=== PATIENT | male | born 2005 | race Caucasian/White ===

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

== ENCOUNTER 2025-01-01 05:38 | Emergency (ER) | payer OTHER, SELFPAY ==
--- NOTE | ~2025-01-01 | CT_ITS ---
EXAMINATION: CT ANGIOGRAM HEAD AND NECK CLINICAL INFORMATION: Severe headache, 19-year-old male. COMPARISON: None available. TECHNIQUE: Noncontrast axial imaging of the head was performed. This was followed by test bolus sequences and head and neck intravenous bolus administration 70 mL of Omnipaque 350. Helical imaging was performed in the axial plane from the aortic arch to the skull vertex. The data was processed at the certified hyperbaric technologist's workstation for generation of MIP sequences. Angled MIPs and volume rendered reformatted images were also generated at an offline 3D workstation. Stenoses are assessed in accordance with NASCET criteria unless otherwise indicated. This CT examination was performed using dose optimization techniques as appropriate, variously including the following: *Automated exposure control *Adjustment of mA and/or kV according to patient size (this includes techniques or standardized protocols for targeted exams where dose is matched to indication/reason for exam; i.e. extremities or head) *Use of iterative reconstruction technique FINDINGS: NONCONTRAST HEAD CT: There is no evidence of intracranial hemorrhage or extra-axial fluid collection. There is no mass effect, or edema. No CT evidence of acute territorial infarct. Ventricles, sulci, and cisterns are normal in size and configuration for patient age. No hydrocephalus. No midline shift. No significant white matter abnormalities. Globes and orbital contents image normally. No extracranial soft tissue abnormalities. The paranasal sinuses, mastoid air cells, and tympanic cavities are normally aerated. No suspicious bony abnormalities. NECK CTA: -AORTIC ARCH: Normal in caliber. No atheromatous calcification. Three-vessel branching pattern. -GREAT VESSEL ORIGINS: Widely patent. No stenosis. -RIGHT COMMON CAROTID ARTERY: Normal in course and caliber to the level of the bifurcation. -CERVICAL RIGHT INTERNAL CAROTID ARTERY: Normal opacification without focal stenosis or occlusion. -LEFT COMMON CAROTID ARTERY: Normal in course and caliber to the level of the bifurcation. -CERVICAL LEFT INTERNAL CAROTID ARTERY: Normal opacification without focal stenosis or occlusion. -CERVICAL RIGHT VERTEBRAL ARTERY: Dominant. Normal in origin, course and caliber into the skull base. -CERVICAL LEFT VERTEBRAL ARTERY: Nondominant. Normal in origin, course and caliber into the skull base. OTHER, SOFT TISSUES: -No lymphadenopathy or mass. No abnormal fluid collection or soft tissue swelling. -Normal thyroid. -Imaged superior mediastinal structures normal. -Imaged lung apices clear. CTA OF THE BRAIN: -INTRACRANIAL INTERNAL CAROTID ARTERIES: No focal stenosis or occlusion. -RIGHT ANTERIOR CEREBRAL ARTERY: Normal A1 segment.. Normal arborization of the distal segments. -LEFT ANTERIOR CEREBRAL ARTERY: Normal A1 segment.. Normal arborization of the distal segments. -ANTERIOR COMMUNICATING ARTERY: Normal. -RIGHT MIDDLE CEREBRAL ARTERY: Normal M1 segment of the MCA without focal stenosis or occlusion. Normal arborization of the distal segments. -LEFT MIDDLE CEREBRAL ARTERY: Normal M1 segment of the MCA without focal stenosis or occlusion. Normal arborization of the distal segments. -RIGHT VERTEBRAL ARTERY V4: Dominant. Normal in course and caliber. -LEFT VERTEBRAL ARTERY V4: Nondominant. Normal in course and caliber. -BASILAR ARTERY: Normal without focal stenosis or occlusion. Normal appearance of the proximal superior cerebellar arteries. Normal basilar tip. -RIGHT POSTERIOR CEREBRAL ARTERY: Normal P1 segment. Normal opacification of the distal COPY TECHNICIAN segments. -LEFT POSTERIOR CEREBRAL ARTERY: Normal P1 segment. Normal opacification of the distal COPY TECHNICIAN segments. -POSTERIOR COMMUNICATING ARTERIES: The right is well seen and patent. The left is diminutive. Normal opacification of the superior sagittal, straight, transverse, and sigmoid sinuses. No venous thrombosis. No space-occupying hemorrhage or definite evolving infarct. CT/CT angio head neck IMPRESSION: NONCONTRAST HEAD CT: 1. No intracranial hemorrhage or mass effect, and no evidence of acute territorial infarct. CTA NECK: 1. No significant stenosis, occlusion, dissection, or aneurysm in the major cervical arterial circulation. CTA HEAD: 1. No significant stenosis, occlusion, dissection, or aneurysm in the major intracranial arterial circulation. 2. The major cortical and dural venous sinuses are patent. Electronically signed by: Donaldo Salas MD 01/01/2025 10:29 AM EDT
[2025-01-01 07:50] VITALS: BP 118/69; PULSE 100; RESP 16; TEMP 37.5; O2SAT 98; BMI 18.5
[2025-01-01 07:53] VITALS: PULSE 100; O2SAT 98
--- NOTE | 2025-01-01 08:10 | ED.HA ---
HPI - Headache General Chief Complaint: Headache Stated Complaint: HEADACHES Time Seen by Provider: 01/01/25 08:01 Source: patient Mode of arrival: ambulatory Limitations: no limitations History of Present Illness HPI Narrative: This is a 19 years old the patient presented to the emergency department with a chief complaint of headache headache started yesterday about 07:00 with nausea. He has no neck pain. He has no prior history of headache. MD elicited complaint: headache Onset (ago): day(s) (1) Onset description: gradually Location: frontal Severity: moderate Quality & Timing: aching Exacerbating factors: none Relieving factors: nothing Context: occurred at rest Associated symptoms: nausea, vomiting and photophobia Treatments prior to arrival: none Related Data Previous Rx's ?Medication ?Instructions ?Recorded loperamide 2 mg tablet 2 mg PO Q4H PRN loose stool #14 07/14/24 tabs ondansetron 4 mg disintegrating 4 mg PO Q6H PRN nausea and 07/14/24 tablet vomiting #14 tabs ondansetron HCl 4 mg tablet 4 mg PO Q8H PRN nausea and 09/25/24 vomiting #10 tabs ibuprofen 800 mg tablet 800 mg PO TID PRN pain #20 tabs 01/01/25 Allergies Allergy/AdvReac Type Severity Reaction Status Date / Time No Known Allergies Allergy Verified 01/01/25 07:51 Review of Systems Constitutional: Constitutional: Reports no additional constitutional complaints ENT: Reports system reviewed and no additional complaints, except as documented Respiratory: Respiratory: Reports no additional respiratory complaints PMFSH Past Medical History Attestation statement: The following information was validated with the patient. Source: unable to obtain Social History Social History Smoked in Last 30 Days: No Use of substances other than those prescribed or required for medical reasons: No Advance Directives: No Advance Directives Information Provided: Yes Physical Exam Vital Signs: Vital Signs: Last Vital Signs Temp 97.2 F 01/01/25 11:04 Pulse 73 01/01/25 11:04 Resp 16 01/01/25 11:04 BP 100/56 L 01/01/25 11:04 Pulse Ox 97 01/01/25 11:04 O2 Del Method Room Air 01/01/25 11:04 BMI result Body Mass Index 18.5 No acute distress Const: General: cooperative and comfortable Nutritional Appearance: well nourished Orientation/consciousness: patient oriented x3 Limitations: no limitations HEENT: Head: Yes normal to inspection General nose exam: Normal external nose present Face and sinus: Yes normal facial exam Mouth: Normal oral and palatal mucosa present Throat: Yes posterior oropharynx normal Neck: Neck: Yes normal visual inspection, Yes full ROM and No no meningeal signs Resp: Effort & Inspection: normal respiratory effort Auscultation: clear to auscultation bilaterally Cardio: Jugular venous distension: no JVD Rate: regular rate Rhythm: regular rhythm GI: Inspection: Yes normal to inspection Palpation (GI): Soft to palpation, not firm and nontender Percussion: Yes normal to percussion Skin: General skin exam: no rashes or lesions noted and elasticity normal Neuro: General: patient oriented x3 and No no meningeal signs Cranial nerves: Yes CN's II-XII intact bilaterally Cognition (Neuro): normal cognition Gait exam (Neuro): Normal gait present Motor exam (neuro): 5/5 motor strength present throughout Course Reevaluation(s) Reevaluation #1: I re-examined the patient at this time is feeling much better CTA head and neck negative. I discussed with him LP risk and benefits discussed patient declined LP understand risk at this point is feeling better he wants to go home we will discharge him home Time: 10:49 Medications Administered Discontinued Medications Generic Name Dose Route Start Last Admin Trade Name Freq PRN Reason Stop Dose Admin Diphenhydramine HCl 25 mg 01/01/25 08:08 01/01/25 08:32 Diphenhydramine Hcl 50 Mg/Ml Vial IVPUSH 01/01/25 08:09 25 mg ONCE ONE Administration Sodium Chloride 1,000 mls @ 999 mls/hr 01/01/25 08:15 01/01/25 09:15 Ns IVCONT 01/01/25 09:15 Infused .Q1H1M PADMAJA Infusion Iohexol 100 ml 01/01/25 10:02 01/01/25 10:03 Iohexol 350 Mg/Ml 100 Ml Infus..Btl IV 01/01/25 10:03 70 ml ONCE ONE Administration Ketorolac Tromethamine 15 mg 01/01/25 08:10 01/01/25 08:31 Ketorolac Tromethamine 15 Mg/Ml Vial IVPUSH 01/01/25 08:11 15 mg ONCE ONE Administration Metoclopramide HCl 10 mg 01/01/25 08:08 01/01/25 08:32 Metoclopramide Hcl 10 Mg/2 Ml Vial IVPUSH 01/01/25 08:09 10 mg ONCE ONE Administration Medical Decision Making Medical Decision Making [facility] Narrative: Patient is here with a chief complaint of headache, we will obtain labs IV imaging ON RE-EXAMINATION FEELS MUCH BETTER REMAIN AFEBRILE CT ANGIOGRAPHY HEAD AND NECK NEGATIVE NO CLINICAL EVIDENCE OF SUBARACHNOID BLEED (ALSO CT ANGIOGRAPHY NEGATIVE) ALSO UNLIKELY MENINGITIS HE HAS NO FEVER NO NECK STIFFNESS Differential Diagnosis Differential Diagnoses: The differential diagnosis associated with the presentation includes Viral syndrome/unlikely meningitis he has no neck stiffness/unlikely subarachnoid no no worse headache ever onset gradual Admission/Observation Consideration of admission/observation: Escalation of care including admission/observation considered Lab Data 01/01/25 08:20 01/01/25 08:20 Labs: Lab Results 01/01/25 01/01/25 Range/Units 08:03 08:20 WBC 4.0 L (4.8-10.8) X10*3/uL RBC 4.69 (4.60-5.80) X10*6/uL Hgb 13.4 L (14.0-18.0) g/dl Hct 38.5 L (42.0-52.0) % MCV 82.1 (80.0-98.0) fL MCH 28.6 (27.0-33.0) pg MCHC 34.8 (31.0-36.0) g/dl RDW 12.4 (11.0-16.0) % Plt Count 167 D (160-400) X10*3/uL MPV 9.1 L (9.4-12.4) fL Immature Gran % (Auto) 0.5 H (0.0-0.4) % Neut % (Auto) 76.0 H (45-73) % Lymph % (Auto) 14.0 L (20-40) % [place] % (Auto) 9.0 (2-11) % Eos % (Auto) 0.0 (0-4) % Baso % (Auto) 0.5 (0-2) % Lymph # (Auto) 0.6 L (1.2-4.9) X10*3/uL [place] # (Auto) 0.4 (0.1-1.2) X10*3/uL Eos # (Auto) 0.0 (0.0-0.4) X10*3/uL Baso # (Auto) 0.0 (0.0-0.2) X10*3/uL Abs Immat Gran (auto) 0.02 (0.00-0.03) X10*3/uL Absolute Neuts (auto) 3.0 (2.0-8.3) x10*3/uL Absolute Nucleated RBC 0.000 (0.0-0.012) X10*3/uL Nucleated RBC % (auto) 0.0 (0.0-0.2) /100WBC Sodium 136 (135-145) mmol/L Potassium 3.6 (3.3-5.1) mmol/L Chloride 105 (96-108) mmol/L Carbon Dioxide 26 (22-29) mmol/L Anion Gap 9 L (12-20) BUN 8 L (9-16) mg/dL Creatinine 0.80 (0.5-1.4) mg/dL Estim Creat Clear Calc 130.0 Estimated GFR > 60 Random Glucose 139 H (60-115) mg/dL Calcium 9.0 D (8.4-10.2) mg/dL Total Bilirubin 0.4 (0.0-1.0) mg/dL AST 25 (5-37) U/L ALT 11 (0-40) U/L Alkaline Phosphatase 77 (39-117) U/L Total Protein 7.1 (6.5-8.0) g/dL Albumin 4.0 (3.5-5.0) g/dL Influenza Type A (PCR) NEGATIVE (Negative) Influenza Type B (PCR) NEGATIVE (Negative) RSV RNA Qual (PCR) NEGATIVE (Negative) SARS-CoV-2 RNA (RT-PCR) NEGATIVE (Negative) Independent Interpretation I performed an independent interpretation of an: CT Scan Radiology Impression Discussion of test interpretation with radiology: I have reviewed the radiologist's reading. Radiologist Impression: AL ARTERY: Normal P1 segment. Normal opacification of the distal ELECTRIC SWITCH TESTER segments. -LEFT POSTERIOR CEREBRAL ARTERY: Normal P1 segment. Normal opacification of the distal ELECTRIC SWITCH TESTER segments. -POSTERIOR COMMUNICATING ARTERIES: The right is well seen and patent. The left is diminutive. Normal opacification of the superior sagittal, straight, transverse, and sigmoid sinuses. No venous thrombosis. No space-occupying hemorrhage or definite evolving infarct. CT/CT angio head neck IMPRESSION: NONCONTRAST HEAD CT: 1. No intracranial hemorrhage or mass effect, and no evidence of acute territorial infarct. CTA NECK: 1. No significant stenosis, occlusion, dissection, or aneurysm in the major cervical arterial circulation. CTA HEAD: 1. No significant stenosis, occlusion, dissection, or aneurysm in the major intracranial arterial circulation. 2. The major cortical and dural venous sinuses are patent. Electronically signed by: Donaldo Salas MD 01/01/2025 10:29 AM EDT RP Discharge Plan Discharge Clinical Impression: Headache Qualifiers: Headache type: unspecified Headache chronicity pattern: acute headache Intractability: not intractable Qualified Code(s): R51.9 - Headache, unspecified Patient Disposition: Home, Self-Care Instructions: Acute Headache (DC) Additional Instructions: Please follow-up with your primary care physician. As we discussed your CAT scan was normal. The emergency room physician discussed with your lumbar puncture but you declined. Prescriptions: New ibuprofen 800 mg tablet 800 mg PO TID PRN (Reason: pain) Qty: 20 0RF No Action ondansetron 4 mg tablet,disintegrating 4 mg PO Q6H PRN (Reason: nausea and vomiting) Qty: 14 0RF loperamide 2 mg tablet 2 mg PO Q4H PRN (Reason: loose stool) Qty: 14 0RF Rx Instructions: administer after each loose stool until symptoms controlled; do not exceed 8 mg per 24 hrs ondansetron HCl 4 mg tablet 4 mg PO Q8H PRN (Reason: nausea and vomiting) Qty: 10 0RF Referrals: Physician,Unknown J [Primary Care Provider, Medical] - 2 days Stand Alone Forms: Work/School Release Interventions: ED Discharge Assessment Last Done: 01/01/25 11:04 Discharge Date/Time: 01/01/25 11:04 Print Language: Nepalese
[2025-01-01] MEDS: 0.9 % Sodium Chloride 1,000 ML 999 ML IVCONT (08:23)
[2025-01-01 08:27] LABS: MANUAL DIFF FLAG NO
[2025-01-01 08:28] LABS: Basophils Percent Auto 0.5 % (0-2); Hematocrit 38.5 % (42.0-52.0); Hemoglobin 13.4 g/dl (14.0-18.0); Imm Gran Abs Auto 0.02 X10*3/uL (0.00-0.03); Imm Gran Pct Auto 0.5 % (0.0-0.4); Lymphocytes Absolute Auto 0.6 X10*3/uL (1.2-4.9); Mean Corpuscular HGB Conc 34.8 g/dl (31.0-36.0); Mean Corpuscular Hemoglobin 28.6 pg (27.0-33.0); Mean Corpuscular Volume 82.1 fL (80.0-98.0); Mean Platelet Volume 9.1 fL (9.4-12.4); Monocytes Absolute Auto 0.4 X10*3/uL (0.1-1.2); Platelet Count 167 X10*3/uL (160-400); Red Blood Count 4.69 X10*6/uL (4.60-5.80); Red Cell Distribution Width 12.4 % (11.0-16.0)
[2025-01-01] MEDS: Ketorolac Tromethamine 15 MG/ML VIAL IVPUSH (08:31)
[2025-01-01] MEDS: diphenhydrAMINE HCL 50 MG/ML VIAL 25 MG IVPUSH (08:32)
[2025-01-01] MEDS: Metoclopramide HCl 10 MG/2 ML VIAL IVPUSH (08:32)
[2025-01-01 08:35] VITALS: BP 111/65; PULSE 73; RESP 14; O2SAT 99
[2025-01-01 08:46] LABS: Influenza A PCR NEGATIVE (Negative); Influenza B PCR NEGATIVE (Negative); Resp Syncy Virus RNA Qual PCR NEGATIVE (Negative); SARS COV2 PCR INHOUSE NEGATIVE (Negative)
[2025-01-01 08:56] LABS: Alanine Aminotransferase 11 U/L (0-40); Alkaline Phosphatase 77 U/L (39-117); Anion Gap 9 (12-20); Aspartate Amino Transferase 25 U/L (5-37); Bilirubin Total 0.4 mg/dL (0.0-1.0); Blood Urea Nitrogen 8 mg/dL (9-16); Carbon Dioxide 26 mmol/L (22-29); Chloride 105 mmol/L (96-108); Estimated Glomerular Filt Rate > 60; Glucose Random 139 mg/dL (60-115); Potassium 3.6 mmol/L (3.3-5.1); Sodium 136 mmol/L (135-145); Total Protein 7.1 g/dL (6.5-8.0)
[2025-01-01] MEDS: iohexoL 350 MG/ML 100 ML INFUS..BTL IV (10:03)
[2025-01-01 10:48] VITALS: BP 100/56; PULSE 73; RESP 16; O2SAT 97
[2025-01-01 11:04] VITALS: BP 100/56; PULSE 73; RESP 16; TEMP 36.2; O2SAT 97
== END 2025-01-01 11:04 | disposition home or self-care (01) ==
PROVIDERS: Emergency Provider Emergency Medicine
DX: R51.9 Headache, unspecified (principal); R11.2 Nausea with vomiting, unspecified; Z03.818 Encounter for observation for suspected exposure to other biological agents ruled out
CPT/HCPCS: 0241U; 36415; 70496; 70498; 80053; 85025; 96361; 96374; 96375; 99284; 99285; J1200; J1885; J2765; Q9967

== ENCOUNTER → 2025-01-01 08:08 | Outpatient (BNV) | payer OTHER, SELFPAY | PROVIDERS: Emergency Provider Emergency Medicine; Visit Provider Radiology Diagnostic Radiology | DX: R51.9 Headache, unspecified (principal) | CPT/HCPCS: 70496; 70498 ==

== ENCOUNTER 2025-01-26 15:58 | Inpatient (IN) | payer MEDICAID, SELFPAY ==
--- NOTE | ~2025-01-26 | CT_ITS ---
CLINICAL HISTORY: RLQ pain, nausea CT abdomen and pelvis with contrast Comparison: None provided Findings: No consolidation or effusion. Unremarkable gallbladder and solid organs. No urolithiasis. Scattered colonic diverticulosis. Multifocal inflammatory changes noted along the cecum, ascending colon terminal and distal ileum with prominent mural thickening, submucosal edema and mucosal hyperemia. There is adjacent inflammatory changes in the mesentery of the right lower quadrant with fluid stranding fat stranding and prominent mesenteric nodes, likely reactive. Suspected ill-defined peripherally enhancing small extraluminal collections adjacent to the inflamed loops of small bowel in the right lower quadrant, for example series 2, image 64, measuring up to 2.1 cm for example. Prominent inguinal nodes, may be reactive. Appendix possibly identified series 5, image 44, visualized aspects appear normal in caliber. This may be further evaluated on follow-up. Trace free pelvic fluid. The bones are intact. IMPRESSION: Findings consistent with prominent proximal colitis, distal enteritis and suspected small intrapelvic abscesses described. Attention on follow-up. This document has been electronically signed by: Richard Alegre MD on 01/26/2025 19:06:25
[2025-01-26 16:29] VITALS: BP 116/72; PULSE 100; RESP 16; TEMP 36.8; O2SAT 97; BMI 17.8
--- NOTE | 2025-01-26 16:30 | ED.GENADULT ---
HPI - General Adult General Chief complaint: Abdominal Pain Stated complaint: sharp abd pain Time Seen by Provider: 01/26/25 18:12 Source: patient Limitations: no limitations History of Present Illness ED Provider: Roslyn Saucedo PA-C HPI narrative: 19-year-old male who is otherwise healthy presents with the abdominal pain x3 days. Pain is generalized, most prominent across lower abdomen, unable to describe the nature of his symptoms. Patient can not recall when his last bowel movement was, he denies distention or inability to pass flatus. Associated nausea vomiting at times, denies diarrhea, specifically no bright red blood per rectum. No fevers. No sick contacts with similar symptoms. Denies recent travel, hospitalization, use of antibiotics. Denies family history of Crohn's disease or ulcerative colitis. Related Data Previous Rx's ?Medication ?Instructions ?Recorded loperamide 2 mg tablet 2 mg PO Q4H PRN loose stool #14 07/14/24 tabs ondansetron 4 mg disintegrating 4 mg PO Q6H PRN nausea and 07/14/24 tablet vomiting #14 tabs ondansetron HCl 4 mg tablet 4 mg PO Q8H PRN nausea and 09/25/24 vomiting #10 tabs ibuprofen 800 mg tablet 800 mg PO TID PRN pain #20 tabs 01/01/25 Allergies Allergy/AdvReac Type Severity Reaction Status Date / Time No Known Allergies Allergy Verified 01/26/25 16:31 Review of Systems Review of Systems: Yes all other systems are reviewed and are negative Constitutional: Constitutional: Denies fatigue and Denies fever(s) Cardiovascular: Cardiovascular: Denies chest pain and Denies dyspnea Respiratory: Respiratory: Denies dyspnea Gastrointestinal: Gastrointestinal: Reports abdominal pain, Denies hematochezia, Denies constipation, Denies diarrhea, Reports nausea and Reports vomiting Endocrine: Endocrine: Denies fatigue PMFSH Past Medical History Attestation statement: The following information was validated with the patient. Social History Social History Alcohol intake: never Smoked in Last 30 Days: No Use of substances other than those prescribed or required for medical reasons: No Advance Directives: No Advance Directives Information Provided: No Do you have a plan to hurt others: No Plan Physical Exam ED Vital Signs: Vital Signs - 24 hr 01/26/25 16:29 01/26/25 17:56 Temperature 98.3 F 98.4 F Pulse Rate 100 84 Respiratory Rate 16 16 Blood Pressure 116/72 124/73 Pulse Oximetry 97 99 Oxygen Delivery Method Room Air Room Air BMI result Body Mass Index 17.8 Const Other: Alert Orientation/consciousness: patient oriented x3 Resp Effort & Inspection: normal respiratory effort Cardio Other: Normal peripheral perfusion GI Other: Abdomen is nondistended, moderate tenderness throughout with mild involuntary guarding across lower abdomen Skin Other: Warm dry no rash Neuro General: patient oriented x3, gait normal, no focal motor deficits and CN's II-XI intact bilaterally Psych Other: Cooperative Course Course Course Narrative: Medical screening exam performed. Please refer to detailed history, exam, evaluation, and management by primary provider. 19-year-old male who denies significant past medical history with 2-3 days of abdominal pain, possible constipation. On limited exam at triage, patient is tender in the right lower quadrant. No peritoneal signs. Check labs, CT. No history of abdominal surgery. Of note, patient attempted enema earlier today that was unsuccessful according to the patient. Consultations Consultation #1: per Dr. Adler...Dr. Adler says this is not surgical, he agrees it is likely Crohn's, he will consult, but no surgical intervention he recommends medical admit Time: 19:45 Consultation #2: per Dr. Jones.... he says.......It?s in the right location for Crohn?s, but it would be unusual to present so acutely. It sounds like it may be more of some type of infectious process. I would agree with antibiotics and the surgical consultation. Please order a fecal calprotectin level, GI panel, and C.diff as well. Time: 19:45 Medications Administered Generic Name Dose Route Start Last Admin Trade Name Freq PRN Reason Stop Dose Admin Sodium Chloride 1,000 mls @ 999 mls/hr 01/26/25 19:15 01/26/25 19:36 Ns IV 01/26/25 20:15 999 mls/hr .Q1H1M PADMAJA Administration Discontinued Medications Generic Name Dose Route Start Last Admin Trade Name Freq PRN Reason Stop Dose Admin Piperacillin Sod/Tazobactam 50 mls @ 100 mls/hr 01/26/25 19:12 01/26/25 19:36 Sod 3.375 gm/ Sodium Chloride IV 01/26/25 19:41 100 mls/hr ONCE ONE Administration Iohexol 100 ml 01/26/25 18:18 01/26/25 18:19 Iohexol 350 Mg/Ml 100 Ml Infus..Btl IV 01/26/25 18:19 85 ml ONCE ONE Administration Morphine Sulfate 4 mg 01/26/25 19:12 01/26/25 19:35 Morphine Sulfate 4 Mg/Ml Cartridge IVPUSH 01/26/25 19:13 4 mg ONCE ONE Administration Protocol Ondansetron HCl 4 mg 01/26/25 19:12 01/26/25 19:35 Ondansetron Hcl 4 Mg/2 Ml Vial IVPUSH 01/26/25 19:13 4 mg ONCE ONE Administration Medical Decision Making Medical Decision Making MDM Narrative: 19-year-old male who is otherwise healthy presents with the abdominal pain x3 days. Pain is generalized, most prominent across lower abdomen, unable to describe the nature of his symptoms. Patient can not recall when his last bowel movement was, he denies distention or inability to pass flatus. Associated nausea vomiting at times, denies diarrhea, specifically no bright red blood per rectum. No fevers. No sick contacts with similar symptoms. Denies recent travel, hospitalization, use of antibiotics. Denies family history of Crohn's disease or ulcerative colitis. No chronic issues History: Per patient I have considered the following differential diagnoses: Constipation, bowel obstruction, diverticulitis, ulcerative colitis/Crohn's, viral gastroenteritis, C diff, traveler's diarrhea Plan: Screening labs and CT scan already ordered from triage, the patient has colitis and enteritis. He is otherwise healthy and has no family history for Crohn's or ulcerative colitis, it is suspicious. He is also not having bloody stool. He has no risk factors for C diff, or traveler's diarrhea, in actuality he is not having any diarrhea. His exam was also not consistent with bowel obstruction despite him not knowing when he last had a bowel movement. He has a micro abscesses on CT, we will be adding blood cultures, lactic and starting Zosyn. Giving fluids Zofran and morphine. I do not believe this is a surgical issue, I believe he needs GI, and admission to the hospital. Adding on inflammatory markers. I have independently reviewed the following tests: Labs: No overall leukocytosis but left shift noted, not anemic, no electrolyte abnormality, urine not infected, CT abdomen and pelvis:Unremarkable gallbladder and solid organs. No urolithiasis. Scattered colonic diverticulosis. Multifocal inflammatory changes noted along the cecum, ascending colon terminal and distal ileum with prominent mural thickening, submucosal edema and mucosal hyperemia. There is adjacent inflammatory changes in the mesentery of the right lower quadrant with fluid stranding fat stranding and prominent mesenteric nodes, likely reactive. Suspected ill-defined peripherally enhancing small extraluminal collections adjacent to the inflamed loops of small bowel in the right lower quadrant, for example series 2, image 64, measuring up to 2.1 cm for example. Prominent inguinal nodes, may be reactive. Appendix possibly identified series 5, image 44, visualized aspects appear normal in caliber. This may be further evaluated on follow-up. Trace free pelvic fluid. The bones are intact. IMPRESSION: Findings consistent with prominent proximal colitis, distal enteritis and suspected small intrapelvic abscesses described. Attention on follow-up. Lab Data 01/26/25 17:26 01/26/25 17:26 Labs: Lab Results 01/26/25 01/26/25 01/26/25 Range/Units 17:26 17:48 19:22 WBC 9.3 (4.8-10.8) X10*3/uL RBC 4.95 (4.60-5.80) X10*6/uL Hgb 14.1 (14.0-18.0) g/dl Hct 41.1 L (42.0-52.0) % MCV 83.0 (80.0-98.0) fL MCH 28.5 (27.0-33.0) pg MCHC 34.3 (31.0-36.0) g/dl RDW 12.9 (11.0-16.0) % Plt Count 205 (160-400) X10*3/uL MPV 9.2 L (9.4-12.4) fL Immature Gran % (Auto) 0.2 (0.0-0.4) % Neut % (Auto) 74.7 H (45-73) % Lymph % (Auto) 14.1 L (20-40) % [place] % (Auto) 9.6 (2-11) % Eos % (Auto) 1.1 (0-4) % Baso % (Auto) 0.3 (0-2) % Lymph # (Auto) 1.3 (1.2-4.9) X10*3/uL [place] # (Auto) 0.9 (0.1-1.2) X10*3/uL Eos # (Auto) 0.1 (0.0-0.4) X10*3/uL Baso # (Auto) 0.0 (0.0-0.2) X10*3/uL Abs Immat Gran (auto) 0.02 (0.00-0.03) X10*3/uL Absolute Neuts (auto) 7.0 (2.0-8.3) x10*3/uL Absolute Nucleated RBC 0.000 (0.0-0.012) X10*3/uL Nucleated RBC % (auto) 0.0 (0.0-0.2) /100WBC Sodium 139 (135-145) mmol/L Potassium 4.0 (3.3-5.1) mmol/L Chloride 103 (96-108) mmol/L Carbon Dioxide 27 (22-29) mmol/L Anion Gap 13 (12-20) BUN 10 (9-16) mg/dL Creatinine 0.87 (0.5-1.4) mg/dL Estim Creat Clear Calc 111.8 Estimated GFR > 60 Random Glucose 85 (60-115) mg/dL Lactic Acid 0.9 (0.5-2.0) mmol/L Calcium 9.5 (8.4-10.2) mg/dL Total Bilirubin 0.7 (0.0-1.0) mg/dL AST 19 (5-37) U/L ALT 8 (0-40) U/L Alkaline Phosphatase 78 (39-117) U/L Total Protein 7.8 (6.5-8.0) g/dL Albumin 4.3 (3.5-5.0) g/dL Lipase 13 (8-78) U/L Urine Color Dark Yellow Urine Appearance Clear Urine pH 5.5 (5.0-9.0) Ur Specific [place] >= 1.030 H (1.005-1.025) Urine Protein 30 (1+) H (Neg-Trace) mg/dL Urine Glucose (UA) Negative (Negative) mg/dL Urine Ketones 80 (Negative) mg/dL Urine Blood Negative (Negative) Urine Nitrite Negative (Negative) Ur Leukocyte Esterase Negative (Negative) Urine RBC 0-2 (0-2) /HPF Urine WBC 0-5 (0-5) /HPF Ur Squamous Epith Cells 0-2 (0-2) /HPF Urine Bacteria None Seen (None Seen) Hyaline Casts 11-20 (0-2) /LPF Discharge Plan Discharge Clinical Impression: Colitis, Enteritis, Intra-abdominal abscess Patient Disposition: Admitted As Inpatient Print Language: Estonian
[2025-01-26 17:35] LABS: MANUAL DIFF FLAG NO
[2025-01-26 17:37] LABS: Hematocrit 41.1 % (42.0-52.0); Hemoglobin 14.1 g/dl (14.0-18.0); Imm Gran Abs Auto 0.02 X10*3/uL (0.00-0.03); Imm Gran Pct Auto 0.2 % (0.0-0.4); Lymphocytes Absolute Auto 1.3 X10*3/uL (1.2-4.9); Mean Corpuscular HGB Conc 34.3 g/dl (31.0-36.0); Mean Corpuscular Hemoglobin 28.5 pg (27.0-33.0); Mean Corpuscular Volume 83.0 fL (80.0-98.0); NRBC Abs Auto 0.000 X10*3/uL (0.0-0.012); NRBC Pct Auto 0.0 /100WBC (0.0-0.2); Platelet Count 205 X10*3/uL (160-400); Red Blood Count 4.95 X10*6/uL (4.60-5.80); White Blood Count 9.3 X10*3/uL (4.8-10.8)
[2025-01-26 17:50] LABS: Alanine Aminotransferase 8 U/L (0-40); Albumin Level 4.3 g/dL (3.5-5.0); Alkaline Phosphatase 78 U/L (39-117); Anion Gap 13 (12-20); Aspartate Amino Transferase 19 U/L (5-37); Blood Urea Nitrogen 10 mg/dL (9-16); Calcium 9.5 mg/dL (8.4-10.2); Carbon Dioxide 27 mmol/L (22-29); Chloride 103 mmol/L (96-108); Creatinine Clr Calc Pharmacy 111.8; Estimated Glomerular Filt Rate > 60; Lipase 13 U/L (8-78); Potassium 4.0 mmol/L (3.3-5.1); Sodium 139 mmol/L (135-145); Total Protein 7.8 g/dL (6.5-8.0)
[2025-01-26 17:56] VITALS: BP 124/73; PULSE 84; RESP 16; TEMP 36.9; O2SAT 99
[2025-01-26 18:02] LABS: Appearance Urine Clear; Glucose Urine UA Negative (Negative); PH 5.5 (5.0-9.0); Specific Gravity - Urine >= 1.030 (1.005-1.025); UMIC TRIGGER UA YES
[2025-01-26] MEDS: iohexoL 350 MG/ML 100 ML INFUS..BTL IV (18:19)
--- NOTE | 2025-01-26 20:29 | P.HPHOSP_ITS ---
History of Present Illness Date of Service: 01/26/25 Chief Complaint: Abdominal pain This has a 19-year-old male with no pertinent past medical history and not on medications who presents to the emergency department for evaluation of abdominal pain. Patient states his symptoms started 2 days prior to presentation. Patient started having intermittent lower abdominal discomfort which was generalized, nonprogressive, nonradiating and without any relieving factors. This has never happened before. No previous abdominal surgery or GI issues. Occasionally patient has had constipation. He has been having associated nausea and nonbloody emesis along with the abdominal discomfort. No fever or chills. No sick contacts. Denies significant alcohol use or tobacco use. No melena or hematochezia. Denies any inciting factors, recent travels. Did not eat anything unusual that he knows of. No family history of inflammatory bowel disease that he knows of. No chest pain, palpitations, shortness of breath, changes in urinary habits. In the emergency department, imaging with colitis, enteritis and intrapelvic abscesses. General surgery and gastroenterology consulted who requested admission to medicine team. Review of Systems 2 Constitutional: Constitutional: Reports no additional constitutional complaints Cardiovascular: Cardiovascular: Reports no additional cardiovascular complaints Respiratory: Respiratory: Reports no additional respiratory complaints Gastrointestinal: Gastrointestinal: Reports abdominal pain, Reports nausea and Reports vomiting Genitourinary: Genitourinary: Reports no additional male genitourinary complaints PMFSH Pertinent family history: No family history of early CAD Social History Alcohol intake: never Smoked in Last 30 Days: No Use of substances other than those prescribed or required for medical reasons: No Advance Directives: No Advance Directives Information Provided: No Do you have a plan to hurt others: No Plan Meds Allergies Allergy/AdvReac Type Severity Reaction Status Date / Time No Known Allergies Allergy Verified 01/26/25 16:31 Physical Exam 2 Vital Signs and Narrative: Vital Signs: Last Vital Signs Temp 98.4 F 01/26/25 17:56 Pulse 84 01/26/25 17:56 Resp 16 01/26/25 17:56 BP 124/73 01/26/25 17:56 Pulse Ox 99 01/26/25 17:56 O2 Del Method Room Air 01/26/25 17:56 BMI result Body Mass Index 17.8 Young male lying in bed in no distress Neck supple, no JVD Regular rate and rhythm, S1-S2 heard Regular breath sounds bilaterally, no wheezing or crackles appreciated Abdomen with tenderness and mild guarding across lower abdomen, no rigidity Patient is awake, alert and oriented to self, place, time and person ; no focal motor deficit Psych: Normal mood No pedal edema Results Labs 01/26/25 17:26 01/26/25 17:26 Labs: Laboratory Results - last 24 hr 01/26/25 01/26/25 01/26/25 17:26 17:48 19:22 MCV 83.0 MCH 28.5 MCHC 34.3 RDW 12.9 Plt Count 205 MPV 9.2 L Immature Gran % (Auto) 0.2 Neut % (Auto) 74.7 H Lymph % (Auto) 14.1 L [place] % (Auto) 9.6 Eos % (Auto) 1.1 Baso % (Auto) 0.3 Lymph # (Auto) 1.3 [place] # (Auto) 0.9 Eos # (Auto) 0.1 Baso # (Auto) 0.0 Abs Immat Gran (auto) 0.02 Absolute Neuts (auto) 7.0 Absolute Nucleated RBC 0.000 Nucleated RBC % (auto) 0.0 ESR 25 H Anion Gap 13 Estim Creat Clear Calc 111.8 Estimated GFR > 60 Random Glucose 85 Lactic Acid 0.9 Calcium 9.5 Total Bilirubin 0.7 AST 19 ALT 8 Alkaline Phosphatase 78 C-Reactive Protein Total Protein 7.8 Albumin 4.3 Lipase 13 Urine Color Dark Yellow Urine Appearance Clear Urine pH 5.5 Ur Specific [place] >= 1.030 H Urine Protein 30 (1+) H Urine Glucose (UA) Negative Urine Ketones 80 Urine Blood Negative Urine Nitrite Negative Ur Leukocyte Esterase Negative Urine RBC 0-2 Urine WBC 0-5 Ur Squamous Epith Cells 0-2 Urine Bacteria None Seen Hyaline Casts 11-20 01/26/25 19:48 MCV MCH MCHC RDW Plt Count MPV Immature Gran % (Auto) Neut % (Auto) Lymph % (Auto) [place] % (Auto) Eos % (Auto) Baso % (Auto) Lymph # (Auto) [place] # (Auto) Eos # (Auto) Baso # (Auto) Abs Immat Gran (auto) Absolute Neuts (auto) Absolute Nucleated RBC Nucleated RBC % (auto) ESR Anion Gap Estim Creat Clear Calc Estimated GFR Random Glucose Lactic Acid Calcium Total Bilirubin AST ALT Alkaline Phosphatase C-Reactive Protein 10.56 H Total Protein Albumin Lipase Urine Color Urine Appearance Urine pH Ur Specific [place] Urine Protein Urine Glucose (UA) Urine Ketones Urine Blood Urine Nitrite Ur Leukocyte Esterase Urine RBC Urine WBC Ur Squamous Epith Cells Urine Bacteria Hyaline Casts Assessment and Plan (1) Colitis: Status: Acute (2) Intra-abdominal abscess: Status: Acute (3) Enteritis: Status: Acute Plan This has a 19-year-old male with no pertinent past medical history and not on medications who presents to the emergency department for evaluation of abdominal pain. #. Colitis/enteritis with intrapelvic abscesses: Will admit patient with IV antibiotics. Consulted Gastroenterology and General surgery, appreciate assistance. Fecal calprotectin level, GI panel and C diff pending DVT prophylaxis: None. Low risk. Patient is ambulatory Full code Admit as inpatient and will require two night minimum hospital stay for IV antibiotics (as above), which is not possible in a lesser acute setting. Specialist consult pending Quality Stroke Does the patient have a stroke diagnosis?: No VTE Prior VTE?: No VTE Risk Level:: Medical - low VTE Device Contraindication: Treatment Not Indicated VTE Drug Contraindication: Treatment Not Indicated
[2025-01-26 22:01] VITALS: BP 100/64; PULSE 84; RESP 15; TEMP 36.8; O2SAT 99
[2025-01-27 01:35] VITALS: BP 108/58; PULSE 77; RESP 16; TEMP 36.8; O2SAT 99
[2025-01-27] MEDS: 0.9 % Sodium Chloride Flush 3 ML SYRINGE IVFLUSH ×2 (01:38→08:01)
[2025-01-27 05:40] LABS: MANUAL DIFF FLAG NO
[2025-01-27 05:41] LABS: Hematocrit 35.5 % (42.0-52.0); Hemoglobin 11.7 g/dl (14.0-18.0); Imm Gran Abs Auto 0.03 X10*3/uL (0.00-0.03); Imm Gran Pct Auto 0.5 % (0.0-0.4); Lymphocytes Absolute Auto 1.7 X10*3/uL (1.2-4.9); Mean Corpuscular HGB Conc 33.0 g/dl (31.0-36.0); Mean Corpuscular Hemoglobin 28.1 pg (27.0-33.0); Mean Corpuscular Volume 85.3 fL (80.0-98.0); NRBC Abs Auto 0.000 X10*3/uL (0.0-0.012); NRBC Pct Auto 0.0 /100WBC (0.0-0.2); Platelet Count 193 X10*3/uL (160-400); Red Blood Count 4.16 X10*6/uL (4.60-5.80); White Blood Count 6.6 X10*3/uL (4.8-10.8)
[2025-01-27 05:58] VITALS: BP 109/55; PULSE 58; RESP 16; TEMP 36.5; O2SAT 98
[2025-01-27 05:59] LABS: Anion Gap 10 (12-20); Blood Urea Nitrogen 9 mg/dL (9-16); Calcium 8.6 mg/dL (8.4-10.2); Carbon Dioxide 24 mmol/L (22-29); Chloride 107 mmol/L (96-108); Creatinine Clr Calc Pharmacy 120.1; Estimated Glomerular Filt Rate > 60; Potassium 3.4 mmol/L (3.3-5.1); Sodium 138 mmol/L (135-145)
--- NOTE | 2025-01-27 07:07 | PC.NURSE ---
Oncoming RN, Moe and TW completed bedside safe start. PIN not working for oncoming RN. Full report given.
--- NOTE | 2025-01-27 07:21 | P.CONGS_ITS ---
History of Present Illness Consult details Consult date: 01/27/25 <Joseph Lowe PA-C - Last Filed: 01/27/25 10:03> Narrative: 19-year-old male with no pertinent past medical history and not on medications who presented to the emergency department for evaluation of abdominal pain. Patient states the pain started about 2 days ago and ws located in the lower abdomen. The pain is intermittent, spikes to 9/10 and at rest is 4/10. He has associated nausea, vomiting yesterday, decreased appetite. Pain is not aggravated by food. He states that he cannot recall his last true bowel movement, endorses some small stool and gas. This is abnormal for him, typically bowel movements daily or every other day. He denies sick contacts or travel, no changes to diet. He has no history of GI disease, denies family history. he currently does not take any medications. Denies alcohol, drug use, smoking. On imaging patient was found to have proximal colitis, distal enteritis and small intrapelvic abscesses. There was no leukocytosis on labs. He was admitted to the medical service for management with IV abx, GI consult is pending. Fecal calprotectin level, GI panel and C diff pending Currently he feels okay, still has abdominal pain in lower abdomen, denies current nausea/vomiting. Denies fever or chills. <Joseph Lowe PA-C - Last Filed: 01/27/25 10:03> Review of Systems 2 Review of Systems: Yes all other systems are reviewed and are negative < Joseph Lowe PA-C - Last Filed: 01/27/25 10:03> [facility] Social History Social History: Social History (System 01/27/25 @ 07:04 by Cristy Cortes) Household Members: Family Housing: Apartment Do you presently have visiting nurse or other home services: No Alcohol intake: never Patient Tobacco Use Status: Never used Tobacco service: No <Joseph Lowe PA-C - Last Filed: 01/27/25 10:03> Meds Allergies/Adverse reactions: Allergies Allergy/AdvReac Type Severity Reaction Status Date / Time No Known Allergies Allergy Verified 01/27/25 07:04 <Joseph Lowe PA-C - Last Filed: 01/27/25 10:03> Active Medications: Current Medications Acetaminophen (Acetaminophen 325 Mg Tablet) 650 mg PO Q6H PRN PRN Reason: Pain, Mild 1-3,fever,headache Last Admin: 01/27/25 01:37 Dose: 650 mg Calcium Carbonate (Calcium Carbonate 750 Mg Tab.Chew) 750 mg PO Q4H PRN PRN Reason: Heartburn Piperacillin Sod/Tazobactam (Sod 4.5 gm/ Sodium Chloride) 100 mls @ 200 mls/hr IV Q6H [facility] Last Infusion: 01/27/25 02:15 Dose: Infused Magnesium Hydroxide (Milk Of Magnesia 30 Ml Oral.Susp) 30 ml PO DAILY PRN PRN Reason: Constipation Melatonin (Melatonin 3 Mg Tablet) 6 mg PO BEDTIME PRN PRN Reason: Insomnia Morphine Sulfate (Morphine Sulfate 4 Mg/Ml Cartridge) 2 mg IVPUSH Q6H PRN; Protocol PRN Reason: Pain, Severe (Pain Scale 7-10) Ondansetron HCl (Ondansetron Hcl 4 Mg/2 Ml Vial) 4 mg IVPUSH Q8H PRN PRN Reason: Nausea and Vomiting Sodium Chloride (0.9 % Sodium Chloride Flush 3 Ml Syringe) 3 ml IVFLUSH QSHIFT [facility] Last Admin: 01/27/25 01:38 Dose: 3 ml <Joseph Lowe PA-C - Last Filed: 01/27/25 10:03> Home medications: Home Medications ?Medication ?Instructions ?Recorded ?Confirmed ?Last Taken ?Type No Known Home Meds 01/27/25 01/27/25 Un known History <Joseph Lowe PA-C - Last Filed: 01/27/25 10:03> Physical Exam 2 Vital Signs: Vital Signs: Last Vital Signs Temp 97.7 F 01/27/25 05:58 Pulse 58 01/27/25 05:58 Resp 16 01/27/25 05:58 BP 109/55 L 01/27/25 05:58 Pulse Ox 98 01/27/25 05:58 O2 Del Method Room Air 01/27/25 05:58 BMI result Body Mass Index 17.8 <YOANA Barnett Last Filed: 01/27/25 10:03> Const: General: no acute distress; No comfortable <YOANA Barnett Last Filed: 01/27/25 10:03> Nutritional Appearance: average body habitus <YOANA Barnett Last Filed: 01/27/25 10:03> Orientation/consciousness: patient oriented x3 <Joseph YOANA Lowe Darshan Last Filed: 01/27/25 10:03> Resp: Effort & Inspection: normal respiratory effort and able to speak in complete sentences <YOANA Barnett Last Filed: 01/27/25 10:03> GI: Inspection: No distended <Joseph Lowe PA-C Darshan Last Filed: 01/27/25 10:03> Palpation (GI): Soft to palpation, not firm, Tenderness to palpation present (GI) (generalized, primarily lower abdomen), Guarding due to palpation present (GI) (voluntary) and not rigid <Joseph Lowe PA-C Darshan Last Filed: 01/27/25 10:03> Percussion: Yes normal to percussion <Jospeh Lowe PA-C Darshan Last Filed: 01/27/25 10:03> Neuro: General: patient oriented x3 <Joseph Lowe PA-C Darshan Last Filed: 01/27/25 10:03> Results Labs Result diagrams: 01/29/25 05:45 01/28/25 05:29 <Joseph MynorYOANA Darshan Last Filed: 01/27/25 10:03> Labs: Abnormal lab results 01/26/25 01/26/25 01/26/25 Range/Units 17:26 17:48 19:48 RBC (4.60-5.80) X10*6/uL Hgb (14.0-18.0) g/dl Hct 41.1 L (42.0-52.0) % MPV 9.2 L (9.4-12.4) fL Immature Gran % (Auto) (0.0-0.4) % Neut % (Auto) 74.7 H (45-73) % Lymph % (Auto) 14.1 L (20-40) % [place] % (Auto) (2-11) % ESR 25 H (0-15) MM/HR Anion Gap (12-20) C-Reactive Protein 10.56 H (< or = 0.50) mg/dL Ur Specific [place] >= 1.030 H (1.005-1.025) Urine Protein 30 (1+) H (Neg-Trace) mg/dL 01/27/25 Range/Units 05:26 RBC 4.16 L (4.60-5.80) X10*6/uL Hgb 11.7 L (14.0-18.0) g/dl Hct 35.5 L (42.0-52.0) % MPV (9.4-12.4) fL Immature Gran % (Auto) 0.5 H (0.0-0.4) % Neut % (Auto) (45-73) % Lymph % (Auto) (20-40) % [place] % (Auto) 11.4 H (2-11) % ESR (0-15) MM/HR Anion Gap 10 L (12-20) C-Reactive Protein (< or = 0.50) mg/dL Ur Specific [place] (1.005-1.025) Urine Protein (Neg-Trace) mg/dL Short CBC 01/26/25 01/27/25 Range/Units 17:26 05:26 WBC 9.3 6.6 (4.8-10.8) X10*3/uL Hgb 14.1 11.7 L (14.0-18.0) g/dl Hct 41.1 L 35.5 L (42.0-52.0) % Plt Count 205 193 (160-400) X10*3/uL BMP 01/26/25 01/27/25 17:26 05:26 Sodium 139 138 Potassium 4.0 3.4 Chloride 103 107 Carbon Dioxide 27 24 BUN 10 9 Creatinine 0.87 0.81 Calcium 9.5 8.6 D Liver Function 01/26/25 Range/Units 17:26 Total Bilirubin 0.7 (0.0-1.0) mg/dL AST 19 (5-37) U/L ALT 8 (0-40) U/L Alkaline Phosphatase 78 (39-117) U/L Albumin 4.3 (3.5-5.0) g/dL Urine 01/26/25 Range/Units 17:48 Urine Color Dark Yellow Urine Appearance Clear Urine pH 5.5 (5.0-9.0) Ur Specific [place] >= 1.030 H (1.005-1.025) Urine Protein 30 (1+) H (Neg-Trace) mg/dL Urine Glucose (UA) Negative (Negative) mg/dL All other labs normal. <Joseph Lowe PA-C - Last Filed: 01/27/25 10:03> Assessment and Plan (1) Intra-abdominal abscess: Status: Acute <Joseph Lowe PA-C - Last Filed: 01/27/25 10:03> 19-year-old male admitted because of abdominal pain times 3-4 days Also had vomiting previously Abdomen tender diffusely CAT scan reviewed - mural thickening of long segment of distal ileum, right colon with question of small abscess adjacent to this bowel loops Likely Crohn's disease GI consult Keep on sips of clear liquids for now Pain Management We will follow closely <Jose R Adler MD - Last Filed: 01/29/25 07:50> (2) Enteritis: Status: Acute <Joseph Lowe PA-C - Last Filed: 01/27/25 10:03> (3) Colitis: Status: Acute <Joseph Lowe PA-C - Last Filed: 01/27/25 10:03> 19 year old otherwise healthy male admitted to the medical service, seen in consult for a 3 day history of lower abdominal pain with associated nausea and vomiting. Currently patient has 4/10 abdominal pain but this does increase to 9/10. his nausea and vomiting have resolved. Appetite remains decreased. He is unsure of last bowel movement. patient was found to have proximal colitis, distal enteritis and small intrapelvic abscesses on CT. There was no elevated WBC on labs. Etiology unclear at this time, possible colitis, enteritis, Crohn's. GI consult pending. At this point does not seem to need surgical intervention. Would recommend continuing IV antibiotics, IV fluids, clear liquid diet. We will continue to follow up this patient there was admission. < Joseph Lowe PA-C - Last Filed: 01/27/25 10:03> Procedures Date of Service Date of Service: 01/27/25 <Joseph Lowe PA-C - Last Filed: 01/27/25 10:03> 01/29/25 <Jose R Adler MD - Last Filed: 01/29/25 07:50>
--- NOTE | 2025-01-27 08:13 | PC.NURSE ---
Pt is caox4, he has nonlabored resps and strong and regular radial pulse and nonlabored resps. report was taken from previous rn. Pt reports 6/10 pain and is requesting another prn pain medication. Md Adler is at bedside reinforcing plan of care and asnwering questions from pt. Pt is not a fall risk, call myers is within reach, he is tolerating liquid diet.
--- NOTE | 2025-01-27 08:28 | PHA.MEDREC ---
Addendum entered by Deacon Mercado RPh 01/27/25 08:37: MED REC REVIEWED BY [facility] Original Note: Pharmacy Consult ? Medication Reconciliation Pharmacy has completed the medication reconciliation. Spoke with pt and he confirmed he is not taking any medications at this time.
[2025-01-27 09:10] VITALS: BP 102/52; PULSE 63; RESP 18; TEMP 36.6; O2SAT 98
--- NOTE | 2025-01-27 09:12 | PC.NURSE ---
pt reports adequate pain control from last prn.
--- NOTE | 2025-01-27 13:41 | MHC.CM.PN ---
PT LIVES WITH FAMILY IS WORKING HAS A RIDE HOME DC PLAN HOME N/S
--- NOTE | 2025-01-27 13:42 | P.PNIM_ITS ---
Subjective Subjective Date of Service: 01/27/25 Interval History: colitis Review of Systems abd pain somewhat improivng with pain meds no fevers Physical Exam 2 Vital Signs: Vital Signs: Last Vital Signs Temp 97.8 F 01/27/25 09:10 Pulse 63 01/27/25 09:10 Resp 18 01/27/25 09:10 BP 102/52 L 01/27/25 09:10 Pulse Ox 98 01/27/25 09:10 O2 Del Method Room Air 01/27/25 09:10 BMI result Body Mass Index 17.8 General: no distress cvs:Regular rate and rhythm, S1-S2 heard chest :Regular breath sounds bilaterally, no rales or wheezing. Abdomen :lower abd pain ,some voluntry guarding ,no rebound ,bs present. Patient is awake, alert and oriented to self, place, time and person ; no focal motor deficit No pedal edema Objective Data Active Medications Acetaminophen (Acetaminophen 325 Mg Tablet) 650 mg PO Q6H PRN PRN Reason: Pain, Mild 1-3,fever,headache Last Admin: 01/27/25 08:31 Dose: 650 mg Documented By: SULY Calcium Carbonate (Calcium Carbonate 750 Mg Tab.Chew) 750 mg PO Q4H PRN PRN Reason: Heartburn Piperacillin Sod/Tazobactam (Sod 4.5 gm/ Sodium Chloride) 100 mls @ 200 mls/hr IV Q6H [facility] Last Infusion: 01/27/25 11:00 Dose: Infused Documented By: ALVA Magnesium Hydroxide (Milk Of Magnesia 30 Ml Oral.Susp) 30 ml PO DAILY PRN PRN Reason: Constipation Melatonin (Melatonin 3 Mg Tablet) 6 mg PO BEDTIME PRN PRN Reason: Insomnia Morphine Sulfate (Morphine Sulfate 4 Mg/Ml Cartridge) 2 mg IVPUSH Q6H PRN; Protocol PRN Reason: Pain, Severe (Pain Scale 7-10) Ondansetron HCl (Ondansetron Hcl 4 Mg/2 Ml Vial) 4 mg IVPUSH Q8H PRN PRN Reason: Nausea and Vomiting Sodium Chloride (0.9 % Sodium Chloride Flush 3 Ml Syringe) 3 ml IVFLUSH QSHIFT [facility] Last Admin: 01/27/25 08:01 Dose: 3 ml Documented By: SULY Labs 01/27/25 05:26 01/27/25 05:26 Labs: Laboratory Results - last 24 hr 01/26/25 01/26/25 01/26/25 17:26 17:48 19:22 MCV 83.0 MCH 28.5 MCHC 34.3 RDW 12.9 Plt Count 205 MPV 9.2 L Immature Gran % (Auto) 0.2 Neut % (Auto) 74.7 H Lymph % (Auto) 14.1 L [place] % (Auto) 9.6 Eos % (Auto) 1.1 Baso % (Auto) 0.3 Lymph # (Auto) 1.3 [place] # (Auto) 0.9 Eos # (Auto) 0.1 Baso # (Auto) 0.0 Abs Immat Gran (auto) 0.02 Absolute Neuts (auto) 7.0 Absolute Nucleated RBC 0.000 Nucleated RBC % (auto) 0.0 ESR 25 H Anion Gap 13 Estim Creat Clear Calc 111.8 Estimated GFR > 60 Random Glucose 85 Lactic Acid 0.9 Calcium 9.5 Total Bilirubin 0.7 AST 19 ALT 8 Alkaline Phosphatase 78 C-Reactive Protein Total Protein 7.8 Albumin 4.3 Lipase 13 Urine Color Dark Yellow Urine Appearance Clear Urine pH 5.5 Ur Specific [place] >= 1.030 H Urine Protein 30 (1+) H Urine Glucose (UA) Negative Urine Ketones 80 Urine Blood Negative Urine Nitrite Negative Ur Leukocyte Esterase Negative Urine RBC 0-2 Urine WBC 0-5 Ur Squamous Epith Cells 0-2 Urine Bacteria None Seen Hyaline Casts 11-01/26/25 01/27/25 19:48 05:26 MCV 85.3 MCH 28.1 MCHC 33.0 RDW 12.9 Plt Count 193 MPV 9.4 Immature Gran % (Auto) 0.5 H Neut % (Auto) 58.7 Lymph % (Auto) 26.2 [place] % (Auto) 11.4 H Eos % (Auto) 2.9 Baso % (Auto) 0.3 Lymph # (Auto) 1.7 [place] # (Auto) 0.8 Eos # (Auto) 0.2 Baso # (Auto) 0.0 Abs Immat Gran (auto) 0.03 Absolute Neuts (auto) 3.9 Absolute Nucleated RBC 0.000 Nucleated RBC % (auto) 0.0 ESR Anion Gap 10 L Estim Creat Clear Calc 120.1 Estimated GFR > 60 Random Glucose 82 Lactic Acid Calcium 8.6 D Total Bilirubin AST ALT Alkaline Phosphatase C-Reactive Protein 10.56 H Total Protein Albumin Lipase Urine Color Urine Appearance Urine pH Ur Specific [place] Urine Protein Urine Glucose (UA) Urine Ketones Urine Blood Urine Nitrite Ur Leukocyte Esterase Urine RBC Urine WBC Ur Squamous Epith Cells Urine Bacteria Hyaline Casts Assessment and Plan (1) Colitis: Status: Acute (2) Enteritis: Status: Acute (3) Intra-abdominal abscess: Status: Acute Plan 19-year-old male with no pertinent past medical history and not on medications who presents to the emergency department for evaluation of abdominal pain. Colitis/enteritis with intrapelvic abscesses: esr 25 ,crp10.5,blood cultures pending ct abd:Findings consistent with prominent proximal colitis, distal enteritis and suspected small intrapelvic abscesses described. plan: d/d colitis /entritis unclear etiology on IV pain meds ,ivf, antibiotics. Fecal calprotectin level, GI panel and C diff ordered by ed. General surgery, appreciated: continue above management , does not seem to need surgical intervention, also recomended Gi eval . DVT prophylaxis: None. Low risk. Patient is ambulatory . need for Hospitlisation : Colitis/enteritis with intrapelvic abscesses-need on IV pain meds ,ivf, antibiotics. trial of clears , Gi workup/eval pending Quality Stroke Does the patient have a stroke diagnosis?: No VTE Prior VTE?: No VTE Risk Level:: Medical - low VTE Device Contraindication: Treatment Not Indicated VTE Drug Contraindication: Treatment Not Indicated
[2025-01-27 14:48] VITALS: BP 98/66; PULSE 64; RESP 16; TEMP 36.8; O2SAT 99
[2025-01-27 14:57] VITALS: BMI 18.5
[2025-01-27 15:51] VITALS: BP 108/67; PULSE 58; RESP 12; TEMP 36.9; O2SAT 96
--- NOTE | 2025-01-27 16:04 | PM.EVENT ---
Event Note Date of Service: 01/27/25 Event Note: Seen on afternoon rounds Currently a lot more comfortable Admits to some pain no nausea or vomiting Abdomen remained soft and benign Awaiting GI consult Continue IV antibiotics Should be on some IV fluids Time Spent With Patient Time: Total time managing care of this patient today ____ minutes.
[2025-01-27 16:05] VITALS: BMI 17.8
--- NOTE | 2025-01-27 16:12 | MHC.CLN ---
NUTRITION CLEAR LIQUID DIET DUE TO GI SYMPTOMS. UNDERWEIGHT BUT DOES NOT APPEAR TO BE MALNOURISHED. FOLLOW FOR DIET ADVANCEMENT AND PO INTAKE. SEE CLINICAL NUTRITION ASSESSMENT 01/27/25.
[2025-01-27] MEDS: Lactated Ringers 1,000 ML 100 ML IVCONT (17:35)
--- NOTE | 2025-01-27 18:31 | PM.EVENT ---
Event Note Date of Service: 01/27/25 Event Note: GI Consult-Full note dictated-History from patient and EMR Imp: I suspect this is Crohn's disease given the CT findings, tenderness on exam, indolent history, and some history of intermittent pain(seen in ER in 09/2024). I would think if this was an acute infectious etiology with those CT findings he would be more symptomatic with diarrhea, fevers, pain, etc. He does seem to have improved to some degree with the antibiotics and bowel rest treating the acute infectious component of the microperforations of the TI. Rec: Continue antibiotics. Check stool for calprotectin level, C.diff, and GI panel. Will hold off on steroids and colonoscopy for now in light of the CT findings of the microperforations. However, I did advise him that we may need to proceed with those sooner rather than later in order to get him feeling better. I will most likely look to treat him with a biologic agent sooner than later as well, and I will check a T spot for TB and a Hep B profile in preparation of an eventual biologic agent. D/W patient in detail and he is comfortable with this plan. Thanks Time Spent With Patient Time: Total time managing care of this patient today ____ minutes.
[2025-01-27 19:29] VITALS: BP 110/63; PULSE 62; RESP 16; TEMP 36.7; O2SAT 99
[2025-01-27 21:40] LABS: CDiff Gene PCR NEGATIVE (Negative)
[2025-01-28 03:23] VITALS: BP 110/65; PULSE 62; RESP 18; TEMP 36.6; O2SAT 99
[2025-01-28] MEDS: Lactated Ringers 1,000 ML 100 ML IVCONT ×2 (04:02→17:44)
[2025-01-28 06:22] LABS: Hematocrit 33.4 % (42.0-52.0); Hemoglobin 11.4 g/dl (14.0-18.0); Mean Corpuscular HGB Conc 34.1 g/dl (31.0-36.0); Mean Corpuscular Hemoglobin 28.3 pg (27.0-33.0); Mean Corpuscular Volume 82.9 fL (80.0-98.0); NRBC Abs Auto 0.000 X10*3/uL (0.0-0.012); NRBC Pct Auto 0.0 /100WBC (0.0-0.2); Platelet Count 181 X10*3/uL (160-400); Red Blood Count 4.03 X10*6/uL (4.60-5.80); White Blood Count 7.0 X10*3/uL (4.8-10.8)
--- NOTE | 2025-01-28 06:26 | CONS_ITS ---
DATE OF SERVICE: 01/27/2025 REASON FOR CONSULTATION: Abdominal pain and abnormal CT scan of GI tract. HISTORY OF PRESENT ILLNESS: This has been obtained from the patient, his nurse, and the medical record. The patient is a 19-year-old healthy male who came to the ER for evaluation of several days of ongoing lower abdominal pain. He did have some associated vomiting with this at home, but no sign of bleeding. He describes constipation and no bowel movements for several days. Prior to the onset of the symptoms, he reports that things seem to have been fine from a GI standpoint. He has always had a good appetite and denies any particular food intolerance. He denies any fever, heartburn, or dysphagia. He denies any particular abdominal pains. He reports his bowel movements had been regular at home with one formed stool about every other day. He denies any diarrhea, hematochezia, nor melena. Prior to the past several days, he did not have any particular abdominal pain, although was seen in the ER early this year for abdominal pain where he had an abdominal x-ray. He presently reports that he is feeling somewhat better after being in the hospital with IV antibiotics overnight. Denies any bowel movements here in the hospital. He denies any nausea nor vomiting. He denies any recent travel, ill contacts. No antibiotic use. He denies any rashes, red or swollen joints, or any eye problems. He denies any known family history of colorectal cancer, inflammatory bowel disease, or celiac disease. MEDICATIONS: At home, none. Medications here in the hospital include IV Zosyn, acetaminophen, Tums, melatonin, morphine p.r.n., milk of magnesia p.r.n., Zofran p.r.n. PAST MEDICAL HISTORY: He denies any medical problems such as asthma, diabetes, or heart disease. He denies any history of significant surgeries. SOCIAL HISTORY: He works in the [employer]. He does not smoke. Denies alcohol use. He denies any drug use. FAMILY HISTORY: Noncontributory. REVIEW OF SYSTEMS: CONSTITUTIONAL: He reports that prior to the past several days he was feeling well with good energy and good appetite. SKIN: No rash. No pruritus. CARDIAC: No chest pain. PULMONARY: No coughing or hemoptysis. GI: As above. URINARY: No dysuria. No hematuria. NEUROLOGIC: No headache or seizures. PHYSICAL EXAMINATION: GENERAL: Again, the patient is a pleasant, thin, alert male. SKIN: Warm and dry. EYES: Anicteric sclerae. NECK: Supple. CHEST: Clear. CARDIAC: Normal S1, S2. ABDOMEN: Soft, nondistended. Normal bowel sounds. There is tenderness in the lower abdomen predominantly in the right lower quadrant, but some in the left lower quadrant. There is no palpable mass. EXTREMITIES: Without edema. His CT scan showed inflammatory changes along the cecum, ascending colon, and terminal ileum. There is mural thickening, submucosal edema, and mucosal hyperemia as well as some fat stranding in the area. There did appear to be some peripherally enhancing small extraluminal collections adjacent to the inflamed loops of small bowel. Radiologist reports visualized the appendix, which appeared normal. Radiologist felt this was consistent with inflammatory bowel disease. White blood cell count 6.6, hemoglobin 11.7, platelets 192,000. Normal electrolytes, normal LFTs, normal lactic acid level. Albumin 4.3. Lipase 13. Stool specimens have been ordered, but has not had been sent. IMPRESSION: The patient is a young healthy male presenting with several days of abdominal pain and constipation, and with a CT scan describing possible changes of Crohn's disease in the terminal ileum and colon. At this point, he does have some improvement with the use of the Zosyn. I suspect this is treating the microperforations seen on the CT scan. As far as the etiology of this problem, there is a concern the most likely thing would be that of Crohn's disease, although it is unusual that it would present so acutely like this. Nonetheless, that is a strong possibility given the CT scan report. Another possibility would be that of some type of infectious process causing the symptoms and these changes. At this point, I advised him that the most likely diagnosis is Crohn's disease and we will need to follow this very carefully. I advised him that typically we would start steroids and have him undergo a colonoscopy, but in light of the CT scan report with microperforations it will be probably best to hold off on that and avoid colonoscopy with risk of perforation. At this point, I would continue the antibiotics and check stools for calprotectin level, C diff, and GI panel. We will need to hold off on steroids and colonoscopy for the time being, but I suspect he will need the colonoscopy relatively soon. Once we have made a definitive diagnosis of Crohn's disease, I would then most likely start him on one of the biologic agents given the severity of the changes on the CT scan and his current symptomatology. Depending upon his clinical course, we could either do the colonoscopy as an inpatient or as an outpatient if need be. Thank you for the consultation. MD ELAINE Massey/LEYDI / [id number] MTDD
[2025-01-28 06:43] LABS: Anion Gap 13 (12-20); Blood Urea Nitrogen 5 mg/dL (9-16); Calcium 8.6 mg/dL (8.4-10.2); Carbon Dioxide 26 mmol/L (22-29); Chloride 106 mmol/L (96-108); Creatinine Clr Calc Pharmacy 131.4; Estimated Glomerular Filt Rate > 60; Potassium 3.6 mmol/L (3.3-5.1); Sodium 141 mmol/L (135-145)
[2025-01-28 08:00] VITALS: BP 108/73; PULSE 66; RESP 17; TEMP 36.6; O2SAT 100
[2025-01-28 08:28] LABS: HBS Num1 0.91 mIU/mL (0-7.99); HBc Num1 0.15 S/CO (0.00-0.79); HBsAGNum1 0.50 S/CO (0.00-0.99); Hepatitis B Surface Antigen Negative (Negative); ~Hepatitis B Surface Antibody NONREACTIVE (Nonreactive)
--- NOTE | 2025-01-28 08:30 | PM.PNGS ---
Subjective Subjective Date of Service: 01/28/25 <Joseph Lowe PA-C - Last Filed: 01/28/25 12:49> 01/28/25 <Jose R Adler MD - Last Filed: 01/28/25 14:15> Interval history: patient reports that his pain is improving, currently not experiencing pain at rest. He denies nausea or vomiting. he has been passing gas, no bowel movement. tolerating clear liquid diet <Joseph Lowe PA-C - Last Filed: 01/28/25 12:49> Physical Exam Vital Signs: Vital Signs: Last Vital Signs Temp 97.8 F 01/28/25 08:00 Pulse 66 01/28/25 08:00 Resp 17 01/28/25 08:00 BP 108/73 01/28/25 08:00 Pulse Ox 100 01/28/25 08:00 O2 Del Method Room Air 01/28/25 08:00 BMI result Body Mass Index 17.8 <Joseph Lowe PA-C - Last Filed: 01/28/25 12:49> Const: General: comfortable and no acute distress <Joseph Lowe PA-C - Last Filed: 01/28/25 12:49> Orientation/consciousness: patient oriented x3 <Joseph Lowe PA-C - Last Filed: 01/28/25 12:49> Resp: Effort & Inspection: normal respiratory effort and able to speak in complete sentences <Joseph Lowe PA-C - Last Filed: 01/28/25 12:49> GI: Inspection: No distended <Joseph Lowe PA-C - Last Filed: 01/28/25 12:49> Palpation (GI): Soft to palpation, not firm, Tenderness to palpation present (GI) (generalized throughout), no guarding and not rigid <Joseph Lowe PA-C - Last Filed: 01/28/25 12:49> Neuro: General: patient oriented x3 <YOANA Barnett Last Filed: 01/28/25 12:49> Objective Data Active Medications Acetaminophen (Acetaminophen 325 Mg Tablet) 650 mg PO Q6H PRN PRN Reason: Pain, Mild 1-3,fever,headache Last Admin: 01/27/25 23:25 Dose: 650 mg Documented By: LUZMARIA Calcium Carbonate (Calcium Carbonate 750 Mg Tab.Chew) 750 mg PO Q4H PRN PRN Reason: Heartburn Piperacillin Sod/Tazobactam (Sod 4.5 gm/ Sodium Chloride) 100 mls @ 200 mls/hr IV Q6H [facility] Last Infusion: 01/28/25 07:25 Dose: Infused Documented By: SANDRA Lactated Ringer's (Lr) 1,000 mls @ 100 mls/hr IVCONT .Q10H [facility] Last Admin: 01/28/25 04:02 Dose: 100 mls/hr Documented By: LUZMARIA Magnesium Hydroxide (Milk Of Magnesia 30 Ml Oral.Susp) 30 ml PO DAILY PRN PRN Reason: Constipation Melatonin (Melatonin 3 Mg Tablet) 6 mg PO BEDTIME PRN PRN Reason: Insomnia Morphine Sulfate (Morphine Sulfate 4 Mg/Ml Cartridge) 2 mg IVPUSH Q6H PRN; Protocol PRN Reason: Pain, Severe (Pain Scale 7-10) Ondansetron HCl (Ondansetron Hcl 4 Mg/2 Ml Vial) 4 mg IVPUSH Q8H PRN PRN Reason: Nausea and Vomiting Sodium Chloride (0.9 % Sodium Chloride Flush 3 Ml Syringe) 3 ml IVFLUSH QSHIFT [facility] Last Admin: 01/28/25 07:38 Dose: Not Given Documented By: SANDRA Non-Admin Reason: Previously Administered <Joseph Lowe PA-C - Last Filed: 01/28/25 12:49> Labs CBC & Chem 7: 01/28/25 05:29 01/28/25 05:29 <Joseph Lowe PA-C - Last Filed: 01/28/25 12:49> Labs: Laboratory Results - last 24 hr 01/27/25 01/28/25 20:25 05:29 MCV 82.9 MCH 28.3 MCHC 34.1 RDW 12.8 Plt Count 181 MPV 9.6 Absolute Nucleated RBC 0.000 Nucleated RBC % (auto) 0.0 Anion Gap 13 Estim Creat Clear Calc 131.4 Estimated GFR > 60 Random Glucose 75 Calcium 8.6 C. difficile Tox B Gene NEGATIVE <Joseph Lowe PA-C - Last Filed: 01/28/25 12:49> Microbiology Microbiology Results: Microbiology 01/26/25 19:32 Blood Culture - Preliminary Blood - Venous No growth after 24 hours. 01/26/25 19:22 Blood Culture - Preliminary Blood - Venous No growth after 24 hours. <Joseph Lowe PA-C - Last Filed: 01/28/25 12:49> Procedures Date of Service Date of Service: 01/28/25 <Joseph Lowe PA-C - Last Filed: 01/28/25 12:49> 01/28/25 <Jose R Adler MD - Last Filed: 01/28/25 14:15> Progress Note: A&P Assessment and plan (1) Colitis: Status: Acute <Joseph Lowe PA-C - Last Filed: 01/28/25 12:49> Assessment and Plan: Still having pain but much improved No nausea or vomiting No fever Abdomen is soft and benign mild diffuse tenderness Continue IV antibiotic Seen by GI Keep on clear liquids for an Improving clinically Seen and examined independently <Jose R Adler MD - Last Filed: 01/28/25 14:15> (2) Intra-abdominal abscess: Status: Acute <Joseph Lowe PA-C - Last Filed: 01/28/25 12:49> Assessment and Plan: 19 year old male admitted for management of abdominal pain. Patient is improving. Pain at rest is decreased. Still has intermitted episodes of pain in the lower abdomen. He is tolerating clear liquid diet. he is passing gas but has not produced a BM. He remains tender throughout the abdomen. No peritoneal signs. GI consult appreciated, suspecting chrons flare. Stool testing pending. Per GI recommendations, continue antibiotics and supportive care and future colonoscopy. No current indication for srugical intervention, will continue to follow along for any intervention in the future. <Joseph Lowe PA-C - Last Filed: 01/28/25 12:49> Time Spent With Patient Time: Total time managing care of this patient today ____ minutes. <Joseph oLwe PA-C - Last Filed: 01/28/25 12:49> Quality Stroke Does the patient have a stroke diagnosis?: No <Joseph Lowe PA-C - Last Filed: 01/28/25 12:49> VTE Prior VTE?: No <Joseph Lowe PA-C - Last Filed: 01/28/25 12:49> VTE Risk Level:: Medical - low <Joseph Lowe PA-C - Last Filed: 01/28/25 12:49> VTE Device Contraindication: Treatment Not Indicated <Joseph Lowe PA-C - Last Filed: 01/28/25 12:49> VTE Drug Contraindication: Treatment Not Indicated <Joseph Lowe PA-C - Last Filed: 01/28/25 12:49>
[2025-01-28 10:14] LABS: E. coli EAEC Not Detected (Not Detect.); E. coli EPEC Not Detected (Not Detect.); E. coli ETEC Not Detected (Not Detect.); E. coli STEC Not Detected (Not Detect.); Shigella sp./EIEC Not Detected (Not Detect.)
[2025-01-28 15:23] VITALS: BP 105/63; PULSE 52; RESP 17; TEMP 35.9; O2SAT 99
--- NOTE | 2025-01-28 15:31 | P.PNIM_ITS ---
Subjective Subjective Date of Service: 01/28/25 Interval History: colitis Review of Systems abd pain slightly improving no fevers Review of Systems: Yes all other systems are reviewed and are negative Physical Exam 2 Vital Signs: Vital Signs: Last Vital Signs Temp 96.7 F L 01/28/25 15:23 Pulse 52 01/28/25 15:23 Resp 17 01/28/25 15:23 BP 105/63 01/28/25 15:23 Pulse Ox 99 01/28/25 15:23 O2 Del Method Room Air 01/28/25 15:23 BMI result Body Mass Index 17.8 General: no distress cvs:Regular rate and rhythm, S1-S2 heard chest :Regular breath sounds bilaterally, no rales or wheezing. Abdomen :lower abd pain ,some voluntry guarding ,no rebound ,bs present. Patient is awake, alert and oriented to self, place, time and person ; no focal motor deficit No pedal edema Objective Data Active Medications Acetaminophen (Acetaminophen 325 Mg Tablet) 650 mg PO Q6H PRN PRN Reason: Pain, Mild 1-3,fever,headache Last Admin: 01/27/25 23:25 Dose: 650 mg Documented By: LUZMARIA Calcium Carbonate (Calcium Carbonate 750 Mg Tab.Chew) 750 mg PO Q4H PRN PRN Reason: Heartburn Piperacillin Sod/Tazobactam (Sod 4.5 gm/ Sodium Chloride) 100 mls @ 200 mls/hr IV Q6H [facility] Last Infusion: 01/28/25 14:03 Dose: Infused Documented By: SANDRA Lactated Ringer's (Lr) 1,000 mls @ 100 mls/hr IVCONT .Q10H [facility] Last Infusion: 01/28/25 14:03 Dose: 100 mls/hr Documented By: SANDRA Magnesium Hydroxide (Milk Of Magnesia 30 Ml Oral.Susp) 30 ml PO DAILY PRN PRN Reason: Constipation Melatonin (Melatonin 3 Mg Tablet) 6 mg PO BEDTIME PRN PRN Reason: Insomnia Morphine Sulfate (Morphine Sulfate 4 Mg/Ml Cartridge) 2 mg IVPUSH Q6H PRN; Protocol PRN Reason: Pain, Severe (Pain Scale 7-10) Ondansetron HCl (Ondansetron Hcl 4 Mg/2 Ml Vial) 4 mg IVPUSH Q8H PRN PRN Reason: Nausea and Vomiting Sodium Chloride (0.9 % Sodium Chloride Flush 3 Ml Syringe) 3 ml IVFLUSH QSHIFT [facility] Last Admin: 01/28/25 07:38 Dose: Not Given Documented By: SANDRA Non-Admin Reason: Previously Administered Labs 01/28/25 05:29 01/28/25 05:29 Labs: Laboratory Results - last 24 hr 01/27/25 01/28/25 20:25 05:29 MCV 82.9 MCH 28.3 MCHC 34.1 RDW 12.8 Plt Count 181 MPV 9.6 Absolute Nucleated RBC 0.000 Nucleated RBC % (auto) 0.0 Anion Gap 13 Estim Creat Clear Calc 131.4 Estimated GFR > 60 Random Glucose 75 Calcium 8.6 Stl C. cayetanensis PCR Not Detected Stool Rotavirus A PCR Not Detected Stl Adenov F 40/41 PCR Not Detected Stool Astrovirus (PCR) Not Detected Stool Campylobacter PCR Not Detected Stool Cryptosporidium PCR Not Detected Stl Sh Tox Pr E STEC PCR Not Detected Stool E coli O157 PCR Not applicable Stl Enterotoxigenic E PCR Not Detected Stool EPEC (PCR) Not Detected Stool EAEC (PCR) Not Detected Stl E. histolytica PCR Not Detected Stool Giardia Lamblia PCR Not Detected Stl P. shigelloides PCR Not Detected Stool Salmonella PCR Not Detected Stool Sapovirus (PCR) Not Detected Stl Shigella/EIEC PCR Not Detected St Y.enterocolitica PCR Not Detected Stool Vibrio (PCR) Not Detected Stl Vibrio cholerae PCR Not Detected Stl Norovirus GI/GII PCR Not Detected C. difficile Tox B Gene NEGATIVE Hep Bs Antigen Negative Hep Bs Antibody NONREACTIVE Hep B Core Total Ab Nonreactive Microbiology Microbiology Results: Microbiology 01/26/25 19:32 Blood Culture - Preliminary Blood - Venous No growth after 24 hours. 01/26/25 19:22 Blood Culture - Preliminary Blood - Venous No growth after 24 hours. Assessment and Plan (1) Colitis: Status: Acute (2) Enteritis: Status: Acute (3) Intra-abdominal abscess: Status: Acute Plan 19-year-old male with no pertinent past medical history and not on medications who presents to the emergency department for evaluation of abdominal pain. Colitis/enteritis with intrapelvic abscesses: esr 25 ,crp10.5,blood cultures pending ct abd:Findings consistent with prominent proximal colitis, distal enteritis and suspected small intrapelvic abscesses described. plan: d/d colitis /entritis unclear etiology gip panel and cdiff negative , hepatitis b screen nonreactive ,tspot test pending on IV pain meds ,ivf, antibiotics. Fecal calprotectin level pending General surgery, appreciated: continue above management , does not seem to need surgical intervention. Gi eval-?suspect crohn dis -continue above management .Will hold off on steroids and colonoscopy for now in light of the CT findings of the microperforations. However, I did advise him that we may need to proceed with those sooner rather than later in order to get him feeling better, also likely look to treat him with a biologic agent sooner than later as well, and check a T spot for TB and a Hep B profile in preparation of an eventual biologic agent. DVT prophylaxis: None. Low risk. Patient is ambulatory . need for Hospitlisation : Colitis/enteritis with intrapelvic abscesses-need on IV pain meds ,ivf, antibiotics. trial of clears , Gi workup/eval pending Quality Stroke Does the patient have a stroke diagnosis?: No VTE Prior VTE?: No VTE Risk Level:: Medical - low VTE Device Contraindication: Treatment Not Indicated VTE Drug Contraindication: Treatment Not Indicated
--- NOTE | 2025-01-28 17:39 | P.PNGI_ITS ---
Subjective Subjective Date of Service: 01/28/25 Interval History: Feeling better, although still with localized pain and tenderness in the RLQ. He was able to walk around today. Tolerating liquids. Had a small BM. Denies N/V. Stools negative for GI Panel and C.diff. Critical Care Time (minutes): 0 Physical Exam 2 Vital Signs: Vital Signs: Last Vital Signs Temp 96.7 F L 01/28/25 15:23 Pulse 52 01/28/25 15:23 Resp 17 01/28/25 15:23 BP 105/63 01/28/25 15:23 Pulse Ox 99 01/28/25 15:23 O2 Del Method Room Air 01/28/25 15:23 BMI result Body Mass Index 17.8 Const: General: cooperative, healthy appearing, comfortable, no acute distress, well developed, alert and awake GI: Other: Abd- Soft, nondistended, +BS, mild RLQ tenderness but no mass or rebound. Objective Data Labs 01/28/25 05:29 01/28/25 05:29 Labs: Laboratory Results - last 24 hr 01/27/25 01/28/25 20:25 05:29 WBC 7.0 RBC 4.03 L Hgb 11.4 L Hct 33.4 L MCV 82.9 MCH 28.3 MCHC 34.1 RDW 12.8 Plt Count 181 MPV 9.6 Absolute Nucleated RBC 0.000 Nucleated RBC % (auto) 0.0 Sodium 141 Potassium 3.6 Chloride 106 Carbon Dioxide 26 Anion Gap 13 BUN 5 L Creatinine 0.74 Estim Creat Clear Calc 131.4 Estimated GFR > 60 Random Glucose 75 Calcium 8.6 Stl C. cayetanensis PCR Not Detected Stool Rotavirus A PCR Not Detected Stl Adenov F 40/41 PCR Not Detected Stool Astrovirus (PCR) Not Detected Stool Campylobacter PCR Not Detected Stool Cryptosporidium PCR Not Detected Stl Sh Tox Pr E STEC PCR Not Detected Stool E coli O157 PCR Not applicable Stl Enterotoxigenic E PCR Not Detected Stool EPEC (PCR) Not Detected Stool EAEC (PCR) Not Detected Stl E. histolytica PCR Not Detected Stool Giardia Lamblia PCR Not Detected Stl P. shigelloides PCR Not Detected Stool Salmonella PCR Not Detected Stool Sapovirus (PCR) Not Detected Stl Shigella/EIEC PCR Not Detected St Y.enterocolitica PCR Not Detected Stool Vibrio (PCR) Not Detected Stl Vibrio cholerae PCR Not Detected Stl Norovirus GI/GII PCR Not Detected C. difficile Tox B Gene NEGATIVE Hep Bs Antigen Negative Hep Bs Antibody NONREACTIVE Hep B Core Total Ab Nonreactive Microbiology Microbiology Results: Microbiology 01/26/25 19:32 Blood - Venous Blood Culture - Preliminary No growth after 24 hours. 01/26/25 19:22 Blood - Venous Blood Culture - Preliminary No growth after 24 hours. Procedures Date of Service Date of Service: 01/28/25 Progress Note: A&P Assessment and plan (1) Crohn's disease of both small and large intestine: Status: Acute Assessment and Plan: Imp: Given the clinical history of negative stool specimens and negative blood cultures, along with the CT scan findings, it appears that a primary GI tract infection has been ruled out as best as possible and that leaves Crohn's disease as the most likely diagnosis. He appears to be improving on the IV antibiotic based on his exam. Rec: Given the presumed Crohn's and negative infectious w/u, I am inclined to start him on some specific Crohn's meds with oral Budesonide and Pentasa, while holding off on prednisone given the initial apparent infectious component on the CT and the fact that the diagnosis of Crohn's has not been proven by colonoscopy as yet. I will also advance his diet to full liquids. I will continue to hold off on colonoscopy for the time being given the microperfs involving the TI on the CT scan. I suspect that he will need a biologic agent sooner, rather than later, given his high risk of potential complications and refractory symptoms of the Crohn's in his case. However, I would like to do a colonoscopy before that for a definitive diagnosis prior to initiating a biologic agent. We may ultimately do the colonoscopy as an outpatient. I would recommend starting him on DVT prophylaxis with something such as Lovenox given the higher risk of thromboembilc events in IBD patients and his relative decreased mobility. Case D/W Dr. Adler. Reviewed with patient in detail and he is comfortable with this plan. Thanks (2) RLQ abdominal pain: Status: Acute Time Spent With Patient Time: Total time managing care of this patient today ____ minutes. Quality Stroke Does the patient have a stroke diagnosis?: No VTE Prior VTE?: No VTE Risk Level:: Medical - low VTE Device Contraindication: Treatment Not Indicated VTE Drug Contraindication: Treatment Not Indicated
[2025-01-28 19:47] VITALS: BP 118/77; PULSE 60; RESP 18; TEMP 36.9; O2SAT 99
[2025-01-28] MEDS: Budesonide DR 3 MG Capsule 9 MG PO (21:04)
[2025-01-29 00:15] VITALS: BP 106/58; PULSE 50; RESP 18; TEMP 36.9; O2SAT 99
[2025-01-29 03:45] VITALS: BP 108/61; PULSE 66; RESP 18; TEMP 36.5; O2SAT 98
[2025-01-29] MEDS: Lactated Ringers 1,000 ML 100 ML IVCONT ×2 (04:37→17:18)
[2025-01-29 05:59] LABS: MANUAL DIFF FLAG NO
[2025-01-29 06:08] LABS: Hematocrit 34.0 % (42.0-52.0); Hemoglobin 11.7 g/dl (14.0-18.0); Imm Gran Abs Auto 0.01 X10*3/uL (0.00-0.03); Imm Gran Pct Auto 0.2 % (0.0-0.4); Lymphocytes Absolute Auto 1.4 X10*3/uL (1.2-4.9); Mean Corpuscular HGB Conc 34.4 g/dl (31.0-36.0); Mean Corpuscular Hemoglobin 28.4 pg (27.0-33.0); Mean Corpuscular Volume 82.5 fL (80.0-98.0); NRBC Abs Auto 0.000 X10*3/uL (0.0-0.012); NRBC Pct Auto 0.0 /100WBC (0.0-0.2); Platelet Count 187 X10*3/uL (160-400); Red Blood Count 4.12 X10*6/uL (4.60-5.80); White Blood Count 4.8 X10*3/uL (4.8-10.8)
[2025-01-29 07:45] VITALS: BP 115/56; PULSE 59; RESP 17; TEMP 36.5; O2SAT 99
--- NOTE | 2025-01-29 07:47 | P.PNGS_ITS ---
Subjective Subjective Date of Service: 01/30/25 Interval history: Continues to feel better Pain much improved Was tolerating liquids had BM Physical Exam 2 Vital Signs: Vital Signs: Last Vital Signs Temp 97.7 F 01/29/25 07:45 Pulse 59 01/29/25 07:45 Resp 17 01/29/25 07:45 BP 115/56 L 01/29/25 07:45 Pulse Ox 99 01/29/25 07:45 O2 Del Method Room Air 01/29/25 07:45 BMI result Body Mass Index 17.8 Const: General: comfortable and no acute distress Resp: Effort & Inspection: normal respiratory effort Cardio: Rate: regular rate GI: Palpation (GI): Soft to palpation, not firm, Tenderness to palpation present (GI) (Mild tenderness lower abdomen) and no guarding Objective Data Active Medications Acetaminophen (Acetaminophen 325 Mg Tablet) 650 mg PO Q6H PRN PRN Reason: Pain, Mild 1-3,fever,headache Last Admin: 01/27/25 23:25 Dose: 650 mg Documented By: LUZMARIA Budesonide (Budesonide Dr 3 Mg Capsule) 9 mg PO DAILY [facility] Last Admin: 01/28/25 21:04 Dose: 9 mg Documented By: MIR Calcium Carbonate (Calcium Carbonate 750 Mg Tab.Chew) 750 mg PO Q4H PRN PRN Reason: Heartburn Piperacillin Sod/Tazobactam (Sod 4.5 gm/ Sodium Chloride) 100 mls @ 200 mls/hr IV Q6H [facility] Last Infusion: 01/29/25 00:34 Dose: Infused Documented By: MIR Lactated Ringer's (Lr) 1,000 mls @ 100 mls/hr IVCONT .Q10H [facility] Last Admin: 01/29/25 04:37 Dose: 100 mls/hr Documented By: MIR Magnesium Hydroxide (Milk Of Magnesia 30 Ml Oral.Susp) 30 ml PO DAILY PRN PRN Reason: Constipation Melatonin (Melatonin 3 Mg Tablet) 6 mg PO BEDTIME PRN PRN Reason: Insomnia Mesalamine (Mesalamine 250 Mg Capsule.Er) 1,000 mg PO QID [facility] Last Admin: 01/28/25 21:05 Dose: 1,000 mg Documented By: MIR Morphine Sulfate (Morphine Sulfate 4 Mg/Ml Cartridge) 2 mg IVPUSH Q6H PRN; Protocol PRN Reason: Pain, Severe (Pain Scale 7-10) Ondansetron HCl (Ondansetron Hcl 4 Mg/2 Ml Vial) 4 mg IVPUSH Q8H PRN PRN Reason: Nausea and Vomiting Sodium Chloride (0.9 % Sodium Chloride Flush 3 Ml Syringe) 3 ml IVFLUSH QSHIFT [facility] Last Admin: 01/28/25 21:05 Dose: Not Given Documented By: MIR Non-Admin Reason: IV Running Labs 01/30/25 05:12 01/30/25 05:12 Labs: Laboratory Results - last 24 hr 01/27/25 01/28/25 01/29/25 20:25 05:29 05:45 MCV 82.5 MCH 28.4 MCHC 34.4 RDW 12.7 Plt Count 187 MPV 9.4 Immature Gran % (Auto) 0.2 Neut % (Auto) 58.0 Lymph % (Auto) 29.2 [place] % (Auto) 7.2 Eos % (Auto) 5.0 H Baso % (Auto) 0.4 Lymph # (Auto) 1.4 [place] # (Auto) 0.4 Eos # (Auto) 0.2 Baso # (Auto) 0.0 Abs Immat Gran (auto) 0.01 Absolute Neuts (auto) 2.8 Absolute Nucleated RBC 0.000 Nucleated RBC % (auto) 0.0 Stl C. cayetanensis PCR Not Detected Stool Rotavirus A PCR Not Detected Stl Adenov F 40/41 PCR Not Detected Stool Astrovirus (PCR) Not Detected Stool Campylobacter PCR Not Detected Stool Cryptosporidium PCR Not Detected Stl Sh Tox Pr E STEC PCR Not Detected Stool E coli O157 PCR Not applicable Stl Enterotoxigenic E PCR Not Detected Stool EPEC (PCR) Not Detected Stool EAEC (PCR) Not Detected Stl E. histolytica PCR Not Detected Stool Giardia Lamblia PCR Not Detected Stl P. shigelloides PCR Not Detected Stool Salmonella PCR Not Detected Stool Sapovirus (PCR) Not Detected Stl Shigella/EIEC PCR Not Detected St Y.enterocolitica PCR Not Detected Stool Vibrio (PCR) Not Detected Stl Vibrio cholerae PCR Not Detected Stl Norovirus GI/GII PCR Not Detected Hep Bs Antigen Negative Hep Bs Antibody NONREACTIVE Hep B Core Total Ab Nonreactive Microbiology Microbiology Results: Microbiology 01/26/25 19:32 Blood Culture - Preliminary Blood - Venous No growth after 48 hours. 01/26/25 19:22 Blood Culture - Preliminary Blood - Venous No growth after 48 hours. Procedures Date of Service Date of Service: 01/30/25 Progress Note: A&P Assessment and plan (1) Enteritis: Status: Acute Assessment and Plan: Overall clinical findings highly suggestive of Crohn's disease Much improved Continue IV antibiotics Seen by Dr. Jones - katy advanced Exam benign, now with minimal tenderness Colonoscopy down the line (2) Crohn's disease of both small and large intestine: Status: Acute Time Spent With Patient Time: Total time managing care of this patient today ____ minutes. Quality Stroke Does the patient have a stroke diagnosis?: No VTE Prior VTE?: No VTE Risk Level:: Medical - low VTE Device Contraindication: Treatment Not Indicated VTE Drug Contraindication: Treatment Not Indicated
[2025-01-29] MEDS: 0.9 % Sodium Chloride Flush 3 ML SYRINGE IVFLUSH (07:59)
[2025-01-29] MEDS: Budesonide DR 3 MG Capsule 9 MG PO (07:59)
--- NOTE | 2025-01-29 09:35 | MHC.CLN ---
F/U DIET ADVANCED TO FULL LIQUIDS. APPEARS TO BE TOLERATING CURRENT DIET. FOLLOW FOR DIET ADVANCEMENT AND PO INTAKE.
--- NOTE | 2025-01-29 11:02 | HO.PM.IMPN ---
Subjective Subjective Date of Service: 01/29/25 Interval History: abd pain improved ongoing diarrhea no vomiting Review of Systems Review of Systems: Yes all other systems are reviewed and are negative Physical Exam Vital Signs: Vital Signs: Last Vital Signs Temp 97.7 F 01/29/25 07:45 Pulse 59 01/29/25 07:45 Resp 17 01/29/25 07:45 BP 115/56 L 01/29/25 07:45 Pulse Ox 99 01/29/25 07:45 O2 Del Method Room Air 01/29/25 07:45 BMI result Body Mass Index 17.8 Gen: in no acute distress HEENT: sclera anicteric, moist mucus membranes Neck: supple Lungs: clear to auscultation bilaterally Heart: regular rate and rhythm, no murmurs Abd: soft, mild RLQ tenderness without rebound, non-distended Ext: no edema Skin: warm/well-perfused Neuro: alert and oriented x3, no focal findings Psych: appropriate affect Objective Data Active Medications Acetaminophen (Acetaminophen 325 Mg Tablet) 650 mg PO Q6H PRN PRN Reason: Pain, Mild 1-3,fever,headache Last Admin: 01/27/25 23:25 Dose: 650 mg Documented By: LUZMARIA Budesonide (Budesonide Dr 3 Mg Capsule) 9 mg PO DAILY [facility] Last Admin: 01/29/25 07:59 Dose: 9 mg Documented By: PRAVEEN Calcium Carbonate (Calcium Carbonate 750 Mg Tab.Chew) 750 mg PO Q4H PRN PRN Reason: Heartburn Enoxaparin Sodium (Enoxaparin Sodium 40 Mg/0.4 Ml Syringe) 40 mg SUBCUT Q24H [facility] Last Admin: 01/29/25 10:42 Dose: Not Given Documented By: PRAVEEN Non-Admin Reason: Patient Refused Piperacillin Sod/Tazobactam (Sod 4.5 gm/ Sodium Chloride) 100 mls @ 200 mls/hr IV Q6H [facility] Last Infusion: 01/29/25 08:53 Dose: Infused Documented By: PRAVEEN Lactated Ringer's (Lr) 1,000 mls @ 100 mls/hr IVCONT .Q10H [facility] Last Infusion: 01/29/25 08:53 Dose: 100 mls/hr Documented By: PRAVEEN Magnesium Hydroxide (Milk Of Magnesia 30 Ml Oral.Susp) 30 ml PO DAILY PRN PRN Reason: Constipation Melatonin (Melatonin 3 Mg Tablet) 6 mg PO BEDTIME PRN PRN Reason: Insomnia Mesalamine (Mesalamine 250 Mg Capsule.Er) 1,000 mg PO QID [facility] Last Admin: 01/29/25 07:58 Dose: 1,000 mg Documented By: PRAVEEN Morphine Sulfate (Morphine Sulfate 4 Mg/Ml Cartridge) 2 mg IVPUSH Q6H PRN; Protocol PRN Reason: Pain, Severe (Pain Scale 7-10) Ondansetron HCl (Ondansetron Hcl 4 Mg/2 Ml Vial) 4 mg IVPUSH Q8H PRN PRN Reason: Nausea and Vomiting Sodium Chloride (0.9 % Sodium Chloride Flush 3 Ml Syringe) [facility] Last Admin: 01/29/25 07:59 Dose: 3 ml Documented By: PRAVEEN Labs 01/29/25 05:45 01/28/25 05:29 Labs: Laboratory Results - last 24 hr 01/29/25 05:45 MCV 82.5 MCH 28.4 MCHC 34.4 RDW 12.7 Plt Count 187 MPV 9.4 Immature Gran % (Auto) 0.2 Neut % (Auto) 58.0 Lymph % (Auto) 29.2 [place] % (Auto) 7.2 Eos % (Auto) 5.0 H Baso % (Auto) 0.4 Lymph # (Auto) 1.4 [place] # (Auto) 0.4 Eos # (Auto) 0.2 Baso # (Auto) 0.0 Abs Immat Gran (auto) 0.01 Absolute Neuts (auto) 2.8 Absolute Nucleated RBC 0.000 Nucleated RBC % (auto) 0.0 Microbiology Microbiology Results: Microbiology 01/26/25 19:32 Blood Culture - Preliminary Blood - Venous No growth after 48 hours. 01/26/25 19:22 Blood Culture - Preliminary Blood - Venous No growth after 48 hours. Assessment and Plan (1) Colitis: Status: Acute (2) Enteritis: Status: Acute (3) Intra-abdominal abscess: Status: Acute Plan d4 for 19yo M with no PMHx presenting with abd pain, found to have proximal colitis, distal enteritis and suspected small intrapelvic abscesses, ultimately likely due to Crohn's disease colitis - Gen Surg + GI consulted. No colonoscopy for now due to concern for microperforations. Started budesonide + mesalamine. Outpt f/u for treatment with biolgic agent (HBV negative, T-spot pending). Fecal calprotectin pending. - piperacillin-tazobactam 01/27- - tolerating full liquid diet, trial of solid diet VTE ppx - enoxaparin dispo - eventual home with outpt GI follow-up at [facility] Total time managing care of this patient today: 35 minutes. Quality Stroke Does the patient have a stroke diagnosis?: No VTE Prior VTE?: No VTE Risk Level:: Medical - low VTE Device Contraindication: Treatment Not Indicated VTE Drug Contraindication: Treatment Not Indicated
[2025-01-29 15:11] VITALS: BP 109/53; PULSE 62; RESP 16; TEMP 36.8; O2SAT 99
[2025-01-29 20:00] VITALS: BP 114/60; PULSE 57; RESP 18; TEMP 36; O2SAT 98
--- NOTE | 2025-01-29 23:40 | P.PNGI_ITS ---
Subjective Subjective Date of Service: 01/29/25 Interval History: Patient seen at 8PM. He reports continued improvement with less pain. Tolerating diet. He reports increasing BM's with 2 loose stools today.Denies bleeding Critical Care Time (minutes): 0 Physical Exam 2 Vital Signs: Vital Signs: Last Vital Signs Temp 96.8 F 01/29/25 20:00 Pulse 57 01/29/25 20:00 Resp 18 01/29/25 20:00 BP 114/60 01/29/25 20:00 Pulse Ox 98 01/29/25 20:00 O2 Del Method Room Air 01/29/25 20:00 BMI result Body Mass Index 17.8 Const: General: cooperative, healthy appearing, comfortable, no acute distress, well developed and alert GI: Other: +BS, soft Nondistended. Sill some mild t enderness in the RLQ, No mass or rebound Objective Data Labs 01/29/25 05:45 01/28/25 05:29 Labs: Laboratory Results - last 24 hr 01/29/25 05:45 WBC 4.8 RBC 4.12 L Hgb 11.7 L Hct 34.0 L MCV 82.5 MCH 28.4 MCHC 34.4 RDW 12.7 Plt Count 187 MPV 9.4 Immature Gran % (Auto) 0.2 Neut % (Auto) 58.0 Lymph % (Auto) 29.2 [place] % (Auto) 7.2 Eos % (Auto) 5.0 H Baso % (Auto) 0.4 Lymph # (Auto) 1.4 [place] # (Auto) 0.4 Eos # (Auto) 0.2 Baso # (Auto) 0.0 Abs Immat Gran (auto) 0.01 Absolute Neuts (auto) 2.8 Absolute Nucleated RBC 0.000 Nucleated RBC % (auto) 0.0 Microbiology Microbiology Results: Microbiology 01/26/25 19:32 Blood - Venous Blood Culture - Preliminary No growth after 48 hours. 01/26/25 19:22 Blood - Venous Blood Culture - Preliminary No growth after 48 hours. Procedures Date of Service Date of Service: 01/29/25 Progress Note: A&P Assessment and plan (1) Crohn's disease of both small and large intestine: Status: Acute Assessment and Plan: Imp: Crohn's disease--Patient continues to improve with less pain and tenderness. Starting to have BM's. Tolerating addition of Mesalamine and Budesonide, and advancement of diet. Rec: Continue current treatment. I instructed him in a low residue diet. I suspect he can be discharged and changed to po antibiotics in next 24-28 hours and then continue for 10 days. I advised him that I will be in touch with him to schedule an outpatient colonoscopy for sometime in February. I did advise him that if things worsen at home he should call or go to the ER. I shall check B12 level and Iron studies for the AM. Thanks Time Spent With Patient Time: Total time managing care of this patient today ____ minutes. Quality Stroke Does the patient have a stroke diagnosis?: No VTE Prior VTE?: No VTE Risk Level:: Medical - low VTE Device Contraindication: Treatment Not Indicated VTE Drug Contraindication: Treatment Not Indicated
[2025-01-30 05:57] LABS: Hematocrit 36.8 % (42.0-52.0); Hemoglobin 12.4 g/dl (14.0-18.0); Mean Corpuscular HGB Conc 33.7 g/dl (31.0-36.0); Mean Corpuscular Hemoglobin 28.3 pg (27.0-33.0); Mean Corpuscular Volume 84.0 fL (80.0-98.0); NRBC Abs Auto 0.000 X10*3/uL (0.0-0.012); NRBC Pct Auto 0.0 /100WBC (0.0-0.2); Platelet Count 219 X10*3/uL (160-400); Red Blood Count 4.38 X10*6/uL (4.60-5.80); White Blood Count 6.9 X10*3/uL (4.8-10.8)
[2025-01-30 06:22] LABS: Anion Gap 13 (12-20); Blood Urea Nitrogen 7 mg/dL (9-16); Calcium 8.9 mg/dL (8.4-10.2); Carbon Dioxide 28 mmol/L (22-29); Chloride 106 mmol/L (96-108); Creatinine Clr Calc Pharmacy 126.3; Estimated Glomerular Filt Rate > 60; Iron 26 mcg/dL (45-160); Percent Iron Saturation 17 % (15-50); Potassium 3.5 mmol/L (3.3-5.1); Sodium 143 mmol/L (135-145); Total Iron Binding Capacity 152 mcg/dL (228-428); Unsaturated Iron Binding 126 ug/dL
[2025-01-30 06:36] LABS: Ferritin 106 ng/mL (20-250)
[2025-01-30 06:37] LABS: Vitamin B12 435 pg/mL (200-900)
--- NOTE | 2025-01-30 06:37 | P.PNGS_ITS ---
Subjective Subjective Date of Service: 01/30/25 <Swapnil Leggett - Last Filed: 01/30/25 06:58> 01/30/25 <Joseph Lowe PA-C - Last Filed: 01/30/25 07:19> 01/30/25 <Jose R Adler MD - Last Filed: 01/30/25 07:56> Interval history: Patient states that he is feeling better. Pain is much improved, 2/10 pain at rest, but continued tenderness with light palpation and voluntary guarding in the lower quadrants. He has been having frequent bowel movements that he reports as diarrhea - he thinks the color is darker than usual but has not been specifically looking. No associated pain with bowel movements or urination. Diet was advanced yesterday and has been tolerating it well with no nausea or vomitting. He denies fever and chills. <Swapnil Leggett - Last Filed: 01/30/25 06:58> Physical Exam 2 Vital Signs: Vital Signs: Last Vital Signs Temp 96.8 F 01/29/25 20:00 Pulse 57 01/29/25 20:00 Resp 18 01/29/25 20:00 BP 114/60 01/29/25 20:00 Pulse Ox 98 01/29/25 20:00 O2 Del Method Room Air 01/29/25 20:00 BMI result Body Mass Index 17.8 <Swapnil Leggett - Last Filed: 01/30/25 06:58> Const: General: no acute distress <Swapnil Leggett - Last Filed: 01/30/25 06:58> Orientation/consciousness: patient oriented x3 <Swapnil Leggett - Last Filed: 01/30/25 06:58> Resp: Effort & Inspection: normal respiratory effort and able to speak in complete sentences <Swapnil Leggett - Last Filed: 01/30/25 06:58> GI: Other: Soft and non-tender in the upper quadrants, voluntary guarding and tenderness to light palpation in the lower quadrants. <Swapnil Leggett - Last Filed: 01/30/25 06:58> Inspection: Yes normal to inspection <Swapnil Leggett - Last Filed: 01/30/25 06:58> Palpation (GI): Firmness to palpation present (GI), Tenderness to palpation present (GI) and Guarding due to palpation present (GI) <Swapnil Leggett - Last Filed: 01/30/25 06:58> Palpation (GI): not firm <Joseph Lowe PA-C - Last Filed: 01/30/25 07:19> Neuro: General: patient oriented x3 <Swapnil Leggett - Last Filed: 01/30/25 06:58> Objective Data Active Medications Acetaminophen (Acetaminophen 325 Mg Tablet) 650 mg PO Q6H PRN PRN Reason: Pain, Mild 1-3,fever,headache Last Admin: 01/27/25 23:25 Dose: 650 mg Documented By: LUZMARIA Budesonide (Budesonide Dr 3 Mg Capsule) 9 mg PO DAILY [facility] Last Admin: 01/29/25 07:59 Dose: 9 mg Documented By: PRAVEEN Calcium Carbonate (Calcium Carbonate 750 Mg Tab.Chew) 750 mg PO Q4H PRN PRN Reason: Heartburn Enoxaparin Sodium (Enoxaparin Sodium 40 Mg/0.4 Ml Syringe) 40 mg SUBCUT Q24H [facility] Last Admin: 01/29/25 10:42 Dose: Not Given Documented By: PRAVEEN Non-Admin Reason: Patient Refused Piperacillin Sod/Tazobactam (Sod 4.5 gm/ Sodium Chloride) 100 mls @ 200 mls/hr IV Q6H [facility] Last Infusion: 01/30/25 00:35 Dose: Infused Documented By: MIR Magnesium Hydroxide (Milk Of Magnesia 30 Ml Oral.Susp) 30 ml PO DAILY PRN PRN Reason: Constipation Melatonin (Melatonin 3 Mg Tablet) 6 mg PO BEDTIME PRN PRN Reason: Insomnia Mesalamine (Mesalamine 250 Mg Capsule.Er) 1,000 mg PO QID [facility] Last Admin: 01/29/25 20:16 Dose: 1,000 mg Documented By: MIR Morphine Sulfate (Morphine Sulfate 4 Mg/Ml Cartridge) 2 mg IVPUSH Q6H PRN; Protocol PRN Reason: Pain, Severe (Pain Scale 7-10) Ondansetron HCl (Ondansetron Hcl 4 Mg/2 Ml Vial) 4 mg IVPUSH Q8H PRN PRN Reason: Nausea and Vomiting Sodium Chloride (0.9 % Sodium Chloride Flush 3 Ml Syringe) 3 ml IVFLUSH QSHIFT [facility] Last Admin: 01/29/25 20:16 Dose: Not Given Documented By: MIR Non-Admin Reason: IV Running <Swapnil Leggett - Last Filed: 01/30/25 06:58> Labs CBC & Chem 7: 01/30/25 05:12 01/30/25 05:12 <Swapnil Leggett - Last Filed: 01/30/25 06:58> Labs: Laboratory Results - last 24 hr 01/30/25 05:12 MCV 84.0 MCH 28.3 MCHC 33.7 RDW 12.6 Plt Count 219 MPV 9.3 L Absolute Nucleated RBC 0.000 Nucleated RBC % (auto) 0.0 Anion Gap 13 Estim Creat Clear Calc 126.3 Estimated GFR > 60 Random Glucose 98 Calcium 8.9 Iron 26 L TIBC 152 L % Saturation 17 Unsat Iron Binding 126 Ferritin 106 C-Reactive Protein 2.66 H <Swapnil Leggett - Last Filed: 01/30/25 06:58> Procedures Date of Service Date of Service: 01/30/25 <Swapnil Leggett - Last Filed: 01/30/25 06:58> 01/30/25 <Joseph Lowe PA-C - Last Filed: 01/30/25 07:19> 01/30/25 <Jose R Adler MD - Last Filed: 01/30/25 07:56> Progress Note: A&P Assessment and plan (1) Crohn's disease of both small and large intestine: Status: Acute <Swapnil Leggett Last Filed: 01/30/25 06:58> Assessment and Plan: Continues to feel better Pain much improved Tolerating regular diet Some diarrhea Overall clinical picture suggestive of Crohn's disease GI follow up as outpatient Abdomen is soft and benign Seen and examined independently <Jose R Adler MD - Last Filed: 01/30/25 07:56> (2) Intra-abdominal abscess: Status: Acute <Swapnil Leggett - Last Filed: 01/30/25 06:58> Assessment and Plan: Appears to be continuing to improve clinically. No surgical indications at this time. Per GI, likely diagnosis is Crohns disease. He has been started on mesalamine and colonoscopy is being deferred in light of microperforations and risk of perforation. He will need to follow-up with outpatient GI for colonoscopy and consider biologic if Crohns disease confirmed. Will continue to follow with GI and hospitalist team and manage surgically if indicated. <Swapnil Leggett - Last Filed: 01/30/25 06:58> Appears to be continuing to improve clinically. No surgical indications at this time. Per GI, likely diagnosis is Crohns disease. He has been started on mesalamine and colonoscopy is being deferred in light of microperforations and risk of perforation. He will need to follow-up with outpatient GI for colonoscopy and consider biologic if Crohns disease confirmed. Will continue to follow with GI and hospitalist team and manage surgically if indicated. Patient seen and examined independently, I agree with the above assessment and plan. 19 year old male admitted for lower abdominal pain, likely chrons, surgery following for microabscess. Patient continuing to improve, minimal pain at rest. Tolerating regular diet. No nausea, vomiting. Patient experiencing multiple episodes of diarrhea starting yesterday. Stool sample negative, stool calprotectin pending. Could check c diff. if negative would consider loperimide for symptom control. No current surgical intervention indication. <Joseph Lowe PA-C - Last Filed: 01/30/25 07:19> Time Spent With Patient Time: Total time managing care of this patient today ____ minutes. <Swapnil Leggett - Last Filed: 01/30/25 06:58> Quality Stroke Does the patient have a stroke diagnosis?: No <Swapnil Leggett - Last Filed: 01/30/25 06:58> VTE Prior VTE?: No <Swapnil Leggett - Last Filed: 01/30/25 06:58> VTE Risk Level:: Medical - low <Swapnil Leggett - Last Filed: 01/30/25 06:58> VTE Device Contraindication: Treatment Not Indicated <Swapnil Leggett - Last Filed: 01/30/25 06:58> VTE Drug Contraindication: Treatment Not Indicated <Swapnil Leggett - Last Filed: 01/30/25 06:58>
[2025-01-30] MEDS: 0.9 % Sodium Chloride Flush 3 ML SYRINGE IVFLUSH (07:25)
[2025-01-30 07:30] VITALS: BP 106/51; PULSE 62; RESP 12; TEMP 36.5; O2SAT 98
[2025-01-30] MEDS: Budesonide DR 3 MG Capsule 9 MG PO (09:11)
--- NOTE | 2025-01-30 12:48 | PM.DS ---
DS: Providers Provider Date of Service: 01/30/25 Date of admission: 01/26/25 19:58 Date of discharge: 01/30/25 Primary care physician: None Physician Consults: 01/26/25 20:29 Consult to Gastroenterology Routine Consulting Provider: Vince Jones Reason for consultation: colitis Consult to General Surgery Routine Consulting Provider: [facility] [place] General Surgeons Reason for consultation: intra abdominal abscess DS: Diagnosis Discharge Diagnosis (1) Enteritis: Status: Acute (2) Crohn's disease of both small and large intestine: Status: Acute (3) Colitis: Status: Acute (4) Intra-abdominal abscess: Status: Acute DS: Summary Hospital Course Hospital Course: From the history and physical by the admitting hospitalist, Jony Fabian MD, 01/26/25: This has a 19-year-old male with no pertinent past medical history and not on medications who presents to the emergency department for evaluation of abdominal pain. Patient states his symptoms started 2 days prior to presentation. Patient started having intermittent lower abdominal discomfort which was generalized, nonprogressive, nonradiating and without any relieving factors. This has never happened before. No previous abdominal surgery or GI issues. Occasionally patient has had constipation. He has been having associated nausea and nonbloody emesis along with the abdominal discomfort. No fever or chills. No sick contacts. Denies significant alcohol use or tobacco use. No melena or hematochezia. Denies any inciting factors, recent travels. Did not eat anything unusual that he knows of. No family history of inflammatory bowel disease that he knows of. No chest pain, palpitations, shortness of breath, changes in urinary habits. In the emergency department, imaging with colitis, enteritis and intrapelvic abscesses. General surgery and gastroenterology consulted who requested admission to medicine team. 19yo M with no PMHx presenting with abd pain, found to have proximal colitis, distal enteritis and suspected small intrapelvic abscesses. He was admitted to the medical-surgical unit with Surgery and Gastroenterology consultations. He was treated with piperacillin-tazobactam. C. difficile and GI panel assays negative. Diet was gradually advanced as symptoms of abdominal pain and diarrhea came under control. Ultimately, his presentation was felt likely due to Crohn's disease. Fecal calprotectin sent and pending at the time of discharge. No colonoscopy for now due to concern of microperforation; to schedule as an outpatient. He was started on budesonide + mesalamine. He will have outpatient follow-up with GI for treatment with biolgic agent (HBV negative, T-spot pending). He was discharged on 3 days of amoxicillin-clavulanate as well as prescriptions for budesonide and mesalamine. Time Attestation Discharge Coordination Time (in mins): 40 Quality: Safe Use of Opioids Does Pt have an Active Cancer Diagnosis on the Problem List?: No Quality: Stroke Does the patient have a stroke diagnosis?: No Physical Exam Vital Signs: Vital Signs: Last Vital Signs Temp 97.7 F 01/30/25 07:30 Pulse 62 01/30/25 07:30 Resp 12 01/30/25 07:30 BP 106/51 L 01/30/25 07:30 Pulse Ox 98 01/30/25 07:30 O2 Del Method Room Air 01/30/25 07:30 BMI result Body Mass Index 17.8 Gen: in no acute distress HEENT: sclera anicteric, moist mucus membranes Neck: supple Lungs: clear to auscultation bilaterally Heart: regular rate and rhythm, no murmurs Abd: soft, non-tender, non-distended Ext: no edema Skin: warm/well-perfused Neuro: alert and oriented x3, no focal findings Psych: appropriate affect DS: Data Data Completed and Pending Completed studies during hospitalization [Text1]: Laboratory Results WBC 6.9 X10*3/uL (4.8-10.8) 01/30/25 05:12 RBC 4.38 X10*6/uL (4.60-5.80) L 01/30/25 05:12 Hgb 12.4 g/dl (14.0-18.0) L 01/30/25 05:12 Hct 36.8 % (42.0-52.0) L 01/30/25 05:12 MCV 84.0 fL (80.0-98.0) 01/30/25 05:12 MCH 28.3 pg (27.0-33.0) 01/30/25 05:12 MCHC 33.7 g/dl (31.0-36.0) 01/30/25 05:12 RDW 12.6 % (11.0-16.0) 01/30/25 05:12 Plt Count 219 X10*3/uL (160-400) 01/30/25 05:12 MPV 9.3 fL (9.4-12.4) L 01/30/25 05:12 Immature Gran % (Auto) 0.2 % (0.0-0.4) 01/29/25 05:45 Neut % (Auto) 58.0 % (45-73) 01/29/25 05:45 Lymph % (Auto) 29.2 % (20-40) 01/29/25 05:45 [place] % (Auto) 7.2 % (2-11) 01/29/25 05:45 Eos % (Auto) 5.0 % (0-4) H 01/29/25 05:45 Baso % (Auto) 0.4 % (0-2) 01/29/25 05:45 Lymph # (Auto) 1.4 X10*3/uL (1.2-4.9) 01/29/25 05:45 [place] # (Auto) 0.4 X10*3/uL (0.1-1.2) 01/29/25 05:45 Eos # (Auto) 0.2 X10*3/uL (0.0-0.4) 01/29/25 05:45 Baso # (Auto) 0.0 X10*3/uL (0.0-0.2) 01/29/25 05:45 Abs Immat Gran (auto) 0.01 X10*3/uL (0.00-0.03) 01/29/25 05:45 Absolute Neuts (auto) 2.8 x10*3/uL (2.0-8.3) 01/29/25 05:45 Absolute Nucleated RBC 0.000 X10*3/uL (0.0-0.012) 01/30/25 05:12 Nucleated RBC % (auto) 0.0 /100WBC (0.0-0.2) 01/30/25 05:12 ESR 25 MM/HR (0-15) H 01/26/25 17:26 Sodium 143 mmol/L (135-145) 01/30/25 05:12 Potassium 3.5 mmol/L (3.3-5.1) 01/30/25 05:12 Chloride 106 mmol/L (96-108) 01/30/25 05:12 Carbon Dioxide 28 mmol/L (22-29) 01/30/25 05:12 Anion Gap 13 (12-20) 01/30/25 05:12 BUN 7 mg/dL (9-16) L 01/30/25 05:12 Creatinine 0.77 mg/dL (0.5-1.4) 01/30/25 05:12 Estim Creat Clear Calc 126.3 01/30/25 05:12 Estimated GFR > 60 01/30/25 05:12 Random Glucose 98 mg/dL (60-115) 01/30/25 05:12 Lactic Acid 0.9 mmol/L (0.5-2.0) 01/26/25 19:22 Calcium 8.9 mg/dL (8.4-10.2) 01/30/25 05:12 Iron 26 mcg/dL (45-160) L 01/30/25 05:12 TIBC 152 mcg/dL (228-428) L 01/30/25 05:12 % Saturation 17 % (15-50) 01/30/25 05:12 Unsat Iron Binding 126 ug/dL 01/30/25 05:12 Ferritin 106 ng/mL (20-250) 01/30/25 05:12 Total Bilirubin 0.7 mg/dL (0.0-1.0) 01/26/25 17:26 AST 19 U/L (5-37) 01/26/25 17:26 ALT 8 U/L (0-40) 01/26/25 17:26 Alkaline Phosphatase 78 U/L (39-117) 01/26/25 17:26 C-Reactive Protein 2.66 mg/dL (< or = 0.50) H 01/30/25 05:12 Total Protein 7.8 g/dL (6.5-8.0) 01/26/25 17:26 Albumin 4.3 g/dL (3.5-5.0) 01/26/25 17:26 Lipase 13 U/L (8-78) 01/26/25 17:26 Vitamin B12 435 pg/mL (200-900) 01/30/25 05:12 Urine Color Dark Yellow 01/26/25 17:48 Urine Appearance Clear 01/26/25 17:48 Urine pH 5.5 (5.0-9.0) 01/26/25 17:48 Ur Specific [place] >= 1.030 (1.005-1.025) H 01/26/25 17:48 Urine Protein 30 (1+) mg/dL (Neg-Trace) H 01/26/25 17:48 Urine Glucose (UA) Negative mg/dL (Negative) 01/26/25 17:48 Urine Ketones 80 mg/dL (Negative) 01/26/25 17:48 Urine Blood Negative (Negative) 01/26/25 17:48 Urine Nitrite Negative (Negative) 01/26/25 17:48 Ur Leukocyte Esterase Negative (Negative) 01/26/25 17:48 Urine RBC 0-2 /HPF (0-2) 01/26/25 17:48 Urine WBC 0-5 /HPF (0-5) 01/26/25 17:48 Ur Squamous Epith Cells 0-2 /HPF (0-2) 01/26/25 17:48 Urine Bacteria None Seen (None Seen) 01/26/25 17:48 Hyaline Casts 11-20 /LPF (0-2) 01/26/25 17:48 Stl C. cayetanensis PCR Not Detected (Not Detect.) 01/27/25 20:25 Stool Rotavirus A PCR Not Detected (Not Detect.) 01/27/25 20:25 Stl Adenov F 40/41 PCR Not Detected (Not Detect.) 01/27/25 20:25 Stool Astrovirus (PCR) Not Detected (Not Detect.) 01/27/25 20:25 Stool Campylobacter PCR Not Detected (Not Detect.) 01/27/25 20:25 Stool Cryptosporidium PCR Not Detected (Not Detect.) 01/27/25 20:25 Stl Sh Tox Pr E STEC PCR Not Detected (Not Detect.) 01/27/25 20:25 Stool E coli O157 PCR Not applicable (Not Detect.) 01/27/25 20:25 Stl Enterotoxigenic E PCR Not Detected (Not Detect.) 01/27/25 20:25 Stool EPEC (PCR) Not Detected (Not Detect.) 01/27/25 20:25 Stool EAEC (PCR) Not Detected (Not Detect.) 01/27/25 20:25 Stl E. histolytica PCR Not Detected (Not Detect.) 01/27/25 20:25 Stool Giardia Lamblia PCR Not Detected (Not Detect.) 01/27/25 20:25 Stl P. shigelloides PCR Not Detected (Not Detect.) 01/27/25 20:25 Stool Salmonella PCR Not Detected (Not Detect.) 01/27/25 20:25 Stool Sapovirus (PCR) Not Detected (Not Detect.) 01/27/25 20: Stl Shigella/EIEC PCR Not Detected (Not Detect.) 01/27/25 20:25 St Y.enterocolitica PCR Not Detected (Not Detect.) 01/27/25 20:25 Stool Vibrio (PCR) Not Detected (Not Detect.) 01/27/25 20:25 Stl Vibrio cholerae PCR Not Detected (Not Detect.) 01/27/25 20:25 Stl Norovirus GI/GII PCR Not Detected (Not Detect.) 01/27/25 20:25 C. difficile Tox B Gene NEGATIVE (Negative) 01/27/25 20:25 Hep Bs Antigen Negative (Negative) 01/28/25 05:29 Hep Bs Antibody NONREACTIVE (Nonreactive) 01/28/25 05:29 Hep B Core Total Ab Nonreactive (Nonreactive) 01/28/25 05:29 Discharge Plan Discharge Anticipated Discharge Date/Time: 01/30/25 12:40 Patient Disposition: Home Health Service Discharge Diagnosis: colitis, enteritis, abdominal abscesses; suspected Crohn's disease Referrals: Physician,None [Primary Care Provider, Medical] - 1 Week Vince Jones MD [Physician, Gastroenterology] - 1 Week Discharge Medications: New mesalamine 500 mg capsule, extended release 1,000 mg PO QID Qty: 240 0RF budesonide 3 mg capsule,delayed,extend.release 9 mg PO DAILY Qty: 90 0RF amoxicillin-pot clavulanate 875-125 mg tablet 1 tab PO BID Qty: 6 0RF Discharge Orders: Discharge Order (Routine); Ordered 01/30/25 Ordered By: Finesse Ernst Diet: Advance to usual diet Activity on Discharge: As tolerated Stand Alone Forms: Patient Portal Discharge page Print Language: Romansh Care Plan Goals: GI health Health Concerns: colitis, enteritis, abdominal abscesses; suspected Crohn's disease Plan of Treatment: amoxicillin-clavulanate twice daily for 3 days budesonide 9 mg daily mesalamine 1000 mg 4x a day follow up with Dr Vince Jones from [facility] in 1 week Please follow up with your primary care doctor within 1 week. Return to the hospital if you experience recurrent or worsening symptoms. Assessment: See Discharge Summary.
--- NOTE | 2025-01-30 13:05 | MHC.CM.PN ---
DP: PT HAS BEEN MEDICALLY CLEARED FOR DC HOME, NO SERVICES. PT HAS OWN RIDE HOME.
[2025-01-31 05:49] LABS: TS Negative Control Passed; TS Panel A 0; TS Panel B 0; TS Positive Control Passed; TSpotTB Negative (Negative)
[2025-02-03 19:44] LABS: Calprotectin, Fecal 1090 mcg/g
== END 2025-01-30 13:33 | disposition home or self-care (01) | DRG 245 ==
LOC: HO.ED 19:41 → HO.EDOVER 20:06 → HO.S3 01-27 13:41
PROVIDERS: Internal Medicine; Physician Assistant; Physician Assistant Medical; Admitting Provider Student in an Organized Health Care Education/Training Program; Emergency Provider Emergency Medicine; Visit Provider Family Medicine
DX: K50.814 Crohn's disease of both small and large intestine with abscess (principal)
CPT/HCPCS: 36415; 74177; 80048; 80053; 81001; 82607; 82728; 83540; 83605; 83690; 83993; 85025; 85027; 85652; 86140; 86481; 86704; 86706; 87040; 87340; 87493; 87507; 99285; J2270; J2405; J2543; J7120; Q9967

== ENCOUNTER → 2025-01-26 16:32 | Outpatient (BNV) | payer MEDICAID, SELFPAY | PROVIDERS: Emergency Provider Emergency Medicine; Visit Provider Radiology Diagnostic Radiology | DX: R10.31 Right lower quadrant pain (principal); R11.0 Nausea | CPT/HCPCS: 74177 ==

== ENCOUNTER → 2025-01-26 19:58 | Outpatient (BNV) | payer MEDICAID, SELFPAY | PROVIDERS: Admitting Provider Student in an Organized Health Care Education/Training Program; Emergency Provider Emergency Medicine; Visit Provider Student in an Organized Health Care Education/Training Program | DX: K52.9 Noninfective gastroenteritis and colitis, unspecified (principal); K65.1 Peritoneal abscess | CPT/HCPCS: 99222; 99232 ==

== ENCOUNTER → 2025-01-26 19:58 | Outpatient (BNV) | payer MEDICAID, SELFPAY | PROVIDERS: Admitting Provider Student in an Organized Health Care Education/Training Program; Emergency Provider Emergency Medicine; Visit Provider Surgery | DX: K65.1 Peritoneal abscess (principal); K52.9 Noninfective gastroenteritis and colitis, unspecified | CPT/HCPCS: 99222; 99232 ==

== ENCOUNTER 2025-02-06 12:31 | Outpatient (REF) | payer MEDICAID, SELFPAY ==
--- OUTSIDE RECORDS SUMMARY | 2025-02-06 12:53 | XMS_ITS | Clinical Summary ---
Author Organization [facility] Address [address] [facility] [address] [place] [address] Care Team Providers Care Wind Development Director Name Role Phone Unavailable Primary Care Provider Unavailabl e Allergies No known active allergies Medications clotrimazole (Lotrimin) 1 % creamIndication s:Tinea corporis Apply to affected area BID until resolved. 30 g 1 5 Active carbamide peroxide (Debrox) 6.5 % otic solutionIndicat ions:Bilateral impacted cerumen Fill ear canal bilaterally 3x per week 15 mL 2 5 Active ibuprofen 600 MG tabletIndicatio ns:Nonintractab le headache, unspecified chronicity pattern, unspecified headache type 1 tab q 6 hours prn fever or pain 30 tablet 1 5 Active mupirocin (Bactroban) 2 % ointmentIndicat ions:Folliculit is Apply topically 3 times daily for 10 days. 30 g 1 5 01/11/20 25 Active Problems Problem Noted Date Diagnosed Date Mild intermittent asthma 12/17/2024 Encounters Date Type Department Care Team Description 12/31/2024 10:00 AM EDT Office Visit [facility] [address] [place] [id number] Polo Davalos MD Nonintractable headache, unspecified chronicity pattern, unspecified headache type (Primary Dx); Folliculitis 12/31/2024 Travel 12/17/2024 2:40 PM EDT Office Visit [facility] [address] [place] [id number] Polo Davalos MD Tinea corporis (Primary Dx); Bilateral impacted cerumen 12/17/2024 Telephone [facility] [address] [place] [id number] Willian Montemayor MD 11/11/2024 Population Health Risk Score [facility] [address] [place] [id number] Provider, Population Health Generic from Last 3 Months Social History Tobacco Use Types Packs/Day Years Used Date Smoking Tobacco: Never Smokeless Tobacco: Never Tobacco Cessation:Counseling Given: Not Answered Sex and Gender Information Value Date Recorded Sex Assigned at Male 12/17/2024 2:12 PM EDT Legal Sex Male 8:22 PM EDT Gender Identity Male 12/17/2024 2:12 PM EDT Sexual Orientation Straight 12/17/2024 2: 13 PM EDT Last Filed Vital Signs Vital Sign Reading Time Taken Comments Blood Pressure 128/77 12/31/2024 9:58 AM EDT Pulse 101 12/31/2024 9:58 AM EDT Temperature 36.8 C (98.3 F) 12/31/2024 9:58 AM EDT Respiratory Rate 18 12/31/2024 9:58 AM EDT Oxygen Saturation 99% 12/31/2024 9:58 AM EDT Inhaled Oxygen Concentration - - Weight 60.8 kg (134 lb) 12/31/2024 9:58 AM EDT Height 177.8 cm (5' 10 ) 12/31/2024 9:58 AM EDT Body Mass Index 19.23 12/31/2024 9:58 AM EDT Plan of Treatment Upcoming Encounters Date Type Department Care Team (Late st Contact Info) Description 03/18/2025 2:00 PM EDT Office Visit [facility] [address] [place] [address] Rebekah Bishop MD [address] [place] [address] Health Maintenance Due Date Last Done Comments Chlamydia and Gonorrhea Screening 2005 Depression Screening 2005 HIV Screening 2005 SDOH Screening 2005 Disability Screening 2005 Fluoride Varnish 04/11/2006 MMR Vaccines (1 of 1 - Stand sky series) 2006 Alcohol/Substance Use Screening 2017 Varicella Vaccines (1 of 2 - 13+ 2-dose series) 2018 Family Planning (PISQ) 2020 HPV Vaccines (1 - Male 3-dos e series) 2020 Meningococcal B Vaccine (1 o f 2 - Standard) 2021 Hepatitis C Screening 2023 COVID-19 Vaccine (1 - 2023-2 5 season) 2024 DTaP/Tdap/Td Vaccines (1 - Tdap) 2024 Hepatitis B Vaccines (1 of 3 - 19+ 3-dose series) 2024 Pneumococcal Vaccine: Pediat rics (0 to 5 Years) and At-Risk Patients (6 to 49) Years (1 of 2 - PCV) 2024 Influenza Vaccine (#1) 2025 Tobacco Screening 12/17/2025 12/17/2024 Zoster Vaccines (1 of 2) 2055 RSV Patients and Pa tients Aged 60 years or older (1 - 1-dose 75+ series) 2080 HIB Vaccines Aged Out No longer eligi ble based on patient's age to complete this topic Hepatitis A Vaccines Aged Out No long er eligible based on patient's age to complete this topic IPV Vaccines Aged Out No longer eligi ble based on patient's age to complete this topic Meningococcal Vaccine Aged Out No nikki topher eligible based on patient's age to complete this topic RSV under 20 months Aged Out No longe r eligible based on patient's age to complete this topic Rotavirus Vaccines Aged Out No longer eligible based on patient's age to complete this topic Insurance [facility] C3
--- OUTSIDE RECORDS SUMMARY | 2025-02-06 12:53 | XMS_ITS | Patient Health Record ---
Demographics Address [address] [place] [address] Mobile Preferred Language en Marital Status Unknown Yazdanism Affiliation Unknown Race or A laska [place] Additional Race(s) Karyn Ethnic Group or Author Organization [facility] Address [address] [place] [address] Support Name Relationship Address Phone SHANTE CARRANZA Emergency Contact [address] [place] [address] ELIZABETH HANDLEYGOBILL Guarantor Unknown Care Team Providers Care Fha Underwriter Name Role Phone Eugene Kerns, Rebekah Primary Care Provider Vince Chatterjee Unavailable [phone] Doc GE, Mita Carson Unavailab le Allergies Allergen (clinical drug ingredient) Drug/Non Drug Allergy documented on EMR Reaction Allergy Type Onset Date Status seasonal (uncoded) Unknown Allergy A ctive Results Component Value Reference Range Notes T Spot TB (Not yet reviewed by provider) Interpretation: Performing Lab:[facility], [address] [place] [phone] Notes/Report: TSpotTB Negative Negative A negative test result does not exclude the possibility of exposure to or infection with Mycobacterium tuberculosis (M. tuberculosis). Patients with recent exposure to TB infected individuals exhibiting a negative T-SPOT.TB result should be considered for retesting within 6 weeks or if other relevant clinical symptoms indicate. Results from T-SPOT.TB testing must be used in conjunction with each individual's epidemiological history, current medical status, and results of other diagnostic evaluations. The T-SPOT.TB test is qualitative and results are reported as positive, borderline, or negative, given that the test controls perform as expected. In line with the Centers for Disease Control and Prevention's 2010 recommendation to report quantitative measurements alongside the qualitative result, the laboratory provides spot counts for informational purposes only. The T-SPOT.TB test should not be interpreted as a quantitative test. TS Panel A 0 TS Panel B 0 TS Negative Control Passed TS Positive Control Passed For additional information, please refer to http://education.[facility].com/faq/IRL085 (This link is being provided for informational/ educational purposes only.) THIS TEST WAS PERFORMED AT: [facility] [phone] KEEGAN MEIER MD,PHD Hepatitis B Profile (Not yet reviewed by provider) Interpretation: Performing Lab:[facility], [address] [place] [phone] Notes/Report: Hepatitis B Surface Antibody NONREACTIVE Nonreactive Nonreactive: < 8.00 mIU/mL Hepatitis B Core Antibody Nonreactive Nonreactive Hepatitis B Surface Antigen Negative Negative Complete Blood Count Auto Di ff Reviewed date:01/29/2025 01:27:25 PM Interpretation: Performing Lab:[facility], [address] [place] [phone] Notes/Report: White Blood Count 4.8 4.8-10.8 X10*3/uL Red Blood Count 4.12 4.60-5.80 X10*6/uL Hemoglobin 11.7 14.0-18.0 g/dl Hematocrit 34.0 42.0-52.0 % Mean Corpuscular Volume 82.5 80.0-98.0 fL Mean Corpuscular Hemoglobin 28.4 27.0-33.0 pg Mean Corpuscular HGB Conc 34.4 31.0-36.0 g/dl Red Cell Distribution Width 12.7 11.0-16.0 % Platelet Count 187 160-400 X10*3/uL Mean Platelet Volume 9.4 9.4-12.4 fL Neutrophils Percent Auto 58.0 45-73 % Imm Gran Pct Auto 0.2 0.0-0.4 % Lymphocytes Percent Auto 29.2 20-40 % Monocytes Percent Auto 7.2 2-11 % Eosinophils Percent Auto 5.0 0-4 % Basophils Percent Auto 0.4 0-2 % NRBC Pct Auto 0.0 0.0-0.2 /100WBC Neutrophils Absolute Auto 2.8 2.0-8.3 x10*3/u L Imm Gran Abs Auto 0.01 0.00-0.03 X10*3/uL Lymphocytes Absolute Auto 1.4 1.2-4.9 X10*3/u L Monocytes Absolute Auto 0.4 0.1-1.2 X10*3/uL Eosinophils Absolute Auto 0.2 0.0-0.4 X10*3/u L Basophils Absolute Auto 0.0 0.0-0.2 X10*3/uL NRBC Abs Auto 0.000 0.0-0.012 X10*3/uL Hold Green Gel Reviewed date:01/30/2025 05:54:00 PM Interpretation: Performing Lab:[address] [phone] Notes/Report: Hold Green Gel See Note Specimen held untested for 24 hours; Call to request Chemistry testing. Complete Blood Count no Diff (Not yet reviewed by provider) Interpretation: Performing Lab:[address] [address] Notes/Report: White Blood Count 6.9 4.8-10.8 X10*3/uL Red Blood Count 4.38 4.60-5.80 X10*6/uL Hemoglobin 12.4 14.0-18.0 g/dl Hematocrit 36.8 42.0-52.0 % Mean Corpuscular Volume 84.0 80.0-98.0 fL Mean Corpuscular Hemoglobin 28.3 27.0-33.0 pg Mean Corpuscular HGB Conc 33.7 31.0-36.0 g/dl Red Cell Distribution Width 12.6 11.0-16.0 % Platelet Count 219 160-400 X10*3/uL Mean Platelet Volume 9.3 9.4-12.4 fL NRBC Pct Auto 0.0 0.0-0.2 /100WBC NRBC Abs Auto 0.000 0.0-0.012 X10*3/uL Basic Metabolic Panel (Not y et reviewed by provider) Interpretation: Performing Lab:[address] [phone] Notes/Report: Sodium 143 135-145 mmol/L Potassium 3.5 3.3-5.1 mmol/L Chloride 106 96-108 mmol/L Carbon Dioxide 28 22-29 mmol/L Anion Gap 13 12-20 Blood Urea Nitrogen 7 9-16 mg/dL Creatinine 0.77 0.5-1.4 mg/dL Creatinine Clr Calc Pharmacy 126.3 eGFR (calculated from the MDRD study equation) and eCrCl (calculated from the Cockcroft-Gault equation) are based on different parameters and may not yield comparable results. If eCrCl result is absurd, please check patient's height/weight. Estimated Glomerular Filt Rate > 60 Chronic Kidney Disease: Estimated GFR < 60 mL/min/1.73m2 Severe Kidney Disease: Estimated GFR < 15 mL/min/1.73m2 Glucose Random 98 60-115 mg/dL Calcium 8.9 8.4-10.2 mg/dL IRON PROFILE (Not yet review ed by provider) Interpretation: Performing Lab:[address] [phone] Notes/Report: Iron 26 45-160 mcg/dL Total Iron Binding Capacity 152 228-428 mcg/dL Percent Iron Saturation 17 15-50 % Unsaturated Iron Binding 126 Ferritin (Not yet reviewed b y provider) Interpretation: Performing Lab:[facility], [address] [place] [phone] Notes/Report: Ferritin 106 20-250 ng/mL C Reactive Protein (Not yet reviewed by provider) Interpretation: Performing Lab:[address] [phone] Notes/Report: C Reactive Protein 2.66 < or = 0.50 mg/dL Vitamin B12 Reviewed date:02/05/2025 12:13:08 AM Interpretation: Performing Lab:[address] [phone] Notes/Report: Vitamin B12 435 200-900 pg/mL NORMAL 200-900 PG/ML INDETERMINATE 160-199 PG/ML DEFICIENT < 160 PG/ML Reason For Referral Referring Provider First Name Mita Referring Provider Last Name Beulah Referring Provider Speciality Family Med [facility] Referred Organization [facility] Referred Provider Vince Jones Referred Address [address] [place] [address],[place] [address],[place], [place],[address], Referred Provider Specialty Gastroentero logy General Notes Tenisha Pak 2024 11:25:18 AM >requested a [facility] referral from [facility] for visit with Dr. Jones on 02-06-25Pasha Dawn 02/04/2025 08:45:16 AM >AWAITING APPT TO BE SCHEDULED BY HARMAN TO ATTACH OFFICE VISIT TO THE APPT. Referral Priority Routine Medications Medication SIG (Take, Route, Frequency, Duration) [...] Problem Status W/U Status Risk Notes Problem Imaging of gastrointestinal tract abnormal (203217416) Abnormal CT scan, gastrointestinal tract (R93.3) Active confirmed Problem Right lower quadrant pain (379593759) RLQ abdominal pain (R10.31) Active confirmed Problem Crohn's disease of small AND large intestines (87492287) Crohn''s disease of both small and large intestine without complication (K50.80) Active confirmed Vital Signs Temperature 97.9 degrees Fahrenheit 02/06/2025 Blood pressure diastolic 01 mm Hg 02/06/2025 BMI Percentile 0.56 % 02/06/2025 Height 71 in 02/06/2025 Blood pressure systolic 001 mm Hg 02/06/2025 Weight 125.2 lbs 02/06/2025 BMI 17.46 kg/m2 02/06/2025 Procedures Procedure Date Ordered Date Performed Result Body Sit e COLONOSCOPY 02/06/2025 N/A Encounters Encounter Location Date Provider Diagnosis [facility] [address] [place] [address] 02/06/2025 Vince Jones Crohn''s disease of both small and large intestine without complication K50.80 ; RLQ abdominal pain R10.[address] scan, gastrointestinal tract R93.3 [facility] [address] [place] [address] 02/02/2025 Vince Jones Assessments Encounter Date Diagnosis (ICD Code) Assessment Notes Treatment Notes Treatment Clinical Notes Section Notes 02/06/2025 RLQ abdominal pain (ICD-10 - R10.31) Overall, Bill seems stable since discharge from the hospital but is still having some symptoms of the discomfort, diminished appetite, and fatigue. At this point I we will change him to prednisone 40 mg daily with a 5 mg/week taper and have him stop the budesonide since I do not think the budesonide giving him enough relief of his symptoms from what I still feel is Crohn's disease. I did advise him to continue the [...] vomiting, bleeding, etc., he should certainly call me but if need be go to the [...] keep you advised of his progress. 02/06/2025 Crohn''s disease of both small and large intestine without complication (ICD-10 - K50.80) Stop Budesonide and start the prednisone Continue the two 500mg Mesalamine pills 4 times a day] Stay on a low residue/low roughhage diet Overall, Bill seems stable since discharge from the hospital but is still having some symptoms of the discomfort, diminished appetite, and fatigue. At this point I we will change him to prednisone 40 mg daily with a 5 mg/week taper and have him stop the budesonide since I do not think the budesonide giving him enough relief of his symptoms from what I still feel is Crohn's disease. I did advise him to continue the [...] vomiting, bleeding, etc., he should certainly call me but if need be go to the [...] is still having some symptoms of the discomfort, diminished appetite, and fatigue. At this point I we will change him to prednisone 40 mg daily with a 5 mg/week taper and have him stop the budesonide since I do not think the budesonide giving him enough relief of his symptoms from what I still feel is Crohn's disease. I did advise him to continue the [...] vomiting, bleeding, etc., he should certainly call me but if need be go to the [...] advised of his progress. Plan Of Treatment Pending Test Test Name Order Date COLONOSCOPY 02/06/2025 LIVER PROFILE 02/06/2025 CRP 02/06/2025 CBC w DIFF 02/06/2025 SED RATE (ESR) 02/06/2025 Complete Blood Count no Diff 01/30/2025 Basic Metabolic Panel 01/30/2025 IRON PROFILE 01/30/2025 Ferritin 01/30/2025 C Reactive Protein 01/30/2025 T Spot TB 01/28/2025 Hepatitis B Profile 01/28/2025 Insurance Providers Payer Name Payer Address Payer Phone Subscriber Number Group Number Insured Name Patient Relationship to Insured Coverage Start Date Coverage End Date [place] [address] [place] [address] [id number] BILL MEDEIROS Self - patient is the insured 4 Medical (General) History Medical History History ICD Code Asthma Denies [place],DM,CVA,renal disease Presumed Crohn's disease samuel gnosed in January 2025 during his hospitalization. The CT scan showed evidence of disease involving the distal small bowel and ascending colon.
[2025-02-06 13:17] LABS: MANUAL DIFF FLAG NO
[2025-02-06 13:28] LABS: Hematocrit 43.6 % (42.0-52.0); Hemoglobin 14.8 g/dl (14.0-18.0); Imm Gran Abs Auto 0.07 X10*3/uL (0.00-0.03); Imm Gran Pct Auto 0.5 % (0.0-0.4); Lymphocytes Absolute Auto 1.4 X10*3/uL (1.2-4.9); Mean Corpuscular HGB Conc 33.9 g/dl (31.0-36.0); Mean Corpuscular Hemoglobin 28.2 pg (27.0-33.0); Mean Corpuscular Volume 83.2 fL (80.0-98.0); NRBC Abs Auto 0.000 X10*3/uL (0.0-0.012); NRBC Pct Auto 0.0 /100WBC (0.0-0.2); Platelet Count 308 X10*3/uL (160-400); Red Blood Count 5.24 X10*6/uL (4.60-5.80); White Blood Count 14.9 X10*3/uL (4.8-10.8)
[2025-02-06 13:46] LABS: Alanine Aminotransferase 13 U/L (0-40); Albumin Level 4.5 g/dL (3.5-5.0); Alkaline Phosphatase 83 U/L (39-117); Aspartate Amino Transferase 21 U/L (5-37); Total Protein 8.3 g/dL (6.5-8.0)
== END 2025-02-06 12:32 | disposition home or self-care (01) ==
LOC: HO.10HDL 12:31
PROVIDERS: Visit Provider Internal Medicine
DX: K50.80 Crohn's disease of both small and large intestine without complications (principal); R10.31 Right lower quadrant pain; R93.3 Abnormal findings on diagnostic imaging of other parts of digestive tract
CPT/HCPCS: 36415; 80076; 85025; 85652; 86140

== ENCOUNTER 2025-02-13 06:26 | Inpatient (IN) | payer MEDICAID, SELFPAY ==
[2025-02-13] VITALS (7 sets, daily range): BP systolic 94–135; BP diastolic 52–80; PULSE 63–107; RESP 13–19; TEMP 36.5–36.8; O2SAT 95–100; BMI 16.9; BMI 16.6
--- NOTE | ~2025-02-13 | CT_ITS ---
EXAMINATION: CT ABDOMEN AND PELVIS WITH CONTRAST CLINICAL INFORMATION: Abdominal pain, reevaluation for drainable abdominal abscess. COMPARISON: 02/13/2025, 01/26/2025. TECHNIQUE: Multidetector volumetric images were obtained from the superior aspect of the liver through the pubic symphysis following administration 85 mL of Omnipaque 350 intravenous contrast. Sagittal and coronal reformatted images were obtained on the technologist's workstation. Oral contrast: No This CT examination was performed using dose optimization techniques as appropriate, variously including the following: *Automated exposure control *Adjustment of mA and/or kV according to patient size (this includes techniques or standardized protocols for targeted exams where dose is matched to indication/reason for exam; i.e. extremities or head) *Use of iterative reconstruction technique FINDINGS: LUNG BASES: Lung bases are clear. There are no effusions. LIVER, GALLBLADDER, AND BILIARY TREE: The liver is normal in size, shape, and attenuation. No focal hepatic lesion or biliary ductal dilatation is present. The gallbladder is unremarkable with no evidence of radiopaque gallstones, gallbladder wall thickening, or obvious pericholecystic inflammatory changes. PANCREAS: Unremarkable. SPLEEN: Unremarkable. ADRENAL GLANDS: Unremarkable. KIDNEYS AND URETERS: The kidneys are normal in size, shape, and attenuation. No hydronephrosis, hydroureter, or calculi seen. No perinephric stranding. BLADDER: Decompressed, however grossly normal. GASTROINTESTINAL TRACT: There is redemonstration of diffuse mucosal enhancement and inflammation of a segment of terminal ileum leading into the ileocecal valve. There is mural wall thickening with periileal inflammation and a small amount of ascitic fluid abutting the inflamed loop. There is a laterally directed diverticulum in the mid aspect of the affected loop. This is unchanged. There are abutting small enhancing lymph nodes in the mesentery, likely reactive. A few loops of small bowel in the pelvis immediately proximal to the inflamed segment are mildly dilated and fluid-filled. There is no bowel obstruction evident. The colon is diffusely fluid-filled, in keeping with diarrheal-type illness. No wall thickening or enhancement identified. The stomach and duodenum appear normal. No evidence of appendicitis. ABDOMINAL WALL: No significant hernia is appreciated. LYMPH NODES: As above. No pathologic adenopathy. VASCULAR: Normal. PELVIC VISCERA: The prostate and seminal vesicles are unremarkable. OSSEOUS STRUCTURES: No lytic or blastic bone lesion. Normal SI joints. CT/CT abdomen pelvis w IV con IMPRESSION: 1. Redemonstration of improving but persistent inflammation and hyperenhancement of the most terminal ileum leading into the ileocecal valve. There is periileal inflammation and trace ascites abutting the affected loop. There are 2 prominent ileal diverticulum, previously questioned as abscesses. Findings most likely relate to Crohn's ileitis. 2. There is no definitive intra-abdominal abscess. 3. There is no bowel obstruction. There are a few fluid-filled loops of small bowel proximal to the inflamed loop. 4. Ancillary findings as discussed in the body of the report. Electronically signed by: Donaldo Salas MD 02/17/2025 04:17 PM EDT
--- NOTE | ~2025-02-13 | CT_ITS ---
EXAMINATION: CT ABDOMEN AND PELVIS WITH CONTRAST CLINICAL INFORMATION: Abdominal pain. COMPARISON: January 26, 2025. TECHNIQUE: Multidetector volumetric images were obtained from the superior aspect of the liver through the pubic symphysis following administration 85 mL of Omnipaque 350 intravenous contrast. Sagittal and coronal reformatted images were obtained on the technologist's workstation. Oral contrast: No This CT examination was performed using dose optimization techniques as appropriate, variously including the following: *Automated exposure control *Adjustment of mA and/or kV according to patient size (this includes techniques or standardized protocols for targeted exams where dose is matched to indication/reason for exam; i.e. extremities or head) *Use of iterative reconstruction technique. DLP: 289 mGy cm. FINDINGS: LUNG BASES: No acute airspace disease. LIVER, GALLBLADDER, AND BILIARY TREE: Liver measures 17 cm. No focal mass. Portal veins and hepatic veins are patent. No pericholecystic fluid collection or gallbladder wall thickening. No intrahepatic or extrahepatic biliary ductal dilatation. PANCREAS: No focal lesion. No peripancreatic fluid collection. No main pancreatic ductal dilatation. SPLEEN: 12 cm. No focal lesion. ADRENAL GLANDS: No nodular lesion. KIDNEYS AND URETERS: Normal enhancement pattern of the renal parenchyma. No focal mass. No hydronephrosis. No gross nephrolithiasis. BLADDER: Fluid-filled nearly collapsed. GASTROINTESTINAL TRACT: There is terminal ileum wall thickening with the mucosal enhancement one diverticulum . There is a peripheral enhancing small to moderate fluid collection in right pelvic peritoneal cavity surrounded the The terminal ileum . Stool within the large intestine. No intestinal obstruction pattern. There is a segmental concentric wall thickening at the rectosigmoid colon. The appendix is not fully depicted. No pneumoperitoneum. No pneumatosis intestinalis ABDOMINAL WALL: No umbilical hernia. LYMPH NODES: Multiple prominent lymph nodes in the right mesentery, mesocecum and in the vicinity of the terminal ileum. VASCULAR: No aneurysm or dissection, abdominal aorta. No gross calcified plaques. PELVIC VISCERA: Normal size. OSSEOUS STRUCTURES: No acute fracture or listhesis. No lytic or blastic lesions. Bony pelvis and coxofemoral joints are intact. CT/CT abdomen pelvis w IV con IMPRESSION: Concerning acute flare inflammatory bowel disease such as Crohn's disease and less likely ulcerative colitis with a small to moderate abscess, right lower/pelvic peritoneal cavity. Hepatosplenomegaly, mild. Fleischner guidelines were followed. Electronically signed by: Quan Magana MD 02/13/2025 09:23 AM EDT
--- OUTSIDE RECORDS SUMMARY | 2025-02-13 06:48 | XMS_ITS | Patient Health Record ---
Demographics Address [address] [place] [address] Mobile Preferred Language en Marital Status Unknown Mormon Affiliation Unknown Race or A laska [place] Additional Race(s) Karyn Ethnic Group or Author Organization [facility] Address [address] [place] [address] Support Name Relationship Address Phone SHANTE CARRANZA Emergency Contact [address] [place] [address] ELIZABETH HANDLEYGOSKY Guarantor Unknown Care Team Providers Care On Air Host Name Role Phone Eugene Kerns, Rebekah Primary Care Provider Vince Chatterjee Unavailable [phone] Doc GE, Mita Carson Unavailab le Allergies Allergen (clinical drug ingredient) Drug/Non Drug Allergy documented on EMR Reaction Allergy Type Onset Date Status seasonal (uncoded) Unknown Allergy A ctive Results Component Value Reference Range Notes T Spot TB Reviewed date:02/09/2025 09:57:44 PM Interpretation: Performing Lab:[facility], [address] [place] [phone] Notes/Report: TSpotTB Negative Negative A negative test [...] Passed For additional information, please refer to http://education.[employer]/faq/FKA858 (This link is being provided for informational/ educational purposes only.) THIS TEST WAS PERFORMED AT: [facility]/[address] [address] KEEGAN MEIER MD,PHD Hepatitis B Profile Reviewed date:02/09/2025 10:01:37 PM Interpretation: Performing Lab:[facility], [address] [place] [phone] Notes/Report: Hepatitis B Surface Antibody NONREACTIVE Nonreactive Nonreactive: < 8.00 mIU/mL Hepatitis B Core Antibody Nonreactive Nonreactive Hepatitis B Surface Antigen Negative Negative Complete Blood Count Auto Di ff Reviewed date:01/29/2025 01:27:25 PM Interpretation: Performing Lab:[facility], [address] [place] [phone] Notes/Report: White Blood Count 4.8 4.8-10.8 X10*3/uL [...] Gel Reviewed date:01/30/2025 05:54:00 PM Interpretation: Performing Lab:[facility], [address] [place] [phone] Notes/Report: Hold Green Gel See Note Specimen held untested for 24 hours; Call to request Chemistry testing. Complete Blood Count no Diff Reviewed date:02/09/2025 09:54:19 PM Interpretation: Performing Lab:[facility], [address] [place] [phone] Notes/Report: White Blood Count 6.9 4.8-10.8 X10*3/uL [...] Auto 0.000 0.0-0.012 X10*3/uL Basic Metabolic Panel Reviewed date:02/09/2025 09:53:46 PM Interpretation: Performing Lab:[facility], [address] [place] [phone] Notes/Report: Sodium 143 135-145 mmol/L Potassium 3.5 [...] mg/dL Calcium 8.9 8.4-10.2 mg/dL IRON PROFILE Reviewed date:02/09/2025 09:52:42 PM Interpretation: Performing Lab:[facility], [address] [place] [phone] Notes/Report: Iron 26 45-160 mcg/dL Total Iron Binding Capacity 152 228-428 mcg/d L Percent Iron Saturation 17 15-50 % Unsaturated Iron Binding 126 Ferritin Reviewed date:02/09/2025 09:52:35 PM Interpretation: Performing Lab:[facility], [address] [place] [phone] Notes/Report: Ferritin 106 20-250 ng/mL C Reactive Protein Reviewed date:02/09/2025 09:52:27 PM Interpretation: Performing Lab:[facility], [address] [place] [phone] Notes/Report: C Reactive Protein 2.66 < or = 0.50 mg/dL Vitamin B12 Reviewed date:02/05/2025 12:13:08 AM Interpretation: Performing Lab:[facility], [address] [place] [phone] Notes/Report: Vitamin B12 435 200-900 pg/mL NORMAL 200-900 PG/ML INDETERMINATE 160-199 PG/ML DEFICIENT < 160 PG/ML Complete Blood Count Auto Di ff Reviewed date:02/09/2025 07:23:55 PM Interpretation: Performing Lab:[facility], [address] [place] [phone] Notes/Report: White Blood Count 14.9 4.8-10.8 X10*3/uL Red Blood Count 5.24 4.60-5.80 X10*6/uL Hemoglobin 14.8 14.0-18.0 g/dl Hematocrit 43.6 42.0-52.0 % Mean Corpuscular Volume 83.2 80.0-98.0 fL Mean Corpuscular Hemoglobin 28.2 27.0-33.0 pg Mean Corpuscular HGB Conc 33.9 31.0-36.0 g/dl Red Cell Distribution Width 12.6 11.0-16.0 % Platelet Count 308 160-400 X10*3/uL Mean Platelet Volume 9.2 9.4-12.4 fL Neutrophils Percent Auto 84.0 45-73 % Imm Gran Pct Auto 0.5 0.0-0.4 % Lymphocytes Percent Auto 9.5 20-40 % Monocytes Percent Auto 5.3 2-11 % Eosinophils Percent Auto 0.4 0-4 % Basophils Percent Auto 0.3 0-2 % NRBC Pct Auto 0.0 0.0-0.2 /100WBC Neutrophils Absolute Auto 12.5 2.0-8.3 x10*3/u L Imm Gran Abs Auto 0.07 0.00-0.03 X10*3/uL Lymphocytes Absolute Auto 1.4 1.2-4.9 X10*3/u L Monocytes Absolute Auto 0.8 0.1-1.2 X10*3/uL Eosinophils Absolute Auto 0.1 0.0-0.4 X10*3/u L Basophils Absolute Auto 0.0 0.0-0.2 X10*3/uL NRBC Abs Auto 0.000 0.0-0.012 X10*3/uL Erythrocyte Sedimentation Ra te Reviewed date:02/06/2025 04:20:09 PM Interpretation: Performing Lab:[address] [phone] Notes/Report: Erythrocyte Sedimentation Rate 19 0-15 MM/HR Patients with polycythemia and many hemoglobin abnormalities may have depressed sed rates whereas patients with anemia may have elevated sed rates. Liver Panel Reviewed date:02/06/2025 04:20:42 PM Interpretation: Performing Lab:[address] [phone] Notes/Report: Bilirubin Total 0.4 0.0-1.0 mg/dL Bilirubin Direct 0.2 0.0-0.5 mg/dL Aspartate Amino Transferase 21 5-37 U/L Alanine Aminotransferase 13 0-40 U/L Total Protein 8.3 6.5-8.0 g/dL Albumin Level 4.5 3.5-5.0 g/dL Alkaline Phosphatase 83 39-117 U/L C Reactive Protein Reviewed date:02/06/2025 04:20:26 PM Interpretation: Performing Lab:[facility], [address] [place] [phone] Notes/Report: C Reactive Protein 3.53 < or = 0.50 mg/dL Reason For Referral Referring Provider First Name Mita Referring Provider Last Name Doc Referring Provider Speciality Family Med icine Referred Organization [facility] Referred Provider Vince Jones Referred Address [address] [place] [phone], Referred Provider Specialty Gastroentero logy General Notes Tenisha Pak 2024 11:25:18 AM >requested a [facility] referral from [facility] for visit with Dr. Jones on 02-06-25, Tenisha Pak 02/04/2025 08:45:16 AM >AWAITING APPT TO BE [...] Notes Problem Imaging of gastrointestinal tract abnormal (888585996) Abnormal CT scan, gastrointestinal tract (R93.3) Active confirmed Problem Right lower quadrant pain (965004994) RLQ abdominal pain (R10.31) Active confirmed Problem Crohn's disease of small AND large intestines (09289250) Crohn''s disease of both small and large [...] N/A Encounters Encounter Location Date Provider Diagnosis [facility] [address] [place] [address] 02/06/2025 Vince Jones Crohn''s disease of both small and large intestine without complication K50.80 ; RLQ abdominal pain R10.[address] scan, gastrointestinal tract R93.3 [facility] [address] [place] [address] 02/02/2025 Vince Jones [facility] [address] [place] [phone] 02/09/2025 Vince Jones Assessments Encounter Date Diagnosis (ICD Code) Assessment Notes Treatment Notes Treatment Clinical Notes Section Notes 02/06/2025 RLQ abdominal pain (ICD-10 - R10.31) Overall, Sky seems stable since discharge from the hospital [...] I did have a detailed discussion with Sky and his mother today regarding the diagnosis of this presumed Crohn's disease. We reviewed potential need for biologic agents, potential need for surgery, and potential for intermittent flareups of the condition despite medication. Sky and his mother were comfortable with this plan. Thank you again for allowing me to participate in Sky's care. I shall continue to keep you advised of his progress. 02/06/2025 Crohn''s disease of both small and large intestine without complication (ICD-10 - K50.80) Stop Budesonide and start the prednisone Continue the two 500mg Mesalamine pills 4 times a day] Stay on a low residue/low roughhage diet Overall, Sky seems stable since discharge from the hospital [...] I did have a detailed discussion with Sky and his mother today regarding the diagnosis of this presumed Crohn's disease. We reviewed potential need for biologic agents, potential need for surgery, and potential for intermittent flareups of the condition despite medication. Sky and his mother were comfortable with this plan. Thank you again for allowing me to participate in Sky's care. I shall continue to keep you advised of his progress. 02/06/[address] scan, gastrointestinal tract (ICD-10 - R93.3) Overall, Sky seems stable since discharge from the hospital [...] I did have a detailed discussion with Sky and his mother today regarding the diagnosis of this presumed Crohn's disease. We reviewed potential need for biologic agents, potential need for surgery, and potential for intermittent flareups of the condition despite medication. Sky and his mother were comfortable with this plan. Thank you again for allowing me to participate in Sky's care. I shall continue to keep you advised of his progress. Plan Of Treatment Pending Test Test Name Order Date COLONOSCOPY 02/06/2025 LIVER PROFILE 02/06/2025 CRP 02/06/2025 CBC w DIFF 02/06/2025 SED RATE (ESR) 02/06/2025 Next Appt Details Provider Name:Vince Jones , 02/27/2025 01:00:00 PM, [address] [place] [address] , [place], [place], [id number], Insurance Providers Payer Name Payer Address Payer Phone Subscriber Number Group Number Insured Name Patient Relationship to Insured Coverage Start Date Coverage End Date [place] [address] [place] [address] [id number] SKY MEDEIROS Self - patient is the insured 4 Medical (General) History Medical History History ICD Code Asthma Denies [place],DM,CVA,renal disease Presumed Crohn's disease samuel gnosed in January 2025 during his hospitalization. The CT scan showed evidence of disease involving the distal small bowel and ascending colon. Stool specimens were all negative for infection and the stool calprotectin level was quite elevated at 1,090.
[2025-02-13 06:56] LABS: MANUAL DIFF FLAG NO
[2025-02-13 07:09] LABS: Hematocrit 42.8 % (42.0-52.0); Hemoglobin 14.4 g/dl (14.0-18.0); Imm Gran Abs Auto 0.28 X10*3/uL (0.00-0.03); Imm Gran Pct Auto 1.6 % (0.0-0.4); Lymphocytes Absolute Auto 2.6 X10*3/uL (1.2-4.9); Mean Corpuscular HGB Conc 33.6 g/dl (31.0-36.0); Mean Corpuscular Hemoglobin 28.1 pg (27.0-33.0); Mean Corpuscular Volume 83.6 fL (80.0-98.0); NRBC Abs Auto 0.000 X10*3/uL (0.0-0.012); NRBC Pct Auto 0.0 /100WBC (0.0-0.2); Platelet Count 337 X10*3/uL (160-400); Red Blood Count 5.12 X10*6/uL (4.60-5.80); White Blood Count 18.0 X10*3/uL (4.8-10.8)
[2025-02-13 07:27] LABS: Alanine Aminotransferase 18 U/L (0-40); Albumin Level 4.4 g/dL (3.5-5.0); Alkaline Phosphatase 77 U/L (39-117); Anion Gap 15 (12-20); Aspartate Amino Transferase 22 U/L (5-37); Blood Urea Nitrogen 12 mg/dL (9-16); Calcium 9.7 mg/dL (8.4-10.2); Carbon Dioxide 27 mmol/L (22-29); Chloride 105 mmol/L (96-108); Creatinine Clr Calc Pharmacy 108.5; Estimated Glomerular Filt Rate > 60; Lipase 20 U/L (8-78); Potassium 3.5 mmol/L (3.3-5.1); Sodium 143 mmol/L (135-145); Total Protein 8.2 g/dL (6.5-8.0)
--- NOTE | 2025-02-13 08:11 | ED.GENADULT ---
HPI - General Adult General Chief complaint: Nausea/Vomiting/Diarrhea Stated complaint: severe nausea, vomiting Time Seen by Provider: 02/13/25 08:10 Source: patient Mode of arrival: ambulatory Limitations: no limitations History of Present Illness ED Provider: No Arroyo PA-C HPI narrative: The patient is a 19-year-old male with recently diagnosed colitis, enteritis, and intra-abdominal abscess two weeks ago, currently undergoing workup for Crohn?s disease by GI. He presents with nausea, vomiting, and abdominal pain that began at approximately 5 this morning. He awoke with severe nausea and has since vomited 4?5 times in that last 3 hours. Initially, the emesis contained partially digested food, but is now described as yellow liquid. He currently describes the abdominal pain as stabbing in nature, which he says feels different from the crampy pain he experienced two weeks ago He denies hematemesis, diarrhea, constipation, fever, headache, chest pain, shortness of breath, dysuria, or any recent dietary changes, sick contacts, or travel. Onset (ago): hour(s) (3) Location: abdomen Pain Consistency: intermittent Relieving factors: medication (mild relief with zofran) Associated symptoms: loss of appetite and nausea/vomiting Related Data Home Medications ?Medication ?Instructions ?Recorded ?Confirmed prednisone 5 mg tablet See Taper PO DAILY 02/13/25 02/13/25 Allergies Allergy/AdvReac Type Severity Reaction Status Date / Time No Known Allergies Allergy Verified 02/13/25 06:36 Review of Systems Constitutional: Constitutional: Denies chills, Denies fever(s), Denies headache(s), Denies night sweats and Reports poor appetite Eyes: Eyes: Reports no additional eye complaints ENT: Denies dizziness and Denies headache(s) Cardiovascular: Cardiovascular: Reports no additional cardiovascular complaints, Denies chest pain, Denies lightheadedness and Denies dyspnea Respiratory: Respiratory: Reports no additional respiratory complaints and Denies dyspnea Gastrointestinal: Gastrointestinal: Reports abdominal pain, Reports nausea and Reports vomiting Genitourinary: Genitourinary: Reports no additional male genitourinary complaints and Denies dysuria Musculoskeletal: Musculoskeletal: Reports no additional musculoskeletal complaints Neurologic: Denies dizziness and Denies headache(s) Psychiatric: Psychiatric: Reports no additional psychiatric complaints Endocrine: Endocrine: Reports no additional endocrine complaints Hematologic/Lymphatic: Hematologic/Lymphatic: Reports no additional hematologic/lymphatic complaints Allergic/Immunologic: Allergic/Immunologic: Reports no additional allergic/immunologic complaints [facility] Past Medical History Attestation statement: The following information was validated with the patient. Source: old records reviewed and nursing notes reviewed Social History Social History Household Members: Family Housing: Apartment Do you presently have visiting nurse or other home services: No Alcohol intake: never Patient Tobacco Use Status: Never used Tobacco Smoked in Last 30 Days: No Use of substances other than those prescribed or required for medical reasons: No Advance Directives: No Advance Directives Information Provided: Yes service: No Physical Exam ED Vital Signs: Vital Signs - 24 hr 02/13/25 06:28 02/13/25 09:18 02/13/25 10:00 Temperature 97.7 F 98.1 F 98.1 F Pulse Rate 107 H 63 66 Respiratory Rate 19 13 18 Blood Pressure 133/80 131/70 105/52 L Pulse Oximetry 97 100 97 Oxygen Delivery Method Room Air Room Air Room Air BMI result Body Mass Index 16.9 Const General: cooperative, no acute distress, alert, awake and tired appearing Nutritional Appearance: thin Orientation/consciousness: patient oriented x3 HENMT Head: Yes normal to inspection and Yes atraumatic Ears: hearing grossly normal bilaterally and external ears normal General nose exam: Normal external nose present, no nasal discharge noted and no epistaxis Face and sinus: Yes normal facial exam, No abrasion and No laceration Mouth: Normal oral and palatal mucosa present, no drooling and no muffled voice Eyes General: appearance normal, both eyes and all related structures Periorbital: periorbital findings normal Eyelids: Yes eyelids normal Conjunctivae: conjunctivae normal Pupils: Equal, round and reactive pupils present EOM: EOMs intact bilaterally Neck Neck: Yes normal visual inspection and Yes full ROM Resp Effort & Inspection: normal respiratory effort and able to speak in complete sentences Auscultation: clear to auscultation bilaterally Cardio Rate: regular rate Rhythm: regular rhythm GI Inspection: Yes normal to inspection Palpation (GI): Soft to palpation and Tenderness to palpation present (GI) (Moderate tenderness in lower quadrants) Auscultation: normal bowel sounds Neuro General: patient oriented x3, moves all extremities and CN's II-XI intact bilaterally Cranial nerves: Yes Equal, round and reactive pupils present Cognition (Neuro): normal cognition Extrem General: Yes normal to inspection, Yes full ROM and Yes capillary refill normal Psych Appearance: grossly normal Mental Status: mental status grossly normal Affect: normal affect Attitude: cooperative Thought process: Normal thought process present Thought content: Normal thought content present Insight: Good insight present (Psych) Medications Administered Generic Name Dose Route Start Last Admin Trade Name Freq PRN Reason Stop Dose Admin Lactated Ringer's 1,000 mls @ 125 mls/hr 02/13/25 11:15 02/13/25 12:14 Lr IVCONT 125 mls/hr .Q8H PADMAJA Administration Pantoprazole Sodium 40 mg 02/13/25 11:10 02/13/25 12:08 Pantoprazole Sodium 40 Mg/10 Ml Vial IVPUSH 40 mg DAILY@0630 PADMAJA Administration Discontinued Medications Generic Name Dose Route Start Last Admin Trade Name Freq PRN Reason Stop Dose Admin Sodium Chloride 1,000 mls @ 999 mls/hr 02/13/25 07:45 02/13/25 09:17 Ns IV 02/13/25 08:45 Infused .Q1H1M PADMAJA Infusion Metronidazole 500 mg in 100 mls @ 100 mls/hr 02/13/25 10:22 02/13/25 12:18 Flagyl IV 02/13/25 11:21 Infused ONCE ONE Infusion Levofloxacin 750 mg in 150 mls @ 100 mls/hr 02/13/25 10:22 02/13/25 12:08 Levaquin IV 02/13/25 11:51 100 mls/hr ONCE ONE Administration Iohexol 100 ml 02/13/25 08:27 02/13/25 08:28 Iohexol 350 Mg/Ml 100 Ml Infus..Btl IV 02/13/25 08:28 85 ml ONCE ONE Administration Methylprednisolone Sodium Succinate 60 mg 02/13/25 08:35 02/13/25 08:45 Methylprednisolone Sod Succ 125 Mg/2 Ml Vial IVPUSH 02/13/25 08:36 60 mg ONCE ONE Administration Morphine Sulfate 4 mg 02/13/25 08:17 02/13/25 08:38 Morphine Sulfate 4 Mg/Ml Cartridge IVPUSH 02/13/25 08:18 4 mg ONCE ONE Administration Protocol Ondansetron HCl 4 mg 02/13/25 07:34 02/13/25 07:42 Ondansetron Hcl 4 Mg/2 Ml Vial IVPUSH 02/13/25 07:35 4 mg ONCE ONE Administration Medical Decision Making Medical Decision Making [facility] Narrative: Patient is a 19 year old assigned male at with a history of recent admission for colitis / enteritis / possible crohn's here at [facility] presenting to the emergency department today with abdominal pain, nausea, and vomiting. Patient's physical exam was as noted in the physical exam portion of this note. Patient's blood work showed an elevated WBC count of 18. Patient's CT abd/pelvis showed IBS (crohn's vs. UC) as well as a small to moderate abscess in the right lower abdominal quadrant. I spoke with the general surgery team who examined the patient and recommended IV antibiotics, admission to the medicine team, and that they will consult with IR for possible draining of the abscess. I spoke to the hospitalist team who agreed to admission. Patient was given IV Levaquin and Flagyl. Patient's clinical presentation is not consistent with sepsis (@1054). I explained my physical exam findings as well as all test results to the patient. I answered all questions asked by the patient. Patient received IV morphine, solu-medrol, and zofran which he stated helped his symptoms some. Patient verbalized agreement and understanding with this treatment plan and admission. Differential Diagnosis Differential Diagnoses: The differential diagnosis associated with the presentation includes Abdominal abscess Crohn's flare Perforated abscess Admission/Observation Consideration of admission/observation: Escalation of care including admission/observation considered Patient admitted as noted in the MDM Rationale portion of this note. Consult Healthcare Provider Management of the patient was discussed with: Hospitalist (Agreed to admission as noted in the MDM Rationale portion of this note. ) and Telephone Station Repairer (spoke with the general surgery team as noted in the MDM Rationale portion of this note. ) Lab Data [facility] Lab Attestation statement: I reviewed the patient's lab results. My interpretation of these results are in the MDM Rationale portion of this note. 02/13/25 06:50 02/13/25 06:50 Labs: Lab Results 02/13/25 Range/Units 06:50 WBC 18.0 H (4.8-10.8) X10*3/uL RBC 5.12 (4.60-5.80) X10*6/uL Hgb 14.4 (14.0-18.0) g/dl Hct 42.8 (42.0-52.0) % MCV 83.6 (80.0-98.0) fL MCH 28.1 (27.0-33.0) pg MCHC 33.6 (31.0-36.0) g/dl RDW 12.8 (11.0-16.0) % Plt Count 337 (160-400) X10*3/uL MPV 8.9 L (9.4-12.4) fL Immature Gran % (Auto) 1.6 H (0.0-0.4) % Neut % (Auto) 77.5 H (45-73) % Lymph % (Auto) 14.3 L (20-40) % [place] % (Auto) 5.9 (2-11) % Eos % (Auto) 0.4 (0-4) % Baso % (Auto) 0.3 (0-2) % Lymph # (Auto) 2.6 (1.2-4.9) X10*3/uL [place] # (Auto) 1.1 (0.1-1.2) X10*3/uL Eos # (Auto) 0.1 (0.0-0.4) X10*3/uL Baso # (Auto) 0.1 (0.0-0.2) X10*3/uL Abs Immat Gran (auto) 0.28 H (0.00-0.03) X10*3/uL Absolute Neuts (auto) 13.9 H (2.0-8.3) x10*3/uL Absolute Nucleated RBC 0.000 (0.0-0.012) X10*3/uL Nucleated RBC % (auto) 0.0 (0.0-0.2) /100WBC Sodium 143 (135-145) mmol/L Potassium 3.5 (3.3-5.1) mmol/L Chloride 105 (96-108) mmol/L Carbon Dioxide 27 (22-29) mmol/L Anion Gap 15 (12-20) BUN 12 (9-16) mg/dL Creatinine 0.85 (0.5-1.4) mg/dL Estim Creat Clear Calc 108.5 Estimated GFR > 60 Random Glucose 89 (60-115) mg/dL Calcium 9.7 D (8.4-10.2) mg/dL Total Bilirubin 0.4 (0.0-1.0) mg/dL AST 22 (5-37) U/L ALT 18 (0-40) U/L Alkaline Phosphatase 77 (39-117) U/L Total Protein 8.2 H (6.5-8.0) g/dL Albumin 4.4 (3.5-5.0) g/dL Lipase 20 (8-78) U/L Independent Interpretation I performed an independent interpretation of an: CT Scan Interpretation: My interpretation is in agreement with the radiologist's impression of this imaging study. Report Number: [id number]: Total DLP = 289.00 mGy-cm EXAMINATION: CT ABDOMEN AND PELVIS WITH CONTRAST CLINICAL INFORMATION: Abdominal pain. COMPARISON: January 26, 2025. TECHNIQUE: Multidetector volumetric images were obtained from the superior aspect of the liver through the pubic symphysis following administration 85 mL of Omnipaque 350 intravenous contrast. Sagittal and coronal reformatted images were obtained on the technologist's workstation. Oral contrast: No This CT examination was performed using dose optimization techniques as appropriate, variously including the following: *Automated exposure control *Adjustment of mA and/or kV according to patient size (this includes techniques or standardized protocols for targeted exams where dose is matched to indication/reason for exam; i.e. extremities or head) *Use of iterative reconstruction technique. DLP: 289 mGy cm. FINDINGS: LUNG BASES: No acute airspace disease. LIVER, GALLBLADDER, AND BILIARY TREE: Liver measures 17 cm. No focal mass. Portal veins and hepatic veins are patent. No pericholecystic fluid collection or gallbladder wall thickening. No intrahepatic or extrahepatic biliary ductal dilatation. PANCREAS: No focal lesion. No peripancreatic fluid collection. No main pancreatic ductal dilatation. SPLEEN: 12 cm. No focal lesion. ADRENAL GLANDS: No nodular lesion. KIDNEYS AND URETERS: Normal enhancement pattern of the renal parenchyma. No focal mass. No hydronephrosis. No gross nephrolithiasis. BLADDER: Fluid-filled nearly collapsed. GASTROINTESTINAL TRACT: There is terminal ileum wall thickening with the mucosal enhancement one diverticulum . There is a peripheral enhancing small to moderate fluid collection in right pelvic peritoneal cavity surrounded the The terminal ileum . Stool within the large intestine. No intestinal obstruction pattern. There is a segmental concentric wall thickening at the rectosigmoid colon. The appendix is not fully depicted. No pneumoperitoneum. No pneumatosis intestinalis ABDOMINAL WALL: No umbilical hernia. LYMPH NODES: Multiple prominent lymph nodes in the right mesentery, mesocecum and in the vicinity of the terminal ileum. VASCULAR: No aneurysm or dissection, abdominal aorta. No gross calcified plaques. PELVIC VISCERA: Normal size. OSSEOUS STRUCTURES: No acute fracture or listhesis. No lytic or blastic lesions. Bony pelvis and coxofemoral joints are intact. CT/CT abdomen pelvis w IV con IMPRESSION: Concerning acute flare inflammatory bowel disease such as Crohn's disease and less likely ulcerative colitis with a small to moderate abscess, right lower/pelvic peritoneal cavity. Hepatosplenomegaly, mild. Fleischner guidelines were followed. Electronically signed by: Quan Magana MD 02/13/2025 09:23 AM EDT RP Dictated By: Quan Beltran MD Signed By: Electronically signed by Quan Moreira MD 02/13/25 0923 Radiology Impression Discussion of test interpretation with radiology: I have reviewed the radiologist's reading. Critical Care Time Critical Care Time Critical Care Time: Yes Total Critical Care Time: 38 Attestation: I spent 38 minutes of Critical Care Time with this patient. This does not include time spent on separately reported billable procedures. Discharge Plan Discharge Clinical Impression: Crohn's disease of both small and large intestine, Intra-abdominal abscess Patient Disposition: Admitted As Inpatient Interventions: Admission Worksheet (ED) Last Done: 02/13/25 11:29
[2025-02-13] MEDS: iohexoL 350 MG/ML 100 ML INFUS..BTL IV (08:28)
--- NOTE | 2025-02-13 10:15 | P.CONGS_ITS ---
History of Present Illness Consult details Consult date: 02/13/25 <Ivonne Dean PA-C - Last Filed: 02/13/25 11:09> Reason for consult: abdominal pain <YOANA Nascimento Last Filed: 02/13/25 11:09> Narrative: 19-year-old male with presumed Crohn's disease who presented to the ED with complaints of nausea, vomiting and increased abdominal pain. He initially presented on 01/27/25 with abdominal pain and was found to have mural thickening of long segment of distal ileum and right colon with question of small abscess on CT scan concerning for Crohn's. He was treated conservatively at that time with IV abx, steroids and mesalamine with improvement. His abdominal pain improved and diet was advanced. He was sent home on Augmentin, mesalamine and steroids. He was seen by GI last week and he continues on mesalamine and oral prednisone. He reports his abdominal pain had pretty much resolved until early this morning when he developed nausea and had multiple episodes of vomiting. His pain worsened in severity and he reports it higher up than previous and is more in his mid to upper abdomen. Work up included CBC, BMP, LFTs which was significant for a leukocytosis of 18. CT scan abd pelvis showed terminal ileum wall thickening with the mucosal enhancement with peripheral enhancing small to moderate fluid collection in right pelvic peritoneal cavity surrounded the terminal ileum. He denies hematemesis, diarrhea, melena, hematochezia, fevers, chills. <YOANA Nascimento Last Filed: 02/13/25 11:09> Review of Systems 2 Review of Systems: Yes all other systems are reviewed and are negative < Ivonne Dean PA-C - Last Filed: 02/13/25 11:09> [facility] Social History Social History: Social History Household Members: Family Housing: Apartment Do you presently have visiting nurse or other home services: No Alcohol intake: never Patient Tobacco Use Status: Never used Tobacco Smoked in Last 30 Days: No Use of substances other than those prescribed or required for medical reasons: No Advance Directives: No Advance Directives Information Provided: Yes service: No <YOANA Nascimento Last Filed: 02/13/25 11:09> Meds Allergies/Adverse reactions: Allergies Allergy/AdvReac Type Severity Reaction Status Date / Time No Known Allergies Allergy Verified 02/13/25 06:36 <Ivonne Dean PA-C Darshan Last Filed: 02/13/25 11:09> Home medications: Home Medications ?Medication ?Instructions ?Recorded ?Confirmed ?Last Taken ?Type prednisone 5 mg tablet See Taper PO DAILY 02/13/25 Unknown History <Ivonne Dean PA-C Darshan Last Filed: 02/13/25 11:09> Physical Exam 2 Vital Signs: Vital Signs: Last Vital Signs Temp 98.1 F 02/13/25 09:18 Pulse 63 02/13/25 09:18 Resp 13 02/13/25 09:18 BP 131/70 02/13/25 09:18 Pulse Ox 100 02/13/25 09:18 O2 Del Method Room Air 02/13/25 09:18 BMI result Body Mass Index 16.9 <Ivonne Dean PA-C Darshan Last Filed: 02/13/25 11:09> Const: General: comfortable, no acute distress and alert <Ivonne Dean PA-C Darshan Last Filed: 02/13/25 11:09> Nutritional Appearance: thin <Ivonne Dean PA-C Darshan Last Filed: 02/13/25 11:09> Orientation/consciousness: patient oriented x3 <Ivonne Dean PA-C Darshan Last Filed: 02/13/25 11:09> Resp: Effort & Inspection: normal respiratory effort <YOANA Nascimento Last Filed: 02/13/25 11:09> GI: Inspection: Yes normal to inspection, No distended and No scar < Ivonne Dean PA-C Darshan Last Filed: 02/13/25 11:09> Palpation (GI): Soft to palpation, Tenderness to palpation present (GI) (mild lower abdominal, more increased at periumbilical and epigastric region) with no rebound tenderness, no guarding and not rigid <YOANA Nascimento Last Filed: 02/13/25 11:09> Percussion: Yes normal to percussion <Ivonne Dean PA-C - Last Filed: 02/13/25 11:09> Skin: General skin exam: no rashes or lesions noted and no jaundice < Ivonne Dean PA-C - Last Filed: 02/13/25 11:09> Neuro: General: patient oriented x3 <YOANA Nascimento Last Filed: 02/13/25 11:09> Results Labs Result diagrams: 02/13/25 06:50 02/13/25 06:50 <Ivonne Dena PA-C - Last Filed: 02/13/25 11:09> Labs: Abnormal lab results 02/13/25 Range/Units 06:50 WBC 18.0 H (4.8-10.8) X10*3/uL MPV 8.9 L (9.4-12.4) fL Immature Gran % (Auto) 1.6 H (0.0-0.4) % Neut % (Auto) 77.5 H (45-73) % Lymph % (Auto) 14.3 L (20-40) % Abs Immat Gran (auto) 0.28 H (0.00-0.03) X10*3/uL Absolute Neuts (auto) 13.9 H (2.0-8.3) x10*3/uL Total Protein 8.2 H (6.5-8.0) g/dL Short CBC 02/13/25 Range/Units 06:50 WBC 18.0 H (4.8-10.8) X10*3/uL Hgb 14.4 (14.0-18.0) g/dl Hct 42.8 (42.0-52.0) % Plt Count 337 (160-400) X10*3/uL BMP 02/13/25 06:50 Sodium 143 Potassium 3.5 Chloride 105 Carbon Dioxide 27 BUN 12 Creatinine 0.85 Calcium 9.7 D Liver Function 02/13/25 Range/Units 06:50 Total Bilirubin 0.4 (0.0-1.0) mg/dL AST 22 (5-37) U/L ALT 18 (0-40) U/L Alkaline Phosphatase 77 (39-117) U/L Albumin 4.4 (3.5-5.0) g/dL All other labs normal. <Ivonne Dean PA-C - Last Filed: 02/13/25 11:09> Imaging Abdomen CT scan report/results: report reviewed and image reviewed <Ivonne DianneYOANA ortega Darshan Last Filed: 02/13/25 11:09> Additional studies: labs reviewed <Ivonne DianneYOANA ortega - Last Filed: 02/13/25 11:09> Assessment and Plan (1) Crohn's disease of both small and large intestine: Status: Acute <Ivonne Dean PA-C - Last Filed: 02/13/25 11:09> 19 year old male diagnosed with enteritis/colitis, presumed Crohns disease earlier this month treated with abx, steroids and mesalamine presenting with nausea, multiple episodes of vomiting and increased mid abdominal/epigastric pain. I personally reviewed the CT scan which shows similar changes of the TI to previous scan on 01/27 with possible increase in fluid collection size per the official report. His abdominal pain and tenderness however is more mid abdominal/epigastric region while his inflammatory changes are in the pelvis. IR has been consulted for possible drainage of the pelvic fluid collection however there is also concern of gastritis vs PUD given where his current epigastric pain and tenderness with his current steroid use. Recommend continuing NPO status for now, GI consult. Further plan dependent on clinical course and input from GI. <Ivonne Dean PA-C - Last Filed: 02/13/25 11:09> 19 year old male diagnosed with enteritis/colitis, presumed Crohns disease earlier this month treated with abx, steroids and mesalamine presenting with nausea, multiple episodes of vomiting and increased mid abdominal/epigastric pain. I personally reviewed the CT scan which shows similar changes of the TI to previous scan on 01/27 with possible increase in fluid collection size per the official report. His abdominal pain and tenderness however is more mid abdominal/epigastric region while his inflammatory changes are in the pelvis. IR has been consulted for possible drainage of the pelvic fluid collection however there is also concern of gastritis vs PUD given where his current epigastric pain and tenderness with his current steroid use. Recommend continuing NPO status for now, GI consult. Further plan dependent on clinical course and input from GI. Patient seen and examined and agree with the above assessment and plan. Patient has a prior history of Crohn's disease with increased symptoms. He reports less pain in the epigastric region and more below the umbilicus currently. Agree with GI consultation. We will continue to monitor during his hospitalization. No surgical intervention recommended at this time. <Christiano Alexander MD - Last Filed: 02/13/25 13:01> Procedures Date of Service Date of Service: 02/13/25 <Ivonne Dean PA-C - Last Filed: 02/13/25 11:09> 02/13/25 <Christiano Alexander MD - Last Filed: 02/13/25 13:01>
[2025-02-13 10:52] LABS: Appearance Urine Clear; Glucose Urine UA Negative (Negative); PH 6.5 (5.0-9.0); Specific Gravity - Urine >= 1.030 (1.005-1.025)
[2025-02-13 11:02] LABS: Cannabinoid Screen Urine Not Detected (Not Detect)
--- NOTE | 2025-02-13 11:09 | PM.IMHP ---
History of Present Illness Date of Service: 02/13/25 Attending physician on admission: Bonilla Dejesus Chief Complaint: Abdominal pain This is a 19-year-old male who presents to the emergency department with abdominal pain. Patient was recently admitted to the hospital from January 26 to January 30, at that time he was diagnosed with probable Crohn's disease. He was treated for probable micro perforations. At that time he was seen by GI and General surgery and was started on budesonide and mesalamine. He was discharged home with a short course of antibiotics. He had had outpatient follow-up with GI and was scheduled for outpatient colonoscopy and started on prednisone. He has been doing well until early this morning when he began having lower abdominal pain associated with multiple episodes of vomiting. He describes nonbloody emesis. He denies any fever, chills or diarrhea. In the emergency department cat scan was repeated which showed [id number] right pelvic/peritoneal abscess. He was evaluated by General surgery who recommended IR guided drainage. Lab work was significant for leukocytosis. In the emergency department he received IV antibiotics in the decision was made to admit him to the hospital for further management. Review of Systems Review of Systems: Yes all other systems are reviewed and are negative Constitutional: Constitutional: Denies chills and Denies fever(s) Cardiovascular: Cardiovascular: Denies chest pain Gastrointestinal: Gastrointestinal: Reports abdominal pain, Denies diarrhea and Reports vomiting PMFSH Social History Household Members: Family Housing: Apartment Do you presently have visiting nurse or other home services: No Alcohol intake: never Patient Tobacco Use Status: Never used Tobacco Smoked in Last 30 Days: No Use of substances other than those prescribed or required for medical reasons: No Advance Directives: No Advance Directives Information Provided: Yes service: No Meds Allergies Allergy/AdvReac Type Severity Reaction Status Date / Time No Known Allergies Allergy Verified 02/13/25 06:36 Active Medications: Current Medications Acetaminophen (Acetaminophen 325 Mg Tablet) 650 mg PO Q6H PRN PRN Reason: Pain, Mild 1-3,fever,headache Calcium Carbonate (Calcium Carbonate 750 Mg Tab.Chew) 750 mg PO Q4H PRN PRN Reason: Heartburn Metronidazole (Flagyl) 500 mg in 100 mls @ 100 mls/hr IV ONCE ONE Stop: 02/13/25 11:21 Levofloxacin (Levaquin) 750 mg in 150 mls @ 100 mls/hr IV ONCE ONE Stop: 02/13/25 11:51 Lactated Ringer's (Lr) 1,000 mls @ 125 mls/hr IVCONT .Q8H [facility] Magnesium Hydroxide (Milk Of Magnesia 30 Ml Oral.Susp) 30 ml PO DAILY PRN PRN Reason: Constipation Melatonin (Melatonin 3 Mg Tablet) 6 mg PO BEDTIME PRN PRN Reason: Insomnia Sodium Chloride (0.9 % Sodium Chloride Flush 3 Ml Syringe) 3 ml IVFLUSH QSHIFT [facility] Home Medications ?Medication ?Instructions ?Recorded ?Confirmed ?Last Taken ?Type prednisone 5 mg tablet See Taper PO DAILY 02/13/25 02/13/25 02/12/25 History Physical Exam Vital Signs and Narrative: Vital Signs: Last Vital Signs Temp 98.1 F 02/13/25 09:18 Pulse 63 02/13/25 09:18 Resp 13 02/13/25 09:18 BP 131/70 02/13/25 09:18 Pulse Ox 100 02/13/25 09:18 O2 Del Method Room Air 02/13/25 09:18 BMI result Body Mass Index 16.9 Const: Other: Constitutional cooperative, no acute distress. Awake, alert, oriented x3 Pulmonary-no accessory muscle use. Able to speak in complete sentences Cardiovascular-regular rate GI abdomen soft, nondistended, no rebound, no guarding. Primarily tender in the right lower quadrant Neuro-grossly nonfocal Musculoskeletal-able to move all 4 extremities spontaneously. No pedal edema Results Labs 02/13/25 06:50 02/13/25 06:50 Labs: Laboratory Results - last 24 hr 02/13/25 02/13/25 02/13/25 06:50 10:39 10:41 MCV 83.6 MCH 28.1 MCHC 33.6 RDW 12.8 Plt Count 337 MPV 8.9 L Immature Gran % (Auto) 1.6 H Neut % (Auto) 77.5 H Lymph % (Auto) 14.3 L [place] % (Auto) 5.9 Eos % (Auto) 0.4 Baso % (Auto) 0.3 Lymph # (Auto) 2.6 [place] # (Auto) 1.1 Eos # (Auto) 0.1 Baso # (Auto) 0.1 Abs Immat Gran (auto) 0.28 H Absolute Neuts (auto) 13.9 H Absolute Nucleated RBC 0.000 Nucleated RBC % (auto) 0.0 Anion Gap 15 Estim Creat Clear Calc 108.5 Estimated GFR > 60 Random Glucose 89 Lactic Acid 0.7 Calcium 9.7 D Total Bilirubin 0.4 AST 22 ALT 18 Alkaline Phosphatase 77 Total Protein 8.2 H Albumin 4.4 Lipase 20 Urine Color Yellow Urine Appearance Clear Urine pH 6.5 Ur Specific [place] >= 1.030 H Urine Protein Negative Urine Glucose (UA) Negative Urine Ketones Trace Urine Blood Negative Urine Nitrite Negative Ur Leukocyte Esterase Negative Urine RBC 0-2 Urine WBC 0-5 Ur Squamous Epith Cells 0-2 Urine Bacteria None Seen Hyaline Casts 0-2 Urine Opiates Screen POSITIVE H Ur Buprenorphine Scrn Not Detected Ur Oxycodone Screen Not Detected Urine Methadone Screen Not Detected Urine Fentanyl Screen Not Detected Ur Barbiturates Screen Not Detected Ur Phencyclidine Scrn Not Detected Ur Amphetamines Screen Not Detected U Benzodiazepines Scrn Not Detected Urine Cocaine Screen Not Detected U Marijuana (THC) Screen Not Detected Imaging Radiologist's Impressions: Impressions Abdomen/Pelvis CT 02/13/25 08:24 IMPRESSION: Concerning acute flare inflammatory bowel disease such as Crohn's disease and less likely ulcerative colitis with a small to moderate abscess, right lower/pelvic peritoneal cavity. Hepatosplenomegaly, mild. Fleischner guidelines were followed. Electronically signed by: Quan Magana MD 02/13/2025 09:23 AM EDT RP Assessment and Plan (1) Intra-abdominal abscess: Status: Acute Plan This is a 19-year-old male recently diagnosed with probable Crohn's disease, recent admission for colitis, enteritis and suspected small intrapelvic abscesses who returns with acute abdominal pain found to have intra-abdominal abscess sepsis due acute intra-abdominal abscess due to probable Crohn's disease with acute flare Meets SIRS criteria with tachycardia, leukocytosis. Lactic acid within normal limits. no severe features. Seen by General surgery-recommend IR guided drainage of abscess but IR reports there is nothing large enough to drain IV Zosyn clear liquids IVF, pain control Follow results of blood cultures Abdominal pain likely due to acute Crohn's flare and pelvic abscess but has also been on steroids and reporting epigastric abdominal pain ? Component of gastritis imaging c/w acute flare of Crohns, has been on prednisone taper as outpatient, will treat with IV steroids IV PPI GI consult DVT prophylaxis-mechanical devices Code status-full code Patient will likely require 2 midnight stay in the hospital due to intra-abdominal abscess requiring drainage as well as IV antibiotics and specialist evaluation which can not occur in a lesser acute setting. Quality Stroke Does the patient have a stroke diagnosis?: No VTE Prior VTE?: No VTE Risk Level:: Medical - moderate - high VTE Device Contraindication: N/A - Device Ordered VTE Drug Contraindication: N/A - Med Ordered
[2025-02-13] MEDS: metroNIDAZOLE/NS 500 MG/100 ML PIGGYBACK 100 MG IV (11:21)
[2025-02-13] MEDS: Lactated Ringers 1,000 ML 125 ML IVCONT ×2 (12:14→18:37)
--- NOTE | 2025-02-13 13:07 | PHA.MEDREC ---
Addendum entered by Nikki Aguirre RPh 02/13/25 13:17: Reviewed by [facility] Original Note: Pharmacy Consult ? Medication Reconciliation Pharmacy has completed the medication reconciliation. spoke to patient, patient confirmed no longer taking augmentin 875 mg , budesonide 3 mg, mesalamine 500 mg. Patient confirmed he is taking prednisone 5 mg as a taper dose. Patient has 2 more days left of prednisone 40 mg and then starts decreasing by 1 tablet weekly starting monday. Last taken last night.
--- NOTE | 2025-02-13 13:07 | PC.NURSE ---
Report gv to DAO Briggs in overflow
--- NOTE | 2025-02-13 13:14 | PC.NURSE ---
Patient is a 19 year old male diagnosed with enteritis/colitis, presumed Crohns disease earlier this month treated with abx, steroids and mesalamine presenting with nausea, multiple episodes of vomiting and increased mid abdominal/epigastric pain. CT scan which shows similar changes of the TI to previous scan on 01/27 with possible increase in fluid collection size per the official report. His abdominal pain and tenderness however is more mid abdominal/epigastric region while his inflammatory changes are in the pelvis. IR has been consulted for possible drainage of the pelvic fluid collection however there is also concern of gastritis vs PUD given where his current epigastric pain and tenderness with his current steroid use. Recommend continuing NPO status for now, GI consult. Patient alert and oriented. Lungs clear bilat. Respirations even and non-labored. Abdomen sl firm with positive bowel sounds. c/o periumbilical pain. Positive pedal pulses with no edema. LR infusing as ordered.
--- NOTE | 2025-02-13 13:21 | PM.EVENT ---
Event Note Date of Service: 02/13/25 Event Note: Discussed CT scan with Dr. Peck, IR. No drainable pelvic fluid collection, thickening of duodenum and proximal jejunum. Can have clears for now. GI consult. Time Spent With Patient Time: Total time managing care of this patient today ____ minutes.
--- NOTE | 2025-02-13 23:51 | CONS_ITS ---
DATE OF SERVICE: 02/13/2025 REFERRING PHYSICIAN: OPAL Carlton REASON FOR CONSULTATION: Abdominal pain and presumptive Crohn disease. HISTORY OF PRESENT ILLNESS: The patient is a pleasant 19-year-old man who was admitted to the hospital after presenting to the emergency room today with abdominal pain. He states he was well until this morning when he developed abdominal pain with nausea and nonbloody vomiting. He has had no diarrhea. He does have a history of a recent diagnosis of likely Crohn disease and has been hospitalized and treated with antibiotics and prednisone. He is on a taper at home. He denies any recent contacts, food ingestions, or recent travel and has not had any significant diarrhea. In the emergency department, he was evaluated with laboratory studies and imaging. These are reviewed, changes consistent with Crohn disease involving the ileum and possibly rectosigmoid were identified. There was a small to moderate abscess in the right lower pelvic peritoneal cavity. General Surgery was consulted and has recommended IR drainage. PAST MEDICAL HISTORY: Asthma, Crohn disease as above. He is scheduled for colonoscopy later next month. CURRENT MEDICATIONS: His current medication list is reviewed in the chart. He has been on mesalamine and budesonide at home as well as prednisone, which is tapering. FAMILY HISTORY: This is negative for inflammatory bowel disease. SOCIAL HISTORY: He does not smoke or drink. He works in the [employer] shop at [employer] in [place]. REVIEW OF SYSTEMS: SKIN: No pruritus. HEENT: Negative. CARDIOPULMONARY: No shortness of breath or chest pain. GASTROINTESTINAL: As above. GENITOURINARY: Negative. NEUROPSYCHIATRIC: Negative. PHYSICAL EXAMINATION: GENERAL: Shows a pleasant male, lying in bed. VITAL SIGNS: Stable. SKIN: Anicteric. HEENT: Shows no scleral icterus. NECK: Without lymphadenopathy or thyromegaly. LUNGS: Clear. HEART: Regular rate and rhythm. S1, S2. No murmur. ABDOMEN: Soft. There is tenderness across the epigastric area and periumbilical area. There is no guarding or rebound. Bowel sounds are present. EXTREMITIES: Without edema. LABORATORY DATA AND IMAGING STUDIES: Reviewed. IMPRESSION: Crohn disease with abscess formation. At this time, I agree with IR drainage if this is technically possible. I would continue his oral medications that he has been on at home and I would recommend treatment with Solu-Medrol intravenously to decrease the inflammation from his presumptive Crohn disease. He is scheduled for a colonoscopy later this month. If he does not improve, he may need evaluation as an inpatient. Thanks for asking me to see him. I will follow him in the hospital with you. MD YANY Holden/LEYDI / [phone]
[2025-02-14 02:59] VITALS: BP 117/57; PULSE 64; RESP 18; TEMP 36.8; O2SAT 97
[2025-02-14] MEDS: Lactated Ringers 1,000 ML 125 ML IVCONT ×3 (03:27→21:28)
[2025-02-14 07:32] LABS: Hematocrit 38.2 % (42.0-52.0); Hemoglobin 12.7 g/dl (14.0-18.0); Mean Corpuscular HGB Conc 33.2 g/dl (31.0-36.0); Mean Corpuscular Hemoglobin 27.6 pg (27.0-33.0); Mean Corpuscular Volume 83.0 fL (80.0-98.0); NRBC Abs Auto 0.000 X10*3/uL (0.0-0.012); NRBC Pct Auto 0.0 /100WBC (0.0-0.2); Platelet Count 343 X10*3/uL (160-400); Red Blood Count 4.60 X10*6/uL (4.60-5.80); White Blood Count 14.3 X10*3/uL (4.8-10.8)
[2025-02-14 07:41] LABS: Anion Gap 13 (12-20); Blood Urea Nitrogen 8 mg/dL (9-16); Calcium 9.3 mg/dL (8.4-10.2); Carbon Dioxide 27 mmol/L (22-29); Chloride 102 mmol/L (96-108); Creatinine Clr Calc Pharmacy 126.0; Estimated Glomerular Filt Rate > 60; Potassium 3.7 mmol/L (3.3-5.1); Sodium 138 mmol/L (135-145)
[2025-02-14 08:00] VITALS: BP 112/57; PULSE 78; RESP 17; TEMP 36.1; O2SAT 99
--- NOTE | 2025-02-14 08:29 | P.PNGS_ITS ---
Subjective Subjective Date of Service: 02/14/25 Interval history: Feels much better this morning, currently denies any abd pain or further nausea/vomiting. Has been passing flatus. Physical Exam 2 Vital Signs: Vital Signs: Last Vital Signs Temp 98.2 F 02/14/25 02:59 Pulse 64 02/14/25 02:59 Resp 18 02/14/25 02:59 BP 117/57 L 02/14/25 02:59 Pulse Ox 97 02/14/25 02:59 O2 Del Method Room Air 02/14/25 02:59 BMI result Body Mass Index 16.6 Const: General: comfortable, no acute distress and alert O rientation/consciousness: patient oriented x3 Resp: Effort & Inspection: normal respiratory effort GI: Inspection: Yes normal to inspection and No distended Palpation (GI): S oft to palpation, Tenderness to palpation present (GI) (mild diffuse, moderate in RLQ/suprapubic) with no rebound tenderness, no guarding and not rigid Skin: General skin exam: no rashes or lesions noted Neuro: General: patient oriented x3 and moves all extremities Objective Data Active Medications Acetaminophen (Acetaminophen 325 Mg Tablet) 650 mg PO Q6H PRN PRN Reason: Pain, Mild 1-3,fever,headache Calcium Carbonate (Calcium Carbonate 750 Mg Tab.Chew) 750 mg PO Q4H PRN PRN Reason: Heartburn Lactated Ringer's (Lr) 1,000 mls @ 125 mls/hr IVCONT .Q8H [facility] Last Infusion: 02/14/25 04:03 Dose: 125 mls/hr Documented By: LOREN Piperacillin Sod/Tazobactam (Sod 4.5 gm/ Sodium Chloride) 100 mls @ 200 mls/hr IV Q6H [facility] Last Infusion: 02/14/25 04:03 Dose: Infused Documented By: LOREN Magnesium Hydroxide (Milk Of Magnesia 30 Ml Oral.Susp) 30 ml PO DAILY PRN PRN Reason: Constipation Melatonin (Melatonin 3 Mg Tablet) 6 mg PO BEDTIME PRN PRN Reason: Insomnia Methylprednisolone Sodium Succinate (Methylprednisolone Sod Succ 125 Mg/2 Ml Vial) 60 mg IVPUSH Q8H [facility] Last Admin: 02/14/25 03:26 Dose: 60 mg Documented By: LOREN Morphine Sulfate (Morphine Sulfate 2 Mg/Ml Cartridge) 2 mg IVPUSH Q3H PRN; Protocol PRN Reason: Pain, Severe (Pain Scale 7-10) Pantoprazole Sodium (Pantoprazole Sodium 40 Mg/10 Ml Vial) 40 mg IVPUSH DAILY@0630 [facility] Last Admin: 02/14/25 06:11 Dose: 40 mg Documented By: LOREN Sodium Chloride (0.9 % Sodium Chloride Flush 3 Ml Syringe) 3 ml IVFLUSH QSHIFT [facility] Last Admin: 02/14/25 00:21 Dose: Not Given Documented By: LOREN Non-Admin Reason: IV Running Labs 02/14/25 05:46 02/14/25 05:46 Labs: Laboratory Results - last 24 hr 02/13/25 02/13/25 02/14/25 10:39 10:41 05:46 MCV 83.0 MCH 27.6 MCHC 33.2 RDW 12.7 Plt Count 343 MPV 9.5 Absolute Nucleated RBC 0.000 Nucleated RBC % (auto) 0.0 Anion Gap 13 Estim Creat Clear Calc 126.0 Estimated GFR > 60 Random Glucose 132 H Lactic Acid 0.7 Calcium 9.3 Urine Color Yellow Urine Appearance Clear Urine pH 6.5 Ur Specific [place] >= 1.030 H Urine Protein Negative Urine Glucose (UA) Negative Urine Ketones Trace Urine Blood Negative Urine Nitrite Negative Ur Leukocyte Esterase Negative Urine RBC 0-2 Urine WBC 0-5 Ur Squamous Epith Cells 0-2 Urine Bacteria None Seen Hyaline Casts 0-2 Urine Opiates Screen POSITIVE H Ur Buprenorphine Scrn Not Detected Ur Oxycodone Screen Not Detected Urine Methadone Screen Not Detected Urine Fentanyl Screen Not Detected Ur Barbiturates Screen Not Detected Ur Phencyclidine Scrn Not Detected Ur Amphetamines Screen Not Detected U Benzodiazepines Scrn Not Detected Urine Cocaine Screen Not Detected U Marijuana (THC) Screen Not Detected Procedures Date of Service Date of Service: 02/14/25 Progress Note: A&P Assessment and plan (1) Crohn's disease of both small and large intestine: Status: Acute Plan Feels overall improved, tenderness more localized to RLQ this morning but remains without peritoneal signs. Radiology states very small fluid collection surrounding terminal ileum, nothing drainable. WBC significantly improved this AM. Cont supportive measures with IV abx, steroids. Can advance to clear liquids. Time Spent With Patient Time: Total time managing care of this patient today ____ minutes. Quality Stroke Does the patient have a stroke diagnosis?: No VTE Prior VTE?: No VTE Risk Level:: Medical - moderate - high VTE Device Contraindication: N/A - Device Ordered VTE Drug Contraindication: N/A - Med Ordered
[2025-02-14 10:08] VITALS: BMI 16.6
--- NOTE | 2025-02-14 10:21 | MHC.CLN ---
NUTRITION DIET=CLEAR LIQUIDS. PATIENT TRIED ENSURE CLEAR AND WILL ACCEPT. ENSURE CLEAR TID PROVIDES 720 KCALS, 24 G PROTEIN. WOULD LIKE ENSURE TID, NOT CLEAR, WHEN DIET ADVANCES. UNDERWEIGHT BUT DOES NOT APPEAR TO BE MALNOURISHED. SIGNIFICANT WEIGHT LOSS X 30 DAYS. PRIOR HOSPITALIZATION 2 WEEKS AGO. FOLLOW FOR DIET ADVANCEMENT AND PO INTAKE. SEE CLINICAL NUTRITION ASSESSMENT 02/14/25.
--- NOTE | 2025-02-14 11:06 | MHC.CM.PN ---
pt is homeless will be dcd home self with recourses provided for pt thru addiction medicine
--- NOTE | 2025-02-14 14:56 | HO.PM.IMPN ---
Subjective Subjective Date of Service: 02/14/25 Interval History: Seen and examined this morning Follow-up with Crohn's disease with pelvic abscess Abdominal pain improving Review of Systems Review of Systems: Yes all other systems are reviewed and are negative Constitutional Constitutional: Denies chills and Denies fever(s) Cardiovascular Cardiovascular: Denies chest pain and Denies palpitations Endocrine Endocrine: Denies palpitations Physical Exam Vital Signs: Vital Signs: Last Vital Signs Temp 97.0 F 02/14/25 08:00 Pulse 78 02/14/25 08:00 Resp 17 02/14/25 08:00 BP 112/57 L 02/14/25 08:00 Pulse Ox 99 02/14/25 08:00 O2 Del Method Room Air 02/14/25 08:00 BMI result Body Mass Index 16.6 Const: Other: Constitutional cooperative, no acute distress. Awake, alert, oriented x3 Pulmonary-no accessory muscle use. Able to speak in complete sentences Cardiovascular-regular rate GI abdomen soft, nondistended, no rebound, no guarding. mild tenderness in the right lower quadrant Neuro-grossly nonfocal Musculoskeletal-able to move all 4 extremities spontaneously. No pedal edema Objective Data Active Medications Acetaminophen (Acetaminophen 325 Mg Tablet) 650 mg PO Q6H PRN PRN Reason: Pain, Mild 1-3,fever,headache Calcium Carbonate (Calcium Carbonate 750 Mg Tab.Chew) 750 mg PO Q4H PRN PRN Reason: Heartburn Lactated Ringer's (Lr) 1,000 mls @ 125 mls/hr IVCONT .Q8H [facility] Last Admin: 02/14/25 11:49 Dose: 125 mls/hr Documented By: SANGEETA Piperacillin Sod/Tazobactam (Sod 4.5 gm/ Sodium Chloride) 100 mls @ 200 mls/hr IV Q6H [facility] Last Infusion: 02/14/25 09:33 Dose: Infused Documented By: SANGEETA Magnesium Hydroxide (Milk Of Magnesia 30 Ml Oral.Susp) 30 ml PO DAILY PRN PRN Reason: Constipation Melatonin (Melatonin 3 Mg Tablet) 6 mg PO BEDTIME PRN PRN Reason: Insomnia Methylprednisolone Sodium Succinate (Methylprednisolone Sod Succ 125 Mg/2 Ml Vial) 60 mg IVPUSH Q8H [facility] Last Admin: 02/14/25 11:49 Dose: 60 mg Documented By: SANGEETA Morphine Sulfate (Morphine Sulfate 2 Mg/Ml Cartridge) 2 mg IVPUSH Q3H PRN; Protocol PRN Reason: Pain, Severe (Pain Scale 7-10) Pantoprazole Sodium (Pantoprazole Sodium 40 Mg/10 Ml Vial) 40 mg IVPUSH DAILY@0630 [facility] Last Admin: 02/14/25 06:11 Dose: 40 mg Documented By: LOREN Sodium Chloride (0.9 % Sodium Chloride Flush 3 Ml Syringe) 3 ml IVFLUSH QSHIFT [facility] Last Admin: 02/14/25 09:01 Dose: Not Given Documented By: SANGEETA Non-Admin Reason: IV Running Labs 02/14/25 05:46 02/14/25 05:46 Labs: Laboratory Results - last 24 hr 02/14/25 05:46 MCV 83.0 MCH 27.6 MCHC 33.2 RDW 12.7 Plt Count 343 MPV 9.5 Absolute Nucleated RBC 0.000 Nucleated RBC % (auto) 0.0 Anion Gap 13 Estim Creat Clear Calc 126.0 Estimated GFR > 60 Random Glucose 132 H Calcium 9.3 Microbiology Microbiology Results: Microbiology 02/13/25 10:52 Blood Culture - Preliminary Blood - Venous No growth after 24 hours. 02/13/25 10:41 Blood Culture - Preliminary Blood - Venous No growth after 24 hours. Assessment and Plan (1) Crohn's disease of both small and large intestine: Status: Acute (2) Intra-abdominal abscess: Status: Acute Plan This is a 19-year-old male recently diagnosed with probable Crohn's disease, recent admission for colitis, enteritis and suspected small intrapelvic abscesses who returns with acute abdominal pain found to have intra-abdominal abscess sepsis due acute intra-abdominal abscess due to probable Crohn's disease with acute flare - abdominal pain improving Met SIRS criteria with tachycardia, leukocytosis. Lactic acid within normal limits. no severe features - WBC trending down Seen by General surgery-recommend IR guided drainage of abscess but IR reports there is nothing large enough to drain continue IV Zosyn and IV solu-medrol tolerating clear liquids, advance as tolerated IVF, pain control GI and general surgery following Blood cultures negative to date DVT prophylaxis-mechanical devices Code status-full code Requires ongoing inpatient stay stay in the hospital due to intra-abdominal abscess requiring IV antibiotics and specialist evaluation which can not occur in a lesser acute setting. Quality Stroke Does the patient have a stroke diagnosis?: No VTE Prior VTE?: No VTE Risk Level:: Medical - moderate - high VTE Device Contraindication: N/A - Device Ordered VTE Drug Contraindication: N/A - Med Ordered
[2025-02-14 15:59] VITALS: BP 117/56; PULSE 71; RESP 16; TEMP 36.6; O2SAT 100
[2025-02-14 20:00] VITALS: BP 105/54; PULSE 67; RESP 18; TEMP 36.3; O2SAT 96
[2025-02-14] MEDS: 0.9 % Sodium Chloride Flush 3 ML SYRINGE IVFLUSH (23:36)
[2025-02-15] VITALS: BP 114/57; PULSE 68; RESP 16; TEMP 37.3; O2SAT 99
[2025-02-15 03:58] VITALS: BP 97/44; PULSE 50; RESP 16; TEMP 36.6; O2SAT 99
[2025-02-15] MEDS: Lactated Ringers 1,000 ML 125 ML IVCONT ×3 (04:58→22:33)
[2025-02-15 05:30] LABS: MANUAL DIFF FLAG NO
[2025-02-15 05:51] LABS: Anion Gap 12 (12-20); Blood Urea Nitrogen 8 mg/dL (9-16); Calcium 9.3 mg/dL (8.4-10.2); Carbon Dioxide 28 mmol/L (22-29); Chloride 104 mmol/L (96-108); Creatinine Clr Calc Pharmacy 137.5; Estimated Glomerular Filt Rate > 60; Potassium 4.3 mmol/L (3.3-5.1); Sodium 140 mmol/L (135-145)
[2025-02-15 05:53] LABS: Hematocrit 39.1 % (42.0-52.0); Hemoglobin 13.5 g/dl (14.0-18.0); Imm Gran Abs Auto 0.11 X10*3/uL (0.00-0.03); Imm Gran Pct Auto 0.6 % (0.0-0.4); Lymphocytes Absolute Auto 1.4 X10*3/uL (1.2-4.9); Mean Corpuscular HGB Conc 34.5 g/dl (31.0-36.0); Mean Corpuscular Hemoglobin 28.5 pg (27.0-33.0); Mean Corpuscular Volume 82.5 fL (80.0-98.0); NRBC Abs Auto 0.000 X10*3/uL (0.0-0.012); NRBC Pct Auto 0.0 /100WBC (0.0-0.2); Platelet Count 320 X10*3/uL (160-400); Red Blood Count 4.74 X10*6/uL (4.60-5.80); White Blood Count 17.4 X10*3/uL (4.8-10.8)
--- NOTE | 2025-02-15 07:06 | P.PNGS_ITS ---
Subjective Subjective Date of Service: 02/15/25 Interval history: Reports feeling improved this morning with the abdominal pain in the 1 to 2/10 range. Denies any nausea or vomiting. No bowel movement noted. Physical Exam 2 Vital Signs: Vital Signs: Last Vital Signs Temp 98 F 02/15/25 03:58 Pulse 50 02/15/25 03:58 Resp 16 02/15/25 03:58 BP 97/44 L 02/15/25 03:58 Pulse Ox 99 02/15/25 03:58 O2 Del Method Room Air 02/15/25 03:58 BMI result Body Mass Index 16.6 Const: General: comfortable Nutritional Appearance: thin O rientation/consciousness: patient oriented x3 Resp: Effort & Inspection: normal respiratory effort, no audible wheezes, no cough and no respiratory distress Skin: General skin exam: no rashes or lesions noted Neuro: General: patient oriented x3 Objective Data Active Medications Acetaminophen (Acetaminophen 325 Mg Tablet) 650 mg PO Q6H PRN PRN Reason: Pain, Mild 1-3,fever,headache Calcium Carbonate (Calcium Carbonate 750 Mg Tab.Chew) 750 mg PO Q4H PRN PRN Reason: Heartburn Lactated Ringer's (Lr) 1,000 mls @ 125 mls/hr IVCONT .Q8H [facility] Last Admin: 02/15/25 04:58 Dose: 125 mls/hr Documented By: BYRON Piperacillin Sod/Tazobactam (Sod 4.5 gm/ Sodium Chloride) 100 mls @ 200 mls/hr IV Q6H [facility] Last Infusion: 02/15/25 05:30 Dose: Infused Documented By: BYRON Magnesium Hydroxide (Milk Of Magnesia 30 Ml Oral.Susp) 30 ml PO DAILY PRN PRN Reason: Constipation Melatonin (Melatonin 3 Mg Tablet) 6 mg PO BEDTIME PRN PRN Reason: Insomnia Methylprednisolone Sodium Succinate (Methylprednisolone Sod Succ 125 Mg/2 Ml Vial) 60 mg IVPUSH Q8H [facility] Last Admin: 02/15/25 04:56 Dose: 60 mg Documented By: BYRON Morphine Sulfate (Morphine Sulfate 2 Mg/Ml Cartridge) 2 mg IVPUSH Q3H PRN; Protocol PRN Reason: Pain, Severe (Pain Scale 7-10) Pantoprazole Sodium (Pantoprazole Sodium 40 Mg/10 Ml Vial) 40 mg IVPUSH DAILY@0630 [facility] Last Admin: 02/15/25 06:41 Dose: 40 mg Documented By: BYRON Sodium Chloride (0.9 % Sodium Chloride Flush 3 Ml Syringe) 3 ml IVFLUSH QSHIFT [facility] Last Admin: 02/14/25 23:36 Dose: 3 ml Documented By: BYRON Labs 02/15/25 05:12 02/15/25 05:12 Labs: Laboratory Results - last 24 hr 02/14/25 02/15/25 05:46 05:12 MCV 83.0 82.5 MCH 27.6 28.5 MCHC 33.2 34.5 RDW 12.7 12.8 Plt Count 343 320 MPV 9.5 9.1 L Immature Gran % (Auto) 0.6 H Neut % (Auto) 87.2 H Lymph % (Auto) 8.3 L Stephenson % (Auto) 3.7 Eos % (Auto) 0.1 Baso % (Auto) 0.1 Lymph # (Auto) 1.4 Stephenson # (Auto) 0.6 Eos # (Auto) 0.0 Baso # (Auto) 0.0 Abs Immat Gran (auto) 0.11 H Absolute Neuts (auto) 15.2 H Absolute Nucleated RBC 0.000 0.000 Nucleated RBC % (auto) 0.0 0.0 Anion Gap 13 12 Estim Creat Clear Calc 126.0 137.5 Estimated GFR > 60 > 60 Random Glucose 132 H 138 H Calcium 9.3 9.3 Microbiology Microbiology Results: Microbiology 02/13/25 10:52 Blood Culture - Preliminary Blood - Venous No growth after 24 hours. 02/13/25 10:41 Blood Culture - Preliminary Blood - Venous No growth after 24 hours. Procedures Date of Service Date of Service: 02/15/25 Progress Note: A&P Assessment and plan (1) Colitis: Status: Acute (2) Crohn's disease of both small and large intestine: Status: Acute Plan Overall patient feels improved with decreased abdominal pain. His abdominal exam is benign as well. Continue medical management of Crohn's disease. We will continue to monitor. Time Spent With Patient Time: Total time managing care of this patient today ____ minutes. Quality Stroke Does the patient have a stroke diagnosis?: No VTE Prior VTE?: No VTE Risk Level:: Medical - moderate - high VTE Device Contraindication: N/A - Device Ordered VTE Drug Contraindication: N/A - Med Ordered
[2025-02-15 07:52] VITALS: BP 114/59; PULSE 55; RESP 16; TEMP 36.4; O2SAT 97
--- NOTE | 2025-02-15 10:43 | P.PNIM_ITS ---
Subjective Subjective Date of Service: 02/15/25 Interval History: Reports feels much better, abdominal pain 1-2/10 Denies nausea, vomiting, diarrhea Unclear when last bowel movement was Able to tolerate full liquid diet Review of Systems Review of Systems: Yes all other systems are reviewed and are negative Physical Exam 2 Exam: Exam: General: AOx3, no acute distress. Resting comfortably in bed Resp: CTA bilaterally CVS: S1, S2, RRR GI: +BS, no distention. Mild central abd tenderness Skin: Warm, dry Neuro: Cranial nerves II-XII grossly intact bilaterally. Motor grossly intact bilaterally Extremities: No edema Psych: Appropriate affect Vital Signs: Vital Signs: Last Vital Signs Temp 97.6 F 02/15/25 07:52 Pulse 55 02/15/25 07:52 Resp 16 02/15/25 07:52 BP 114/59 L 02/15/25 07:52 Pulse Ox 97 02/15/25 07:52 O2 Del Method Room Air 02/15/25 07:52 BMI result Body Mass Index 16.6 Objective Data Active Medications Acetaminophen (Acetaminophen 325 Mg Tablet) 650 mg PO Q6H PRN PRN Reason: Pain, Mild 1-3,fever,headache Calcium Carbonate (Calcium Carbonate 750 Mg Tab.Chew) 750 mg PO Q4H PRN PRN Reason: Heartburn Lactated Ringer's (Lr) 1,000 mls @ 125 mls/hr IVCONT .Q8H [facility] Last Admin: 02/15/25 04:58 Dose: 125 mls/hr Documented By: BYRON Piperacillin Sod/Tazobactam (Sod 4.5 gm/ Sodium Chloride) 100 mls @ 200 mls/hr IV Q6H [facility] Last Infusion: 02/15/25 10:19 Dose: Infused Documented By: PUJA Magnesium Hydroxide (Milk Of Magnesia 30 Ml Oral.Susp) 30 ml PO DAILY PRN PRN Reason: Constipation Melatonin (Melatonin 3 Mg Tablet) 6 mg PO BEDTIME PRN PRN Reason: Insomnia Methylprednisolone Sodium Succinate (Methylprednisolone Sod Succ 125 Mg/2 Ml Vial) 60 mg IVPUSH Q8H [facility] Last Admin: 02/15/25 04:56 Dose: 60 mg Documented By: BYRON Morphine Sulfate (Morphine Sulfate 2 Mg/Ml Cartridge) 2 mg IVPUSH Q3H PRN; Protocol PRN Reason: Pain, Severe (Pain Scale 7-10) Pantoprazole Sodium (Pantoprazole Sodium 40 Mg/10 Ml Vial) 40 mg IVPUSH DAILY@0630 [facility] Last Admin: 02/15/25 06:41 Dose: 40 mg Documented By: BYRON Sodium Chloride (0.9 % Sodium Chloride Flush 3 Ml Syringe) 3 ml IVFLUSH QSHIFT [facility] Last Admin: 02/15/25 07:46 Dose: Not Given Documented By: PUJA Non-Admin Reason: IV Running Labs 02/15/25 05:12 02/15/25 05:12 Labs: Laboratory Results - last 24 hr 02/15/25 05:12 MCV 82.5 MCH 28.5 MCHC 34.5 RDW 12.8 Plt Count 320 MPV 9.1 L Immature Gran % (Auto) 0.6 H Neut % (Auto) 87.2 H Lymph % (Auto) 8.3 L Bailey % (Auto) 3.7 Eos % (Auto) 0.1 Baso % (Auto) 0.1 Lymph # (Auto) 1.4 Bailey # (Auto) 0.6 Eos # (Auto) 0.0 Baso # (Auto) 0.0 Abs Immat Gran (auto) 0.11 H Absolute Neuts (auto) 15.2 H Absolute Nucleated RBC 0.000 Nucleated RBC % (auto) 0.0 Anion Gap 12 Estim Creat Clear Calc 137.5 Estimated GFR > 60 Random Glucose 138 H Calcium 9.3 Microbiology Microbiology Results: Microbiology 02/13/25 10:52 Blood Culture - Preliminary Blood - Venous No growth after 24 hours. 02/13/25 10:41 Blood Culture - Preliminary Blood - Venous No growth after 24 hours. Assessment and Plan (1) Colitis: Status: Acute (2) Intra-abdominal abscess: Status: Acute Plan This is a 19-year-old male recently diagnosed with probable Crohn's disease, recent admission for colitis, enteritis and suspected small intrapelvic abscesses who returns with acute abdominal pain found to have intra-abdominal abscess sepsis due acute intra-abdominal abscess due to probable Crohn's disease with acute flare - abdominal pain improving Met SIRS criteria with tachycardia, leukocytosis. Lactic acid within normal limits. no severe features WBC's remain elevated -- likely secondary to steroids Seen by General surgery - recommend IR guided drainage of abscess but IR reports there is nothing large enough to drain Will be re-evaluated by IR on Monday for possible drainage Continue IV Zosyn and IV solu-medrol Tolerating full liquid diet, advance as tolerated IVF, pain control GI and general surgery following Blood cultures negative to date DVT prophylaxis-mechanical devices Code status-full code Requires ongoing inpatient stay stay in the hospital due to intra-abdominal abscess requiring IV antibiotics and specialist evaluation which can not occur in a lesser acute setting. Quality Stroke Does the patient have a stroke diagnosis?: No VTE Prior VTE?: No VTE Risk Level:: Medical - moderate - high VTE Device Contraindication: N/A - Device Ordered VTE Drug Contraindication: N/A - Med Ordered
[2025-02-15 15:55] VITALS: BP 113/56; PULSE 63; RESP 16; TEMP 36.4; O2SAT 98
[2025-02-15 18:34] VITALS: BP 119/58; PULSE 82; RESP 18; TEMP 36.7; O2SAT 98
[2025-02-16 03:06] VITALS: BP 117/60; PULSE 59; RESP 18; TEMP 36.4; O2SAT 97
[2025-02-16] MEDS: Lactated Ringers 1,000 ML 125 ML IVCONT ×2 (05:48→14:04)
[2025-02-16 07:25] VITALS: BP 120/61; PULSE 58; RESP 18; TEMP 36.4; O2SAT 98
--- NOTE | 2025-02-16 11:32 | HO.PM.IMPN ---
Subjective Subjective Date of Service: 02/16/25 Interval History: No acute events overnight Reports feeling much better No nausea or vomiting; has been able to tolerate full diet Denies significant abdominal pain No diarrhea Has been moving bowels Review of Systems Review of Systems: Yes all other systems are reviewed and are negative Physical Exam Exam: Exam: General: AOx3, no acute distress Resp: CTA bilaterally CVS: S1, S2, RRR GI: +BS, no distention, central abdomen tender Skin: Warm, dry Neuro: Cranial nerves II-XII grossly intact bilaterally. Motor grossly intact bilaterally Extremities: No edema Psych: Appropriate affect Vital Signs: Vital Signs: Last Vital Signs Temp 97.5 F 02/16/25 07:25 Pulse 58 02/16/25 07:25 Resp 18 02/16/25 07:25 BP 120/61 02/16/25 07:25 Pulse Ox 98 02/16/25 07:25 O2 Del Method Room Air 02/16/25 07:25 BMI result Body Mass Index 16.6 Objective Data Active Medications Acetaminophen (Acetaminophen 325 Mg Tablet) 650 mg PO Q6H PRN PRN Reason: Pain, Mild 1-3,fever,headache Calcium Carbonate (Calcium Carbonate 750 Mg Tab.Chew) 750 mg PO Q4H PRN PRN Reason: Heartburn Lactated Ringer's (Lr) 1,000 mls @ 125 mls/hr IVCONT .Q8H [facility] Last Admin: 02/16/25 05:48 Dose: 125 mls/hr Documented By: KARLA Piperacillin Sod/Tazobactam (Sod 4.5 gm/ Sodium Chloride) 100 mls @ 200 mls/hr IV Q6H [facility] Last Infusion: 02/16/25 10:32 Dose: Infused Documented By: PUJA Magnesium Hydroxide (Milk Of Magnesia 30 Ml Oral.Susp) 30 ml PO DAILY PRN PRN Reason: Constipation Melatonin (Melatonin 3 Mg Tablet) 6 mg PO BEDTIME PRN PRN Reason: Insomnia Methylprednisolone Sodium Succinate (Methylprednisolone Sod Succ 125 Mg/2 Ml Vial) 60 mg IVPUSH Q8H [facility] Last Admin: 02/16/25 03:49 Dose: 60 mg Documented By: KARLA Morphine Sulfate (Morphine Sulfate 2 Mg/Ml Cartridge) 2 mg IVPUSH Q3H PRN; Protocol PRN Reason: Pain, Severe (Pain Scale 7-10) Sodium Chloride (0.9 % Sodium Chloride Flush 3 Ml Syringe) 3 ml IVFLUSH QSHIFT [facility] Last Admin: 02/16/25 10:02 Dose: Not Given Documented By: PUJA Non-Admin Reason: IV Running Labs 02/15/25 05:12 02/15/25 05:12 Microbiology Microbiology Results: Microbiology 02/13/25 10:52 Blood Culture - Preliminary Blood - Venous No growth after 48 hours. 02/13/25 10:41 Blood Culture - Preliminary Blood - Venous No growth after 48 hours. Assessment and Plan (1) Intra-abdominal abscess: Status: Acute Plan This is a 19-year-old male recently diagnosed with probable Crohn's disease, recent admission for colitis, enteritis and suspected small intrapelvic abscesses who returns with acute abdominal pain found to have intra-abdominal abscess sepsis due acute intra-abdominal abscess due to probable Crohn's disease with acute flare - abdominal pain improving Met SIRS criteria with tachycardia, leukocytosis. Lactic acid within normal limits. no severe features WBC's remain elevated -- likely secondary to steroids Seen by General surgery - recommend IR guided drainage of abscess but IR reports there is nothing large enough to drain Will be re-evaluated by IR on Monday for possible drainage Continue IV Zosyn and IV solu-medrol Tolerating full diet IVF, pain control GI and general surgery following Has planned colonoscopy outpatient later in the month; GI feel no need for emergent colonoscopy at this time Blood cultures negative to date DVT prophylaxis-mechanical devices Code status-full code Requires ongoing inpatient stay stay in the hospital due to intra-abdominal abscess requiring IV antibiotics and specialist evaluation which can not occur in a lesser acute setting. Quality Stroke Does the patient have a stroke diagnosis?: No VTE Prior VTE?: No VTE Risk Level:: Medical - moderate - high VTE Device Contraindication: N/A - Device Ordered VTE Drug Contraindication: N/A - Med Ordered
[2025-02-16 15:49] VITALS: BP 116/60; PULSE 65; RESP 18; TEMP 36.8; O2SAT 98
[2025-02-16 20:00] VITALS: BP 118/63; PULSE 62; RESP 18; TEMP 36.8; O2SAT 99
[2025-02-17 03:52] VITALS: BP 109/55; PULSE 51; RESP 18; TEMP 36.8; O2SAT 98
[2025-02-17 07:34] VITALS: BP 115/56; PULSE 60; RESP 12; TEMP 36.3; O2SAT 97
--- NOTE | 2025-02-17 07:56 | P.PNGS_ITS ---
Subjective Subjective Date of Service: 02/17/25 Interval history: Feels improved, currently denies abd pain. Had solid food yesterday with mild increase in pain. Denies further nausea/vomiting. Having loose stools. Physical Exam 2 Vital Signs: Vital Signs: Last Vital Signs Temp 97.4 F 02/17/25 07:34 Pulse 60 02/17/25 07:34 Resp 12 02/17/25 07:34 BP 115/56 L 02/17/25 07:34 Pulse Ox 97 02/17/25 07:34 O2 Del Method Room Air 02/17/25 07:34 BMI result Body Mass Index 16.6 Const: Orientation/consciousness: patient oriented x3 Resp: Effort & Inspection: normal respiratory effort GI: Inspection: No distended Palpation (GI): Soft to palpation, Tenderness to palpation present (GI) (mild tenderness in the RLQ/suprapubic) and no guarding Skin: General skin exam: no rashes or lesions noted Neuro: General: patient oriented x3 and moves all extremities Objective Data Active Medications Acetaminophen (Acetaminophen 325 Mg Tablet) 650 mg PO Q6H PRN PRN Reason: Pain, Mild 1-3,fever,headache Calcium Carbonate (Calcium Carbonate 750 Mg Tab.Chew) 750 mg PO Q4H PRN PRN Reason: Heartburn Piperacillin Sod/Tazobactam (Sod 4.5 gm/ Sodium Chloride) 100 mls @ 200 mls/hr IV Q6H [facility] Last Infusion: 02/17/25 04:29 Dose: Infused Documented By: RELL Magnesium Hydroxide (Milk Of Magnesia 30 Ml Oral.Susp) 30 ml PO DAILY PRN PRN Reason: Constipation Melatonin (Melatonin 3 Mg Tablet) 6 mg PO BEDTIME PRN PRN Reason: Insomnia Methylprednisolone Sodium Succinate (Methylprednisolone Sod Succ 125 Mg/2 Ml Vial) 60 mg IVPUSH Q8H [facility] Last Admin: 02/17/25 03:59 Dose: 60 mg Documented By: RELL Morphine Sulfate (Morphine Sulfate 2 Mg/Ml Cartridge) 2 mg IVPUSH Q3H PRN; Protocol PRN Reason: Pain, Severe (Pain Scale 7-10) Sodium Chloride (0.9 % Sodium Chloride Flush 3 Ml Syringe) 3 ml IVFLUSH QSHIFT [facility] Last Admin: 02/17/25 00:47 Dose: Not Given Documented By: RELL Non-Admin Reason: IV Running Labs 02/15/25 05:12 02/15/25 05:12 Procedures Date of Service Date of Service: 02/17/25 Progress Note: A&P Assessment and plan (1) Crohn's disease of both small and large intestine: Status: Acute Plan Clinically improved and tolerating solid diet, mild residual RLQ/suprapubic tenderness. Continue current treatment for crohns flare, GI f/u. Discussed with radiology on admission regarding CT of intraabdominal abscess however initially said there was nothing to drain. Messaged by IR today and the scan from 02/13 was apparently reviewed by radiology and there is now concern that patient did in fact need a drain for intraabdominal abscess. Repeat CT scan abd/pelvis with IV contrast has been ordered. Time Spent With Patient Time: Total time managing care of this patient today ____ minutes. Quality Stroke Does the patient have a stroke diagnosis?: No VTE Prior VTE?: No VTE Risk Level:: Medical - moderate - high VTE Device Contraindication: N/A - Device Ordered VTE Drug Contraindication: N/A - Med Ordered
--- NOTE | 2025-02-17 12:37 | MHC.CLN ---
F/U CURRENTLY NPO FOR PROCEDURE. DIET ADVANCED TO REGUALR 8/ AND PATIENT TOLERATED DIET. UNDERWEIGHT BUT DOES NOT APPEAR TO BE MALNOURISHED. FOLLOW FOR DIET ADVANCEMENT AND PO INTAKE.
[2025-02-17 15:18] VITALS: BP 115/59; PULSE 60; RESP 14; TEMP 36.6; O2SAT 99
--- NOTE | 2025-02-17 15:30 | MHC.CM.PN ---
per rounds pt is not medically ready for dc plan remains home
[2025-02-17] MEDS: iohexoL 350 MG/ML 100 ML INFUS..BTL 85 ML IV (15:57)
[2025-02-17] MEDS: 0.9 % Sodium Chloride Flush 3 ML SYRINGE IVFLUSH ×2 (16:04→19:41)
--- NOTE | 2025-02-17 17:33 | PC.NURSE ---
Addendum entered by Merle Caro RN 02/17/25 17:35: To clarify - pt not leaving AMA, says he and provider discussed he will stay another night and he will d/c to family when medically cleared. 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
--- NOTE | 2025-02-17 18:37 | P.PNIM_ITS ---
Subjective Subjective Date of Service: 02/17/25 Interval History: Pt seen and evaluated where he is resting comfortably in bed Abdominal pain well-controlled 2 episodes of nonbloody diarrhea yesterday Denies nausea, vomiting No fever or chills Review of Systems Review of Systems: Yes all other systems are reviewed and are negative Physical Exam 2 Exam: Exam: General: AOx3, no acute distress Resp: CTA bilaterally CVS: S1, S2, RRR GI: +BS, NT, no distention Skin: Warm, dry Neuro: Cranial nerves II-XII grossly intact bilaterally. Motor grossly intact bilaterally Extremities: No edema Psych: Appropriate affect Vital Signs: Vital Signs: Last Vital Signs Temp 97.9 F 02/17/25 15:18 Pulse 60 02/17/25 15:18 Resp 14 02/17/25 15:18 BP 115/59 L 02/17/25 15:18 Pulse Ox 99 02/17/25 15:18 O2 Del Method Room Air 02/17/25 15:18 BMI result Body Mass Index 16.6 Objective Data Active Medications Acetaminophen (Acetaminophen 325 Mg Tablet) 650 mg PO Q6H PRN PRN Reason: Pain, Mild 1-3,fever,headache Calcium Carbonate (Calcium Carbonate 750 Mg Tab.Chew) 750 mg PO Q4H PRN PRN Reason: Heartburn Piperacillin Sod/Tazobactam (Sod 4.5 gm/ Sodium Chloride) 100 mls @ 200 mls/hr IV Q6H [facility] Last Infusion: 02/17/25 16:40 Dose: Infused Documented By: AMILCAR Magnesium Hydroxide (Milk Of Magnesia 30 Ml Oral.Susp) 30 ml PO DAILY PRN PRN Reason: Constipation Melatonin (Melatonin 3 Mg Tablet) 6 mg PO BEDTIME PRN PRN Reason: Insomnia Methylprednisolone Sodium Succinate (Methylprednisolone Sod Succ 125 Mg/2 Ml Vial) 60 mg IVPUSH Q8H [facility] Last Admin: 02/17/25 11:52 Dose: 60 mg Documented By: AMILCAR Morphine Sulfate (Morphine Sulfate 2 Mg/Ml Cartridge) 2 mg IVPUSH Q3H PRN; Protocol PRN Reason: Pain, Severe (Pain Scale 7-10) Sodium Chloride (0.9 % Sodium Chloride Flush 3 Ml Syringe) 3 ml IVFLUSH QSHIFT [facility] Last Admin: 02/17/25 16:04 Dose: 3 ml Documented By: AMILCAR Labs 02/15/25 05:12 02/15/25 05:12 Assessment and Plan (1) Crohn's disease of both small and large intestine: Status: Acute Plan This is a 19-year-old male recently diagnosed with probable Crohn's disease, recent admission for colitis, enteritis and suspected small intrapelvic abscesses who returns with acute abdominal pain found to have intra-abdominal abscess sepsis due acute intra-abdominal abscess due to probable Crohn's disease with acute flare - abdominal pain improving Met SIRS criteria with tachycardia, leukocytosis. Lactic acid within normal limits. no severe features WBC's remain elevated -- likely secondary to steroids Seen by General surgery - recommend IR guided drainage of abscess but IR reports there is nothing large enough to drain Repeat CT showed persistent but improving inflammation of terminal ileum; to prominent ileal diverticulum previously questioned as abscesses; no definitive intra-abdominal; abscess no bowel obstruction Continue IV Zosyn and IV solu-medrol Tolerating full diet IVF, pain control GI and general surgery following Has planned colonoscopy outpatient later in the month; GI feel no need for emergent colonoscopy at this time Blood cultures negative to date Will likely be able to go home tomorrow DVT prophylaxis-mechanical devices Code status-full code Requires ongoing inpatient stay stay in the hospital due to likely Crohn's flare requiring IV steroids, possible abscess requiring IV antibiotics and specialist evaluation which can not occur in a lesser acute setting. Quality Stroke Does the patient have a stroke diagnosis?: No VTE Prior VTE?: No VTE Risk Level:: Medical - moderate - high VTE Device Contraindication: N/A - Device Ordered VTE Drug Contraindication: N/A - Med Ordered
[2025-02-17 19:28] VITALS: BP 121/69; PULSE 64; RESP 18; TEMP 36.9; O2SAT 99
[2025-02-18 03:14] VITALS: BP 100/62; PULSE 55; RESP 18; TEMP 36.7; O2SAT 97
[2025-02-18] MEDS: 0.9 % Sodium Chloride Flush 3 ML SYRINGE IVFLUSH (07:03)
[2025-02-18 07:07] VITALS: BP 119/60; PULSE 69; RESP 12; TEMP 36.5; O2SAT 98
--- NOTE | 2025-02-18 10:49 | P.DS_ITS ---
DS: Providers Provider Date of Service: 02/18/25 Date of admission: 02/13/25 10:36 Date of discharge: 02/18/25 Primary care physician: None Physician Consults: 02/13/25 11:02 Consult to Gastroenterology Routine Consulting Provider: Rashad Stanton Reason for consultation: abdominal pain, pelvic abscess; crohns dz (recently seen in) Has provider been notified: No 02/13/25 11:50 Consult to General Surgery Routine Consulting Provider: [facility] General Surgeons Reason for consultation: Intra-abdominal abscess Has provider been notified: Yes DS: Diagnosis Discharge Diagnosis (1) Crohn's disease of both small and large intestine: Status: Inactive DS: Summary Hospital Course Hospital Course: From admitting HPI: Date of Service: 02/13/25 Attending physician on admission: Bonilla Dejesus Chief Complaint: Abdominal pain This is a 19-year-old male who presents to the emergency department with abdominal pain. Patient was recently admitted to the hospital from January 26 to January 30, at that time he was diagnosed with probable Crohn's disease. He was treated for probable micro perforations. At that time he was seen by GI and General surgery and was started on budesonide and mesalamine. He was discharged home with a short course of antibiotics. He had had outpatient follow-up with GI and was scheduled for outpatient colonoscopy and started on prednisone. He has been doing well until early this morning when he began having lower abdominal pain associated with multiple episodes of vomiting. He describes nonbloody emesis. He denies any fever, chills or diarrhea. In the emergency department cat scan was repeated which showed [id number] right pelvic/peritoneal abscess. He was evaluated by General surgery who recommended IR guided drainage. Lab work was significant for leukocytosis. In the emergency department he received IV antibiotics in the decision was made to admit him to the hospital for further management. Hospital course: Pt is admitted to the hospital for likely acute Crohn's disease flare as well as possible intra-abdominal abscess. Pt was started on IV steroids and Zosyn, and seen and evaluated by both GI and IR for possible abscess drainage. Initial review of imaging indicated there was no drainable fluid collection and pt was treated non operatively, however this was reconsidered upon re-evaluation and pt had repeat imaging done which showed the questionable abscesses were most likely two prominent ileal diverticulum; repeat CT did not show definitive intra- abdominal abscess. Overall pt responded well to therapy and continually improved. Has been having some loose bowels, but currently no nausea or vomiting and abdominal pain well-controlled. Has been able to tolerate solid diet for the past few days. Pt has outpatient colonoscopy scheduled with Dr. Jones in GI later in the month, but this may need to be rescheduled due to acute flare. Pt should follow up with GI outpatient. He will be discharged on Augmentin 875 mg b.i.d. x3 days, and a prednisone taper beginning at 40 mg daily and tapering by 5 mg weekly. Pt should continue mesalamine and budesonide as previously see prescribed. Time Attestation Discharge Coordination Time (in mins): 35 Quality: Safe Use of Opioids Does Pt have an Active Cancer Diagnosis on the Problem List?: No Quality: Stroke Does the patient have a stroke diagnosis?: No Physical Exam Exam: Exam: General: AOx3, no acute distress Resp: CTA bilaterally CVS: S1, S2, RRR GI: +BS, NT, no distention Skin: Warm, dry Neuro: Cranial nerves II-XII grossly intact bilaterally. Motor grossly intact bilaterally Extremities: No edema Psych: Appropriate affect Vital Signs: Vital Signs: Last Vital Signs Temp 97.7 F 02/18/25 07:07 Pulse 69 02/18/25 07:07 Resp 12 02/18/25 07:07 BP 119/60 02/18/25 07:07 Pulse Ox 98 02/18/25 07:07 O2 Del Method Room Air 02/18/25 07:07 BMI result Body Mass Index 16.6 DS: Data Data Completed and Pending Labs on day of discharge: Preliminary micro results at discharge 02/13/25 10:52 Blood Culture - Preliminary Blood - Venous No growth after 48 hours. 02/13/25 10:41 Blood Culture - Preliminary Blood - Venous No growth after 48 hours. Discharge Plan Discharge Anticipated Discharge Date/Time: 02/18/25 11:20 Patient Disposition: Home, Self-Care Discharge Diagnosis: Acute intra-abdominal abscess Referrals: Physician,None [Primary Care Provider, Medical] - 1 Week Discharge Medications: Discontinued prednisone 5 mg tablet See Taper PO DAILY Taper: Prednisone 40 mg daily for 2 Days and 0 Hour 35 mg daily for 7 Days and 0 Hour 30 mg daily for 7 Days and 0 Hour 25 mg daily for 7 Days and 0 Hour 20 mg daily for 7 Days and 0 Hour 15 mg daily for 7 Days and 0 Hour 10 mg daily for 7 Days and 0 Hour 5 mg daily for 7 Days and 0 Hour No Action budesonide 3 mg Capsule,Delayed,Extend.Release 3 mg PO DAILY mesalamine 400 mg Capsule (With Del Rel Tablets) 400 mg PO QID Discharge Orders: Discharge Order (Routine); Ordered 02/18/25 Ordered By: Miladis Silva Activity on Discharge: As tolerated Stand Alone Forms: Patient Portal Discharge page Print Language: [place] Care Plan Goals: See below Health Concerns: Acute Crohn's flare/colitis Intra-abdominal abscess Plan of Treatment: You were admitted to the hospital for acute Crohn's disease flare and possible intra-abdominal abscess for which you were treated with IV steroids and IV antibiotics. You will be discharged home on prednisone taper and oral antibiotics. Take amoxicillin-clavulanate 875 mg twice a day for the next 3 days. Start taking this evening and finishing course of antibiotics on 02/21. For oral steroids you will be prescribed a prednisone taper of 5mg pills. You will start 40 mg daily and taper down by 5 mg per week: Take 40 mg (8 tabs) daily for 7 days Take 35 mg (7 tabs) daily for 7 days Take 30 mg (6 tabs) daily for 7 days Take 25 mg (5 tabs) daily for 7 days Take 20 mg (4 tabs) daily for 7 days Take 15 mg (3 tabs) daily for 7 days Take 10 mg (2 tabs) daily for 7 days Take 5 mg (1 tab) daily for 7 days Continue taking with budesonide and mesalamine as previously prescribed Contact Dr. Jones in gastroenterology for follow up in 1-2 weeks and possible rescheduling of colonoscopy due to acute flare Assessment: See discharge summary Patient Instructions: Crohn Disease (DC) Discharge Date/Time: 02/18/25 12:24
--- NOTE | 2025-02-18 12:03 | MHC.CM.PN ---
PT DCD HOME SELF CARE
[2025-02-18 12:15] VITALS: BP 120/69; PULSE 63; RESP 14; TEMP 36.8; O2SAT 99
--- NOTE | 2025-02-18 19:53 | P.CDIM_ITS ---
PROVIDER RESPONSE TEXT: To clarify, the appropriate diagnosis supported by the clinical indicators: Cachexia QUERY TEXT: PHYSICIAN'S DOCUMENTATION REQUEST Date of Query: 02/18/2025 10:51 AM EDT Patient Name: Bill Alaniz Admit Date: 02/13/2025 Dear Miladis JOSEPH, A review of the medical record indicates additional documentation may be needed. Please review below and update the documentation accordingly. Clinical Indicators: Height: ( ) 5'11 Weight: ( ) 54 kg BMI: ( ) 16.6 Other Clinical Notes Supporting Significance of the BMI: Per Clinical Nutrition Risk Assessment 02/14/25: Crohn's disease unplanned weight loss > 10% 6 months underweight If possible, please provide an associated diagnosis related to the abnormal BMI, such as: Underweight Weight loss Cachexia Anorexia BMI is not significant Other (explain) Clinically unable to determine (explain) Thank you, Cynthia Sandoval RN Use of terms such as suspected, likely, concern for, or probable (associated with a specific diagnosis that is being evaluated, monitored, or treated as if it exists) are acceptable and can be coded in the inpatient setting, when documented at the time of discharge. Please use your independent medical judgment in providing your response. THIS QUERY IS PART OF THE PERMANENT MEDICAL RECORD
--- NOTE | 2025-03-06 07:14 | P.CDIM_ITS ---
PROVIDER RESPONSE TEXT: To clarify, the appropriate diagnosis supported by the clinical indicators: Sepsis is/was present and is a clinical diagnosis QUERY TEXT: PHYSICIAN'S DOCUMENTATION REQUEST Date of Query: 03/04/2025 06:57 AM EDT Patient Name: Bill Alaniz Admit Date: 02/13/2025 Dear Miladis JOSEPH, A review of the medical record indicates additional documentation may be needed. Please review below and update the documentation accordingly. Documentation on progress notes dated 02/13/25, 02/14/25, 02/15/25, 02/16/25 and 02/17/25 included the diagnosis of sepsis. The patient's infectious clinical indicators include: WBC 18 pulse 107 per H&P 02/13/25: sepsis due acute intra-abdominal abscess due to probable Crohn's disease with acute flare IV Zosyn, pain management and IVF Dx: Crohns Disease with pelvic abscess The diagnosis of Sepsis was not noted in the Discharge Summary Based on the above information and the recognized standard for sepsis, could you please clarify if this diagnoses is still accurate and reflective of the patient's condition to ensure quality of the medical record. Sepsis is/was present and is a clinical diagnosis After study, Sepsis has been ruled out Other (explain) Clinically unable to determine (explain) Thank you, Cynthia Sandoval RN Use of terms such as suspected, likely, concern for, or probable (associated with a specific diagnosis that is being evaluated, monitored, or treated as if it exists) are acceptable and can be coded in the inpatient setting, when documented at the time of discharge. Please use your independent medical judgment in providing your response. THIS QUERY IS PART OF THE PERMANENT MEDICAL RECORD
== END 2025-02-18 12:24 | disposition home or self-care (01) | DRG 720 ==
LOC: HO.ED 10:23 → HO.EDOVER 11:17 → HO.S3 19:05
PROVIDERS: Physician Assistant Medical; Admitting Provider Physician Assistant Medical; Emergency Provider Emergency Medicine Emergency Medical Services; Visit Provider Student in an Organized Health Care Education/Training Program
DX: A41.9 Sepsis, unspecified organism (principal); R64 Cachexia; K50.814 Crohn's disease of both small and large intestine with abscess; Z68.51 Body mass index [BMI] pediatric, less than 5th percentile for age; K57.10 Diverticulosis of small intestine without perforation or abscess without bleeding; Z79.899 Other long term (current) drug therapy
CPT/HCPCS: 36415; 74177; 80048; 80053; 80307; 81001; 83605; 83690; 85025; 85027; 87040; 99285; J1836; J1956; J2270; J2405; J2470; J2543; J2919; J7120; Q9967

== ENCOUNTER → 2025-02-13 08:16 | Outpatient (BNV) | payer MEDICAID, SELFPAY | PROVIDERS: Visit Provider Radiology Diagnostic Radiology | DX: K50.00 Crohn's disease of small intestine without complications (principal) | CPT/HCPCS: 74177 ==

== ENCOUNTER 2025-02-13 10:36 | Outpatient (BNV) | payer MEDICAID, SELFPAY | END 2025-02-17 15:30 | PROVIDERS: Admitting Provider Physician Assistant Medical; Emergency Provider Emergency Medicine Emergency Medical Services; Visit Provider Radiology Diagnostic Radiology | DX: R10.9 Unspecified abdominal pain (principal) | CPT/HCPCS: 74177 ==

== ENCOUNTER → 2025-02-13 10:36 | Outpatient (BNV) | payer MEDICAID, SELFPAY | PROVIDERS: Admitting Provider Physician Assistant Medical; Emergency Provider Emergency Medicine Emergency Medical Services; Visit Provider Physician Assistant Medical | DX: K65.1 Peritoneal abscess (principal) | CPT/HCPCS: 99223; 99233 ==

== ENCOUNTER → 2025-02-13 10:36 | Outpatient (BNV) | payer MEDICAID, SELFPAY | PROVIDERS: Admitting Provider Physician Assistant Medical; Emergency Provider Emergency Medicine Emergency Medical Services; Visit Provider Physician Assistant Surgical | DX: K50.80 Crohn's disease of both small and large intestine without complications (principal) | CPT/HCPCS: 99222; 99499 ==

== ENCOUNTER 2025-02-27 11:35 | Day surgery (SDC) | payer MEDICAID, SELFPAY ==
--- OUTSIDE RECORDS SUMMARY | 2025-02-06 07:20 | XMS_ITS ---
Demographics Address [address] [place] [address] Mobile Preferred Language en Marital Status Unknown Christianity Affiliation Unknown Race or A l[place] Additional Race(s) Karyn Ethnic Group or Author Organization [facility] Address [address] [place] [address] Support Name Relationship Address Phone ENDER CARRANZAGO Emergency Contact [address] [place] [address] BILL MEDEIROS Guarantor Unknown [phone] Care Team Providers Care Beam Sealer Name Role Phone Eugene Kerns Rebekah Primary Care Provider Vince Chatterjee Unavailable [phone] Mita Rocah MD Unavailable Unavailab le Allergies Allergen (clinical drug ingredient) Drug/Non Drug Allergy documented on EMR Reaction Allergy Type Onset Date Status seasonal (uncoded) Unknown Allergy A ctive REASON FOR VISIT Patient presents today for crohn's disease Medications Medication SIG (Take, Route, Frequency, Duration) Notes Start Date End Date Status Mesalamine 400 MG 1 capsule Orally Four times a day for 30 day(s) 02/06/2025 Active Budesonide 3 MG 1 capsule Orally for 30 day(s) 02/06/2025 Active predniSONE 5 MG 8 pills(40mg) daily for 1 week and then decrease by 1 pill(5mg) every week Orally Once a day for 56 days Tell patient to stop his Budesonide please 02/06/2025 Active MiraLax (colon prep) 17 GM/SCOOP 1 238Gm bottle mixed w/64 ounce bottle of gatorade (not red) if diabetic use Crystal Light intead of Иван orally drink the mixture beginning at 4:00 p.m. the day before the procedure. Drink an 8 ounce glass every for 1 days 02/06/2025 Active Dulcolax (colon prep) 5 MG Take 2 at 3:00 p.m and 2 at 7:00p.m. the day before the colonoscopy Orally Take two tablets twice a day for one day before the colonoscopy for 1 days 02/06/2025 Active Immunizations Vaccine Route Administration Date Status Comme nts Influenza Unknown 02/06/2025 Refused Social History Tobacco Use: Social History Observation Description Date Details (start date - stop date) Never Smoker NA - NA Tobacco Control (Standard) Question Answer Notes Tobacco use: Nonsmoker AUDIT-C (Standard) Question Answer Notes Did you have a drink containing alcohol in the p ast year? No Points 0 Interpretation Negative Problems Problem Type SNOMED Code ICD Code Onset Dates Problem Status W/U Status Risk Notes Problem Crohn's disease of small AND large intestines (39844637) Crohn''s disease of both small and large intestine without complication (K50.80) Active confirmed Problem Right lower quadrant pain (358588574) RLQ abdominal pain (R10.31) Active confirmed Problem Imaging of gastrointestinal tract abnormal (655580112) Abnormal CT scan, gastrointestinal tract (R93.3) Active confirmed Vital Signs Temperature 97.9 degrees Fahrenheit 02/07/20 25 Blood pressure systolic 001 mm Hg 02/07/20 25 Blood pressure diastolic 01 mm Hg 025 Height 71 in 02/06/2025 Weight 125.2 lbs 02/06/2025 BMI 17.46 kg/m2 02/06/2025 BMI Percentile 0.56 % 02/06/2025 Procedures Procedure Date Ordered Date Performed Result Body Sit e COLONOSCOPY 02/06/2025 N/A Encounters Encounter Location Date Provider Diagnosis [facility] [address] [facility] [address] [place] [id number] 02/06/2025 Vince Jones Crohn''s disease of both small and large intestine without complication K50.80 ; RLQ abdominal pain R10.[address] scan, gastrointestinal tract R93.3 Assessments Encounter Date Diagnosis (ICD Code) Assessment Notes Treatment Notes Treatment Clinical Notes Section Notes 02/06/2025 Crohn''s disease of both small and large intestine without complication (ICD-10 - K50.80) Stop Budesonide and start the prednisone Continue the two 500mg Mesalamine pills 4 times a day] Stay on a low residue/low roughhage diet Overall, Bill seems stable since discharge from the hospital but is still having some symptoms of the abdominal discomfort, diminished appetite, and fatigue. He does not appear toxic. At this point I will change him to prednisone 40 mg daily with a 5 mg/week taper and have him stop the budesonide since I do not think the budesonide is giving him enough relief of his symptoms from what I still feel is Crohn's disease, particularly with the elevated Calprotectin level in the stool. I did advise him to continue the mesalamine as well. I shall check some follow-up laboratories as below. I shall schedule him for a colonoscopy for sometime in February to make a definitive assessment and diagnosis. Full consent has been obtained from the patient and his mother for this, including risks of bleeding and perforation. The procedure will be done with monitored anesthesia care. I did instruct him to stay on a low residue and low roughage diet. I did advise him to stay off all NSAIDs as well. I did advise him that if things worsen with increasing abdominal pain, vomiting, bleeding, etc., he should certainly call me, but if need be go to the ER. I did have a detailed discussion with Bill and his mother today regarding the diagnosis of this presumed Crohn's disease. We reviewed potential need for biologic agents, potential need for surgery, and potential for intermittent flareups of the condition despite medication. Bill and his mother were comfortable with this plan. Thank you again for allowing me to participate in Bill's care. I shall continue to keep you advised of his progress. 02/06/2025 RLQ abdominal pain (ICD-10 - R10.31) Overall, Bill seems stable since discharge from the hospital but is still having some symptoms of the abdominal discomfort, diminished appetite, and fatigue. He does not appear toxic. At this point I will change him to prednisone 40 mg daily with a 5 mg/week taper and have him stop the budesonide since I do not think the budesonide is giving him enough relief of his symptoms from what I still feel is Crohn's disease, particularly with the elevated Calprotectin level in the stool. I did advise him to continue the mesalamine as well. I shall check some follow-up laboratories as below. I shall schedule him for a colonoscopy for sometime in February to make a definitive assessment and diagnosis. Full consent has been obtained from the patient and his mother for this, including risks of bleeding and perforation. The procedure will be done with monitored anesthesia care. I did instruct him to stay on a low residue and low roughage diet. I did advise him to stay off all NSAIDs as well. I did advise him that if things worsen with increasing abdominal pain, vomiting, bleeding, etc., he should certainly call me, but if need be go to the ER. I did have a detailed discussion with Bill and his mother today regarding the diagnosis of this presumed Crohn's disease. We reviewed potential need for biologic agents, potential need for surgery, and potential for intermittent flareups of the condition despite medication. Bill and his mother were comfortable with this plan. Thank you again for allowing me to participate in Bill's care. I shall continue to keep you advised of his progress. 02/06/[address] scan, gastrointestinal tract (ICD-10 - R93.3) Overall, Bill seems stable since discharge from the hospital but is still having some symptoms of the abdominal discomfort, diminished appetite, and fatigue. He does not appear toxic. At this point I will change him to prednisone 40 mg daily with a 5 mg/week taper and have him stop the budesonide since I do not think the budesonide is giving him enough relief of his symptoms from what I still feel is Crohn's disease, particularly with the elevated Calprotectin level in the stool. I did advise him to continue the mesalamine as well. I shall check some follow-up laboratories as below. I shall schedule him for a colonoscopy for sometime in February to make a definitive assessment and diagnosis. Full consent has been obtained from the patient and his mother for this, including risks of bleeding and perforation. The procedure will be done with monitored anesthesia care. I did instruct him to stay on a low residue and low roughage diet. I did advise him to stay off all NSAIDs as well. I did advise him that if things worsen with increasing abdominal pain, vomiting, bleeding, etc., he should certainly call me, but if need be go to the ER. I did have a detailed discussion with Bill and his mother today regarding the diagnosis of this presumed Crohn's disease. We reviewed potential need for biologic agents, potential need for surgery, and potential for intermittent flareups of the condition despite medication. Bill and his mother were comfortable with this plan. Thank you again for allowing me to participate in Bill's care. I shall continue to keep you advised of his progress. Plan Of Treatment Medication Medication Name Sig Start Date Stop Date Notes predniSONE 5 MG 8 pills(40mg) daily for 1 week and then decrease by 1 pill(5mg) every week Orally Once a day for 56 days 02/06/2025 Tell patient to stop his Budesonide please MiraLax (colon prep) 17 GM/SCOOP 1 238Gm bottle mixed w/64 ounce bottle of gatorade (not red) if diabetic use Crystal Light intead of Иван orally drink the mixture beginning at 4:00 p.m. the day before the procedure. Drink an 8 ounce glass every for 1 days 02/06/2025 Dulcolax (colon prep) 5 MG Take 2 at 3:00 p.m and 2 at 7:00p.m. the day before the colonoscopy Orally Take two tablets twice a day for one day before the colonoscopy for 1 days 02/06/2025 Treatment Notes Assessment Notes Crohn''s disease of both sma ll and large intestine without complication Stop Budesonide and start the prednisone Continue the two 500mg Mesalamine pills 4 times a day] Stay on a low residue/low roughhage diet Pending Test Test Name Order Date COLONOSCOPY 02/06/2025 LIVER PROFILE 02/06/2025 CRP 02/06/2025 CBC w DIFF 02/06/2025 SED RATE (ESR) 02/06/2025 Next Appt Details Follow Up: prn, Reason: Provider Name:Vince Jones , 02/27/2025 01:00:00 PM, [address] [place] [address], [id number], Progress Notes * JAVY MEDEIROSOB: (19 yo M)Acc No.[id number]:02/06/2025 Progress Notes Patient: Kodak PEANBILL WILLIAM Provider: Kodak Jones MD :2005 A ge:19 Y S ex:Male Date:02/06/2025 Address:[address] [place], [place] [id number] Pcp:Rebekah Knight M.D. Subjective: * Chief Complaints: * P atient presents today for crohn's disease * HPI: i ncontinence: I saw Bill in the office today for follow-up of his recent hospitalization for presumed Crohn's disease. He was accompanied by his mother. I met Bill about 2 weeks ago when he was hospitalized for what appeared to be the acute onset of some abdominal pain localized mainly to the right lower quadrant. This was associated with some nausea, vomiting, and constipation. Prior to that he was not having any real GI issues. His workup in the hospital revealed elevated inflammatory markers and a CT scan with both small bowel and ascending colon changes consistent with Crohn's, particularly in the distal small bowel. There was no actual obstruction. In the hospital he was treated with both IV antibiotics and started on oral mesalamine and budesonide. Stool specimens were negative for any type of infection. The stool specimen for calprotectin was markedly elevated at 1,090 with <50 considered normal. I opted to hold off on giving him steroids at that time since the diagnosis of Crohn's was not definitive and we needed to rule out any type of infectious process. He did improve in the hospital with much less pain, better appetite, and with starting to have bowel movements. He never had any real diarrhea. There was never any associated bleeding. He has been home for about a week and reports compliance with his mesalamine 4 times a day and the budesonide. He just recently finished the antibiotics. Since being home his appetite has still been diminished and he remains fatigued. He is having about 2 soft bowel movements daily but without any watery stools. Again, there has been no bleeding. He reports that the abdominal pain is much improved although still there to a low level. He denies any fevers, vomiting, red or swollen joints, eye problems, or rashes. There is no family history of inflammatory bowel disease. He has not had any lab work since he left the hospital. * ROS: G eneral/Constitutional: Change in appetite a dmits, that is associated with weight loss. C hills d enies. F atigue admits.? O phthalmologic: Comments a ll negative. E NT: Comments a ll negative. R espiratory: hemoptysis d enies. C ough d enies. ? C ardiovascular: Chest pain d enies. O rthopnea d enies. ? G astrointestinal: Comments S [facility] for details. G enitourinary: Hematuria d enies. D ysuria d enies. ? M usculoskeletal: Painful joints d enies. W eakness d enies. ? S kin: Itching d enies. R allen d enies. N eurologic: Headache d enies. S eizures d enies. ? P sychiatric: Comments a ll negative. * Medical History: * Surgical History: N o Surgical History documented. * Hospitalization/Major Diagno stic Procedure: N o Hospitalization History. * Family History: F ather: alive. M other: alive, diagnosed with HTN (hypertension). No family history of first-degree relatives with inflammatory bowel disease, GI malignancy, nor celiac disease. * Social History: T obacco Use: T obacco Control (Standard) T obacco use: N onsmoker. M iscellaneous: M arital status: single. D rug/Alcohol: A KANDACE-C (Standard) D id you have a drink containing alcohol in the past year? N o,?Points 0 , I nterpretation N egative. * Medications: T akingMesalamine 400 MG Capsule Delayed Release 1 capsule Orally Four times a day Budesonide 3 MG Capsule Delayed Release Particles 1 capsule Orally Taking Mesalamine 400 MG Capsule Delayed Release 1 capsule Orally Four times a day Taking Budesonide 3 MG Capsule Delayed Release Particles 1 capsule Orally * Allergies: s ruth[Allergies Verified] Objective: * Vitals: W t:125.2lbs, Ht: 71 in, BMI:17.46Index, BP:001/01mm Hg, Temp:97.9, Ht-cm: 180.34, Wt-k.79, Wt %: 7.63, BMI %: 0.56, Ht %: 69.43. * Examination: G eneral Examination: GENERAL APPEARANCE: p leasant, a lert, thin, tired appearing male but in no distress. EYES: s clera non-icteric. ORAL CAVITY: m ucosa moist. NECK/THYROID: n o cervical lymphadenopathy, neck supple.? SKIN: n onjaundiced, no spider angiomata. HEART: S 1, S2 normal. LUNGS: c lear to auscultation bilaterally. ABDOMEN: n ormal bowel sounds, no guarding or rigidity, ?no masses palpable, soft, nondistended- -there is some very mild tenderness to palpation in the right lower quadrant. EXTREMITIES: n o edema. NEUROLOGIC: a lert and oriented. Assessment: * Assessment: 1. C rohn''s disease of both small and large intestine without complication - K50.80 (Primary)? 2. R LQ abdominal pain - R10.[address] scan, gastrointestinal tract - R93.3 Overall, Bill seems stable s olya discharge from the hospital but is still having some symptoms of the abdominal discomfort, diminished appetite, and fatigue. He does not appear toxic. At this point I will change him to prednisone 40 mg daily with a 5 mg/week taper and have him stop the budesonide since I do not think the budesonide is giving him enough relief of his symptoms from what I still feel is Crohn's disease, particularly with the elevated Calprotectin level in the stool. I did advise him to continue the mesalamine as well. I shall check some follow-up laboratories as below. I shall schedule him for a colonoscopy for sometime in February to make a definitive assessment and diagnosis. Full consent has been obtained from the patient and his mother for this, including risks of bleeding and perforation. The procedure will be done with monitored anesthesia care. I did instruct him to stay on a low residue and low roughage diet. I did advise him to stay off all NSAIDs as well. I did advise him that if things worsen with increasing abdominal pain, vomiting, bleeding, etc., he should certainly call me, but if need be go to the ER. I did have a detailed discussion with Bill and his mother today regarding the diagnosis of this presumed Crohn's disease. We reviewed potential need for biologic agents, potential need for surgery, and potential for intermittent flareups of the condition despite medication. Bill and his mother were comfortable with this plan. Thank you again for allowing me to participate in Bill's care. I shall continue to keep you advised of his progress. Plan: * Treatment: Notes: Stop Budesonide and start the prednisone Continue the two 500mg Mesalamine pills 4 times a day] Stay on a low residue/low roughhage diet??2.?RLQ abdominal pain?LAB: LIVER PROFILE ?LAB: CRP ?LAB: CBC w DIFF ?LAB: SED RATE (ESR) ?Procedure: COLONOSCOPY* With MAC 3.?Abnormal CT scan, gastrointestinal tract?LAB: LIVER PROFILE ?LAB: CRP ?LAB: CBC w DIFF ?LAB: SED RATE (ESR) ?Procedure: COLONOSCOPY* With MAC * Immunizations: Influenza (Not administered - Refused: Patient decision) * Procedure Codes: 4 5378 DIAGNOSTIC [id number] TOBACCO [id number] BP SCR NOT PRFRM REC REASON NOS * Preventive Medicine: Counseling: C are goal follow-up plan: B elow Normal BMI Follow-up D ietary education for weight gain, B TN management provided Y es. * Follow Up: p rn * * Sign off status: Completed true * Provider: Kodak Jones MD Date: 0 02/06/2025 Generated for Printi ng/Fadelmisg/eTransmitting on: 02/11/2025 01:46 PM EDT History and Physical Notes * Examination Category Sub-Category Detail Notes Category Not es General Examination GENERAL APPEARANCE: pleasant , alert, thin, tired appearing male but in no distress HEAD: EYES: sclera non-icteric EARS: NOSE: THROAT: NECK/THYROID: no cervical lymphade nopathy, neck supple HEART: S1, S2 normal CHEST: LUNGS: clear to auscultatio n bilaterally ABDOMEN: normal bowel sounds, no guarding or rigidity, no masses palpable, soft, nondistended- -there is some very mild tenderness to palpation in the right lower quadrant NEUROLOGIC: alert and oriented SKIN: nonjaundiced, no spi kyle angiomata EXTREMITIES: no edema PERIPHERAL PULSES: BACK: BREASTS: MUSCULOSKELETAL: MALE GENITOURINARY: LYMPH NODES: RECTAL EXAM: FEMALE GENITOURINARY: ORAL CAVITY: mucosa moist
[2025-02-25 12:48] VITALS: BMI 17.5
--- NOTE | 2025-02-26 10:07 | HO.ANESPROP2 ---
Documented by User: Catrachita Banda NP 02/26/25 10:08 HPI - Anesthesia Eval Consult details Narrative: 19yo M for Colonoscopy [facility] Active Problems Active Problems: All Active Problems Enteritis (Acute) Colitis (Acute) Past Medical History Medical History (Updated 02/26/25 @ 00:01 by Background Sienna) Asthma Crohn's disease of both small and large intestine Crohn's disease Surgical History Surgical History (Updated 02/27/25 @ 12:11 by Naomi Dow RN) History of surgery Social History Social History Household Members: Family Housing: Apartment Do you presently have visiting nurse or other home services: No Alcohol intake: never Patient Tobacco Use Status: Never used Tobacco Use of substances other than those prescribed or required for medical reasons: No Are you DNR?: No Advance Directives: No Advance Directives Information Provided: Yes Poor oral hygiene: No service: No Meds Allergies Allergy/AdvReac Type Severity Reaction Status Date / Time Seasonal Allergies Allergy Unknown Verified 02/26/25 11:13 Home Medications ?Medication ?Instructions ?Recorded ?Confirmed ?Last Taken ?Type budesonide 3 mg 3 mg PO DAILY 02/25/25 02/25/25 Unknown History capsule,delayed,extended release mesalamine 400 mg capsule (with 400 mg PO QID 02/25/25 02/25/25 Unknown History delayed release tablets inside) Exam Height,Weight and Vital Signs: Height 5 ft 11 in Weight 56.79 kg Pertinent Lab Results Pertinent Lab Results: Laboratory Tests 02/15/25 05:12 WBC 17.4 H Hgb 13.5 L Hct 39.1 L Plt Count 320 Sodium 140 Potassium 4.3 Chloride 104 Carbon Dioxide 28 BUN 8 L Creatinine 0.66 Assessment and Plan Assessment Anesthesia Assessment: Chart Reviewed Documented by User: Yovany Diaz MD 02/27/25 13:28 [facility] Past Medical History Medical History (Updated 02/26/25 @ 00:01 by Background Sienna) Asthma Crohn's disease of both small and large intestine Crohn's disease Family History Family history of problems with anesthesia: No Surgical History Surgical History (Updated 02/27/25 @ 12:11 by Naomi Dow RN) History of surgery History of Problems with Anesthesia: No Social History Social History Household Members: Family Housing: Apartment Do you presently have visiting nurse or other home services: No Alcohol intake: never Patient Tobacco Use Status: Never used Tobacco Use of substances other than those prescribed or required for medical reasons: No Are you DNR?: No Advance Directives: No Advance Directives Information Provided: Yes Poor oral hygiene: No service: No Meds Allergies Allergy/AdvReac Type Severity Reaction Status Date / Time Seasonal Allergies Allergy Unknown Verified 02/26/25 11:13 Home Medications ?Medication ?Instructions ?Recorded ?Confirmed ?Last Taken ?Type budesonide 3 mg 3 mg PO DAILY 02/25/25 02/25/25 Unknown History capsule,delayed,extended release mesalamine 400 mg capsule (with 400 mg PO QID 02/25/25 02/25/25 Unknown History delayed release tablets inside) Exam Airway Mallampati Class: II TM Dist: >3cm Neck ROM: Full Assessment and Plan Assessment Anesthesia Assessment: Anesthesia Plan Discussed Final Anesthetic Review Family History of Problems with Anesthesia: No History of Problems with Anesthesia: No NPO: Yes ASA Class: II Final Preanesthetic Review: No Changes in Pt Med Stat, Meds/Allgs Chart Reviewed, Consent Obtained/Reviewed and Anes Risks/Benef Reviewed Patient Risk: Low Procedure Risk: Low Anesthetic Plan Anesthetic Plan: TIVA Disposition: Standard PACU
[2025-02-27 12:13] VITALS: BMI 17.6
--- NOTE | 2025-02-27 12:39 | PC.NURSE ---
patient states dark brown output. attempted to use the bathroom prior to enema insertion and no luck having a bowel movement. enema performed laying on left side. no complaints. nicky well.
[2025-02-27 13:00] VITALS: BP 116/76; PULSE 83; RESP 16; TEMP 36.4; O2SAT 98
--- NOTE | 2025-02-27 13:04 | PC.NURSE ---
no solids noted,dark brown output after enema.
[2025-02-27] MEDS: Lactated Ringers 1,000 ML 100 ML IVCONT (13:11)
[2025-02-27 14:10] VITALS: BP 95/53; PULSE 82; RESP 18; TEMP 36.3; O2SAT 100
--- NOTE | 2025-02-27 14:15 | PM.OP ---
Brief Operative Note Date of Service: 02/27/25 Pre-op diagnosis: Crohn's Post-op diagnosis: other (Same) Procedure: Colonoscopy to the cecum and TI with biopsies Surgeon: Vince Jones MD Anesthesia: MAC Was an Oil Burner Mechanic used for this Procedure?: No Estimated blood loss (mL): 2.0 Pathology: other (A. Terminal ileum B. Ascending colon C. Cecum D. Colon at 40cm E. Colon at 20cn E. Rectum) Condition: stable Disposition: PACU
[2025-02-27 14:25] VITALS: BP 107/65; PULSE 82; RESP 18; TEMP 36.6; O2SAT 100
[2025-02-27 14:40] VITALS: BP 105/64; PULSE 65; RESP 18; TEMP 36.7; O2SAT 100
--- NOTE | 2025-02-28 00:53 | OP_ITS ---
DATE OF SERVICE: 02/27/2025 SURGEON: Vince Jones MD INDICATIONS: The patient presents for evaluation of suspicion of Crohn's disease. Full consent has been obtained from him for this, including risks of bleeding and perforation. PREOPERATIVE DIAGNOSIS: Suspicion of Crohn's disease. POSTOPERATIVE DIAGNOSIS: Suspicion of Crohn's disease, Crohn's disease involving terminal ileum, cecum, sigmoid colon, and rectum. PROCEDURE PERFORMED: Colonoscopy to the cecum and terminal ileum with multiple biopsies. ESTIMATED BLOOD LOSS: COMPLICATIONS: ANESTHESIA: Medication used, monitored anesthesia care. ASSISTANTS: SPECIMENS: DESCRIPTION OF PROCEDURE: The patient was placed in the left lateral decubitus position. The digital rectal exam revealed no perianal disease. The Olympus video pediatric colonoscope was entered into the rectum and advanced easily to the cecum. The cecum was notable for some superficial ulcerations with edema and some friability on the mucosa. The ileocecal valve appeared to be somewhat deformed, although quite patent. I was able to enter the terminal ileum for at least 5 cm. There was some definite ileitis, edema, and friability of mucosa. I did not visualize any stricture, although I could not advance very far as there was a great deal of spasm. Biopsies were obtained from the ileum. The scope was withdrawn back in the colon. The ileocecal valve again was somewhat deformed and patent with some ulceration. There was no stricture. The cecum had some mucosal edema, friability, and some tiny ulcerations. Biopsies were obtained from the cecum. The scope was then slowly withdrawn assessing all mucosal surfaces carefully. Preparation was excellent. I did not visualize any sign of polyps nor angiodysplasia. The mucosa from the rectum to 40 cm had areas of erythema, small, less than 5 mm ulcerations, and some friability. There were no masses. The ascending colon, transverse colon, descending colon appeared normal. I did obtain biopsies in the ascending colon, at 40 cm, at 20 cm, and in the rectum. In the rectum, scope was retroflexed visualizing minimal hemorrhoidal tissue. The scope was straightened and withdrawn from the patient. He tolerated the procedure well and was returned to the recovery area in stable condition. IMPRESSION: Changes consistent with Crohn's disease involving the terminal ileum, cecum, sigmoid colon, and rectum. Biopsies taken. PLAN: He has been doing much better on his prednisone. He is also using mesalamine 1 g q.i.d. I have advised him to continue the 5 mg per week taper of the prednisone and to continue the mesalamine at 1 g q.i.d. Given his young age and the significant findings both on today's exam as well as the CT scan involving the small bowel, I do think it would be reasonable that we consider starting him on a biologic agent sooner than later. I shall look into starting that in the near future. He will be seen in followup as well. He did have recent tests for hepatitis B and TB that were negative. This has all been discussed with his mother. MD ELAINE Massey/LEYDI / [id number] MTDD
== END 2025-02-27 15:36 | disposition home or self-care (01) ==
PROVIDERS: Visit Provider Internal Medicine
PROC: 0DJD8ZZ Inspection of Lower Intestinal Tract, Via Natural or Artificial Opening Endoscopic (ICD-10-PCS; CPT 45378; principal; 2025-02-27 13:00)
DX: K52.9 Noninfective gastroenteritis and colitis, unspecified (principal); K50.80 Crohn's disease of both small and large intestine without complications; R93.3 Abnormal findings on diagnostic imaging of other parts of digestive tract; J45.909 Unspecified asthma, uncomplicated; Z79.899 Other long term (current) drug therapy
CPT/HCPCS: 45380; 88305; J2003; J2704

== ENCOUNTER 2025-03-29 06:26 | Inpatient (IN) | payer MEDICAID, SELFPAY ==
--- OUTSIDE RECORDS SUMMARY | 2025-02-27 09:00 | XMS_ITS ---
Demographics Address [address] [place] [address] Mobile Preferred Language en Marital Status Unknown Advent Affiliation Unknown Race or A laska [place] Additional Race(s) [place] Ethnic Group or Author Organization [facility] Address [address] [place] [address] Support Name Relationship Address Phone DILLONSHANTE Emergency Contact [address] [place] [id number] SKY MEDEIROS Guarantor Unknown [phone] Care Team Providers Care Grid Trimmer Name Role Phone Dillon Knight M.D. Primary Care Provider Unava Vince Moreno Unavailable [phone] Doc GE, Mita Carson Unavailab le REASON FOR VISIT crohns of small and large intestine Encounters Encounter Location Date Provider Diagnosis [facility] [place] [facility] [address] [place], [place] [phone] 02/27/2025 Vince Jones Plan Of Treatment Next Appt Details Provider Name:Vince Hendrix Jones , 06/24/2025 02:40:00 PM, [address], [address], [place], [address], Progress Notes * CHRISTIE MEDEIROSISDOB: (19 yo M)Acc No.[id number]:02/27/2025 Progress Notes Patient: Kodak VAZ SKY FERY Provider: Kodak Jones MD :2005 A ge:19 Y S ex:Male Date:02/27/2025 Address:[address] [id number] Pcp:Dillon Knight M.D. Subjective: * Chief Complaints: [...] 0 02/27/2025 Generated for Gray mclean/Jeremy/Renata on: 0 03/29/2025 06:56 AM EDT
--- NOTE | ~2025-03-29 | CT_ITS ---
CLINICAL HISTORY: hx of chrons, diffuse periumbilical pain CT abdomen and pelvis with contrast Comparison: 03/29/2025, 02/17/2025 Findings: No consolidation or effusion. The gallbladder and solid organs are within normal limits. No renal stones. No bowel obstruction, pneumoperitoneum, or pneumatosis. There is abnormal appearance of the ileum with pelvic ascites possibly related to active crohn's disease. Pelvic contents unremarkable. Normal appendix. The bones are intact. IMPRESSION: Findings of possible active Crohn's disease. Clinical follow-up recommended. This document has been electronically signed by: Waylon Shields MD on 03/29/2025 08:46:33
[2025-03-29 06:33] VITALS: BP 143/97; PULSE 97; RESP 18; TEMP 36.8; O2SAT 99; BMI 17.6
[2025-03-29 06:50] LABS: Hematocrit 43.4 % (42.0-52.0); Hemoglobin 14.7 g/dl (14.0-18.0); Imm Gran Abs Auto 0.08 X10*3/uL (0.00-0.03); Imm Gran Pct Auto 0.6 % (0.0-0.4); Lymphocytes Absolute Auto 1.3 X10*3/uL (1.2-4.9); MANUAL DIFF FLAG NO; Mean Corpuscular HGB Conc 33.9 g/dl (31.0-36.0); Mean Corpuscular Hemoglobin 27.8 pg (27.0-33.0); Mean Corpuscular Volume 82.0 fL (80.0-98.0); NRBC Abs Auto 0.000 X10*3/uL (0.0-0.012); NRBC Pct Auto 0.0 /100WBC (0.0-0.2); Platelet Count 231 X10*3/uL (160-400); Red Blood Count 5.29 X10*6/uL (4.60-5.80); White Blood Count 13.1 X10*3/uL (4.8-10.8)
--- OUTSIDE RECORDS SUMMARY | 2025-03-29 06:56 | XMS_ITS | Clinical Summary ---
Author Organization [employer] Address [address] [place] [address] Care Team Providers Care Scientific Process Operator Name Role Phone Rebekah Bishop MD Primary Care Provide r Allergies No known active allergies Medications clotrimazole (Lotrimin) 1 % creamIndications:Tin ea corporis Apply to affected area BID until resolved. 30 g 1 12/18/19 25 Active carbamide peroxide (Debrox) 6.5 % otic solutionIndications: Bilateral impacted cerumen Fill ear canal bilaterally 3x per week 15 mL 2 12/18/19 25 Active ibuprofen 600 MG tabletIndications:No nintractable headache, unspecified chronicity pattern, unspecified headache type 1 tab q 6 hours prn fever or pain 30 tablet 1 01/01/20 25 Active mesalamine (Pentasa) 500 MG ER capsuleIndications:C rohn's disease with complication, unspecified gastrointestinal tract location (CMS/HCC) Take 1 capsule (500 mg) by mouth 4 times daily. Do not crush, chew, or split. 120 capsule 03/18/20 25 026 Active Active Problems Problem Noted Date Diagnosed Date Crohn's disease 03/18/2025 Assessment & Plan (03/18/2025 3:02 PM EDT): I will refill for now his mesalamine, I advised to follow-up with GI for further management Sinus tachycardia 03/18/2025 Assessment & Plan (03/18/2025 3:03 PM EDT): Patient tells me his heart rate goes up when he is takes the prednisone before that he was normal I advised to drink plenty of water and to finish his prednisone taper after this to monitor her heart rate if it continues to be high to report back to me Mild intermittent asthma 12/17/2024 Assessment & Plan (03/18/2025 3:02 PM EDT): Stable continue with albuterol if needed Encounters Date Type Department Care Team Description 03/24/[address] [facility] [address] [place] [phone] Rebekah Bishop MD CHW - New Patient Assistance 03/18/2025 2:00 PM EDT Office Visit [facility] [address] [place] [phone] Rebekah Bishop MD Sinus tachycardia (Primary Dx); Crohn's disease with complication, unspecified gastrointestinal tract location (CMS/HCC); Mild intermittent asthma without complication 03/18/2025 Travel 03/10/2025 Patient Outreach [address] [address] Rebekah Bishop MD Pre-visit Planning ((Unable to reach for PVP screening, LVM) to be completed in office ) 12/31/2024 10:00 AM EDT Office Visit [facility] [address] [place] [address] [phone] Polo Davalos MD Nonintractable headache, unspecified chronicity pattern, unspecified headache type (Primary Dx); Folliculitis 12/31/2024 Travel from Last 3 Months Social History Tobacco [...] Sign Reading Time Taken Comments Blood Pressure 124/84 03/18/2025 1:53 PM EDT Pulse 122 03/18/2025 1:53 PM EDT Temperature 35.4 C (95.7 F) 03/18/2025 1:53 PM EDT Respiratory Rate 20 03/18/2025 1:53 PM EDT Oxygen Saturation 98% 03/18/2025 1:53 PM EDT Inhaled Oxygen Concentration - - Weight 58.2 kg (128 lb 6.4 oz) 03/18/2025 1:53 P M EDT Height 177.8 cm (5' 10 ) 03/18/2025 1:53 PM EDT Body Mass Index 18.42 03/18/2025 1:53 PM EDT Plan of Treatment Health Maintenance Due Date Last Done Comments [...] - Standard) 2021 Hepatitis C Screening 2023 DTaP/Tdap/Td Vaccines (1 - Tdap) 2024 Hepatitis B Vaccines (1 of 3 - 19+ 3-dose series) 2024 Pneumococcal Vaccine: Pediat rics (0 to 5 Years) and At-Risk Patients (6 to 49) Years (1 of 2 - PCV) 2024 COVID-19 Vaccine (1 - 2023-2 5 season) 2025 Influenza Vaccine (#1) 2025 Tobacco Screening 03/18/2026 03/18/2025 Zoster Vaccines (1 of 2) 2055 RSV [...] patient's age to complete this topic Insurance [facility] C3 Care Teams Scientific Process Operator Relationship Specialty Start Date End Date Rebekah Bishop MD [address] [place] [address] PCP - General Internal Medicine 03/18/25
--- OUTSIDE RECORDS SUMMARY | 2025-03-29 06:56 | XMS_ITS | Patient Health Record ---
Demographics Address [address] [place] [address] Mobile Preferred Language en Marital Status Unknown Anglican Affiliation Unknown Race or A [place] Additional Race(s) Karyn Ethnic Group or Author Organization [facility] Address [address] [place] [address] Support Name Relationship Address Phone SHANTE CARRANZA Emergency Contact [address] [place] [address] ELIZABETH HANDLEYGOSKY Guarantor Unknown [phone] Care Team Providers Care Attendance Clerk Name Role Phone Eugene Kerns, Rebekah Primary Care Provider Vince Chatterjee Unavailable [phone] Doc GE, Mita Carson Unavailab le Allergies Allergen (clinical drug ingredient) Drug/Non Drug Allergy documented on EMR Reaction Allergy Type Onset Date Status seasonal (uncoded) Unknown Allergy A ctive Results Component Value Reference Range Notes T Spot TB Reviewed date:02/09/2025 09:57:44 PM Interpretation: Performing Lab:[facility], [address] [place] [phone] Notes/Report: TSpotTB Negative Negative A negative test [...] Passed For additional information, please refer to http://education.Given.to.[employer]/faq/AZC899 (This link is being provided for informational/ educational purposes only.) THIS TEST WAS PERFORMED AT: [facility] [address] KEEGAN MEIER MD,PHD Hepatitis B Profile Reviewed date:02/09/2025 10:01:37 PM Interpretation: Performing Lab:[facility], [address] [place] [phone] Notes/Report: Hepatitis B Surface Antibody NONREACTIVE Nonreactive Nonreactive: < 8.00 mIU/mL Hepatitis B Core Antibody Nonreactive Nonreactive Hepatitis B Surface Antigen Negative Negative Complete Blood Count Auto Di ff Reviewed date:01/29/2025 01:27:25 PM Interpretation: Performing Lab:[facility], [address] [place] [phone] Notes/Report: White Blood Count 4.8 4.8-10.8 X10*3/uL [...] Gel Reviewed date:01/30/2025 05:54:00 PM Interpretation: Performing Lab:[facility], [address] [place] [phone] Notes/Report: Hold Green Gel See Note Specimen held untested for 24 hours; Call to request Chemistry testing. Complete Blood Count no Diff Reviewed date:02/09/2025 09:54:19 PM Interpretation: Performing Lab:[facility], [address] [place] [phone] Notes/Report: White Blood Count 6.9 4.8-10.8 X10*3/uL [...] Panel Reviewed date:02/09/2025 09:53:46 PM Interpretation: Performing Lab:[facility], [address] [place] [phone] Notes/Report: Sodium 143 135-145 mmol/L Potassium 3.5 [...] PROFILE Reviewed date:02/09/2025 09:52:42 PM Interpretation: Performing Lab:[facility], [address] [place] [phone] Notes/Report: Iron 26 45-160 mcg/dL Total Iron Binding Capacity 152 228-428 mcg/d L Percent Iron Saturation 17 15-50 % Unsaturated Iron Binding 126 Ferritin Reviewed date:02/09/2025 09:52:35 PM Interpretation: Performing Lab:[facility], [address] [place] [phone] Notes/Report: Ferritin 106 20-250 ng/mL C Reactive Protein Reviewed date:02/09/2025 09:52:27 PM Interpretation: Performing Lab:[facility], [address] [place] [phone] Notes/Report: C Reactive Protein 2.66 < or = 0.50 mg/dL Vitamin B12 Reviewed date:02/05/2025 12:13:08 AM Interpretation: Performing Lab:[facility], [address] [place] [phone] Notes/Report: Vitamin B12 435 200-900 pg/mL NORMAL 200-900 PG/ML INDETERMINATE 160-199 PG/ML DEFICIENT < 160 PG/ML Complete Blood Count Auto Di ff Reviewed date:02/09/2025 07:23:55 PM Interpretation: Performing Lab:[facility], [address] [place] [phone] Notes/Report: White Blood Count 14.9 4.8-10.8 X10*3/uL [...] te Reviewed date:02/06/2025 04:20:09 PM Interpretation: Performing Lab:[address] [phone] Notes/Report: Erythrocyte Sedimentation Rate 19 0-15 MM/HR Patients with polycythemia and many hemoglobin abnormalities may have depressed sed rates whereas patients with anemia may have elevated sed rates. Liver Panel Reviewed date:02/06/2025 04:20:42 PM Interpretation: Performing Lab:[address] [phone] Notes/Report: Bilirubin Total 0.4 0.0-1.0 mg/dL Bilirubin Direct 0.2 0.0-0.5 mg/dL Aspartate Amino Transferase 21 5-37 U/L Alanine Aminotransferase 13 0-40 U/L Total Protein 8.3 6.5-8.0 g/dL Albumin Level 4.5 3.5-5.0 g/dL Alkaline Phosphatase 83 39-117 U/L C Reactive Protein Reviewed date:02/06/2025 04:20:26 PM Interpretation: Performing Lab:[facility], [address] [place] [phone] Notes/Report: C Reactive Protein 3.53 < or = 0.50 mg/dL Pathology (Not yet reviewed by provider) Interpretation: Performing Lab:[address] [phone] Notes/Report: Reason For Referral Referring Provider First Name Mita Referring Provider Last Name Bent Referring Provider Speciality Family [facility] Referred Organization [facility] Referred Provider Vince Jones Referred Address [address] [place] [phone], Referred Provider Specialty Gastroentero logy General Notes Tenisha Pak 2024 11:25:18 AM >requested a [facility] referral from [facility] for visit with Dr. Jones on 02-06-25, [...] the colonoscopy for 1 days 02/06/2025 Active Pentasa 500 MG 2 capsules Orally Four times a day for 30 days 03/28/2025 Active Immunizations Vaccine Route Administration Date Status [...] Notes Problem Imaging of gastrointestinal tract abnormal (113387667) Abnormal CT scan, gastrointestinal tract (R93.3) Active confirmed Problem Right lower quadrant pain (020543154) RLQ abdominal pain (R10.31) Active confirmed Problem Crohn's disease of small AND large intestines (89177193) Crohn''s disease of both small and large intestine without complication (K50.80) Active confirmed Problem Crohn's disease of colon with abscess (K50.114) Active confirmed Vital Signs Temperature 97.9 degrees Fahrenheit 02/06/2025 Blood pressure diastolic 01 mm Hg 02/06/2025 BMI Percentile 0.56 % 02/06/2025 Height 71 in 02/06/2025 Blood pressure systolic 001 mm Hg 02/06/2025 Weight 125.2 lbs 02/06/2025 BMI 17.46 kg/m2 02/06/2025 Procedures Procedure Date Ordered Date Performed Result Body Sit e COLONOSCOPY 02/06/2025 N/A Encounters Encounter Location Date Provider Diagnosis [facility] [address], [place] [id number] 02/27/2025 Vince Jones [facility] [address] [place] [address] 02/06/2025 Vince Jones Crohn''s disease of both small and large intestine without complication K50.80 ; RLQ abdominal pain R10.[address] scan, gastrointestinal tract R93.3 [facility] [address] [place] [address] 03/28/2025 Vince Jones [facility] [address] [place] [address] 02/02/2025 Vince Jones [facility] [address] [place] [address], [place] [address] 02/09/2025 Vince Jones [facility] [address] [place] [address] 02/23/2025 Vince Jones [facility] [address] [place] [address], [place] [address] 03/03/2025 Vince Jones [facility] [address] [place] [address] 03/10/2025 Vince Jones [facility] [address] [place] [address], [place] [address] 03/11/2025 Vince Jones Assessments Encounter Date Diagnosis (ICD [...] w DIFF 02/06/2025 SED RATE (ESR) 02/06/2025 Pathology 02/27/2025 Next Appt Details Provider Name:Vince Jones , 06/24/2025 02:40:00 PM, [address], [address], [place], [address], Insurance Providers Payer Name Payer Address Payer Phone Subscriber Number Group Number Insured Name Patient Relationship to Insured Coverage Start Date Coverage End Date [place] [address] [place] [phone] [id number] [employer] Self - patient is the insured 4 Medical (General) History Medical History History ICD Code Asthma Denies OR,DM,CVA,renal disease Presumed Crohn's disease samuel gnosed in January 2025 during his hospitalization. The CT scan showed evidence of disease involving the distal small bowel and ascending colon. Stool specimens were all negative for infection and the stool calprotectin level was quite elevated at 1,090.
--- OUTSIDE RECORDS SUMMARY | 2025-03-29 06:57 | XMS_ITS | Encounter Summary ---
Author Organization [employer] Address [address] [place] [address] Care Team Providers Care Roll Tender Name Role Phone Rebekah Bishop MD Primary Care Provide r Reason for Visit * Reason Onset Date Comments CHW - New Patient Assistance 03/24/2025 Encounter Details Date Type Department Care Team (Late st Contact Info) Description 03/24/2025 Telephone [facility] [address] [place] [address] Rebekah Bishop MD [address] [place], [place] [phone] CHW - New Patient Assistance Social History Tobacco Use Types Packs/Day Years Used Date Smoking Tobacco: Never Smokeless Tobacco: Never Sex and Gender Information Value Date Recorded Sex Assigned at Male 12/17/2024 2:12 PM EDT Legal Sex Male 8:22 PM EDT Gender Identity Male 12/17/2024 2:12 PM EDT Sexual Orientation Straight 12/17/2024 2: 13 PM EDT documented as of this encounter Miscellaneous Notes * Telephone Encounter - Girish Briones - 03/24/2025 8:52 AM EDT Added to [facility] wait list documented in this encounter Plan of Treatment Not on file documented as of this encounter Visit Diagnoses Not on filedocumented in this encounter Care Teams Roll Tender Relationship Specialty Start Date End Date Rebekah Bishop MD [address] [place], [place] [phone] PCP - General Internal Medicine 03/18/25 documented as of this encounter
[2025-03-29 07:16] LABS: Alanine Aminotransferase < 6 U/L (0-40); Albumin Level 4.0 g/dL (3.5-5.0); Alkaline Phosphatase 62 U/L (39-117); Anion Gap 16 (12-20); Aspartate Amino Transferase 17 U/L (5-37); Blood Urea Nitrogen 9 mg/dL (9-16); Calcium 9.9 mg/dL (8.4-10.2); Carbon Dioxide 26 mmol/L (22-29); Chloride 99 mmol/L (96-108); Creatinine Clr Calc Pharmacy 101.0; Estimated Glomerular Filt Rate > 60; Lipase 15 U/L (8-78); Potassium 4.3 mmol/L (3.3-5.1); Sodium 137 mmol/L (135-145); Total Protein 7.9 g/dL (6.5-8.0)
--- NOTE | 2025-03-29 07:16 | ED.ABDPAIN ---
HPI - Abdominal Pain General Chief Complaint: Abdominal Pain Stated Complaint: abd pain, vomiting Time Seen by Provider: 03/29/25 07:05 Source: patient and family (Mother at bedside corroborating history) Mode of arrival: ambulatory Limitations: no limitations History of Present Illness ED Provider: YOANA Ledezma HPI narrative: 19 yo male with active chron's disease who is a patient of Dr. Jones presents to ED due to 2 days of progressively worsening abdominal pain in a band like pattern of the periumbilical area with nausea and mild diarrhea without blood or mucus. Patient's abd pain woke him up this morning around 2am with worsening nausea, was intermittent but has now been constant. Last episode of diarrhea was last night, is passing flatus. Patient follows [facility] [place]. Jones and was evaluated approximately 3 weeks ago. Patient started Skyrizi 03/25/25. Denies chest pain, SOB, hematemesis, black/tarry stool/ blood or mucus in the diarrhea. Related Data Home Medications ?Medication ?Instructions ?Recorded ?Confirmed mesalamine 400 mg capsule (with 400 mg PO QID 02/25/25 03/29/25 delayed release tablets inside) prednisone 5 mg tablet 5 mg PO DAILY crohns 03/29/25 03/29/25 risankizumab-rzaa 60 mg/mL 600 mg IV Q4W 03/29/25 03/29/25 intravenous solution (Skyrizi) Allergies Allergy/AdvReac Type Severity Reaction Status Date / Time Seasonal Allergies Allergy Unknown Verified 03/29/25 06:36 Review of Systems Review of Systems CONST: Negative for fever, body aches and chills. HENT: Negative for neck pain/stiffness, headache, congestion, sore throat, swelling. EYES: Negative for discharge/pain or vision changes. RESP: Negative for cough/hemoptysis and shortness of breath. CV: Negative chest pain, difficulty breathing, palpitations. ABD: POS diffuse abd pain, nausea, vomiting, diarrhea : Negative increase frequency, dysuria, blood in urine or stool. MUSC: Negative for muscle aches, edema. SKIN: Negative rash, lesions/sores. NEURO: Negative headache, dizziness, weakness. Yes all other systems are reviewed and are negative PMFSH Past Medical History Attestation statement: The following information was validated with the patient. Source: old records reviewed, obtained from family (Mother at bedside corroborating history) and nursing notes reviewed Medical History Crohn's disease of both small and large intestine Asthma Crohn's disease Surgical History History of surgery Social History Social History Household Members: Family Housing: Apartment Do you presently have visiting nurse or other home services: No Alcohol intake: never Patient Tobacco Use Status: Never used Tobacco Use of substances other than those prescribed or required for medical reasons: Unknown Currently Displaying Signs/Symptoms of Drug Intoxication Withdrawal: No Have you been hit, kicked, punched, or otherwise hurt by someone within the past year? If so, by whom?: No Do you feel safe in your current relationship?: No Current Relationship Is there a partner from a previous relationship who is making you feel unsafe now?: No Are you made to feel afraid or neglected: No Advance Directives: No Advance Directives Information Provided: No Do you have a plan to hurt others: No Plan Recently lost weight without trying: No Eating poorly because of decreased appetite: No Nutrition Risks: No Nutritional Risk Poor oral hygiene: No service: No Physical Exam ED Vital Signs: Vital Signs - 24 hr 03/29/25 06:33 03/29/25 08:55 Temperature 98.3 F 98.5 F Pulse Rate 97 97 Respiratory Rate 18 15 Blood Pressure 143/97 H 116/58 L Pulse Oximetry 99 97 Oxygen Delivery Method Room Air Room Air BMI result Body Mass Index 17.6 GENERAL APPEARANCE: ?AxOx4, no acute distress. HEENT: ?NC, AT. MMM. EOMI, clear conjunctiva, oropharynx clear. NECK: ?Supple without lymphadenopathy.? No stiffness or restricted ROM. HEART:? Normal rate and regular rhythm, normal S1/S2, no m/r/g LUNGS:? CTAB, moving air well. No crackles or wheezes are heard. ABDOMEN: ?Soft, non distended, mild guarding, diffuse TTP of periumbilical area, no overlying skin changes, negative Chowdary's sign, no rebound tenderness BACK: No CVAT, no obvious deformity. EXTREMITIES: ?Without cyanosis, clubbing or edema. NEUROLOGICAL: ?Grossly nonfocal. Alert and oriented, moving all 4 extremities. Skin: ?Warm and dry without any rash. Medical Decision Making Medical Decision Making [facility] Narrative: 19 yo male with active chron's disease who is a patient of Dr. Jones presents to ED due to 2 days of progressively worsening abdominal pain in a band like pattern of the periumbilical area with nausea, 1 episode of vomiting yesterday, and mild diarrhea without blood or mucus. Abdominal pain became significantly worse waking him from sleep this morning. Patient currently being treated at [facility], recently started on Skyrizi 03/25. VS on initial observation-BP 116/58, pulse rate of 97, respiratory rate of 15, afebrile with oral temp of 98.5?, O2 saturation 97% on room air. Patient with diffuse tenderness of periumbilical area, without overlying skin changes, mild guarding, no distention or fluid wave present, negative Chowdary's sign, no rebound tenderness. Plan: Labs, viral serology, CT abdomen and pelvis Course 9:46- Labs revealed leukocytosis of 13.1, with a left shift of 81.8, no bandemia, H and H stable, lipase WNL, no electrolyte abnormalities. Viral serology negative. Patient being medicated with IV fluids, 4 mg IV Zofran, 4 mg IV morphine, with minimal effect on abdominal pain. CT abdomen and pelvis suggests active Crohn's disease. I reached out to material assistant Dr. Oliver who recommended 20 mg Solu-Medrol Q8, Flagyl, and admission to medicine since abdominal pain is poorly controlled at this time. Differential Diagnosis Differential Diagnoses: The differential diagnosis associated with the presentation includes Viral illness Acute abdomen Crohn's disease flare Admission/Observation Consideration of admission/observation: Escalation of care including admission/observation considered Consult Healthcare Provider Management of the patient was discussed with: Piece Jobber (Decorator Hand Dr. Oliver ) I spoke with GI Dr. Oliver who recommended 20 mg Solu-Medrol Q 8, Flagyl and admission to medicine due to poor abd pain control Lab Data [facility] Lab Attestation statement: I reviewed the patient's lab results. 03/30/25 05:45 03/30/25 05:45 Labs: Lab Results 03/29/25 03/29/25 Range/Units 06:45 08:55 WBC 13.1 H (4.8-10.8) X10*3/uL RBC 5.29 (4.60-5.80) X10*6/uL Hgb 14.7 (14.0-18.0) g/dl Hct 43.4 (42.0-52.0) % MCV 82.0 (80.0-98.0) fL MCH 27.8 (27.0-33.0) pg MCHC 33.9 (31.0-36.0) g/dl RDW 12.3 (11.0-16.0) % Plt Count 231 D (160-400) X10*3/uL MPV 8.6 L (9.4-12.4) fL Immature Gran % (Auto) 0.6 H (0.0-0.4) % Neut % (Auto) 81.8 H (45-73) % Lymph % (Auto) 9.8 L (20-40) % Cobb % (Auto) 6.8 (2-11) % Eos % (Auto) 0.7 (0-4) % Baso % (Auto) 0.3 (0-2) % Lymph # (Auto) 1.3 (1.2-4.9) X10*3/uL Cobb # (Auto) 0.9 (0.1-1.2) X10*3/uL Eos # (Auto) 0.1 (0.0-0.4) X10*3/uL Baso # (Auto) 0.0 (0.0-0.2) X10*3/uL Abs Immat Gran (auto) 0.08 H (0.00-0.03) X10*3/uL Absolute Neuts (auto) 10.7 H (2.0-8.3) x10*3/uL Absolute Nucleated RBC 0.000 (0.0-0.012) X10*3/uL Nucleated RBC % (auto) 0.0 (0.0-0.2) /100WBC ESR 58 H (0-15) MM/HR Sodium 137 (135-145) mmol/L Potassium 4.3 (3.3-5.1) mmol/L Chloride 99 (96-108) mmol/L Carbon Dioxide 26 (22-29) mmol/L Anion Gap 16 (12-20) BUN 9 (9-16) mg/dL Creatinine 0.95 (0.5-1.4) mg/dL Estim Creat Clear Calc 101.0 Estimated GFR > 60 Random Glucose 92 (60-115) mg/dL Calcium 9.9 D (8.4-10.2) mg/dL Total Bilirubin 0.5 (0.0-1.0) mg/dL AST 17 (5-37) U/L ALT < 6 (0-40) U/L Alkaline Phosphatase 62 (39-117) U/L C-Reactive Protein 14.13 H (< or = 0.50) mg/dL Total Protein 7.9 (6.5-8.0) g/dL Albumin 4.0 (3.5-5.0) g/dL Lipase 15 (8-78) U/L COVID-19 (CARLITOS) Negative (Negative) COVID-19 Clin Com See Note Influenza Type A (ROBERTO) Negative (Negative) Influenza Type B (ROBERTO) Negative (Negative) Influenza A & B Note See Note Independent Interpretation I performed an independent interpretation of an: CT Scan Interpretation: I personally interpreted the CT abdomen and pelvis which reveals Crohn's disease, I agree with the radiologist's interpretation Radiology Impression Discussion of test interpretation with radiology: I have reviewed the radiologist's reading. Radiologist Impression: CT abdomen and pelvis Findings: No consolidation or effusion. The gallbladder and solid organs are within normal limits. No renal stones. No bowel obstruction, pneumoperitoneum, or pneumatosis. There is abnormal appearance of the ileum with pelvic ascites possibly related to active crohn's disease. Pelvic contents unremarkable. Normal appendix. The bones are intact. IMPRESSION: Findings of possible active Crohn's disease. Clinical follow-up recommended. This document has been electronically signed by: Waylon Shields MD on 03/29/2025 08:46:33 Dictated By: Waylon Shields MD Signed By: <Electronically signed by Waylon Shields MD in OV> 03/29/25 0847 Independent Historian Clinical information obtained from an independent historian. History obtained from or confirmed by: Parent (Mother at bedside corroborating history) External Record Review External record reviewed: Inpatient record, Office record and Outpatient record Chronic Conditions Patient?s care impacted by: Other (Crohn's disease) Medications Administered Generic Name Dose Route Start Last Admin Trade Name Freq PRN Reason Stop Dose Admin Lactated Ringer's 1,000 mls @ 100 mls/hr 03/29/25 10:30 03/30/25 09:33 Lr IVCONT 100 mls/hr .Q10H PADMAJA Administration Mesalamine 400 mg 03/30/25 13:00 03/30/25 12:59 Mesalamine 400 Mg Cap.Drtab. PO 400 mg QID PADMAJA Administration Sodium Chloride 3 ml 03/29/25 16:00 03/30/25 09:34 0.9 % Sodium Chloride Flush 3 Ml Syringe IVFLUSH Not Given QSHIFT PADMAJA Discontinued Medications Generic Name Dose Route Start Last Admin Trade Name Rosie PRN Reason Stop Dose Admin Hydrocortisone Sodium Succinate 100 mg 03/29/25 18:00 03/30/25 10:22 Hydrocortisone Sod Succ/Pf 100 Mg Vial IVPUSH Not Given Q8H PADMAJA Lactated Ringer's 1,000 mls @ 999 mls/hr 03/29/25 07:16 03/29/25 11:22 Lr IV 03/29/25 08:16 Infused .Q1H1M ONE Infusion Metronidazole 500 mg in 100 mls @ 100 mls/hr 03/29/25 09:32 03/29/25 11:23 Flagyl IV 03/29/25 10:31 Infused ONCE ONE Infusion Piperacillin Sod/Tazobactam 100 mls @ 200 mls/hr 03/29/25 11:00 03/30/25 06:04 Sod 4.5 gm/ Sodium Chloride IV Infused Q6H PADMAJA Infusion Iohexol 100 ml 03/29/25 08:09 03/29/25 08:09 Iohexol 350 Mg/Ml 100 Ml Infus..Btl IV 03/29/25 08:10 85 ml ONCE ONE Administration Methylprednisolone Sodium Succinate 20 mg 03/29/25 09:32 03/29/25 10:07 Methylprednisolone Sod Succ 40 Mg/Ml Vial IVPUSH 03/29/25 09:33 20 mg ONCE ONE Administration Morphine Sulfate 4 mg 03/29/25 07:16 03/29/25 07:27 Morphine Sulfate 4 Mg/Ml Cartridge IVPUSH 03/29/25 07:17 4 mg ONCE ONE Administration Protocol Ondansetron HCl 4 mg 03/29/25 07:16 03/29/25 07:27 Ondansetron Hcl 4 Mg/2 Ml Vial IVPUSH 03/29/25 07:17 4 mg ONCE ONE Administration Discharge Plan Discharge Clinical Impression: Crohn disease Patient Disposition: Admitted As Inpatient Interventions: Admission Worksheet (ED) Last Done: 03/29/25 10:28 Discharge Date/Time: 03/29/25 11:05
[2025-03-29] MEDS: Lactated Ringers 1,000 ML 999 ML IV (07:26)
[2025-03-29] MEDS: iohexoL 350 MG/ML 100 ML INFUS..BTL IV (08:09)
[2025-03-29 08:55] VITALS: BP 116/58; PULSE 97; RESP 15; TEMP 36.9; O2SAT 97
[2025-03-29 09:21] LABS: COVID-19 Test Negative (Negative); IDNOW Serial# 6674DD1D
[2025-03-29 09:29] LABS: IDNOW Serial# 55D5AD1C; Influenza B2 Negative (Negative)
[2025-03-29] MEDS: metroNIDAZOLE/NS 500 MG/100 ML PIGGYBACK 100 MG IV (10:08)
--- NOTE | 2025-03-29 10:17 | PC.NURSE ---
Pt A/O x 3, resting in stretcher with eyes closed and resp even/unlabored. IVF and medicated per SEP. #20 in L AC. Per ED PEGGY blood cultures not needed prior to Flagyl being given.
--- NOTE | 2025-03-29 10:23 | P.HPHOSP_ITS ---
History of Present Illness Date of Service: 03/29/25 Chief Complaint: Diarrhea 19-year-old man with acute Crohn's exacerbation. Patient follows with Dr. Jones. He reports 2 days of worsening abdominal pain in a bandlike pattern to the periumbilical area with nausea and mild diarrhea without blood or mucus. He reports that he has been on mesalamine but has not taken it because he ran out of medication. He reported that the office called him and said that he should still be taking it. Patient started Skyrizi 03/25/25. Denies chest pain, SOB, hematemesis, black/tarry stool/ blood or mucus in the diarrhea. Abdominopelvic CT showing possible active Crohn's disease. No fever, mild leukocytosis. He was given morphine, Zofran, Solu-Medrol, Flagyl, Zosyn in the ER. He will be admitted for further management and treatment of acute Crohn's flare. Review of Systems 2 Review of Systems: Denies any recent fever chills or decrease in appetite respiratory denies any shortness of breath or cough cardiovascular denied chest pain gastrointestinal denies any dysphagia abdominal pain nausea vomiting or diarrhea genitourinary denies any dysuria frequency or hematuria musculoskeletal denies any joint pain or swelling neuropsych denies any weakness or seizures all other systems reviewed are negative REPLACED BY [facility] Medical History Crohn's disease of both small and large intestine Asthma Crohn's disease Surgical History History of surgery Social History Household Members: Family Housing: Apartment Do you presently have visiting nurse or other home services: No Alcohol intake: never Patient Tobacco Use Status: Never used Tobacco Use of substances other than those prescribed or required for medical reasons: Unknown Currently Displaying Signs/Symptoms of Drug Intoxication Withdrawal: No Have you been hit, kicked, punched, or otherwise hurt by someone within the past year? If so, by whom?: No Do you feel safe in your current relationship?: No Current Relationship Is there a partner from a previous relationship who is making you feel unsafe now?: No Are you made to feel afraid or neglected: No Advance Directives: No Advance Directives Information Provided: No Do you have a plan to hurt others: No Plan Recently lost weight without trying: No Eating poorly because of decreased appetite: No Nutrition Risks: No Nutritional Risk Poor oral hygiene: No service: No Meds Allergies Allergy/AdvReac Type Severity Reaction Status Date / Time Seasonal Allergies Allergy Unknown Verified 03/29/25 06:36 Active Medications: Current Medications Acetaminophen (Acetaminophen 325 Mg Tablet) 650 mg PO Q6H PRN PRN Reason: Pain, Mild 1-3,fever,headache Calcium Carbonate (Calcium Carbonate 750 Mg Tab.Chew) 750 mg PO Q4H PRN PRN Reason: Heartburn Metronidazole (Flagyl) 500 mg in 100 mls @ 100 mls/hr IV ONCE ONE Stop: 03/29/25 10:31 Last Admin: 03/29/25 10:08 Dose: 100 mls/hr Lactated Ringer's (Lr) 1,000 mls @ 100 mls/hr IVCONT .Q10H PADMAJA Magnesium Hydroxide (Milk Of Magnesia 30 Ml Oral.Susp) 30 ml PO DAILY PRN PRN Reason: Constipation Melatonin (Melatonin 3 Mg Tablet) 6 mg PO BEDTIME PRN PRN Reason: Insomnia Ondansetron HCl (Ondansetron Hcl 4 Mg/2 Ml Vial) 4 mg IVPUSH Q8H PRN PRN Reason: Nausea and Vomiting Sodium Chloride (0.9 % Sodium Chloride Flush 3 Ml Syringe) 3 ml IVFLUSH QSHIFT PADMAJA Home Medications ?Medication ?Instructions ?Recorded ?Confirmed ?Last Taken ?Type mesalamine 400 mg capsule (with 400 mg PO QID 02/25/25 03/29/25 03/21/25 History delayed release tablets inside) prednisone 5 mg tablet 5 mg PO DAILY crohns 5 03/29/25 03/21/25 History risankizumab-rzaa 60 mg/mL 600 mg IV Q4W 03/29/2503/1703/25/25 History intravenous solution (Skyrizi) Physical Exam 2 Vital Signs and Narrative: Vital Signs: Last Vital Signs Temp 98.5 F 03/29/25 08:55 Pulse 97 03/29/25 08:55 Resp 15 03/29/25 08:55 BP 116/58 L 03/29/25 08:55 Pulse Ox 97 03/29/25 08:55 O2 Del Method Room Air 03/29/25 08:55 BMI result Body Mass Index 17.6 Appearing in no acute distress head is normocephalic atraumatic eyes pupils are PERRLA sclera is anicteric mouth throat mucous membranes are intact and moist neck is supple no lymphadenopathy, no JVD noted lung sounds are clear to auscultation heart regular rate rhythm, clear S1, S2 positive bowel sounds, abdomen is soft, nontender neuro patient is alert x3, no focal deficits Results Labs 03/29/25 06:45 03/29/25 06:45 Labs: Laboratory Results - last 24 hr 03/29/25 03/29/25 06:45 08:55 MCV 82.0 MCH 27.8 MCHC 33.9 RDW 12.3 Plt Count 231 D MPV 8.6 L Immature Gran % (Auto) 0.6 H Neut % (Auto) 81.8 H Lymph % (Auto) 9.8 L [place] % (Auto) 6.8 Eos % (Auto) 0.7 Baso % (Auto) 0.3 Lymph # (Auto) 1.3 [place] # (Auto) 0.9 Eos # (Auto) 0.1 Baso # (Auto) 0.0 Abs Immat Gran (auto) 0.08 H Absolute Neuts (auto) 10.7 H Absolute Nucleated RBC 0.000 Nucleated RBC % (auto) 0.0 Anion Gap 16 Estim Creat Clear Calc 101.0 Estimated GFR > 60 Random Glucose 92 Calcium 9.9 D Total Bilirubin 0.5 AST 17 ALT < 6 Alkaline Phosphatase 62 Total Protein 7.9 Albumin 4.0 Lipase 15 COVID-19 (CARLITOS) Negative COVID-19 Clin Com See Note Influenza Type A (ROBERTO) Negative Influenza Type B (ROBERTO) Negative Influenza A & B Note See Note Assessment and Plan (1) Colitis: Status: Acute Plan 19 year old man admitted with acute crohns flare Severe sepsis secondary to Crohns flare Leaukocytosis, tachycardia, lactic acidosis No abscess seen on CT GI consultation IV fluids NPO Zosyn and Flagyl IV steroids Pain management stool studies and cdiff Follow blood cx DVT prophylaxis with SCD boots Full code Quality Stroke Does the patient have a stroke diagnosis?: No VTE Prior VTE?: No VTE Risk Level:: Medical - moderate - high VTE Device Contraindication: N/A - Device Ordered VTE Drug Contraindication: Treatment Not Indicated
[2025-03-29 10:49] VITALS: BMI 17.3
[2025-03-29] MEDS: Lactated Ringers 1,000 ML 100 ML IVCONT ×2 (11:18→22:49)
[2025-03-29 11:29] VITALS: BP 120/65; PULSE 88; RESP 16; TEMP 36.6; O2SAT 100
--- NOTE | 2025-03-29 11:33 | PHA.MEDREC ---
Addendum entered by Migel Jolley, PharmD 03/29/25 11:40: PATIENT RAN OUT OF MEDICATIONS AND HASN'T TAKEN FOR 1 WEEK Original Note: Pharmacy Consult ? Medication Reconciliation Pharmacy has completed the medication reconciliation.Confirmed medication list with patient.
[2025-03-29 16:00] VITALS: BP 100/55; PULSE 78; RESP 16; TEMP 36.7; O2SAT 97
[2025-03-29] MEDS: Hydrocortisone Sod Succ/PF 100 MG VIAL IVPUSH (18:07)
[2025-03-29 19:34] VITALS: BP 132/58; PULSE 88; RESP 18; TEMP 36.3; O2SAT 97
[2025-03-30] MEDS: Hydrocortisone Sod Succ/PF 100 MG VIAL IVPUSH (03:28)
[2025-03-30 03:38] VITALS: BP 105/57; PULSE 65; RESP 17; TEMP 36.3; O2SAT 97
[2025-03-30 06:43] LABS: Hematocrit 36.8 % (42.0-52.0); Hemoglobin 12.6 g/dl (14.0-18.0); Mean Corpuscular HGB Conc 34.2 g/dl (31.0-36.0); Mean Corpuscular Hemoglobin 28.1 pg (27.0-33.0); Mean Corpuscular Volume 82.0 fL (80.0-98.0); NRBC Abs Auto 0.000 X10*3/uL (0.0-0.012); NRBC Pct Auto 0.0 /100WBC (0.0-0.2); Platelet Count 246 X10*3/uL (160-400); Red Blood Count 4.49 X10*6/uL (4.60-5.80); White Blood Count 10.4 X10*3/uL (4.8-10.8)
[2025-03-30 06:57] LABS: Anion Gap 14 (12-20); Blood Urea Nitrogen 6 mg/dL (9-16); Calcium 9.5 mg/dL (8.4-10.2); Carbon Dioxide 28 mmol/L (22-29); Chloride 101 mmol/L (96-108); Creatinine Clr Calc Pharmacy 140.9; Estimated Glomerular Filt Rate > 60; Potassium 4.3 mmol/L (3.3-5.1); Sodium 139 mmol/L (135-145)
--- NOTE | 2025-03-30 07:19 | P.PNIM_ITS ---
Subjective Subjective Date of Service: 03/30/25 Interval History: Patient tested positive for norovirus GI following Review of Systems Reports interval improvement in bowel meds Review of Systems: Yes all other systems are reviewed and are negative Physical Exam 2 Exam: Exam: General: AOx3, no acute distress Resp: CTA bilaterally CVS: S1, S2, RRR GI: +BS, NT, no distention Skin: Warm, dry Psych: Appropriate affect Vital Signs: Vital Signs: Last Vital Signs Temp 97.3 F 03/30/25 03:38 Pulse 65 03/30/25 03:38 Resp 17 03/30/25 03:38 BP 105/57 L 03/30/25 03:38 Pulse Ox 97 03/30/25 03:38 O2 Del Method Room Air 03/30/25 03:38 BMI result Body Mass Index 17.3 Objective Data Active Medications Acetaminophen (Acetaminophen 325 Mg Tablet) 650 mg PO Q6H PRN PRN Reason: Pain, Mild 1-3,fever,headache Calcium Carbonate (Calcium Carbonate 750 Mg Tab.Chew) 750 mg PO Q4H PRN PRN Reason: Heartburn Hydrocortisone Sodium Succinate (Hydrocortisone Sod Succ/Pf 100 Mg Vial) 100 mg IVPUSH Q8H [facility] Last Admin: 03/30/25 03:28 Dose: 100 mg Documented By: LUZMARIA Comments: helping primary RN Lactated Ringer's (Lr) 1,000 mls @ 100 mls/hr IVCONT .Q10H [facility] Last Infusion: 03/30/25 06:05 Dose: 100 mls/hr Documented By: KARLA Piperacillin Sod/Tazobactam (Sod 4.5 gm/ Sodium Chloride) 100 mls @ 200 mls/hr IV Q6H [facility] Last Infusion: 03/30/25 06:04 Dose: Infused Documented By: KARLA Magnesium Hydroxide (Milk Of Magnesia 30 Ml Oral.Susp) 30 ml PO DAILY PRN PRN Reason: Constipation Melatonin (Melatonin 3 Mg Tablet) 6 mg PO BEDTIME PRN PRN Reason: Insomnia Morphine Sulfate (Morphine Sulfate 2 Mg/Ml Cartridge) 2 mg IVPUSH Q4H PRN; Protocol PRN Reason: Pain, Severe (Pain Scale 7-10) Ondansetron HCl (Ondansetron Hcl 4 Mg/2 Ml Vial) 4 mg IVPUSH Q8H PRN PRN Reason: Nausea and Vomiting Sodium Chloride (0.9 % Sodium Chloride Flush 3 Ml Syringe) 3 ml IVFLUSH QSHIFT PADMAJA Last Admin: 03/30/25 00:33 Dose: Not Given Documented By: KARLA Non-Admin Reason: IV Running Labs 03/30/25 05:45 03/30/25 05:45 Labs: Laboratory Results - last 24 hr 03/29/25 03/29/25 03/29/25 06:45 08:55 22:54 MCV MCH MCHC RDW Plt Count MPV Absolute Nucleated RBC Nucleated RBC % (auto) ESR 58 H Anion Gap Estim Creat Clear Calc Estimated GFR Random Glucose Calcium C-Reactive Protein 14.13 H C. difficile Tox B Gene TNP COVID-19 (CARLITOS) Negative COVID-19 Clin Com See Note Influenza Type A (ROBERTO) Negative Influenza Type B (ROBERTO) Negative Influenza A & B Note See Note 03/30/25 05:45 MCV 82.0 MCH 28.1 MCHC 34.2 RDW 12.3 Plt Count 246 MPV 9.4 Absolute Nucleated RBC 0.000 Nucleated RBC % (auto) 0.0 ESR Anion Gap 14 Estim Creat Clear Calc 140.9 Estimated GFR > 60 Random Glucose 118 H Calcium 9.5 C-Reactive Protein C. difficile Tox B Gene COVID-19 (CARLITOS) COVID-19 Clin Com Influenza Type A (ROBERTO) Influenza Type B (ROBERTO) Influenza A & B Note Assessment and Plan (1) Enteritis due to Norovirus: Status: Acute Plan Enteritis secondary to norovirus in a patient with known Crohn's disease Patient was admitted on 03/29/2025 with acute onset diarrhea with occasional hematochezia. GI panel revealed norovirus. Hence his medications are being adjusted-discontinued steroids and being treated with mesalamine. GI consulted, we will follow with Dr. Jones in outpatient settings post discharge. For now we will aim to treat with fluids, symptomatic management For Crohn's flare in the setting of norovirus, he is being treated with mesalamine--resume home dose 400 q.i.d. Patient is otherwise hemodynamically stable-we will monitor for a day or 2 and discharge with steroid taper and mesalamine Continue symptomatic management This note is constructed using voice recognition software. While every effort has been made to ensure accuracy, balancer scale errors may have been included. Quality Stroke Does the patient have a stroke diagnosis?: No VTE Prior VTE?: No VTE Risk Level:: Medical - moderate - high VTE Device Contraindication: N/A - Device Ordered VTE Drug Contraindication: Treatment Not Indicated
--- NOTE | 2025-03-30 07:56 | PM.GICN ---
History of Present Illness Data of Consult Service Date: 03/30/25 Primary Care Provider: [facility] HPI Reason for consult: crohns flare 19-year-old man with recent dx of Crohn's disease who I am seeing for suspected acute flare.. He had presented with abdominal pain 02/[address] findings concerning for crohsn with inflammation in right colon and distal ileum, he had colonoscopy 03/10 with patchy erythema and ileitis. bx with acitve colitis and ileitis, He was put on skyrizi just recently 03/25/25 Now presents with 2 days of worsening abdominal pain in a bandlike pattern to the periumbilical area, 5/10 in severity and not relieved or exacerabted by anything, with nausea and mild diarrhea without blood or mucus. denies taking nsaids. He ran out of mesalamine few weeks ago and he did feel it was helping whilst he was on it He was given morphine, Zofran, Solu-Medrol, Flagyl, Zosyn in the ER. Subsequent stool test pos for norovirus Review of Systems Review of Systems: Constitutional : No Weight loss, No Fever, No Chills ENT/Mouth : No sore throat, No Rhinorrhea Eyes: No Swelling, No Redness Cardiovascular : No Chest Pain, No SOB, No Edema Respiratory : No Cough, No Sputum, No Wheezing Gastrointestinal : see HPI Genitourinary : NO Dysuria, No Urinary Frequency, No Hematuria, No Urgency Musculoskeletal : no joint pain, No Myalgias, No Joint Swelling Skin : No Skin Lesions, No rash Neuro : No Weakness, No Numbness, No Dizziness, No Headache Psych : No Anxiety/Panic, No Depression Heme/Lymph: No Bruising, No Lymphadenopathy Endocrine : No Polyuria, No Polydipsia All other systems reviewed and are negative. [facility] Past Medical History Medical History Crohn's disease of both small and large intestine Asthma Crohn's disease Family History Pertinent family history: no fh of ibd Surgical History Surgical History History of surgery Social History Social History Household Members: Family Housing: Apartment Do you presently have visiting nurse or other home services: No Alcohol intake: never Patient Tobacco Use Status: Never used Tobacco Use of substances other than those prescribed or required for medical reasons: Unknown Currently Displaying Signs/Symptoms of Drug Intoxication Withdrawal: No Have you been hit, kicked, punched, or otherwise hurt by someone within the past year? If so, by whom?: No Do you feel safe in your current relationship?: No Current Relationship Is there a partner from a previous relationship who is making you feel unsafe now?: No Are you made to feel afraid or neglected: No Advance Directives: No Advance Directives Information Provided: No Do you have a plan to hurt others: No Plan Recently lost weight without trying: No Eating poorly because of decreased appetite: No Nutrition Risks: No Nutritional Risk Poor oral hygiene: No service: No Meds Allergies Allergy/AdvReac Type Severity Reaction Status Date / Time Seasonal Allergies Allergy Unknown Verified 03/29/25 06:36 Active Medications: Current Medications Acetaminophen (Acetaminophen 325 Mg Tablet) 650 mg PO Q6H PRN PRN Reason: Pain, Mild 1-3,fever,headache Calcium Carbonate (Calcium Carbonate 750 Mg Tab.Chew) 750 mg PO Q4H PRN PRN Reason: Heartburn Hydrocortisone Sodium Succinate (Hydrocortisone Sod Succ/Pf 100 Mg Vial) 100 mg IVPUSH Q8H [facility] Last Admin: 03/30/25 03:28 Dose: 100 mg Lactated Ringer's (Lr) 1,000 mls @ 100 mls/hr IVCONT .Q10H [facility] Last Infusion: 03/30/25 06:05 Dose: 100 mls/hr Piperacillin Sod/Tazobactam (Sod 4.5 gm/ Sodium Chloride) 100 mls @ 200 mls/hr IV Q6H [facility] Last Infusion: 03/30/25 06:04 Dose: Infused Magnesium Hydroxide (Milk Of Magnesia 30 Ml Oral.Susp) 30 ml PO DAILY PRN PRN Reason: Constipation Melatonin (Melatonin 3 Mg Tablet) 6 mg PO BEDTIME PRN PRN Reason: Insomnia Morphine Sulfate (Morphine Sulfate 2 Mg/Ml Cartridge) 2 mg IVPUSH Q4H PRN; Protocol PRN Reason: Pain, Severe (Pain Scale 7-10) Ondansetron HCl (Ondansetron Hcl 4 Mg/2 Ml Vial) 4 mg IVPUSH Q8H PRN PRN Reason: Nausea and Vomiting Sodium Chloride (0.9 % Sodium Chloride Flush 3 Ml Syringe) 3 ml IVFLUSH QSHIFT [facility] Last Admin: 03/30/25 00:33 Dose: Not Given Home Medications ?Medication ?Instructions ?Recorded ?Confirmed ?Last Taken ?Type mesalamine 400 mg capsule (with 400 mg PO QID 02/25/25 03/29/25 03/21/25 History delayed release tablets inside) prednisone 5 mg tablet 5 mg PO DAILY crohns 03/29/25 03/29/25 03/21/25 History risankizumab-rzaa 60 mg/mL 600 mg IV Q4W 03/29/25 03/29/25 03/25/25 History intravenous solution (Skyrizi) Physical Exam Exam: Exam: EXAM: GENERAL: The patient is thin VITAL SIGNS:see workflow HEENT: Nonicteric sclerae, PERRLA, EOMI. Oropharynx clear. Moist mucous membranes. Conjunctivae appear well perfused. No thyroid mass. CHEST: Chest wall is nontender. HEART: Regular rate and rhythm without murmurs. LUNGS: Clear to auscultation bilaterally. ABDOMEN: Soft, positive bowel sounds, tender lower abdomen, no organomegaly.no flank tenderness SKIN: No rash, no excessive bruising, petechiae, or purpura. NEUROLOGIC: Cranial nerves II-XII intact without motor/sensory deficit. Psych: normal affect Vital Signs: Vital Signs: Last Vital Signs Temp 97.3 F 03/30/25 03:38 Pulse 65 03/30/25 03:38 Resp 17 03/30/25 03:38 BP 105/57 L 03/30/25 03:38 Pulse Ox 97 03/30/25 03:38 O2 Del Method Room Air 03/30/25 03:38 BMI result Body Mass Index 17.3 Results Labs 03/30/25 05:45 03/30/25 05:45 Labs: Short CBC 03/30/25 Range/Units 05:45 WBC 10.4 (4.8-10.8) X10*3/uL Hgb 12.6 L (14.0-18.0) g/dl Hct 36.8 L (42.0-52.0) % Plt Count 246 (160-400) X10*3/uL BMP 03/30/25 05:45 Sodium 139 Potassium 4.3 Chloride 101 Carbon Dioxide 28 BUN 6 L Creatinine 0.67 Calcium 9.5 Assessment and Plan (1) Crohn's disease of both small and large intestine: Qualifiers: Digestive disease complication type: with abscess Qualified Code(s): K50.814 - Crohn's disease of both small and large intestine with abscess Status: Acute Plan 1/ Crohsn flare due to norvirus. He received ABX< and steroids. PLAN: 1/ restart mesalamine 2/ d/c abx and steroids 3/ cont with skyriiz, next dose due in 2 weeks or so 4/ hydrate Procedures Date of Service Date of Service: 03/30/25
[2025-03-30 07:57] VITALS: BP 99/55; PULSE 74; RESP 18; TEMP 36.1; O2SAT 98
[2025-03-30] MEDS: Lactated Ringers 1,000 ML 100 ML IVCONT ×2 (09:33→19:37)
[2025-03-30 09:49] LABS: E. coli EAEC Not Detected (Not Detect.); E. coli EPEC Not Detected (Not Detect.); E. coli ETEC Not Detected (Not Detect.); E. coli STEC Not Detected (Not Detect.); Shigella sp./EIEC Not Detected (Not Detect.)
--- NOTE | 2025-03-30 13:22 | MHC.CM.PN ---
DX Manolo's flare Lives with mother + brother He is independent with all functional mobility. He works at [employer]. PCP [facility] DP Home self fci via shuttle.
[2025-03-30 15:38] VITALS: BP 113/58; PULSE 70; RESP 16; TEMP 36.4; O2SAT 99
[2025-03-30 19:52] VITALS: BP 116/61; PULSE 71; RESP 18; TEMP 37.1; O2SAT 98
[2025-03-31 03:21] VITALS: BP 114/55; PULSE 57; RESP 14; TEMP 36.3; O2SAT 98
[2025-03-31] MEDS: Lactated Ringers 1,000 ML 100 ML IVCONT (05:39)
[2025-03-31 06:25] LABS: MANUAL DIFF FLAG NO
[2025-03-31 06:34] LABS: Hematocrit 34.3 % (42.0-52.0); Hemoglobin 11.6 g/dl (14.0-18.0); Imm Gran Abs Auto 0.06 X10*3/uL (0.00-0.03); Imm Gran Pct Auto 0.8 % (0.0-0.4); Lymphocytes Absolute Auto 2.1 X10*3/uL (1.2-4.9); Mean Corpuscular HGB Conc 33.8 g/dl (31.0-36.0); Mean Corpuscular Hemoglobin 28.2 pg (27.0-33.0); Mean Corpuscular Volume 83.3 fL (80.0-98.0); NRBC Abs Auto 0.000 X10*3/uL (0.0-0.012); NRBC Pct Auto 0.0 /100WBC (0.0-0.2); Platelet Count 206 X10*3/uL (160-400); Red Blood Count 4.12 X10*6/uL (4.60-5.80); White Blood Count 7.9 X10*3/uL (4.8-10.8)
[2025-03-31 06:48] LABS: Alanine Aminotransferase < 6 U/L (0-40); Albumin Level 3.1 g/dL (3.5-5.0); Alkaline Phosphatase 45 U/L (39-117); Anion Gap 9 (12-20); Aspartate Amino Transferase 21 U/L (5-37); Blood Urea Nitrogen 4 mg/dL (9-16); Calcium 8.8 mg/dL (8.4-10.2); Carbon Dioxide 29 mmol/L (22-29); Chloride 109 mmol/L (96-108); Creatinine Clr Calc Pharmacy 149.9; Estimated Glomerular Filt Rate > 60; Potassium 3.7 mmol/L (3.3-5.1); Sodium 143 mmol/L (135-145); Total Protein 5.9 g/dL (6.5-8.0)
[2025-03-31 07:31] VITALS: BP 102/54; PULSE 65; RESP 16; TEMP 36.4; O2SAT 99
--- NOTE | 2025-03-31 07:33 | HO.PM.IMPN ---
Subjective Subjective Date of Service: 03/31/25 Physical Exam Vital Signs: Vital Signs: Last Vital Signs Temp 97.4 F 03/31/25 03:21 Pulse 57 03/31/25 03:21 Resp 14 03/31/25 03:21 BP 114/55 L 03/31/25 03:21 Pulse Ox 98 03/31/25 03:21 O2 Del Method Room Air 03/31/25 03:21 BMI result Body Mass Index 17.3 Objective Data Active Medications Acetaminophen (Acetaminophen 325 Mg Tablet) 650 mg PO Q6H PRN PRN Reason: Pain, Mild 1-3,fever,headache Calcium Carbonate (Calcium Carbonate 750 Mg Tab.Chew) 750 mg PO Q4H PRN PRN Reason: Heartburn Lactated Ringer's (Lr) 1,000 mls @ 100 mls/hr IVCONT .Q10H [facility] Last Admin: 03/31/25 05:39 Dose: 100 mls/hr Documented By: SINCERE Melatonin (Melatonin 3 Mg Tablet) 6 mg PO BEDTIME PRN PRN Reason: Insomnia Last Admin: 03/31/25 00:21 Dose: 6 mg Documented By: SINCERE Mesalamine (Mesalamine 400 Mg Cap.Drtab.) 400 mg PO QID [facility] Last Admin: 03/30/25 20:31 Dose: 400 mg Documented By: SINCERE Ondansetron HCl (Ondansetron Hcl 4 Mg/2 Ml Vial) 4 mg IVPUSH Q8H PRN PRN Reason: Nausea and Vomiting Sodium Chloride (0.9 % Sodium Chloride Flush 3 Ml Syringe) 3 ml IVFLUSH QSHIFT [facility] Last Admin: 03/31/25 00:49 Dose: Not Given Documented By: SINCERE Non-Admin Reason: IV Running Labs 03/31/25 06:03 03/31/25 06:03 Labs: Laboratory Results - last 24 hr 03/29/25 03/30/25 03/31/25 22:54 05:45 06:03 MCV 83.3 MCH 28.2 MCHC 33.8 RDW 12.4 Plt Count 206 MPV 9.1 L Immature Gran % (Auto) 0.8 H Neut % (Auto) 65.0 Lymph % (Auto) 26.0 [place] % (Auto) 7.1 Eos % (Auto) 0.6 Baso % (Auto) 0.5 Lymph # (Auto) 2.1 [place] # (Auto) 0.6 Eos # (Auto) 0.1 Baso # (Auto) 0.0 Abs Immat Gran (auto) 0.06 H Absolute Neuts (auto) 5.2 Absolute Nucleated RBC 0.000 Nucleated RBC % (auto) 0.0 Anion Gap 9 L Estim Creat Clear Calc 149.9 Estimated GFR > 60 Random Glucose 87 Calcium 8.8 D Total Bilirubin 0.2 AST 21 ALT < 6 Alkaline Phosphatase 45 C-Reactive Protein 10.99 H Total Protein 5.9 L Albumin 3.1 L Stl C. cayetanensis PCR Not Detected Stool Rotavirus A PCR Not Detected Stl Adenov F 40/41 PCR Not Detected Stool Astrovirus (PCR) Not Detected Stool Campylobacter PCR Not Detected Stool Cryptosporidium PCR Not Detected Stl Sh Tox Pr E STEC PCR Not Detected Stool E coli O157 PCR Not applicable Stl Enterotoxigenic E PCR Not Detected Stool EPEC (PCR) Not Detected Stool EAEC (PCR) Not Detected Stl E. histolytica PCR Not Detected Stool Giardia Lamblia PCR Not Detected Stl P. shigelloides PCR Not Detected Stool Salmonella PCR Not Detected Stool Sapovirus (PCR) Not Detected Stl Shigella/EIEC PCR Not Detected St Y.enterocolitica PCR Not Detected Stool Vibrio (PCR) Not Detected Stl Vibrio cholerae PCR Not Detected Stl Norovirus GI/GII PCR Detected A Quality Stroke Does the patient have a stroke diagnosis?: No VTE Prior VTE?: No VTE Risk Level:: Medical - moderate - high VTE Device Contraindication: N/A - Device Ordered VTE Drug Contraindication: Treatment Not Indicated
[2025-03-31 10:45] VITALS: BMI 17.3
--- NOTE | 2025-03-31 10:58 | MHC.CLN ---
NUTRITION CLEAR LIQUID DIET DUE TO CROHN'S DISEASE EXACERBATION AND NOROVIRUS. PATIENT IS UNDERWEIGHT WITH BMI=17.6. SHOWS WEIGHT LOSS X 3 MONTHS -9.2%. WEIGHT LOSS X 9 MONTHS -7.3%. ADDING ENSURE CLEAR TID TO PROMOTE NUTRITIONAL INTAKE. SUPPLEMENT PROVIDES 720 KCALS, 24 G PROTEIN. CHANGE SUPPLEMENT TO ENSURE PLUS HIGH PROTEIN WHEN ABLE WITH DIET ADVANCEMENT. FOLLOW FOR DIET ADVANCEMENT AND PO INTAKE. SEE CLINICAL NUTRITION ASSESSMENT 03/31/25.
--- NOTE | 2025-03-31 13:21 | P.DS_ITS ---
DS: Providers Provider Date of Service: 03/31/25 Date of admission: 03/29/25 09:57 Date of discharge: 03/31/25 Primary care physician: [facility] Consults: 03/29/25 10:22 Consult to Gastroenterology Routine Consulting Provider: [facility] Gastroenterology Services Reason for consultation: Crohns flare DS: Diagnosis Discharge Diagnosis (1) Crohn's disease of both small and large intestine: Status: Acute DS: Summary Hospital Course Hospital Course: Enteritis secondary to norovirus in a patient with known Crohn's disease Patient was admitted on 03/29/2025 with acute onset diarrhea with occasional hematochezia. GI panel revealed norovirus. He was initially treated with broad-spectrum antibiotics, high-dose steroids prior to diagnosis of norovirus. Hence his medications were being adjusted-discontinued steroids and being treated with mesalamine. GI consulted, we will follow with Dr. Jones in outpatient settings post discharge. He is hemodynamically stable at the time of discharge. For Crohn's flare in the setting of norovirus, he is being treated with mesalamine--resumed home dose 400 q.i.d. with good effect This note is constructed using voice recognition software. While every effort has been made to ensure accuracy, business solution analyst errors may have been included. Time spent discussing smoking cessation with patient: more than 10 minutes Time Attestation Discharge Coordination Time (in mins): 35 Quality: Safe Use of Opioids Does Pt have an Active Cancer Diagnosis on the Problem List?: No Quality: Stroke Does the patient have a stroke diagnosis?: No Physical Exam Vital Signs: Vital Signs: Last Vital Signs Temp 97.6 F 03/31/25 07:31 Pulse 65 03/31/25 07:31 Resp 16 03/31/25 07:31 BP 102/54 L 03/31/25 07:31 Pulse Ox 99 03/31/25 07:31 O2 Del Method Room Air 03/31/25 07:31 BMI result Body Mass Index 17.3 DS: Data Data Completed and Pending Labs on day of discharge: Laboratory Results - last 24 hr 03/31/25 06:03 WBC 7.9 RBC 4.12 L Hgb 11.6 L Hct 34.3 L MCV 83.3 MCH 28.2 MCHC 33.8 RDW 12.4 Plt Count 206 MPV 9.1 L Immature Gran % (Auto) 0.8 H Neut % (Auto) 65.0 Lymph % (Auto) 26.0 [place] % (Auto) 7.1 Eos % (Auto) 0.6 Baso % (Auto) 0.5 Lymph # (Auto) 2.1 [place] # (Auto) 0.6 Eos # (Auto) 0.1 Baso # (Auto) 0.0 Abs Immat Gran (auto) 0.06 H Absolute Neuts (auto) 5.2 Absolute Nucleated RBC 0.000 Nucleated RBC % (auto) 0.0 Sodium 143 Potassium 3.7 Chloride 109 H Carbon Dioxide 29 Anion Gap 9 L BUN 4 L Creatinine 0.63 Estim Creat Clear Calc 149.9 Estimated GFR > 60 Random Glucose 87 Calcium 8.8 D Total Bilirubin 0.2 AST 21 ALT < 6 Alkaline Phosphatase 45 Total Protein 5.9 L Albumin 3.1 L Discharge Plan Discharge Anticipated Discharge Date/Time: 03/31/25 13:25 Patient Disposition: Home, Self-Care Discharge Diagnosis: Enteritis secondary to norovirus Referrals: [facility] [Primary Care Provider, Medical] - 1 Week Discharge Medications: Continued mesalamine 400 mg Capsule (With Del Rel Tablets) 400 mg PO QID Skyrizi 60 mg/mL Solution 600 mg IV Q4W Rx Instructions: administer at weeks 0, 4, and 8 of treatment Held prednisone 5 mg tablet 5 mg PO DAILY Hold Instructions: Resume on 04/08/25. Please resume after seeing GI outpatient Dr. Jones Discharge Orders: Discharge Order (Routine); Ordered 03/31/25 Ordered By: Johanna Michael Diet: Advance to usual diet Activity on Discharge: As tolerated Stand Alone Forms: Patient Portal Discharge page Print Language: Azeri Care Plan Goals: Resolution of infection We have resumed his home mesalamine Symptomatic improvement-patient advised to drink water and come back to the ED if he notices worsening of his abdominal symptoms Follow-up with Dr. Jones Health Concerns: See above Plan of Treatment: See above Assessment: See above
--- NOTE | 2025-03-31 14:37 | MHC.CM.PN ---
PT WILL DC HOME TODAY WITH NO SERVICES LYFT TRANSPORT WILL BE ARRANGED ONCE HE IS READY TO GO
== END 2025-03-31 14:54 | disposition home or self-care (01) | DRG 249 ==
LOC: HO.ED 07:05 → HO.EDOVER 10:19 → HO.S3 10:29
PROVIDERS: Internal Medicine Gastroenterology; Admitting Provider Nurse Practitioner Acute Care; Emergency Provider Emergency Medicine; Visit Provider Student in an Organized Health Care Education/Training Program
DX: A08.11 Acute gastroenteropathy due to Norwalk agent (principal); K50.80 Crohn's disease of both small and large intestine without complications; Z20.822 Contact with and (suspected) exposure to COVID-19; Z79.899 Other long term (current) drug therapy
CPT/HCPCS: 36415; 74177; 80048; 80053; 83690; 85025; 85027; 85652; 86140; 87502; 87507; 87635; 99285; J1720; J1836; J2270; J2405; J2543; J2919; J7120; Q9967

== ENCOUNTER → 2025-03-29 07:16 | Outpatient (BNV) | payer MEDICAID, SELFPAY | PROVIDERS: Emergency Provider Emergency Medicine; Visit Provider Specialist | DX: R10.33 Periumbilical pain (principal); Z87.19 Personal history of other diseases of the digestive system | CPT/HCPCS: 74177 ==

== ENCOUNTER → 2025-03-29 09:57 | Outpatient (BNV) | payer MEDICAID, SELFPAY | PROVIDERS: Admitting Provider Nurse Practitioner Acute Care; Emergency Provider Emergency Medicine; Visit Provider Internal Medicine Gastroenterology | DX: K50.814 Crohn's disease of both small and large intestine with abscess (principal) | CPT/HCPCS: 99223 ==

== ENCOUNTER → 2025-03-29 09:57 | Outpatient (BNV) | payer MEDICAID, SELFPAY | PROVIDERS: Admitting Provider Nurse Practitioner Acute Care; Emergency Provider Emergency Medicine; Visit Provider Nurse Practitioner Acute Care | DX: A08.11 Acute gastroenteropathy due to Norwalk agent (principal) | CPT/HCPCS: 99223; 99232; 99239 ==

== ENCOUNTER 2025-04-11 10:27 | Emergency (ER) | payer MEDICAID, SELFPAY ==
--- OUTSIDE RECORDS SUMMARY | 2025-02-27 09:00 | XMS_ITS ---
Demographics Address [address] [place] [address] Mobile Preferred Language en Marital Status Unknown Christian Affiliation Unknown Race or A laska [place] Additional Race(s) [place] Ethnic Group or Author Organization [facility] Address [address] [place] [address] Support Name Relationship Address Phone DILLONSHANTE Emergency Contact [address] [place] [phone] SKY MEDEIROS Guarantor Unknown Care Team Providers Care Cheese Production Supervisor Name Role Phone Dillon Knight M.D. Primary Care Provider Unava Vince Moreno Unavailable [phone] Doc GE, Mita Carson Unavailab le REASON FOR VISIT crohns of small and large intestine Encounters Encounter Location Date Provider Diagnosis [facility] [place] [address] [place], [place] [phone] 02/27/2025 Vince Jones Plan Of Treatment Next Appt Details Provider Name:Vince Hendrix Jones , 06/24/2025 02:40:00 PM, [address], [address], [place], [address], Progress Notes * CHRISTIE MEDEIROSISDOB: (19 yo M)Acc No.[id number]:02/27/2025 Progress Notes Patient: Kodak VAZ SKY FREY Provider: Kodak Jones MD :2005 A ge:19 Y S ex:Male Date:02/27/2025 Address:[address] [place] Pcp:Dillon Knight M.D. Subjective: * Chief Complaints: [...] 02/27/2025 Generated for Gray mclean/Jeremy/Renata on: 0 04/11/2025 01:13 PM EDT
[2025-04-11 10:35] VITALS: BP 137/90; PULSE 105; RESP 18; TEMP 36.6; O2SAT 97; BMI 15.9
--- NOTE | 2025-04-11 10:35 | ED_ITS ---
[facility] - General Adult General Chief complaint: Nausea/Vomiting/Diarrhea Stated complaint: flare up, vomiting Time Seen by Provider: 04/11/25 12:08 Source: patient Mode of arrival: ambulatory Limitations: no limitations History of Present Illness ED Provider: [facility] narrative: This is a 19-year-old male with a history of Crohn's, reporting nausea or vomiting and now no stools but before he had loose stools no mucoid no blood, reports weight loss 10 lb in 2 weeks, recent admission 2 weeks ago he states pain has been fairly consistent since his admission, he is currently on mesalamine and had a Skyrizi infusion on March 25. No fevers or chills reported. No hematuria no dysuria. Pain is bandlike in the suprapubic area in the belt like distribution. Related Data Home Medications ?Medication ?Instructions ?Recorded ?Confirmed prednisone 5 mg tablet 5 mg PO DAILY crohns 5 03/29/25 Held on 03/31/25. Instructions: Resume on 04/08/25. Please resume after seeing GI outpatient Dr. Jones risankizumab-rzaa 60 mg/mL 600 mg IV Q4W 03/29/2503/17 intravenous solution (Skyrizi) Previous Rx's ?Medication ?Instructions ?Recorded mesalamine 400 mg capsule (with 400 mg PO QID 30 days #160 ea 03/31/25 delayed release tablets inside) Allergies Allergy/AdvReac Type Severity Reaction Status Date / Time Seasonal Allergies Allergy Unknown Verified 04/11/25 10:37 Review of Systems 2 Constitutional: Constitutional: Reports as per [facility] Past Medical History Medical History Crohn's disease of both small and large intestine Asthma Crohn's disease Surgical History History of surgery Social History Social History Household Members: Family Housing: Apartment Do you presently have visiting nurse or other home services: No Alcohol intake: never Patient Tobacco Use Status: Never used Tobacco Smoked in Last 30 Days: No Use of substances other than those prescribed or required for medical reasons: No Advance Directives: No Advance Directives Information Provided: Yes service: No Physical Exam ED Vital Signs: Vital Signs - 24 hr 04/11/25 10:35 04/11/25 11:27 04/11/25 14:00 Temperature 97.9 F Pulse Rate 105 H 80 72 Respiratory Rate 18 18 16 Blood Pressure 137/90 H 124/96 H 102/61 Pulse Oximetry 97 98 98 Oxygen Delivery Method Room Air Room Air Room Air 04/11/25 16:00 Temperature Pulse Rate 67 Respiratory Rate 16 Blood Pressure 103/55 L Pulse Oximetry 97 Oxygen Delivery Method Room Air BMI result Body Mass Index 15.9 Const Other: * Gen: ?In some distress, thin appearing male * HEENT: Slightly dry oral mucosa no jaundice * Neck: Supple, no LAD * CV: RRR, no obvious murmurs appreciated * Resp: ?No wheezing rales rhonchi no stridor moving air well * Abd: ?Bowel sounds are present, generalized tenderness in the lower quadrants no rebound or rigidity * MSK: FROM, strength 5/5 all extremities * Skin: Warm, dry, intact, * Neuro: ?Alert and oriented x3, moving upper and lower extremities symmetrically, no obvious facial asymmetry noted Course Course Course Narrative: RME, this is a rapid medical exam performed by Mauro Farrell please refer to primary provider for complete H&P- 19-year-old male presents for evaluation abdominal pain and vomiting. It has a history of Crohn's disease symptoms here about 2 weeks ago for similar. He reports mostly vomiting after eating. Plan for labs and urinalysis Medications Administered Generic Name Dose Route Start Last Admin Trade Name Freq PRN Reason Stop Dose Admin Lactated Ringer's 1,000 mls @ 0 mls/hr 04/11/25 13:00 04/11/25 14:09 Lr IV Infused .Q0M PADMAJA Infusion Wide Open Discontinued Medications Generic Name Dose Route Start Last Admin Trade Name Freq PRN Reason Stop Dose Admin Hydrocortisone Sodium Succinate 100 mg 04/11/25 13:14 04/11/25 13:29 Hydrocortisone Sod Succ/Pf 100 Mg Vial IVPUSH 04/11/25 13:15 100 mg ONCE ONE Administration Acetaminophen 1,000 mg in 100 mls @ 400 mls/hr 04/11/25 12:55 04/11/25 13:23 Ofirmev IV 04/11/25 13:09 Infused ONCE ONE Infusion Morphine Sulfate 4 mg 04/11/25 12:54 04/11/25 13:08 Morphine Sulfate 4 Mg/Ml Cartridge IVPUSH 04/11/25 12:55 4 mg ONCE ONE Administration Protocol Ondansetron HCl 4 mg 04/11/25 12:54 04/11/25 13:08 Ondansetron Hcl 4 Mg/2 Ml Vial IVPUSH 04/11/25 12:55 4 mg ONCE ONE Administration Medical Decision Making Medical Decision Making MDM Narrative: 1:01 PM 04/11/2025 (Dr. Armando Villatoro): I reviewed patient's outpatient workup, and recent admission 2 weeks ago, I reached out to Dr. Jones from GI, (this is his pt ), he is on mesalamine, he is on a biologic infusion on March 25, continues to have pain, decreased oral intake blood work without any evidence for ZHANG or electrolyte derangements, continues to have pain is the biggest issue for him, we will give fluids, antiemetics and some pain control including opiates as he is in a lot of discomfort and IV acetaminophen, his inflammatory markers and leukocytosis is fairly baseline for him, I did not feel obtaining CT at this time is indicated unless recommended by GI as he is a young person with Crohn's and it would be better served to follow up his flares with an MRI and not repeat imaging but I will discuss this with a specialist. 1:15 PM 04/11/2025 (Dr. Armando Villatoro): I spoke with Dr. Jones, we will load him with hydrocortisone, if patient is to be discharged I will update him or if I am admitting him I will update him as well if he is to be discharged he will send over a steroid taper for him and he spoke to patient yesterday. I will update the patient with these recommendations 4:54 PM 04/11/2025 (Dr. Armando Villatoro): per Dr. Jones: will send over a new prescription for a prednisone taper, similar to the one he did over the summer. He should continue the two mesalamine pills four times a day. Hopefully the prednisone taper will keep things ?quiet? as he does the second and third Skyrizi infusions in April and May, and then starts the SQ injections 8 weeks after that Patient updated, he feels much better, I pressed on his abdomen he was having minimal amount of pain compared to what he was when I initially evaluated him so I am reassured by that as well Differential Diagnosis Differential Diagnoses: The differential diagnosis associated with the presentation includes (Crohn's flare, perforation, obstruction, dehydration, electrolyte derangements) Admission/Observation Consideration of admission/observation: Escalation of care including admission/observation considered Consult Healthcare Provider Management of the patient was discussed with: Packing And Wrapping Supervisor (Dr. Jones) Lab Data 04/11/25 10:55 04/11/25 10:55 Labs: Lab Results 04/11/25 Range/Units 10:55 WBC 12.0 H (4.8-10.8) X10*3/uL RBC 5.17 D (4.60-5.80) X10*6/uL Hgb 14.2 D (14.0-18.0) g/dl Hct 41.5 L D (42.0-52.0) % MCV 80.3 (80.0-98.0) fL MCH 27.5 (27.0-33.0) pg MCHC 34.2 (31.0-36.0) g/dl RDW 12.4 (11.0-16.0) % Plt Count 344 D (160-400) X10*3/uL MPV 8.7 L (9.4-12.4) fL Immature Gran % (Auto) 0.6 H (0.0-0.4) % Neut % (Auto) 80.3 H (45-73) % Lymph % (Auto) 10.9 L (20-40) % [place] % (Auto) 6.3 (2-11) % Eos % (Auto) 1.6 (0-4) % Baso % (Auto) 0.3 (0-2) % Lymph # (Auto) 1.3 (1.2-4.9) X10*3/uL [place] # (Auto) 0.8 (0.1-1.2) X10*3/uL Eos # (Auto) 0.2 (0.0-0.4) X10*3/uL Baso # (Auto) 0.0 (0.0-0.2) X10*3/uL Abs Immat Gran (auto) 0.07 H (0.00-0.03) X10*3/uL Absolute Neuts (auto) 9.6 H (2.0-8.3) x10*3/uL Absolute Nucleated RBC 0.000 (0.0-0.012) X10*3/uL Nucleated RBC % (auto) 0.0 (0.0-0.2) /100WBC ESR 48 H (0-15) MM/HR Sodium 140 (135-145) mmol/L Potassium 4.1 (3.3-5.1) mmol/L Chloride 103 (96-108) mmol/L Carbon Dioxide 25 (22-29) mmol/L Anion Gap 16 (12-20) BUN 7 L (9-16) mg/dL Creatinine 0.89 (0.5-1.4) mg/dL Estim Creat Clear Calc 97.6 Estimated GFR > 60 Random Glucose 89 (60-115) mg/dL Calcium 9.8 D (8.4-10.2) mg/dL Total Bilirubin 0.3 (0.0-1.0) mg/dL AST 20 (5-37) U/L ALT < 6 (0-40) U/L Alkaline Phosphatase 52 (39-117) U/L C-Reactive Protein 11.10 H (< or = 0.50) mg/dL Total Protein 8.0 (6.5-8.0) g/dL Albumin 4.1 (3.5-5.0) g/dL Lipase 23 (8-78) U/L Urine Color Yellow Urine Appearance Clear Urine pH 6.0 (5.0-9.0) Ur Specific [place] 1.015 (1.005-1.025) Urine Protein Negative (Neg-Trace) mg/dL Urine Glucose (UA) Negative (Negative) mg/dL Urine Ketones 40 (Negative) mg/dL Urine Blood Negative (Negative) Urine Nitrite Negative (Negative) Ur Leukocyte Esterase Negative (Negative) Urine RBC 0-2 (0-2) /HPF Urine WBC 0-5 (0-5) /HPF Ur Squamous Epith Cells 0-2 (0-2) /HPF Urine Bacteria None Seen (None Seen) Hyaline Casts 0-2 (0-2) /LPF Independent Historian Clinical information obtained from an independent historian. History obtained from or confirmed by: EMS External Record Review External record reviewed: Office record Critical Care Time Critical Care Time Critical Care Time: Yes Total Critical Care Time: 45 Attestation: Time is exclusive of separately billable procedures. Time includes: direct patient care, patient reassessment, coordination of patient care, interpretation of data (laboratory data, pulse oximetry, arterial blood gases and chest xrays), review of patient's medical records, medical consultation and documentation of patient care. Procedures excluded from critical care time: central intravenous line placement and electrocardiography. Discharge Plan Discharge Clinical Impression: Crohn's disease Patient Disposition: Home, Self-Care Instructions: Crohn Disease (ED) Additional Instructions: Dr. Jones will send over a new prescription for a prednisone taper, similar to the one you did over the summer. continue the two mesalamine pills four times a day. Hopefully the prednisone taper will keep things ?quiet? as you have the second and third Skyrizi infusions in April and May, and then will the SQ injections 8 weeks after that. You can continue using acetaminophen 975 mg for pain, your blood work did not reveal dehydration, as discussed please make sure to stay hydrated and I recommend that you use bone broth chicken or beef, and you can add some pieces of boiled meat and vegetables but make sure to get your nutritional calories as well, and as we discussed it did not perform CAT scan of the abdomen because he just had a 2 weeks ago and it because you are also only 19 years old I am concerned that with a history of Crohn's you will have over exposure to radiation over the lifetime Prescriptions: No Action prednisone 5 mg tablet 5 mg PO DAILY Skyrizi 60 mg/mL Solution 600 mg IV Q4W Rx Instructions: administer at weeks 0, 4, and 8 of treatment mesalamine 400 mg Capsule (With Del Rel Tablets) 400 mg PO QID 30 Days Qty: 160 3RF Print Language: Amharic
[2025-04-11 11:01] LABS: MANUAL DIFF FLAG NO
[2025-04-11 11:05] LABS: Appearance Urine Clear; Glucose Urine UA Negative (Negative); PH 6.0 (5.0-9.0); Specific Gravity - Urine 1.015 (1.005-1.025)
[2025-04-11 11:12] LABS: Hematocrit 41.5 % (42.0-52.0); Hemoglobin 14.2 g/dl (14.0-18.0); Imm Gran Abs Auto 0.07 X10*3/uL (0.00-0.03); Imm Gran Pct Auto 0.6 % (0.0-0.4); Lymphocytes Absolute Auto 1.3 X10*3/uL (1.2-4.9); Mean Corpuscular HGB Conc 34.2 g/dl (31.0-36.0); Mean Corpuscular Hemoglobin 27.5 pg (27.0-33.0); Mean Corpuscular Volume 80.3 fL (80.0-98.0); NRBC Abs Auto 0.000 X10*3/uL (0.0-0.012); NRBC Pct Auto 0.0 /100WBC (0.0-0.2); Platelet Count 344 X10*3/uL (160-400); Red Blood Count 5.17 X10*6/uL (4.60-5.80); White Blood Count 12.0 X10*3/uL (4.8-10.8)
[2025-04-11 11:27] VITALS: BP 124/96; PULSE 80; RESP 18; O2SAT 98
[2025-04-11 11:30] LABS: Alanine Aminotransferase < 6 U/L (0-40); Albumin Level 4.1 g/dL (3.5-5.0); Alkaline Phosphatase 52 U/L (39-117); Anion Gap 16 (12-20); Aspartate Amino Transferase 20 U/L (5-37); Blood Urea Nitrogen 7 mg/dL (9-16); Calcium 9.8 mg/dL (8.4-10.2); Carbon Dioxide 25 mmol/L (22-29); Chloride 103 mmol/L (96-108); Creatinine Clr Calc Pharmacy 97.6; Estimated Glomerular Filt Rate > 60; Lipase 23 U/L (8-78); Potassium 4.1 mmol/L (3.3-5.1); Sodium 140 mmol/L (135-145); Total Protein 8.0 g/dL (6.5-8.0)
--- NOTE | 2025-04-11 11:41 | PC.NURSE ---
Addendum entered by Yessi Light RN 04/11/25 11:42: Patient is a 19-year-old man with acute Crohn's exacerbation. Patient follows with Dr. Jones. He reports 2 days of worsening abdominal pain in a bandlike pattern to the periumbilical area with nausea and denies diarrhea. He reports that he has been on mesalamine but has not taken it because he ran out of medication. He reported that the office called him and said that he should still be taking it. Patient started Skyrizi 03/25/25. Patient recently admitted for the same and was diagnosed with norovirus. Alert and oriented. Appears uncomfortable. Lungs clear bilat. Respirations even and non-labored. Abdomen soft with positive bowel sounds. c/o mid bandlike abdominal pain with assoc N/V for the past several days. Positive pedal pulses with no edema. Original Note: Medical History Crohn's disease of both small and large intestine Asthma Crohn's disease
[2025-04-11] MEDS: Lactated Ringers 1,000 ML 999 ML IV (13:08)
--- OUTSIDE RECORDS SUMMARY | 2025-04-11 13:14 | XMS_ITS | Patient Health Record ---
Demographics Address [address] [place] [address] Mobile Preferred Language en Marital Status Unknown Pentecostal Affiliation Unknown Race or A [place] Additional Race(s) Karyn Ethnic Group or Author Organization [facility] Address [address] [place] [address] Support Name Relationship Address Phone SHANTE CARRANZA Emergency Contact [address] [place] [address] ELIZABETH HANDELYGOBILL Guarantor Unknown [phone] Care Team Providers Care Screen Writer Name Role Phone Eugene Kerns, Rebekah Primary Care Provider Vince Chatterjee Unavailable [phone] Doc GE, Mita Carson Unavailab le Allergies Allergen (clinical drug ingredient) Drug/Non Drug Allergy documented on EMR Reaction Allergy Type Onset Date Status seasonal (uncoded) Unknown Allergy A ctive Results Component Value Reference Range Notes T Spot TB Reviewed date:02/09/2025 09:57:44 PM Interpretation: Performing Lab:[facility], [address] [place] [phone] Notes/Report: TSpotTB Negative Negative A negative test [...] Passed For additional information, please refer to http://education.InstaJob.Wuiper/faq/IWM582 (This link is being provided for informational/ educational purposes only.) THIS TEST WAS PERFORMED AT: [employer]/[address] [phone] KEEGAN MEIER MD,PHD Hepatitis B Profile Reviewed date:02/09/2025 10:01:37 PM Interpretation: Performing Lab:[facility], [address] [place] [phone] Notes/Report: Hepatitis B Surface Antibody NONREACTIVE Nonreactive Nonreactive: < 8.00 mIU/mL Hepatitis B Core Antibody Nonreactive Nonreactive Hepatitis B Surface Antigen Negative Negative Complete Blood Count Auto Di ff Reviewed date:01/29/2025 01:27:25 PM Interpretation: Performing Lab:[facility], [address] [place] [phone] Notes/Report: White Blood Count 4.8 4.8-10.8 X10*3/uL [...] Gel Reviewed date:01/30/2025 05:54:00 PM Interpretation: Performing Lab:[facility], [address] [place] [phone] Notes/Report: Hold Green Gel See Note Specimen held untested for 24 hours; Call to request Chemistry testing. Complete Blood Count no Diff Reviewed date:02/09/2025 09:54:19 PM Interpretation: Performing Lab:[facility], [address] [place] [phone] Notes/Report: White Blood Count 6.9 4.8-10.8 X10*3/uL [...] Panel Reviewed date:02/09/2025 09:53:46 PM Interpretation: Performing Lab:[facility], [address] [place] [phone] Notes/Report: Sodium 143 135-145 mmol/L Potassium 3.5 [...] PROFILE Reviewed date:02/09/2025 09:52:42 PM Interpretation: Performing Lab:[facility], [address] [place] [phone] Notes/Report: Iron 26 45-160 mcg/dL Total Iron Binding Capacity 152 228-428 mcg/d L Percent Iron Saturation 17 15-50 % Unsaturated Iron Binding 126 Ferritin Reviewed date:02/09/2025 09:52:35 PM Interpretation: Performing Lab:[facility], [address] [place] [phone] Notes/Report: Ferritin 106 20-250 ng/mL C Reactive Protein Reviewed date:02/09/2025 09:52:27 PM Interpretation: Performing Lab:[facility], [address] [place] [phone] Notes/Report: C Reactive Protein 2.66 < or = 0.50 mg/dL Vitamin B12 Reviewed date:02/05/2025 12:13:08 AM Interpretation: Performing Lab:[facility], [address] [place] [phone] Notes/Report: Vitamin B12 435 200-900 pg/mL NORMAL 200-900 PG/ML INDETERMINATE 160-199 PG/ML DEFICIENT < 160 PG/ML Complete Blood Count Auto Di ff Reviewed date:02/09/2025 07:23:55 PM Interpretation: Performing Lab:[facility], [address] [place] [phone] Notes/Report: White Blood Count 14.9 4.8-10.8 X10*3/uL [...] te Reviewed date:02/06/2025 04:20:09 PM Interpretation: Performing Lab:[address] [phone] Notes/Report: Erythrocyte Sedimentation Rate 19 0-15 MM/HR Patients with polycythemia and many hemoglobin abnormalities may have depressed sed rates whereas patients with anemia may have elevated sed rates. Liver Panel Reviewed date:02/06/2025 04:20:42 PM Interpretation: Performing Lab:[address] [phone] Notes/Report: Bilirubin Total 0.4 0.0-1.0 mg/dL Bilirubin Direct 0.2 0.0-0.5 mg/dL Aspartate Amino Transferase 21 5-37 U/L Alanine Aminotransferase 13 0-40 U/L Total Protein 8.3 6.5-8.0 g/dL Albumin Level 4.5 3.5-5.0 g/dL Alkaline Phosphatase 83 39-117 U/L C Reactive Protein Reviewed date:02/06/2025 04:20:26 PM Interpretation: Performing Lab:[facility], [address] [place] [phone] Notes/Report: C Reactive Protein 3.53 < or = 0.50 mg/dL Pathology (Not yet reviewed by provider) Interpretation: Performing Lab:[address] [phone] Notes/Report: Reason For Referral Referring Provider First Name Mita Referring Provider Last Name Baker Referring Provider Speciality Family [facility] Referred Organization [facility] Referred Provider Vince Jones Referred Address [address] [place] [phone], Referred Provider Specialty Gastroentero logy General Notes Tenisha Pak 2024 11:25:18 AM >requested a [facility] referral from [facility] for visit with Dr. Jones on [...] Notes Problem Imaging of gastrointestinal tract abnormal (606805362) Abnormal CT scan, gastrointestinal tract (R93.3) Active confirmed Problem Right lower quadrant pain (482985218) RLQ abdominal pain (R10.31) Active confirmed Problem Crohn's disease of small AND large intestines (39870607) Crohn''s disease of both small and large [...] N/A Encounters Encounter Location Date Provider Diagnosis [facility] Outpatient [address] [place], [place] [phone] 02/27/2025 Vince Jones [facility] [address] [place] [address] 02/06/2025 Vince Jones Crohn''s disease of both small and large intestine without complication K50.80 ; RLQ abdominal pain R10.[address] scan, gastrointestinal tract R93.3 [facility] [address] [place] [address] 02/02/2025 Vince Jones [facility] [address] [place] [address] 02/09/2025 Vince Jones [facility] [address] [place] [address] 02/23/2025 Vince Jones [facility] [address] [place] [address] 03/03/2025 Vince Karen [facility] [address] [place] [address] 03/10/2025 Vince Jones [facility] [address] [place] [address] 03/11/2025 Vince Karen [facility] [address] [place] [address], [place] [address] 03/28/2025 Vince Karen [facility] [address] [place] [address] 04/01/2025 Vince Jones [facility] [address] [place] [address], [place] [address] 04/08/2025 Vince Jones Assessments Encounter Date Diagnosis (ICD [...] Pathology 02/27/2025 Next Appt Details Provider Name:Vince Hendrix Karen , 06/24/2025 02:40:00 PM, [address] [place] [address], [address], [place], [address], Insurance Providers Payer Name Payer Address Payer Phone Subscriber Number Group Number Insured Name Patient Relationship to Insured Coverage Start Date Coverage End Date [place] [address] [place] [phone] [id number] ELIZABETH BILL FREY Self - patient is the insured 4 Medical (General) History Medical History History ICD Code Asthma Denies [place],DM,CVA,renal disease Presumed Crohn's disease samuel gnosed in January 2025 during his hospitalization. The CT scan showed evidence of disease involving the distal small bowel and ascending colon. Stool specimens were all negative for infection and the stool calprotectin level was quite elevated at 1,090.
--- OUTSIDE RECORDS SUMMARY | 2025-04-11 13:14 | XMS_ITS | Encounter Summary ---
Author Organization [employer] Address [address] [facility] [address] [place] [address] Care Team Providers Care Numerical Control Machine Operator Name Role Phone Rebekah Bishop MD Primary Care Provide r Reason for Visit * Reason Onset Date Comments Dec recall 04/10/2025 Encounter Details Date Type Department Care Team (Late st Contact Info) Description 04/10/2025 Telephone [facility] [address] [place] [phone] Rebekah Bishop MD [address] [place] [phone] Jun recall Social History Tobacco Use Types Packs/Day Years Used Date Smoking Tobacco: Never Smokeless Tobacco: Never Sex and Gender Information Value Date Recorded Sex Assigned at Male 12/17/2024 2:12 PM EDT Legal Sex Male 8:22 PM EDT Gender Identity Male 12/17/2024 2:12 PM EDT Sexual Orientation Straight 12/17/2024 2: 13 PM EDT documented as of this encounter Miscellaneous Notes * Telephone Encounter - Hawa Dawson [place] - 04/10/2025 2:07 PM EDT Telephone call to patient to schedule the following recall: Visit type: Televisit Appointment notes: Chronic conditions Patient agree to appointment on 06/19/25 at 11:30 AM with Eugene. documented in this encounter Plan of Treatment Upcoming Encounters Date Type Department Care Team (Late st Contact Info) Description 06/19/2025 11:30 AM EST Telemedicine [facility] [address] [place] [address] Rebekah Bishop MD [address] [place], [place] [phone] documented as of this encounter Visit Diagnoses Not on filedocumented in this encounter Care Teams Numerical Control Machine Operator Relationship Specialty Start Date End Date Rebekah Bishop MD [address] [place], [place] [phone] PCP - General Internal Medicine 03/18/25 documented as of this encounter
--- OUTSIDE RECORDS SUMMARY | 2025-04-11 13:14 | XMS_ITS | Clinical Summary ---
Author Organization [employer] Address [address] [facility] [address] [place] [address] Care Team Providers Care Application Engineer Name Role Phone Rebekah Bishop MD Primary [...] Encounters Date Type Department Care Team Description 04/10/[address] [address] Rebekah Bishop MD Dec recall 03/29/2025 Orders Only GENERIC EXTERNAL DATA DEPARTMENT Provider, Generic External Data 03/24/[address] [address] Rebekah Bishop MD CHW - New Patient Assistance 03/18/2025 2:00 PM EDT Office Visit [address] [address] Rebekah Bishop MD Sinus tachycardia (Primary Dx); Crohn's disease with complication, unspecified gastrointestinal tract location (CMS/HCC); Mild intermittent asthma without complication 03/18/2025 Travel 03/10/2025 Patient Outreach [facility] [address] [place] [address] Rebekah Bishop MD Pre-visit Planning ((Unable to reach for PVP screening, LVM) to be completed in office ) from Last 3 Months Social History Tobacco [...] 03/18/2025 1:53 PM EDT Plan of Treatment Upcoming Encounters Date Type Department Care Team (Late st Contact Info) Description 06/19/2025 11:30 AM EST Telemedicine [facility] [address] [place], [place] [phone] Rebekah Bishop MD [address] [place], [place] [phone] Health Maintenance Due Date Last Done Comments [...] on patient's age to complete this topic Procedures Procedure Name Priority Date/Time Associated Diagnosis Comments COVID-19 ID NOW (CARRANZA) Routine 03/29/2025 8:55 AM EDT INFLUENZA A B2 ID NOW (CARRANZA) Routine 03/29/2025 8:[address] ABDOMEN PELVIS W CONTRAST Routine 03/29/2025 8:46 AM EDT CBC WITH AUTO DIFFERENTIAL Routine 03/29/2025 6:45 AM EDT LIPASE Routine 03/29/2025 6:45 AM EDT COMPREHENSIVE METABOLIC PANEL Routine 03/29/2025 6:45 AM EDT from Last 3 Months Results * Influenza A B2 ID NOW (Carranza) (03/29/2025 8:55 AM EDT) IDNOW SERIAL# [id number] [facility] Influenza A Negative Negative [facility] Influenza B2 Negative Negative [facility] Influenza A B2 Note See Note [facility] Comment:The Carranza ID NOW In fluenza A B2 test is used for thequalitative detection of influenza A and B from patientswith signs and symptoms of respiratory infection.Negative results do not preclude influenza virus infectionand should not be used as the sole basis for diagnosis,treatment or other patient management decisions.There is a risk of false negative results due to thepresence of variants in the viral targets of the assay, lowlevels of virus in the specimen and co- infection withRespiratory Syncytial Virus. 03/29/2025 8:55 AM EDT 03/29/2025 9:01 AM EDT us Generic External Data Provider LAB MICROBIOLOGY - GENERAL ORDERABLES Final Result Performing Organization Address [facility]/ZIP Co de Phone Number [facility] [address] [place] [phone] * COVID-19 ID NOW (CARRANZA) (03/29/2025 8:55 AM EDT) IDNOW SERIAL# [id number] [facility] COVID-19 TEST Negative Negative [facility] COVID-19 NOTE See Note [facility] Comment: Results are for the identification of SARS-CoV2 RNA. TheSARS-CoV2 RNA is generally detectable in respiratory samplesduring the acute phase of infection. Positive results areindicative of the presence of SARS-CoV-2 RNA; clinicalcorrelation with patient history and other diagnosticinformation is necessary to determine patient infectionstatus. Positive results do not rule out bacterial infectionor co- infection with other viruses.Testing facilities within the [facility] and [facility] are required to report all positive results tothe appropriate public health authorities.Negative results should be treated as presumptive and, ifinconsistent with clinical signs and symptoms or necessaryfor patient management, should be tested with differentauthorized or cleared molecular tests. Negative results donot preclude SARS-CoV2 RNA infection and should not be usedas the sole basis for patient management decisions. Negativeresults should be considered in the context of a patient'srecent exposures, history and the presence of clinical signsand symptoms consistent with COVID-19.This test has been authorized by the FDA under an EmergencyUse Authorization (EUA) for use by authorized laboratories.Testing performed on the Carranza ID NOW utilizing NAAT. 03/29/2025 8:55 AM EDT 03/29/2025 9:01 AM EDT us Generic External Data Provider LAB MOLECULAR LUIS ANTONIO GNOSTICS ORDERABLES Final Result Performing Organization Address City/[facility]/ZIP Co de Phone Number [facility] [address] [place] [phone] * CT Abdomen Pelvis w/ Contrast (03/29/2025 8:46 AM EDT) Anatomical Region Laterality Modality Body, Pelvis, Abdomen Computed T omography 03/29/2025 8:46 AM EDT Narrative 03/29/2025 8:48 AM EDT [address] [address] [address] Scan Report Signed Patient: Bill Alaniz MR#: [id number] : 2005 Acct:[id number] Age/Sex: 19 / M ADM Date: 03/29/25 Loc: HO.ED Attending Dr: Ordering Physician: Nathaniel Ledezma PA-C Date of Service: 03/29/25 Procedure(s): CT abdomen pelvis w IV con Accession Number(s): [id number] cc: Nathaniel Ledezma PA-C; [facility] Report Number: [id number]: Total DLP = 319.00 mGy-cm Reason for Exam: hx of chrons, diffuse periumbilical pain CLINICAL HISTORY: hx of chrons, diffuse periumbilical pain CT abdomen and pelvis with contrast Comparison: 03/29/2025, 02/17/2025 Findings: No consolidation or effusion. The gallbladder and solid organs are within normal limits. No renal stones. No bowel obstruction, pneumoperitoneum, or pneumatosis. There is abnormal appearance of the ileum with pelvic ascites possibly related to active crohn's disease. Pelvic contents unremarkable. Normal appendix. The bones are intact. IMPRESSION: Findings of possible active Crohn's disease. Clinical follow-up recommended. This document has been electronically signed by: Waylon Shields MD on 03/29/2025 08:46:33 Dictated By: Waylon Shields MD Signed By: <Electronically signed by Waylon Shields MD in OV> 03/29/25 0847 DD/ 5 TD/TT: 03/29/25845 Heavy Lift Rigger: Procedure Note Donotuseinterpreter, Image - 03/31/[address] [address] [address] Scan Report Signed Patient: Amadou Alaniz#: M [id number] : 2005cct:[id number] Age/Sex: 19 / MADM Date: 03/29/25 Loc: HO.ED Attending Dr: Ordering Physician: Nathaniel Ledezma PA-C Date of Service: 03/29/25 Procedure(s): CT abdomen pelvis w IV con Accession Number(s): [id number] cc: Nathaniel Ledezma PA-C; [facility] Report Number: [id number]: Total DLP = 319.00 mGy-cm Reason for Exam: hx of chrons, diffuse periumbilical pain CLINICAL HISTORY: hx of chrons, diffuse periumbilical pain CT abdomen and pelvis with contrast Comparison: 03/29/2025, 02/17/2025 Findings: No consolidation or effusion. The gallbladder and solid organs are within normal limits. No renal stones. No bowel obstruction, pneumoperitoneum, or pneumatosis. There is abnormal appearance of the ileum with pelvic ascites possibly related to active crohn's disease. Pelvic contents unremarkable. Normal appendix. The bones are intact. IMPRESSION: Findings of possible active Crohn's disease. Clinical follow-up recommended. This document has been electronically signed by: Waylon Shields MD on 03/29/2025 08:46:33 Dictated By: Waylon Shields MD Signed By: <Electronically signed by Waylon Shields MD in OV> 03/29/2547 DD/ 5 TD/TT: 03/29/25845 Heavy Lift Rigger: us [facility] External Provider IMG CT PROCEDURES Final Result * (ABNORMAL) CBC auto differential (03/29/2025 6:45 AM EDT) White Blood Count 13.1(H) 4.8 - 10.8 X10*3/uL [facility] Red Blood Count 5.29 4.60 - 5.80 X10*6/uL [facility] Hemoglobin 14.7 14.0 - 18.0 g/dl [facility] Hematocrit 43.4 42.0 - 52.0 % [facility] Mean Corpuscular Volume 82.0 80.0 - 98.0 fL [facility] Mean Corpuscular Hemoglobin 27.8 27.0 - 33.0 pg [facility] Mean Corpuscular HGB Conc 33.9 31.0 - 36.0 g/dl [facility] Red Cell Distribution Width 12.3 11.0 - 16.0 % [facility] Platelet Count 231 160 - 400 X10*3/uL [facility] Mean Platelet Volume 8.6(L) 9.4 - 12.4 fL [facility] Neutrophils Percent Auto 81.8(H) 45 - 73 % [facility] Imm Gran Pct Auto 0.6(H) 0.0 - 0.4 % [facility] Lymphocytes Percent Auto 9.8(L) 20 - 40 % [facility] Monocytes Percent Auto 6.8 2 - 11 % [facility] Eosinophils Percent Auto 0.7 0 - 4 % [facility] Basophils Percent Auto 0.3 0 - 2 % [facility] NRBC Pct Auto 0.0 0.0 - 0.2 /100WBC [facility] Neutrophils Absolute Auto 10.7(H) 2.0 - 8.3 x10*3/uL [facility] Imm Gran Abs Auto 0.08(H) 0.00 - 0.03 X10*3/uL [facility] Lymphocytes Absolute Auto 1.3 1.2 - 4.9 X10*3/uL [facility] Monocytes Absolute Auto 0.9 0.1 - 1.2 X10*3/uL [facility] Eosinophils Absolute Auto 0.1 0.0 - 0.4 X10*3/uL [facility] Basophils Absolute Auto 0.0 0.0 - 0.2 X10*3/uL [facility] NRBC Abs Auto 0.000 0.0 - 0.012 X10*3/uL [facility] 03/29/2025 6:45 AM EDT 03/29/2025 6:48 AM EDT us Generic External Data Provider LAB BLOOD ORDERAB LES Final Result Performing Organization Address City/[facility]/ZIP Co de Phone Number [facility] [address] [place] [phone] * Lipase (03/29/2025 6:45 AM EDT) Lipase 15 8 - 78 U/L [facility] 03/29/2025 6:45 AM EDT 03/29/2025 6:48 AM EDT Generic External Data Provider LAB BLOOD ORDERAB LES Final Result Performing Organization Address [facility] de Phone Number [facility] [address] [place] [phone] * Comprehensive Metabolic Panel (03/29/2025 6:45 AM EDT) Sodium 137 135 - 145 mmol/L [facility] Potassium 4.3 3.3 - 5.1 mmol/L [facility] Chloride 99 96 - 108 mmol/L [facility] Carbon Dioxide 26 22 - 29 mmol/L [facility] Anion Gap 16 12 - 20 [facility] Urea Nitrogen (BUN) 9 9 - 16 mg/dL [facility] Creatinine, Serum 0.95 0.5 - 1.4 mg/dL [facility] Creatinine Clr Calc Pharmacy 101.0 [facility] Comment:eGFR (calculated fro m the MDRD study equation) and eCrCl(calculated from the Cockcroft-Gault equation) are based ondifferent parameters and may not yield comparable results.If eCrCl result is absurd, please check patient'sheight/weight. Estimated Glomerular Filt Rate >60 [facility] Comment:Chronic Kidney Disea se: Estimated GFR < 60 mL/min/1.57m5Bdupcq Kidney Disease: Estimated GFR < 15 mL/min/1.73m2 Glucose 92 60 - 115 mg/dL [facility] Calcium 9.9 8.4 - 10.2 mg/dL [facility] Bilirubin, Total 0.5 0.0 - 1.0 mg/dL [facility] Aspartate Amino Transferase 17 5 - 37 U/L [facility] Alanine Aminotransferase <6 0 - 40 U/L [facility] Total Protein 7.9 6.5 - 8.0 g/dL [facility] Albumin Level 4.0 3.5 - 5.0 g/dL [facility] Alkaline Phosphatase 62 39 - 117 U/L [facility] 03/29/2025 6:45 AM EDT 03/29/2025 6:48 AM EDT us Generic External Data Provider LAB BLOOD ORDERAB LES Final Result [facility] [address] [place] [phone] from Last 3 Months Insurance [facility] C3 Care Teams Application Engineer Relationship Specialty Start Date End Date Rebekah Bishop MD [address] [place] [phone] PCP - General Internal Medicine 03/18/25
[2025-04-11] MEDS: Hydrocortisone Sod Succ/PF 100 MG VIAL IVPUSH (13:29)
[2025-04-11 14:00] VITALS: BP 102/61; PULSE 72; RESP 16; O2SAT 98
[2025-04-11 16:00] VITALS: BP 103/55; PULSE 67; RESP 16; O2SAT 97
[2025-04-11 17:09] VITALS: BP 103/55; PULSE 67; RESP 16; TEMP 36.7; O2SAT 97
== END 2025-04-11 17:10 | disposition home or self-care (01) ==
PROVIDERS: Physician Assistant; Emergency Provider Emergency Medicine
DX: K50.90 Crohn's disease, unspecified, without complications (principal)
CPT/HCPCS: 36415; 80053; 81001; 83690; 85025; 85652; 86140; 96361; 96374; 96375; 99284; 99285; J0131; J1720; J2270; J2405; J7120

== ENCOUNTER 2025-04-30 22:05 | Inpatient (IN) | payer MEDICAID, SELFPAY ==
--- NOTE | ~2025-04-30 | CT_ITS ---
CLINICAL HISTORY: Abd Tenderness; Hx Crohns CT abdomen and pelvis with contrast Comparison: CT of the abdomen and pelvis from 03/29/2025. Findings: No consolidation of the imaged lung bases. Fat deposition noted in the liver adjacent to the falciform ligament. Gallbladder is mildly distended. Spleen approaches the upper limits of normal. Adrenal glands and pancreas are partly obscured and otherwise unremarkable. Mild right hydroureteronephrosis is nonspecific without definite calcification or stone in the imaged right ureter. Mesenteric, iliac, retroperitoneal, and pericecal lymph nodes are nonspecific and likely reactive. Wall thickening of the large intestine severe and concerning for colitis, including imaged sigmoid colon in the lower portion of the cecum. The appendix is not definitively seen. Manifestations of the ruptured appendicitis could be considered. Ruptured appendicitis considered given the degree of the free fluid in the abdomen and pelvis and severe inflammatory stranding including right lower quadrant and in the pelvis. Dilated bowel in the lower abdomen and pelvis measuring 5 cm is favored to represent partially dilated sigmoid colon. Dilated and featureless ileum concerning for small-bowel obstruction also considered by CT. Moderate wall thickening of the urinary bladder is nonspecific. Differential considerations include cystitis. Prostate gland measures 4.8 cm transverse. IMPRESSION: 1. Severe inflammatory changes in the lower abdomen in the pelvis nonspecific. Differential considerations include manifestations of the ruptured appendicitis. Findings of inflammatory bowel disease also considered. Manifestations of the inflammatory bowel disease such as acute and/or recurrent manifestations of the Crohn's disease are considered by imaging. 2. Nonspecific ventral lower bowel dilatation favored to represent dilated and obstructed terminal ileum. This document has been electronically signed by: Isacc Cardona MD on 05/01/2025 00:46:58
--- NOTE | ~2025-04-30 | XR_ITS ---
CLINICAL HISTORY: constipation 1 view abdomen Comparison: CR - XR KUB - 09/25/24 19:31 EDT Findings: No pneumoperitoneum or pneumatosis. No abnormal calcifications. No acute fractures. IMPRESSION: The bowel gas pattern is within normal limits This document has been electronically signed by: Wild Hickman MD on 04/30/2025 23:14:48
[2025-04-30 22:39] VITALS: BP 116/77; PULSE 141; RESP 20; TEMP 36.8; O2SAT 99; BMI 16.3
--- NOTE | 2025-04-30 23:04 | ED.ABDPAIN ---
HPI - Abdominal Pain General Chief Complaint: Abdominal Pain Stated Complaint: crohn's flare up Time Seen by Provider: 04/30/25 23:03 Source: patient Mode of arrival: ambulatory Limitations: no limitations History of Present Illness ED Provider: Donaldo JOSEPH HPI narrative: The patient is a 19-year-old male presenting to the ED for evaluation of severe abdominal pain. Patient reports 3 months ago he was diagnosed by colonoscopy with Crohn's disease, has been treated with mesalamine, Skyrizi (last dose on 04/23), and a a 2 month course of prednisone taper by Dr. oJnes from GI. The patient reports he finished the prednisone 2 days ago, and yesterday began experiencing severe abdominal pain with associated abdominal tenderness. Patient reports he has also been experiencing difficulty moving his bowels, and headaches. The patient denies associated fever/chills, nausea, vomiting, chest pain, shortness of breath, hematochezia, melena, or recent trauma. The patient reports for the past 3-4 days he has also been experiencing intermittent nonsustained stinging pain at the tip of his penis, which occurs spontaneously and not necessarily with the urination. The patient denies associated hematuria, urgency, hesitancy, or testicular/scrotal swelling or pain. Patient denies any urethral discharge, penile lesions, or new sexual partners. Patient arrives to the ED in obvious discomfort with tachycardia and diaphoresis. Related Data Home Medications ?Medication ?Instructions ?Recorded ?Confirmed prednisone 5 mg tablet 5 mg PO DAILY crohns 03/29/25 05/01/25 risankizumab-rzaa 60 mg/mL 600 mg IV Q4W 03/29/25 05/01/25 intravenous solution (Skyrizi) Previous Rx's ?Medication ?Instructions ?Recorded mesalamine 400 mg capsule (with 400 mg PO QID 30 days #160 ea 03/31/25 delayed release tablets inside) vancomycin 125 mg capsule 125 mg PO Q6H #28 caps 05/03/25 Allergies Allergy/AdvReac Type Severity Reaction Status Date / Time Seasonal Allergies Allergy Unknown Verified 04/30/25 22:43 Review of Systems Review of Systems Yes all other systems are reviewed and are negative PMFSH Past Medical History Medical History (Updated 05/01/25 @ 18:08 by Ivy Bronson RN) Constipation Norovirus Crohn's disease of both small and large intestine Asthma Crohn's disease Surgical History History of surgery Social History Social History (Updated 05/01/25 @ 04:26 by NOBLE Willis) Household Members: Family Housing: Apartment Do you presently have visiting nurse or other home services: No Alcohol intake: never Patient Tobacco Use Status: Never used Tobacco service: No Physical Exam ED Vital Signs: Vital Signs - 24 hr 04/30/25 22:39 05/01/25 00:16 Temperature 98.3 F 98.9 F Pulse Rate 141 H 102 H Respiratory Rate 20 16 Blood Pressure 116/77 119/75 Pulse Oximetry 99 99 Oxygen Delivery Method Room Air Room Air BMI result Body Mass Index 16.3 CONSTITUTIONAL: The patient appears uncomfortable, mildly cachectic, but otherwise in no acute distress. Vital signs as documented. HEAD: Atraumatic, normocephalic. EYES: EOMs grossly intact, pupils equal, conjunctiva clear, no exudate. ENT: Nares patent, no discharge. Airway patent, no audible stridor, visible mucosa is pink and moist without noted lesions. NECK: Trachea is midline, no obvious masses or gross abnormalities. CHEST: Symmetric movement, normal appearance. LUNGS: LS present and CTAB, no w/r/r. Non-labored work of breathing. CARDIAC: Rapid but otherwise regular rhythm, S1/S2 appreciated, no murmurs, rubs or gallops. ABDOMEN: Abdomen soft x4 quadrants, nondistended, there is tenderness diffusely with guarding but without obvious rebound, no palpable masses or organomegaly. : Deferred. EXTREMITIES: Normal tone, moves all extremities spontaneously without reported pain. No obvious acute injury or deformity noted. NEURO: Alert and oriented x3, CN II-XII appear grossly intact. Cerebellar Functioning grossly intact. No obvious sensory or motor deficits. Speech clear and appropriate. PSYCH: normal affect, appropriate eye contact, fluid speech, with appropriate response to questioning. No reported suicidality or homicidality. SKIN: Warm, diaphoretic, color appropriate, normal turgor. No rashes noted. Medical Decision Making Medical Decision Making MDM Narrative: 11:16 PM 04/30/2025 (Aydee JOSEPH): The patient is a 19-year-old male presenting to the ED for evaluation of severe abdominal pain. Patient reports 3 months ago he was diagnosed by colonoscopy with Crohn's disease, has been treated with mesalamine, Skyrizi (last dose on 04/23), and a a 2 month course of prednisone taper by Dr. Jones from . The patient reports he finished the prednisone 2 days ago, and yesterday began experiencing severe abdominal pain with associated abdominal tenderness. Patient reports he has also been experiencing difficulty moving his bowels, and headaches. The patient denies associated fever/chills, nausea, vomiting, chest pain, shortness of breath, hematochezia, melena, or recent trauma. The patient reports for the past 3-4 days he has also been experiencing intermittent nonsustained stinging pain at the tip of his penis, which occurs spontaneously and not necessarily with the urination. The patient denies associated hematuria, urgency, hesitancy, or testicular/scrotal swelling or pain. Patient denies any urethral discharge, penile lesions, or new sexual partners. Patient arrives to the ED in obvious discomfort with tachycardia and diaphoresis. On exam patient has diffuse tenderness of the abdomen with guarding but without rebound. The patient was sent for a KUB which shows a nonobstructive bowel gas pattern. The patient's laboratory evaluation is pending. The patient will be treated with IV fluid hydration and morphine, and we will obtain CT abdomen and pelvis to evaluate for acute intra-abdominal pathology. 12:53 AM 05/01/2025 (Aydee JOSEPH): Patient's laboratory evaluation reveals leukocytosis of 19.2, which was thought to possibly be secondary to recent steroid therapy, there was no associated anemia, electrolyte abnormality, or ZHANG. LFTs were unremarkable, lipase was normal. However at this time [facility] just called and advised patient's CT shows severe inflammatory changes in the lower abdomen and pelvis which are nonspecific, radiologist advises differential considerations include manifestations of ruptured appendicitis, versus inflammatory bowel disease, versus recurrent manifestations of Crohn's disease. There was also nonspecific ventral lower bowel dilatation concerning for a dilated obstructed terminal ileum. Patient did not meet sepsis criteria upon arrival as he did not have a suspected infectious source, however now with this CT finding and leukocytosis in the setting of tachycardia a sepsis protocol has been activated. Patient will receive additional IV fluid hydration to complete 30 cc/kilos bolus, blood cultures, lactic acid, and we will treat prophylactically with vancomycin and Zosyn. We will contact the surgical service for consultation. 2:42 AM 05/01/2025 (Aydee JOSEPH): Patient was seen by the surgical PA who advises that after examining the patient, and seeing as there was no free air on the CT, the patient is likely suffering from an exacerbation of his Crohn's, surgery states no indication for surgical intervention at this time. At this time we will administer Solu-Medrol and admit to the medicine service. Admission/Observation Consideration of admission/observation: Escalation of care including admission/observation considered Lab Data MDM Lab Attestation statement: I reviewed the patient's lab results. 05/02/25 05:44 05/02/25 05:44 Labs: Lab Results 04/30/25 05/01/25 05/01/25 Range/Units 23:02 01:09 01:32 WBC 19.2 H (4.8-10.8) X10*3/uL RBC 5.24 (4.60-5.80) X10*6/uL Hgb 14.2 (14.0-18.0) g/dl Hct 42.7 (42.0-52.0) % MCV 81.5 (80.0-98.0) fL MCH 27.1 (27.0-33.0) pg MCHC 33.3 (31.0-36.0) g/dl RDW 14.0 (11.0-16.0) % Plt Count 242 D (160-400) X10*3/uL MPV 8.2 L (9.4-12.4) fL Immature Gran % (Auto) 0.5 H (0.0-0.4) % Neut % (Auto) 81.0 H (45-73) % Lymph % (Auto) 10.0 L (20-40) % [place] % (Auto) 8.0 (2-11) % Eos % (Auto) 0.3 (0-4) % Baso % (Auto) 0.2 (0-2) % Lymph # (Auto) 1.9 (1.2-4.9) X10*3/uL [place] # (Auto) 1.5 H (0.1-1.2) X10*3/uL Eos # (Auto) 0.1 (0.0-0.4) X10*3/uL Baso # (Auto) 0.0 (0.0-0.2) X10*3/uL Abs Immat Gran (auto) 0.09 H (0.00-0.03) X10*3/uL Absolute Neuts (auto) 15.6 H (2.0-8.3) x10*3/uL Absolute Nucleated RBC 0.000 (0.0-0.012) X10*3/uL Nucleated RBC % (auto) 0.0 (0.0-0.2) /100WBC Smear Tech's Comments VERIFIED Sodium 135 (135-145) mmol/L Potassium 3.4 (3.3-5.1) mmol/L Chloride 99 (96-108) mmol/L Carbon Dioxide 29 (22-29) mmol/L Anion Gap 10 L (12-20) BUN 10 (9-16) mg/dL Creatinine 0.90 (0.5-1.4) mg/dL Estim Creat Clear Calc 99.1 Estimated GFR > 60 Random Glucose 113 (60-115) mg/dL Lactic Acid 0.6 (0.5-2.0) mmol/L Calcium 10.0 (8.4-10.2) mg/dL Magnesium 2.0 (1.6-2.6) mg/dL Total Bilirubin 0.7 (0.0-1.0) mg/dL AST 20 (5-37) U/L ALT 23 (0-40) U/L Alkaline Phosphatase 63 (39-117) U/L Total Protein 7.4 (6.5-8.0) g/dL Albumin 3.9 (3.5-5.0) g/dL Lipase 16 (8-78) U/L Urine Color Yellow Urine Appearance Clear Urine pH 6.0 (5.0-9.0) Ur Specific [place] >= 1.030 H (1.005-1.025) Urine Protein Trace (Neg-Trace) mg/dL Urine Glucose (UA) Negative (Negative) mg/dL Urine Ketones Negative (Negative) mg/dL Urine Blood Negative (Negative) Urine Nitrite Negative (Negative) Ur Leukocyte Esterase Negative (Negative) Radiology Impression Discussion of test interpretation with radiology: I have reviewed the radiologist's reading. Prescription Management I considered prescription management with: Pain Medication Medications Administered Discontinued Medications Generic Name Dose Route Start Last Admin Trade Name Freq PRN Reason Stop Dose Admin Acetaminophen 650 mg 05/01/25 04:02 05/01/25 07:40 Acetaminophen 325 Mg Tablet PO 650 mg Q6H PRN Administration Pain, Mild 1-3,fever,headache Docusate Sodium 100 mg 05/02/25 10:30 05/03/25 08:12 Docusate Sodium 100 Mg Capsule PO 100 mg BID PADMAJA Administration Enoxaparin Sodium 40 mg 05/01/25 09:00 05/03/25 08:15 Enoxaparin Sodium 40 Mg/0.4 Ml Syringe SUBCUT Not Given Q24H PADMAJA Hydromorphone HCl 1 mg 05/01/25 20:10 05/01/25 21:02 Hydromorphone Hcl 1 Mg/Ml Syringe IVPUSH 05/01/25 20:11 1 mg ONCE ONE Administration Protocol Sodium Chloride 1,000 mls @ 999 mls/hr 04/30/25 23:15 05/01/25 00:47 Ns IV 05/01/25 00:15 Infused .Q1H1M PADMAJA Infusion Vancomycin HCl 1,250 mg/ 250 mls @ 166.667 mls/hr 05/01/25 00:50 05/01/25 03:18 Sodium Chloride IV 05/01/25 02:19 Infused ONCE ONE Infusion Piperacillin Sod/Tazobactam 50 mls @ 100 mls/hr 05/01/25 00:50 05/01/25 02:07 Sod 3.375 gm/ Sodium Chloride IV 05/01/25 01:19 Infused ONCE ONE Infusion Sodium Chloride 1,000 mls @ 999 mls/hr 05/01/25 01:00 05/01/25 03:20 Ns IV 05/01/25 02:00 Infused .Q1H1M PADMAJA Infusion Piperacillin Sod/Tazobactam 50 mls @ 100 mls/hr 05/01/25 04:15 05/02/25 11:46 Sod 3.375 gm/ Sodium Chloride IV Infused Q6H PADMAJA Infusion Dextrose/Sodium Chloride 1,000 mls @ 100 mls/hr 05/01/25 04:15 05/03/25 06:38 D5ns IVCONT 100 mls/hr .Q10H PADMAJA Administration Piperacillin Sod/Tazobactam 50 mls @ 100 mls/hr 05/02/25 17:00 05/03/25 11:54 Sod 3.375 gm/ Sodium Chloride IV Infused Q6H PADMAJA Infusion Iohexol 85 ml 04/30/25 23:57 04/30/25 23:59 Iohexol 350 Mg/Ml 100 Ml Infus..Btl IV 04/30/25 23:58 85 ml ONCE ONE Administration Melatonin 6 mg 05/01/25 04:02 05/03/25 02:51 Melatonin 3 Mg Tablet PO 6 mg BEDTIME PRN Administration Insomnia Mesalamine 400 mg 05/01/25 09:00 05/01/25 13:49 Mesalamine 400 Mg Cap.Drtab. PO 400 mg QID PADMAJA Administration Mesalamine 1,000 mg 05/01/25 17:00 05/03/25 13:18 Mesalamine 250 Mg Capsule.Er PO 1,000 mg QID PADMAJA Administration Methylprednisolone Sodium Succinate 125 mg 05/01/25 02:44 05/01/25 02:50 Methylprednisolone Sod Succ 125 Mg/2 Ml Vial IVPUSH 05/01/25 02:45 125 mg ONCE ONE Administration Methylprednisolone Sodium Succinate 80 mg 05/01/25 11:00 05/02/25 11:04 Methylprednisolone Sod Succ 125 Mg/2 Ml Vial IVPUSH 80 mg Q12H PADMAJA Administration Methylprednisolone Sodium Succinate 40 mg 05/02/25 23:00 05/02/25 22:52 Methylprednisolone Sod Succ 40 Mg/Ml Vial IVPUSH 05/03/25 02:00 40 mg Q12H PADMAJA Administration Morphine Sulfate 4 mg 04/30/25 23:15 04/30/25 23:44 Morphine Sulfate 4 Mg/Ml Cartridge IVPUSH 04/30/25 23:16 4 mg ONCE ONE Administration Protocol Morphine Sulfate 4 mg 05/01/25 02:16 05/01/25 02:50 Morphine Sulfate 4 Mg/Ml Cartridge IVPUSH 05/01/25 02:17 4 mg ONCE ONE Administration Protocol Prednisone 40 mg 05/03/25 09:00 05/03/25 08:12 Prednisone 20 Mg Tablet PO 40 mg DAILY PADMAJA Administration Sodium Chloride 3 ml 05/01/25 08:00 05/03/25 08:12 0.9 % Sodium Chloride Flush 3 Ml Syringe IVFLUSH Not Given QSHIFT PADMAJA Vancomycin HCl 125 mg 05/02/25 18:30 05/03/25 13:17 Vancomycin Hcl 125 Mg Capsule PO 125 mg Q6H PADMAJA Administration Discharge Plan Discharge Clinical Impression: Acute Crohn's disease Qualifiers: Digestive disease complication type: other complication Qualified Code(s): K50.918 - Crohn's disease, unspecified, with other complication Patient Disposition: Admitted As Inpatient Discharge Date/Time: 05/01/25 18:08
[2025-04-30 23:07] LABS: Hematocrit 42.7 % (42.0-52.0); Hemoglobin 14.2 g/dl (14.0-18.0); Imm Gran Abs Auto 0.09 X10*3/uL (0.00-0.03); Imm Gran Pct Auto 0.5 % (0.0-0.4); Lymphocytes Absolute Auto 1.9 X10*3/uL (1.2-4.9); MANUAL DIFF FLAG SCAN; Mean Corpuscular HGB Conc 33.3 g/dl (31.0-36.0); Mean Corpuscular Hemoglobin 27.1 pg (27.0-33.0); Mean Corpuscular Volume 81.5 fL (80.0-98.0); NRBC Abs Auto 0.000 X10*3/uL (0.0-0.012); NRBC Pct Auto 0.0 /100WBC (0.0-0.2); Platelet Count 242 X10*3/uL (160-400); Red Blood Count 5.24 X10*6/uL (4.60-5.80); SCAN SMEAR FLAG 1; White Blood Count 19.2 X10*3/uL (4.8-10.8)
[2025-04-30 23:20] LABS: Alanine Aminotransferase 23 U/L (0-40); Albumin Level 3.9 g/dL (3.5-5.0); Alkaline Phosphatase 63 U/L (39-117); Anion Gap 10 (12-20); Aspartate Amino Transferase 20 U/L (5-37); Blood Urea Nitrogen 10 mg/dL (9-16); Calcium 10.0 mg/dL (8.4-10.2); Carbon Dioxide 29 mmol/L (22-29); Chloride 99 mmol/L (96-108); Creatinine Clr Calc Pharmacy 99.1; Estimated Glomerular Filt Rate > 60; Lipase 16 U/L (8-78); Magnesium 2.0 mg/dL (1.6-2.6); Potassium 3.4 mmol/L (3.3-5.1); Sodium 135 mmol/L (135-145); Total Protein 7.4 g/dL (6.5-8.0)
[2025-04-30] MEDS: iohexoL 350 MG/ML 100 ML INFUS..BTL 85 ML IV (23:59)
[2025-05-01] VITALS (12 sets, daily range): BP systolic 93–119; BP diastolic 54–75; PULSE 63–102; RESP 14–18; TEMP 36.2–37.2; O2SAT 95–99; BMI 17.4
[2025-05-01 01:57] LABS: Appearance Urine Clear; Glucose Urine UA Negative (Negative); PH 6.0 (5.0-9.0); Specific Gravity - Urine >= 1.030 (1.005-1.025)
--- NOTE | 2025-05-01 02:36 | PM.CNGS ---
History of Present Illness Consult details Consult date: 05/01/25 Requesting physician: Donaldo Borrero Narrative: 19 year old male with Crohns disease on Skyrizi and mesalamine presenting with acute onset severe lower abdominal pain that began Monday night. He initially presented in January [address] with [address] and CT findings were concerning for crohns with inflammation in right colon and distal ileum. He had a colonoscopy 03/10 with patchy erythema of TI, cecum, sigmoid with biopsies showing active colitis and ileitis. He had been being treated with mesalamine and an oral prednisone taper was started on skyrizi just recently 03/25/25. He did have norovirus and a Crohns flare in March 2025 and his steroids were stopped in the hospital but resumed after his hospitalization by Dr. Jones. He just finished his steroid taper two days ago. He reports he had had significant improvement of his abdominal pain until Monday night. The pain made it difficult to sleep and it gradually worsened in severity throughout the day. It became unmanageable at home and he came to the ED. Work up included CBC, BMP, LFTs which were significant for a WBC count of 19.2. No lactic acidosis. CT scan abd pelvis was performed which showed significant inflammatory changes of the cecum, sigmoid, and small bowel in the pelvis as well as bladder with some free fluid but no free air or fluid collection, some mildly dilated bowel loops. There was a question of perforated appendicitis vs IBD given the free fluid and general surgery was asked to evaluate. He reports feeling somewhat improved with the pain meds but does still have waves of crampy severe pain. He denies fevers, chills, nausea, vomiting, diarrhea. He does report constipation. Review of Systems Review of Systems: Yes all other systems are reviewed and are negative FOR[facility]LY [facility], [facility] Past Medical History Medical History Crohn's disease of both small and large intestine Asthma Crohn's disease Surgical History Surgical History History of surgery Social History Social History Household Members: Family Housing: Apartment Do you presently have visiting nurse or other home services: No Alcohol intake: never Patient Tobacco Use Status: Never used Tobacco Advance Directives: No Advance Directives Information Provided: Yes Do you have a plan to hurt others: No Plan service: No Meds Allergies Allergy/AdvReac Type Severity Reaction Status Date / Time Seasonal Allergies Allergy Unknown Verified 04/30/25 22:43 Active Medications: Current Medications Pharmacy Consult (Consult Rx Vancomycin Dosing) 1 each MISCELLANE DAILY PRN PRN Reason: Consult order Home Medications ?Medication ?Instructions ?Recorded ?Confirmed ?Last Taken ?Type prednisone 5 mg tablet 5 mg PO DAILY crohns 03/29/25 03/29/25 03/21/25 History Held on 03/31/25. Instructions: Resume on 04/08/25. Please resume after seeing GI outpatient Dr. Jones risramoneizumab-rzaa 60 mg/mL 600 mg IV Q4W 03/29/25 03/29/25 03/25/25 History intravenous solution (Skyrizi) Physical Exam Vital Signs: Vital Signs: Last Vital Signs Temp 98.9 F 05/01/25 00:16 Pulse 102 H 05/01/25 00:16 Resp 16 05/01/25 00:16 BP 119/75 05/01/25 00:16 Pulse Ox 99 05/01/25 00:16 O2 Del Method Room Air 05/01/25 00:16 BMI result Body Mass Index 16.3 Const: Other: uncomfortable appearing General: alert Orientation/consciousness: patient oriented x3 Resp: Effort & Inspection: normal respiratory effort, able to speak in complete sentences and not tachypneic Cardio: Rate: regular rate GI: Other: abd is soft he does have marked lower abdominal tenderness with voluntary guarding and some rebound Inspection: No distended and No scar Palpation (GI): no guarding Percussion: Yes normal to percussion Skin: General skin exam: no rashes or lesions noted Neuro: General: patient oriented x3 and moves all extremities Results Labs 04/30/25 23:02 04/30/25 23:02 Labs: Abnormal lab results 04/30/25 05/01/25 Range/Units 23:02 01:32 WBC 19.2 H (4.8-10.8) X10*3/uL MPV 8.2 L (9.4-12.4) fL Immature Gran % (Auto) 0.5 H (0.0-0.4) % Neut % (Auto) 81.0 H (45-73) % Lymph % (Auto) 10.0 L (20-40) % [place] # (Auto) 1.5 H (0.1-1.2) X10*3/uL Abs Immat Gran (auto) 0.09 H (0.00-0.03) X10*3/uL Absolute Neuts (auto) 15.6 H (2.0-8.3) x10*3/uL Anion Gap 10 L (12-20) Ur Specific [place] >= 1.030 H (1.005-1.025) Short CBC 04/30/25 Range/Units 23:02 WBC 19.2 H (4.8-10.8) X10*3/uL Hgb 14.2 (14.0-18.0) g/dl Hct 42.7 (42.0-52.0) % Plt Count 242 D (160-400) X10*3/uL BMP 04/30/25 23:02 Sodium 135 Potassium 3.4 Chloride 99 Carbon Dioxide 29 BUN 10 Creatinine 0.90 Calcium 10.0 Liver Function 04/30/25 Range/Units 23:02 Total Bilirubin 0.7 (0.0-1.0) mg/dL AST 20 (5-37) U/L ALT 23 (0-40) U/L Alkaline Phosphatase 63 (39-117) U/L Albumin 3.9 (3.5-5.0) g/dL Urine 05/01/25 Range/Units 01:32 Urine Color Yellow Urine Appearance Clear Urine pH 6.0 (5.0-9.0) Ur Specific [place] >= 1.030 H (1.005-1.025) Urine Protein Trace (Neg-Trace) mg/dL Urine Glucose (UA) Negative (Negative) mg/dL All other labs normal. Imaging Abdomen CT scan report/results: report reviewed and image reviewed Additional studies: labs reviewed Assessment and Plan (1) Crohn's disease of both small and large intestine: Qualifiers: Digestive disease complication type: with abscess Qualified Code(s): K50.814 - Crohn's disease of both small and large intestine with abscess Status: Acute Plan 19 year old male with Crohns disease on skyrizi, mesalamine who just finished oral prednisone taper presenting with lower abdominal pain with CT scan showing significant inflammatory changes of the cecum, sigmoid, small bowel in the pelvis as well as bladder. There is free fluid present and the radiologist report questioned ruptured appendicitis or IBD. There however is no free air on the imaging to suggest perforation. The inflammatory changes are likely due to a crohns flare possibly with some degree of ileus or obstruction given the dilated small bowel loops however he has no nausea or vomiting and is nondistended on exam. Would recommend admission to medicine for further treatment of the Crohns flare with GI consult and continuing conservative measures with IV steroids and hopefully he improves. There is currently no indication for surgical intervention. Will continue to follow closely. Procedures Date of Service Date of Service: 05/01/25
--- NOTE | 2025-05-01 04:15 | PM.IMHP ---
History of Present Illness Date of Service: 05/01/25 Attending physician on admission: Devaughn Bowen Chief Complaint: abd pain Patient is a 19-year-old male, Lao speaking, with past medical history recent Crohn's diagnosis 2 months prior now on Skyrizi, mesalamine and a recent prednisone taper, asthma, weight loss since diagnosis, norovirus 04/10 with Crohn's Flare, constipation presents to the emergency department ambulatory with reports of increasing abdominal pain over the last 2 days. Patient had recently finished a prednisone taper for a Crohn flare and since the taper stopped, patient's pain has increased. Patient has also had a headache. Patient also reported take is taking more effort to urinate with constipation. Patient denies any fever, chills, nausea or vomiting. Patient has not had any diarrhea recently. Patient denies any recent travel or being exposed to someone with illness. In triage with nursing patient was tachycardic. Pain initially 10/10 and now 3/10 after receiving narcotic pain management. Patient states his parents are aware that he is here and he is being admitted. Patient currently on medical leave from his job at [employer]. patient denies any history of smoking, alcohol use, marijuana use or illicit drug use. Patient was seen by in-house surgical PA as requested per ED provider prior to requesting admission as there was question of perforated appendix on CT scan along with possible dilated and obstructive terminal ileum. After being evaluated, surgery indicated there was no surgical intervention required. Free fluid is present but there is no free air via imaging suggesting perforation. Surgery did note the possible ileus versus obstruction but stated there was no nausea or vomiting in the abdomen is nondistended on exam. Recommended GI consultation, IV steroids and pain management with monitoring. Patient does have a leukocytosis 19.2, no bandemia and normal lactic acid level. There was no evidence of blood loss. Electrolytes stable. LFTs also normal. Lipase 16. UA negative for UTI. Patient is started on vanco and Zosyn in the emergency department and that will continue. Patient received methylprednisolone 125 mg IV x1. Patient overall is feeling more comfortable but states abdomen continues to feel firm and uncomfortable. Patient being admitted for Crohn's flare and need for expert consultation with GI. Review of Systems Review of Systems: Patient is reporting abdominal pain better controlled with pain management and a firm abdomen. Patient denies any nausea, vomiting, recent diarrhea. Patient states his appetite has not been very good these past few days and does believe he has lost weight since his diagnosis of Crohn's 2 months prior. Patient denies any chest pain or shortness of breath. Patient is reporting a mild headache that has persisted over the last 2 days. Patient denies any visual changes or difficulty swallowing. Yes all other systems are reviewed and are negative [facility] Medical History (Updated 05/01/25 @ 04:30 by NOBLE Willis) Constipation Norovirus Crohn's disease of both small and large intestine Asthma Crohn's disease Cognitive capacity: Alert and orientated x3 Functional capacity: independent ambulation Pertinent family history: Mother and father alive and well Surgical History History of surgery Social History (Updated 05/01/25 @ 04:26 by NOBLE Willis) Household Members: Family Housing: Apartment Do you presently have visiting nurse or other home services: No Alcohol intake: never Patient Tobacco Use Status: Never used Tobacco service: No Ebola Risk: Travel/Contact With Anyone From Affected Area/s: No Has Patient Experienced Ebola Symptoms: No Meds Allergies Allergy/AdvReac Type Severity Reaction Status Date / Time Seasonal Allergies Allergy Unknown Verified 04/30/25 22:43 Active Medications: Current Medications Acetaminophen (Acetaminophen 325 Mg Tablet) 650 mg PO Q6H PRN PRN Reason: Pain, Mild 1-3,fever,headache Albuterol/Ipratropium (Albuterol/Iprat 2.5/0.5mg 3 Ml Ampul.Neb) 3 ml INHALE Q4H PRN PRN Reason: Shortness of Breath/Wheezing Calcium Carbonate (Calcium Carbonate 750 Mg Tab.Chew) 750 mg PO Q4H PRN PRN Reason: Heartburn Enoxaparin Sodium (Enoxaparin Sodium 40 Mg/0.4 Ml Syringe) 40 mg SUBCUT Q24H PADMAJA Piperacillin Sod/Tazobactam (Sod 3.375 gm/ Sodium Chloride) 50 mls @ 100 mls/hr IV Q6H PADMAJA Magnesium Hydroxide (Milk Of Magnesia 30 Ml Oral.Susp) 30 ml PO DAILY PRN PRN Reason: Constipation Melatonin (Melatonin 3 Mg Tablet) 6 mg PO BEDTIME PRN PRN Reason: Insomnia Methylprednisolone Sodium Succinate (Methylprednisolone Sod Succ 125 Mg/2 Ml Vial) 80 mg IVPUSH Q12H PADMAJA Ondansetron HCl (Ondansetron Hcl 4 Mg/2 Ml Vial) 4 mg IVPUSH Q8H PRN PRN Reason: Nausea and Vomiting Pharmacy Consult (Consult Rx Vancomycin Dosing) 1 each MISCELLANE DAILY PRN PRN Reason: Consult order Polyethylene Glycol (Polyethylene Glycol 3350 17 Gm Powd.Pack) 17 gm PO DAILY PRN PRN Reason: Constipation Sodium Chloride (0.9 % Sodium Chloride Flush 3 Ml Syringe) 3 ml IVFLUSH QSHIFT [facility] Home Medications ?Medication ?Instructions ?Recorded ?Confirmed ?Last Taken ?Type prednisone 5 mg tablet 5 mg PO DAILY crohns 03/29/25 03/29/25 03/21/25 History Held on 03/31/25. Instructions: Resume on 04/08/25. Please resume after seeing GI outpatient Dr. Jones risankizumab-rzaa 60 mg/mL 600 mg IV Q4W 03/29/25 03/29/25 03/25/25 History intravenous solution (Skyrizi) Physical Exam Vital Signs and Narrative: Vital Signs: Last Vital Signs Temp 98.9 F 05/01/25 00:16 Pulse 85 05/01/25 03:36 Resp 18 05/01/25 03:36 BP 102/55 L 05/01/25 03:36 Pulse Ox 96 05/01/25 03:36 O2 Del Method Room Air 05/01/25 03:36 BMI result Body Mass Index 16.3 Alert and orientated X3, able to give good history. Appears mildly distressed from pain. Neuro: CN II-X11 intact, no deficits, visual acuity intact EYES: PERRLA, EOM intact, sclerae nonicteric ENT: hearing intact, no issues with swallowing, uvula midline, lips moist, nares patent no epistaxis Cardiac: S1 S2 RRR, no murmur, no JVD, no edema in Lower ext Pulmonary: lungs diminished bilaterally Abdominal: BS active in all 4 quadrants, mild guarding, moderaye tenderness, no rebounding, abdomen not distended but firm MSK: strength 5/5 upper and lower extremities : no CVA tenderness no bladder distension Extremities: no edema in lower extremities, PT and DP pulses palpable +2 Psych: mood stable, judgement and insight good Skin: No new rashes or lesions Results Labs 04/30/25 23:02 04/30/25 23:02 Labs: Laboratory Results - last 24 hr 04/30/25 05/01/25 05/01/25 23:02 01:09 01:32 MCV 81.5 MCH 27.1 MCHC 33.3 RDW 14.0 Plt Count 242 D MPV 8.2 L Immature Gran % (Auto) 0.5 H Neut % (Auto) 81.0 H Lymph % (Auto) 10.0 L [place] % (Auto) 8.0 Eos % (Auto) 0.3 Baso % (Auto) 0.2 Lymph # (Auto) 1.9 [place] # (Auto) 1.5 H Eos # (Auto) 0.1 Baso # (Auto) 0.0 Abs Immat Gran (auto) 0.09 H Absolute Neuts (auto) 15.6 H Absolute Nucleated RBC 0.000 Nucleated RBC % (auto) 0.0 Smear Tech's Comments VERIFIED Anion Gap 10 L Estim Creat Clear Calc 99.1 Estimated GFR > 60 Random Glucose 113 Lactic Acid 0.6 Calcium 10.0 Magnesium 2.0 Total Bilirubin 0.7 AST 20 ALT 23 Alkaline Phosphatase 63 Total Protein 7.4 Albumin 3.9 Lipase 16 Urine Color Yellow Urine Appearance Clear Urine pH 6.0 Ur Specific [place] >= 1.030 H Urine Protein Trace Urine Glucose (UA) Negative Urine Ketones Negative Urine Blood Negative Urine Nitrite Negative Ur Leukocyte Esterase Negative ECG Prior ECG tracings: not available for review Imaging Radiologist's Impressions: CT abdomen and pelvis IMPRESSION: 1. Severe inflammatory changes in the lower abdomen in the pelvis nonspecific. Differential considerations include manifestations of the ruptured appendicitis. Findings of inflammatory bowel disease also considered. Manifestations of the inflammatory bowel disease such as acute and/or recurrent manifestations of the Crohn's disease are considered by imaging. 2. Nonspecific ventral lower bowel dilatation favored to represent dilated and obstructed terminal ileum. Assessment and Plan (1) Acute Crohn's disease: Qualifiers: Digestive disease complication type: other complication Qualified Code(s): K50.918 - Crohn's disease, unspecified, with other complication Status: Acute (2) Ileus: Status: Acute (3) Weight loss: Status: Acute Plan Patient is a 19-year-old male, Lao speaking, with past medical history recent Crohn's diagnosis 2 months prior now on Skyrizi, mesalamine and a recent prednisone taper, asthma, weight loss since diagnosis, norovirus 04/10 with Crohn's Flare, constipation presents to the emergency department ambulatory with reports of increasing abdominal pain over the last 2 days. Patient had recently finished a prednisone taper for a Crohn flare and since the taper stopped, patient's pain has increased. Patient is being admitted with acute Crohn's disease flare, ileus versus bowel obstruction and weight loss since original diagnosis 2 months prior. Acute Crohn's flare GI consulted Methylprednisolone 80 b.i.d.. Patient received 125 IV in the ED Pain management with Dilaudid effective NPO IV fluids running Patient is started on vanco and Zosyn in the ED noted leukocytosis of 19, UA negative for UTI Surgical consult appreciated: Per surgery no surgical intervention at this time indicated Stool panel ordered in case patient has an episode of diarrhea, admission in March for norovirus Ileus versus bowel obstruction/ recent constipation Noted via CT scan and General surgery, no intervention required as patient is not experiencing any nausea or vomiting and there is no evidence of perforation NPO for bowel rest No indication for NG tube as patient is not experiencing nausea or vomiting Patient currently requires narcotics for pain management for the above Crohn's flare Upgrade bowel regimen when tolerated Burning and hesitancy with urination UA negative for UTI Maybe secondary to excessive inflammation in the pelvic area Bladder scan as needed No current indication for straight cath as patient has been able to void since arrival Weight loss since original diagnosis 2 months prior Nutritional consultation placed Patient currently NPO Daily weights Asthma Patient currently asymptomatic Duo nebs p.r.n. No evidence of hypoxia or need for oxygen DVT prophylaxis: Lovenox Med rec pending Full code status Patient requires inpatient admission for at least 2 midnights for IV antibiotics, expert consultation with GI and surgery and for IV pain management for acute Crohn's flare with abnormal CT scan. Quality Stroke Does the patient have a stroke diagnosis?: No Reason for No Anti-thrombotic by Day Two: N/A - Med Ordered VTE Prior VTE?: No VTE Risk Level:: Medical - moderate - high VTE Device Contraindication: N/A - Device Ordered VTE Drug Contraindication: N/A - Med Ordered
[2025-05-01 04:35] LABS: Hematocrit 34.4 % (42.0-52.0); Hemoglobin 11.1 g/dl (14.0-18.0); Mean Corpuscular HGB Conc 32.3 g/dl (31.0-36.0); Mean Corpuscular Hemoglobin 26.5 pg (27.0-33.0); Mean Corpuscular Volume 82.1 fL (80.0-98.0); NRBC Abs Auto 0.000 X10*3/uL (0.0-0.012); NRBC Pct Auto 0.0 /100WBC (0.0-0.2); Platelet Count 184 X10*3/uL (160-400); Red Blood Count 4.19 X10*6/uL (4.60-5.80); White Blood Count 14.5 X10*3/uL (4.8-10.8)
[2025-05-01 04:58] LABS: Alanine Aminotransferase 12 U/L (0-40); Albumin Level 2.8 g/dL (3.5-5.0); Alkaline Phosphatase 52 U/L (39-117); Anion Gap 11 (12-20); Aspartate Amino Transferase 16 U/L (5-37); Blood Urea Nitrogen 9 mg/dL (9-16); Calcium 8.1 mg/dL (8.4-10.2); Carbon Dioxide 23 mmol/L (22-29); Chloride 106 mmol/L (96-108); Creatinine Clr Calc Pharmacy 129.3; Estimated Glomerular Filt Rate > 60; Potassium 4.1 mmol/L (3.3-5.1); Sodium 136 mmol/L (135-145); Total Protein 5.6 g/dL (6.5-8.0)
--- NOTE | 2025-05-01 07:22 | PC.NURSE ---
Addendum entered by Ivy Bronson RN 05/01/25 07:23: patient has D5NS running 100ml/hr Original Note: assumed care of patient at 0700, patient is currently asleep, resp even and unlabored. VSS at this time. patient appears to be in no acute distress.
--- NOTE | 2025-05-01 07:52 | PHA.MEDREC ---
Pharmacy Consult ? Medication Reconciliation Pharmacy has completed the medication reconciliation. Spoke with patient at bedside, he states he was taking his prednisone after talking to his GI doctor, but ran out of it a few days ago. Thinks he last had his Skyrizi on 04/23/25
--- NOTE | 2025-05-01 08:33 | PM.PNGS ---
Subjective Subjective Date of Service: 05/01/25 <Ivonne Dean PA-C - Last Filed: 05/01/25 08:38> 05/01/25 <Christiano Alexander MD - Last Filed: 05/01/25 13:21> Interval history: States he is tired. Feels pain has slightly improved in severity. Denies nausea, vomiting. <Ivonne Dean PA-C - Last Filed: 05/01/25 08:38> Physical Exam Vital Signs: Vital Signs: Last Vital Signs Temp 97.8 F 05/01/25 06:12 Pulse 64 05/01/25 07:22 Resp 16 05/01/25 07:22 BP 93/56 L 05/01/25 07:22 Pulse Ox 96 05/01/25 07:22 O2 Del Method Room Air 05/01/25 07:22 BMI result Body Mass Index 16.3 <Ivonne Dean PA-C - Last Filed: 05/01/25 08:38> Const: Other: more comfortable appearing <Ivonne Dean PA-C - Last Filed: 05/01/25 08:38> General: no acute distress and alert <Ivonne Dean PA-C - Last Filed: 05/01/25 08:38> Orientation/consciousness: patient oriented x3 <Ivonne Dean PA-C - Last Filed: 05/01/25 08:38> Resp: Effort & Inspection: normal respiratory effort <Ivonne Dean PA-C - Last Filed: 05/01/25 08:38> GI: Other: abd soft, remains markedly tender in the lower abdomen R >L with voluntary guarding but somewhat improved <Ivonne Dean PA-C - Last Filed: 05/01/25 08:38> Inspection: No distended <YOANA Nascimento Last Filed: 05/01/25 08:38> Percussion: Yes normal to percussion <YOANA Nascimento Last Filed: 05/01/25 08:38> Skin: General skin exam: no rashes or lesions noted <YOANA Nascimento Last Filed: 05/01/25 08:38> Neuro: General: patient oriented x3 and moves all extremities <Ivonne Dean PA-C - Last Filed: 05/01/25 08:38> Objective Data Active Medications Acetaminophen (Acetaminophen 325 Mg Tablet) 650 mg PO Q6H PRN PRN Reason: Pain, Mild 1-3,fever,headache Last Admin: 05/01/25 07:40 Dose: 650 mg Documented By: LEESA Albuterol/Ipratropium (Albuterol/Iprat 2.5/0.5mg 3 Ml Ampul.Neb) 3 ml INHALE Q4H PRN PRN Reason: Shortness of Breath/Wheezing Calcium Carbonate (Calcium Carbonate 750 Mg Tab.Chew) 750 mg PO Q4H PRN PRN Reason: Heartburn Enoxaparin Sodium (Enoxaparin Sodium 40 Mg/0.4 Ml Syringe) 40 mg SUBCUT Q24H PADMAJA Piperacillin Sod/Tazobactam (Sod 3.375 gm/ Sodium Chloride) 50 mls @ 100 mls/hr IV Q6H [facility] Last Infusion: 05/01/25 05:58 Dose: Infused Documented By: YASIR Dextrose/Sodium Chloride (D5ns) 1,000 mls @ 100 mls/hr IVCONT .Q10H [facility] Last Admin: 05/01/25 05:27 Dose: 100 mls/hr Documented By: YASIR Magnesium Hydroxide (Milk Of Magnesia 30 Ml Oral.Susp) 30 ml PO DAILY PRN PRN Reason: Constipation Melatonin (Melatonin 3 Mg Tablet) 6 mg PO BEDTIME PRN PRN Reason: Insomnia Mesalamine (Mesalamine 400 Mg Cap.Drtab.) 400 mg PO QID PADMAJA Methylprednisolone Sodium Succinate (Methylprednisolone Sod Succ 125 Mg/2 Ml Vial) 80 mg IVPUSH Q12H PADMAJA Ondansetron HCl (Ondansetron Hcl 4 Mg/2 Ml Vial) 4 mg IVPUSH Q8H PRN PRN Reason: Nausea and Vomiting Polyethylene Glycol (Polyethylene Glycol 3350 17 Gm Powd.Pack) 17 gm PO DAILY PRN PRN Reason: Constipation Sodium Chloride (0.9 % Sodium Chloride Flush 3 Ml Syringe) 3 ml IVFLUSH QSHIFT [facility] Last Admin: 05/01/25 08:20 Dose: Not Given Documented By: HO.PROVENC Non-Admin Reason: IV Running <Ivonne Dean PA-C - Last Filed: 05/01/25 08:38> Labs CBC & Chem 7: 05/01/25 04:10 05/01/25 04:10 <Ivonne Dean PA-C - Last Filed: 05/01/25 08:38> Labs: Laboratory Results - last 24 hr 04/30/25 05/01/25 05/01/25 23:02 01:09 01:32 MCV 81.5 MCH 27.1 MCHC 33.3 RDW 14.0 Plt Count 242 D MPV 8.2 L Immature Gran % (Auto) 0.5 H Neut % (Auto) 81.0 H Lymph % (Auto) 10.0 L [place] % (Auto) 8.0 Eos % (Auto) 0.3 Baso % (Auto) 0.2 Lymph # (Auto) 1.9 [place] # (Auto) 1.5 H Eos # (Auto) 0.1 Baso # (Auto) 0.0 Abs Immat Gran (auto) 0.09 H Absolute Neuts (auto) 15.6 H Absolute Nucleated RBC 0.000 Nucleated RBC % (auto) 0.0 Smear Tech's Comments VERIFIED Anion Gap 10 L Estim Creat Clear Calc 99.1 Estimated GFR > 60 Random Glucose 113 Lactic Acid 0.6 Calcium 10.0 Magnesium 2.0 Total Bilirubin 0.7 AST 20 ALT 23 Alkaline Phosphatase 63 Total Protein 7.4 Albumin 3.9 Lipase 16 Urine Color Yellow Urine Appearance Clear Urine pH 6.0 Ur Specific [place] >= 1.030 H Urine Protein Trace Urine Glucose (UA) Negative Urine Ketones Negative Urine Blood Negative Urine Nitrite Negative Ur Leukocyte Esterase Negative 05/01/25 04:10 MCV 82.1 MCH 26.5 L MCHC 32.3 RDW 13.9 Plt Count 184 MPV 8.7 L Immature Gran % (Auto) Neut % (Auto) Lymph % (Auto) [place] % (Auto) Eos % (Auto) Baso % (Auto) Lymph # (Auto) [place] # (Auto) Eos # (Auto) Baso # (Auto) Abs Immat Gran (auto) Absolute Neuts (auto) Absolute Nucleated RBC 0.000 Nucleated RBC % (auto) 0.0 Smear Tech's Comments Anion Gap 11 L Estim Creat Clear Calc 129.3 Estimated GFR > 60 Random Glucose 101 Lactic Acid Calcium 8.1 L D Magnesium Total Bilirubin 0.7 AST 16 ALT 12 Alkaline Phosphatase 52 Total Protein 5.6 L Albumin 2.8 L Lipase Urine Color Urine Appearance Urine pH Ur Specific [place] Urine Protein Urine Glucose (UA) Urine Ketones Urine Blood Urine Nitrite Ur Leukocyte Esterase <Ivonne Dean PA-C - Last Filed: 05/01/25 08:38> Procedures Date of Service Date of Service: 05/01/25 <Ivonne Dean PA-C - Last Filed: 05/01/25 08:38> 05/01/25 <Christiano Alexander MD - Last Filed: 05/01/25 13:21> Progress Note: A&P Assessment and plan (1) Acute Crohn's disease: Status: Acute <Ivonne Dean PA-C - Last Filed: 05/01/25 08:38> Assessment and Plan: Admitted early this morning with Crohns flare with significant inflammatory changes of TI, cecum, sigmoid and even involving bladder. More comfortable appearing this morning, abd exam slightly improved. Cont conservative measures with IV abx steroids fluids. GI consult. Will continue to follow. <Ivonne Dean PA-C - Last Filed: 05/01/25 08:38> Admitted early this morning with Crohns flare with significant inflammatory changes of TI, cecum, sigmoid and even involving bladder. More comfortable appearing this morning, abd exam slightly improved. Cont conservative measures with IV abx steroids fluids. GI consult. Will continue to follow. Patient seen and examined and I agree with the above assessment and plan. Overall patient feels improved today after receiving Tylenol. Await GI evaluation. <Christiano Alexander MD - Last Filed: 05/01/25 13:21> Time Spent With Patient Time: Total time managing care of this patient today ____ minutes. <Ivonne Dean PA-C - Last Filed: 05/01/25 08:38> Quality Stroke Does the patient have a stroke diagnosis?: No <YOANA Nascimento Last Filed: 05/01/25 08:38> Reason for No Anti-thrombotic by Day Two: N/A - Med Ordered <Ivonne Dean PA-C - Last Filed: 05/01/25 08:38> VTE Prior VTE?: No <YOANA Nascimento Last Filed: 05/01/25 08:38> VTE Risk Level:: Medical - moderate - high <YOANA Nascimento Last Filed: 05/01/25 08:38> VTE Device Contraindication: N/A - Device Ordered <YOANA Nascimento Last Filed: 05/01/25 08:38> VTE Drug Contraindication: N/A - Med Ordered <YOANA Nascimento Last Filed: 05/01/25 08:38>
--- NOTE | 2025-05-01 13:25 | PC.NURSE ---
Addendum entered by Ivy Bronson RN 05/01/25 13:51: patient advanced to clear liquids, kitchen called to get patient something to eat Original Note: patient remains in the ED, resting quietly, ambulates to the bathroom as needed. patient requested something to eat, currently npo, asked patient attending if diet could be advanced to clear liquids. awaiting plan. informed patient
--- NOTE | 2025-05-01 14:42 | PC.NURSE ---
patient tolerated clear liquids
--- NOTE | 2025-05-01 16:19 | PM.EVENT ---
Event Note Date of Service: 05/02/25 Event Note: Patient was admitted this morning-seen and examined by the hospitalist team. Seen and examined again this morning Abdominal pain somewhat improving Rest of the management as per H&P Added clear liquids Continue IV steroids GI evaluation pending Time Spent With Patient Time: Total time managing care of this patient today ____ minutes.
--- NOTE | 2025-05-01 16:38 | PM.EVENT ---
Event Note Date of Service: 05/01/25 Event Note: GI Consult-Full note dictated-History from patient and EMR. Imp: 19 yo with a known history of Crohn's disease of the rectum, sigmoid colon, cecum, and TI diagnosed in 01/[address] scan and clinical history, and confirmed on his 02/2025 colonoscopy. He presents with worsening symptoms after completion of a steroid taper just within the past couple of days or so. His course is c/w refractory Crohn's and relapses after steroid tapers. There does not appear to be an infectious process at this time. He is feeling better with the high dose IV methylprednisolone. He has received the first 2 of 3 of his Skyrizi infusions in Mar 2025 and then earlier this month, with the 3rd one scheduled for early May. After that he will begin the every 8 week SQ injection regimen. He does not seem to have any component of a bowel obstruction or intraabdominal infection at this time. He does have some mild diffuse tenderness, but the abdominal exam is otherwise benign. Rec: Supportive care, IV steroids, continue his outpatient Mesalamine regimen of Pentasa 1Gm QID, and clear liquids. If things continue to improve I would recommend advancing his diet to a low residue, low roughage, and lactose-free diet in the next 24 to 48, hours and then switching him over to 40mg prednisone daily. He does have a new Prednisone Rx waiting for him in [place] [facility] with a tapering regimen as well. I told him to tell his mom to grape picker the Rx on Monday before the [facility]. If his cultures remain negative I would recommend stopping the antibiotic. I will follow him up in the office as well. I don't think he needs any endoscopic studies at this time. I will follow him with you while he is here. Please call if problems or questions arise. D/W patient in detail and he is comfortable with this plan.Thanks Time Spent With Patient Time: Total time managing care of this patient today ____ minutes.
--- NOTE | 2025-05-01 16:56 | HO.NURTONUR ---
Bill is a 19M full code who presented to the ED with increased abd pain x2days. patient has new diagnosis of chrons 2 months ago with weight loss. CT showed question of perf appy. patient Admit for chrons flare, plan for IVP steroids, fluids, abx. patient able to have clear liquids at this time. patient has bilat #20 IV. ambulates to the bathroom with steady hgait, alert and oriented x3
[2025-05-01] MEDS: 0.9 % Sodium Chloride Flush 3 ML SYRINGE IVFLUSH (23:00)
[2025-05-02 03:36] VITALS: BP 131/64; PULSE 70; RESP 16; TEMP 36.8; O2SAT 97
--- NOTE | 2025-05-02 03:40 | CONS_ITS ---
DATE OF SERVICE: 05/01/2025 REASON FOR CONSULTATION: Crohn's disease and abdominal pain. HISTORY OF PRESENT ILLNESS: This is a 19-year-old male well known to me with the diagnosis of Crohn's disease in January of 2025. At that time, he presented with abdominal pain and imaging studies revealed what appeared to be Crohn's disease of the small bowel. He was ultimately treated with IV steroids in the hospital with improvement in his symptoms. He was started on outpatient Pentasa as well as a prednisone taper and underwent colonoscopy in February of 2025 with the finding of ileitis and Crohn's disease changes in the cecum, sigmoid colon and rectum. Subsequent to that, he has remained on his Pentasa, and prednisone to 1 degree or another. Thus far, he has not really been able to be tapered off prednisone due to flare-ups of his symptoms with abdominal pain. Due to the severity of his symptoms, refractory nature to steroids, and the abnormal CT scan in the past, he was started on Skyrizi as a biologic agent to try to maximally treat this and hopefully obtain improvement in his symptoms with remission such that he can be eventually tapered off prednisone. He received the 1st infusion of the Skyrizi in March and a 2nd dose just last week. He is scheduled for the 3rd and final infusion in May and we will then begin a regimen of subcutaneous injections every 8 weeks. He was readmitted to the hospital last night as he developed increasing abdominal pain within just a couple of days of coming off prednisone. He does find that when he is on the higher dose of prednisone such as 30 or 40 mg, things are definitely better. This time, he actually felt fairly well up until stopping the prednisone completely. He has been having some increasing lower abdominal pain. He has been afebrile. He denies any associated diarrhea, hematochezia, or melena. There is no reported vomiting. He denies any signs of jaundice. He has not been using any NSAIDs at home. In the ER, he underwent imaging with CT scan. This described known changes of the Crohn's in the terminal ileum, proximal ascending colon, sigmoid colon and rectum. He has been on IV methylprednisolone since admission and does feel that things are definitely somewhat improved. He has been tolerating a liquid diet. He has not had any bowel movements here in the hospital. He denies any urinary symptoms such as hematuria or dysuria. He reports that he has been eating fairly well at home, although has been on a fairly soft and bland diet. He denies use of any chronic NSAIDs at home. There is no family history of inflammatory bowel disease or GI malignancy. He has not been on any recent antibiotics at home. He denies any travel, nor ill contacts. MEDICATIONS: At home included the Pentasa 1 g q.i.d, Skyrizi, and the just completed prednisone. PAST MEDICAL HISTORY: Crohn's disease as above. Asthma. He denies history of [place], diabetes, stroke, nor renal disease. SURGICAL HISTORY: Negative. FAMILY HISTORY: No family history of colorectal cancer. No inflammatory bowel disease. SOCIAL HISTORY: He does not smoke. He does not use any significant amounts of alcohol. He has been working at [employer], but has had to stop that since the diagnosis of his Crohn disease. He is single. REVIEW OF SYSTEMS: CONSTITUTIONAL: He has been feeling somewhat poorly at home with some fatigue and relative anorexia. SKIN: No rash. No pruritus. CARDIAC: No chest pain. PULMONARY: No cough or hemoptysis. GI: As above. URINARY: No dysuria. No hematuria. NEUROLOGIC: No headache or seizures. PHYSICAL EXAMINATION: GENERAL: The patient is a thin, pleasant, alert male, in no distress. He answers questions appropriately. He gives a good history. HEENT: Anicteric sclerae. Moist mucous membranes. NECK: Supple. CHEST: Clear. CARDIAC: Normal S1, S2. ABDOMEN: Soft, nondistended, but with diminished bowel sounds and some mild diffuse tenderness. There is no mass or rebound. EXTREMITIES: Without edema. LABORATORY DATA: His CT scan describes some inflammatory changes in the lower abdomen including the sigmoid colon, cecal area, rectum, and the terminal ileum. There was no sign of bowel obstruction nor any intraabdominal abscess. White blood cell count on admission was 19.2 and this morning was 14.5. Hemoglobin 11.1, MCV 82, platelets 184,000. Normal electrolytes. BUN 9, creatinine 0.7. LFTs normal. Lipase was 16. His CT scan of the abdomen and pelvis done today described the above-mentioned changes consistent with his Crohn's disease, but no evidence of any bowel obstruction nor any definitive intraabdominal infection. IMPRESSION: The patient is a 19-year-old male with significant Crohn's disease that has been refractory to medical therapy and not allowing a taper of prednisone due to recurrent symptoms. At this point, he does not appear to be toxic and there is no sign of any bowel obstruction nor intraabdominal abscess. Therefore, I would continue supportive care with IV steroids, IV fluids, and n.p.o. except for clear liquids. If his cultures and stool specimens all remain negative for any infection, I would then stop the IV antibiotics. He will continue his outpatient regimen of the mesalamine Pentasa 1 g q.i.d. If things continue to improve, I would recommend advancing his diet to a low residue, low roughage and lactose-free diet in the next 24 to 48 hours. I would recommend his prednisone be switched to the 40 mg oral prednisone dose once things have improved and are stabilized. His diet can be advanced as well to low residue, low roughage and lactose-free. If things continue to improve hopefully he can be discharged within the next couple of days. He will be getting his 3rd and final Skyrizi infusion in early May and we will then begin the every 8 week subcutaneous shot at home. I did review all this in detail with the patient. He was comfortable with this plan. Thank you for the consultation. MD ELAINE Massey/LEYDI / [phone] VALERIE
[2025-05-02 06:11] LABS: MANUAL DIFF FLAG NO
[2025-05-02 06:14] LABS: Hematocrit 31.9 % (42.0-52.0); Hemoglobin 10.6 g/dl (14.0-18.0); Imm Gran Abs Auto 0.06 X10*3/uL (0.00-0.03); Imm Gran Pct Auto 0.6 % (0.0-0.4); Lymphocytes Absolute Auto 0.8 X10*3/uL (1.2-4.9); Mean Corpuscular HGB Conc 33.2 g/dl (31.0-36.0); Mean Corpuscular Hemoglobin 27.0 pg (27.0-33.0); Mean Corpuscular Volume 81.4 fL (80.0-98.0); NRBC Abs Auto 0.000 X10*3/uL (0.0-0.012); NRBC Pct Auto 0.0 /100WBC (0.0-0.2); Platelet Count 171 X10*3/uL (160-400); Red Blood Count 3.92 X10*6/uL (4.60-5.80); White Blood Count 9.7 X10*3/uL (4.8-10.8)
[2025-05-02 06:26] LABS: Anion Gap 12 (12-20); Blood Urea Nitrogen 5 mg/dL (9-16); Calcium 8.7 mg/dL (8.4-10.2); Carbon Dioxide 25 mmol/L (22-29); Chloride 106 mmol/L (96-108); Creatinine Clr Calc Pharmacy 182.5; Estimated Glomerular Filt Rate > 60; Potassium 3.7 mmol/L (3.3-5.1); Sodium 139 mmol/L (135-145)
--- NOTE | 2025-05-02 07:29 | PM.PNGS ---
Subjective Subjective Date of Service: 05/02/25 Interval history: Feels better, currently denies any abd pain. passing flatus and tolerating liquids. Physical Exam Vital Signs: Vital Signs: Last Vital Signs Temp 98.2 F 05/02/25 03:36 Pulse 70 05/02/25 03:36 Resp 16 05/02/25 03:36 BP 131/64 05/02/25 03:36 Pulse Ox 97 05/02/25 03:36 O2 Del Method Room Air 05/02/25 03:36 BMI result Body Mass Index 17.4 Const: General: comfortable, no acute distress and alert Orientation/consciousness: patient oriented x3 Resp: Effort & Inspection: normal respiratory effort GI: Inspection: No distended Palpation (GI): Soft to palpation, Tenderness to palpation present (GI) (mild lower abd tenderness, improved ), no guarding and not rigid Percussion: Yes normal to percussion Skin: General skin exam: no rashes or lesions noted Neuro: General: patient oriented x3 and moves all extremities Objective Data Active Medications Acetaminophen (Acetaminophen 325 Mg Tablet) 650 mg PO Q6H PRN PRN Reason: Pain, Mild 1-3,fever,headache Last Admin: 05/01/25 07:40 Dose: 650 mg Documented By: LEESA Albuterol/Ipratropium (Albuterol/Iprat 2.5/0.5mg 3 Ml Ampul.Neb) 3 ml INHALE Q4H PRN PRN Reason: Shortness of Breath/Wheezing Calcium Carbonate (Calcium Carbonate 750 Mg Tab.Chew) 750 mg PO Q4H PRN PRN Reason: Heartburn Enoxaparin Sodium (Enoxaparin Sodium 40 Mg/0.4 Ml Syringe) 40 mg SUBCUT Q24H [facility] Last Admin: 05/01/25 10:47 Dose: Not Given Documented By: LEESA Non-Admin Reason: Patient Refused Piperacillin Sod/Tazobactam (Sod 3.375 gm/ Sodium Chloride) 50 mls @ 100 mls/hr IV Q6H [facility] Last Infusion: 05/02/25 05:17 Dose: Infused Documented By: SUKUMAR Dextrose/Sodium Chloride (D5ns) 1,000 mls @ 100 mls/hr IVCONT .Q10H [facility] Last Admin: 05/02/25 00:55 Dose: 100 mls/hr Documented By: SUKUMAR Magnesium Hydroxide (Milk Of Magnesia 30 Ml Oral.Susp) 30 ml PO DAILY PRN PRN Reason: Constipation Melatonin (Melatonin 3 Mg Tablet) 6 mg PO BEDTIME PRN PRN Reason: Insomnia Mesalamine (Mesalamine 250 Mg Capsule.Er) 1,000 mg PO QID [facility] Last Admin: 05/01/25 21:01 Dose: 1,000 mg Documented By: SUKUMAR Methylprednisolone Sodium Succinate (Methylprednisolone Sod Succ 125 Mg/2 Ml Vial) 80 mg IVPUSH Q12H [facility] Last Admin: 05/01/25 22:54 Dose: 80 mg Documented By: SUKUMAR Ondansetron HCl (Ondansetron Hcl 4 Mg/2 Ml Vial) 4 mg IVPUSH Q8H PRN PRN Reason: Nausea and Vomiting Polyethylene Glycol (Polyethylene Glycol 3350 17 Gm Powd.Pack) 17 gm PO DAILY PRN PRN Reason: Constipation Sodium Chloride (0.9 % Sodium Chloride Flush 3 Ml Syringe) 3 ml IVFLUSH QSHIFT [facility] Last Admin: 05/01/25 23:00 Dose: 3 ml Documented By: SUKUMAR Labs 05/02/25 05:44 05/02/25 05:44 Labs: Laboratory Results - last 24 hr 05/02/25 05:44 MCV 81.4 MCH 27.0 MCHC 33.2 RDW 13.8 Plt Count 171 MPV 8.7 L Immature Gran % (Auto) 0.6 H Neut % (Auto) 87.6 H Lymph % (Auto) 7.9 L [place] % (Auto) 3.7 Eos % (Auto) 0.1 Baso % (Auto) 0.1 Lymph # (Auto) 0.8 L [place] # (Auto) 0.4 Eos # (Auto) 0.0 Baso # (Auto) 0.0 Abs Immat Gran (auto) 0.06 H Absolute Neuts (auto) 8.5 H Absolute Nucleated RBC 0.000 Nucleated RBC % (auto) 0.0 Anion Gap 12 Estim Creat Clear Calc 182.5 Estimated GFR > 60 Fasting Glucose 188 H Calcium 8.7 D Microbiology Microbiology Results: Microbiology 05/01/25 01:09 Blood Culture - Preliminary Blood - Venous No growth after 24 hours. 05/01/25 01:09 Blood Culture - Preliminary Blood - Venous No growth after 24 hours. Procedures Date of Service Date of Service: 05/02/25 Progress Note: A&P Assessment and plan (1) Acute Crohn's disease: Status: Acute Plan Overall improved. Abd benign, soft, remains tender in the lower abdomen but significantly improved. Cont supportive measures, advance diet as tolerated. Will sign off, please reconsult with clinical changes. Time Spent With Patient Time: Total time managing care of this patient today ____ minutes. Quality Stroke Does the patient have a stroke diagnosis?: No Reason for No Anti-thrombotic by Day Two: N/A - Med Ordered VTE Prior VTE?: No VTE Risk Level:: Medical - moderate - high VTE Device Contraindication: N/A - Device Ordered VTE Drug Contraindication: N/A - Med Ordered
[2025-05-02 07:46] VITALS: BP 105/58; PULSE 59; RESP 12; TEMP 36.1; O2SAT 98
--- NOTE | 2025-05-02 08:17 | HO.PM.IMPN ---
Subjective Subjective Date of Service: 05/03/25 Interval History: crohn dis flare Review of Systems Abdominal pain somewhat improving, passing gas but still did not pass the bowels Trial of diet. Review of Systems: Yes all other systems are reviewed and are negative Physical Exam Exam: Exam: Appearance: Alert.? Oriented X3. cvs: rrr, [id number] . res: clear to auscultation ,no rhonchii or wheezing abd: no rebound or guarding ,mild guarding, moderate tenderness, bs present. ext pulses present , no cyanosis . neuro: axo3 , nonfocal. Vital Signs: Vital Signs: Last Vital Signs Temp 96.9 F 05/02/25 07:46 Pulse 59 05/02/25 07:46 Resp 12 05/02/25 07:46 BP 105/58 L 05/02/25 07:46 Pulse Ox 98 05/02/25 07:46 O2 Del Method Room Air 05/02/25 07:46 BMI result Body Mass Index 17.4 Objective Data Active Medications Acetaminophen (Acetaminophen 325 Mg Tablet) 650 mg PO Q6H PRN PRN Reason: Pain, Mild 1-3,fever,headache Last Admin: 05/01/25 07:40 Dose: 650 mg Documented By: LEESA Albuterol/Ipratropium (Albuterol/Iprat 2.5/0.5mg 3 Ml Ampul.Neb) 3 ml INHALE Q4H PRN PRN Reason: Shortness of Breath/Wheezing Calcium Carbonate (Calcium Carbonate 750 Mg Tab.Chew) 750 mg PO Q4H PRN PRN Reason: Heartburn Enoxaparin Sodium (Enoxaparin Sodium 40 Mg/0.4 Ml Syringe) 40 mg SUBCUT Q24H [facility] Last Admin: 05/01/25 10:47 Dose: Not Given Documented By: LEESA Non-Admin Reason: Patient Refused Piperacillin Sod/Tazobactam (Sod 3.375 gm/ Sodium Chloride) 50 mls @ 100 mls/hr IV Q6H [facility] Last Infusion: 05/02/25 05:17 Dose: Infused Documented By: SUKUMAR Dextrose/Sodium Chloride (D5ns) 1,000 mls @ 100 mls/hr IVCONT .Q10H [facility] [place] Last Admin: 05/02/25 00:55 Dose: 100 mls/hr Documented By: SUKUMAR Magnesium Hydroxide (Milk Of Magnesia 30 Ml Oral.Susp) 30 ml PO DAILY PRN PRN Reason: Constipation Melatonin (Melatonin 3 Mg Tablet) 6 mg PO BEDTIME PRN PRN Reason: Insomnia Mesalamine (Mesalamine 250 Mg Capsule.Er) 1,000 mg PO QID [facility] Last Admin: 05/01/25 21:01 Dose: 1,000 mg Documented By: JANAKASY Methylprednisolone Sodium Succinate (Methylprednisolone Sod Succ 125 Mg/2 Ml Vial) 80 mg IVPUSH Q12H [facility] Last Admin: 05/01/25 22:54 Dose: 80 mg Documented By: JANAKASY Ondansetron HCl (Ondansetron Hcl 4 Mg/2 Ml Vial) 4 mg IVPUSH Q8H PRN PRN Reason: Nausea and Vomiting Polyethylene Glycol (Polyethylene Glycol 3350 17 Gm Powd.Pack) 17 gm PO DAILY PRN PRN Reason: Constipation Sodium Chloride (0.9 % Sodium Chloride Flush 3 Ml Syringe) 3 ml IVFLUSH QSHIFT [facility] Last Admin: 05/02/25 07:32 Dose: Not Given Documented By: KYA Non-Admin Reason: IV Running Labs 05/02/25 05:44 05/02/25 05:44 Labs: Laboratory Results - last 24 hr 05/02/25 05:44 MCV 81.4 MCH 27.0 MCHC 33.2 RDW 13.8 Plt Count 171 MPV 8.7 L Immature Gran % (Auto) 0.6 H Neut % (Auto) 87.6 H Lymph % (Auto) 7.9 L [place] % (Auto) 3.7 Eos % (Auto) 0.1 Baso % (Auto) 0.1 Lymph # (Auto) 0.8 L [place] # (Auto) 0.4 Eos # (Auto) 0.0 Baso # (Auto) 0.0 Abs Immat Gran (auto) 0.06 H Absolute Neuts (auto) 8.5 H Absolute Nucleated RBC 0.000 Nucleated RBC % (auto) 0.0 Anion Gap 12 Estim Creat Clear Calc 182.5 Estimated GFR > 60 Fasting Glucose 188 H Calcium 8.7 D Microbiology Microbiology Results: Microbiology 05/01/25 01:09 Blood Culture - Preliminary Blood - Venous No growth after 24 hours. 05/01/25 01:09 Blood Culture - Preliminary Blood - Venous No growth after 24 hours. Assessment and Plan (1) Crohn's disease of both small and large intestine: Status: Acute Plan 19-year-old male, [place] speaking, with past medical history recent Crohn's diagnosis 2 months prior now on Skyrizi, mesalamine and a recent prednisone taper, asthma, weight loss since diagnosis, norovirus 04/10 with Crohn's Flare, constipation presents to the emergency department ambulatory with reports of increasing abdominal pain over the last 2 days. Patient had recently finished a prednisone taper for a Crohn flare and since the taper stopped, patient's pain has increased. Patient is being admitted with acute Crohn's disease flare, ileus versus bowel obstruction and weight loss since original diagnosis 2 months prior. Acute Crohn's flare abd pain seems similar Passing gas is but no bowel yet Continue IV steroids, trial of diet, IV fluid, antibiotics until stool studies come back. Of note patient had norovirus in March 2025 Surgical consult appreciated: Per surgery no surgical intervention at this time indicated Ileus versus bowel obstruction/ recent constipation Noted via CT scan and General surgery, no intervention required as patient is not experiencing any nausea or vomiting and there is no evidence of perforation No indication for NG tube as patient is not experiencing nausea or vomiting avoid opoids for pain management for the above Crohn's flare Upgrade bowel regimen when tolerated Burning and hesitancy with urination UA negative for UTI Maybe secondary to excessive inflammation in the pelvic area Underweight/ Weight loss since original diagnosis 2 months prior Geriatric Assistant following Daily weights Asthma Patient currently asymptomatic Duo nebs p.r.n. No evidence of hypoxia or need for oxygen DVT prophylaxis: Lovenox ongoing need for stay:crohn dis flare ,?ielus -not improving yet ,need iv fluids ,setriods ,trial of diet. Quality Stroke Does the patient have a stroke diagnosis?: No Reason for No Anti-thrombotic by Day Two: N/A - Med Ordered VTE Prior VTE?: No VTE Risk Level:: Medical - moderate - high VTE Device Contraindication: N/A - Device Ordered VTE Drug Contraindication: N/A - Med Ordered
[2025-05-02 10:32] VITALS: BMI 17.4
--- NOTE | 2025-05-02 10:40 | MHC.CLN ---
Addendum entered by Ericka Kinney, DAVIS 05/02/25 14:57: CONSULT FOR UNDERWEIGHT. DIET CHANGED TO REGULAR, LACTOSE CONTROLLED. PATIENT AGREEABLE TO ENSURE BID. CONTINUE CURRENT DIET AND SUPPLEMENT. Original Note: NUTRITION REGULAR DIET. RECENT DX CROHN'S DISEASE. ON MEDICATION REGIMEN. PATIENT IS UNDERWEIGHT WITH BMI 17.4. KNOWN FROM PRIOR ADMISSION 03/2025. ADD ENSURE PLUS HIGH PROTEIN BID TO PROMOTE PO INTAKE. SUPPLEMENT PROVIDES 700 KCALS, 60 G PROTEIN. FOLLOW FOR PO INTAKE AND DIET TOLERANCE. SEE CLINICAL NUTRITION ASSESSMENT 05/02/25.
[2025-05-02 10:42] VITALS: BMI 17.4
--- NOTE | 2025-05-02 14:54 | P.CDIM_ITS ---
PROVIDER RESPONSE TEXT: To clarify, the appropriate diagnosis supported by the clinical indicators: Mild intermittent: mild intermittent asthma QUERY TEXT: PHYSICIAN'S DOCUMENTATION REQUEST Date of Query: 05/02/2025 08:38 AM EDT Patient Name: Bill Alaniz Admit Date: 05/01/2025 Dear Tio Chou MD, A review of the medical record indicates additional documentation may be needed. Please review below and update the documentation accordingly. The diagnosis of asthma was documented in the record on 05/01/25 . Additional clinical indicators from the record include: patient is asymptomatic Duonebs prn no need for oxygen Based on the above, please clarify in the Progress Notes further specificity regarding the type and acuity of the asthma: Mild intermittent Please specify if with or without acute exacerbation or status asthmaticus Mild persistent Please specify if with or without acute exacerbation or status asthmaticus Moderate persistent Please specify if with or without acute exacerbation or status asthmaticus Severe persistent Please specify if with or without acute exacerbation or status asthmaticus Exercise induced Please specify if with or without acute exacerbation or status asthmaticus Chronic obstructive asthma and indicate if with acute lower respiratory infection Please specify if with or without acute exacerbation or status asthmaticus Asthma with underlying COPD and indicate if with acute lower respiratory infection Please specify if with or without acute exacerbation or status asthmaticus Other (explain) Clinically unable to determine (explain) Thank you, Cynthia Sandoval RN Use of terms such as suspected, likely, concern for, or probable (associated with a specific diagnosis that is being evaluated, monitored, or treated as if it exists) are acceptable and can be coded in the inpatient setting, when documented at the time of discharge. Please use your independent medical judgment in providing your response. THIS QUERY IS PART OF THE PERMANENT MEDICAL RECORD
--- NOTE | 2025-05-02 14:54 | P.CDIM_ITS ---
PROVIDER RESPONSE TEXT: To clarify, the appropriate diagnosis supported by the clinical indicators: Underweight QUERY TEXT: PHYSICIAN'S DOCUMENTATION REQUEST Date of Query: 05/02/2025 10:26 AM EDT Patient Name: Bill Alaniz Admit Date: 05/01/2025 Dear Tio Chou MD, A review of the medical record indicates additional documentation may be needed. Please review below and update the documentation accordingly. Clinical Indicators: Height: ( ) 5'11 Weight: ( ) 56.5 kg BMI: ( ) 17.4 Other Clinical Notes Supporting Significance of the BMI: cachectic no nutrition assessment If possible, please provide an associated diagnosis related to the abnormal BMI, such as: Underweight Weight loss Cachexia Moderate protein calorie malnutrition Severe protein calorie malnutrition Other (explain) Clinically unable to determine (explain) Thank you, Cynthia Sandoval RN Use of terms such as suspected, likely, concern for, or probable (associated with a specific diagnosis that is being evaluated, monitored, or treated as if it exists) are acceptable and can be coded in the inpatient setting, when documented at the time of discharge. Please use your independent medical judgment in providing your response. THIS QUERY IS PART OF THE PERMANENT MEDICAL RECORD
[2025-05-02 16:00] VITALS: BP 131/67; PULSE 105; RESP 20; TEMP 36.6; O2SAT 105
--- NOTE | 2025-05-02 16:00 | MHC.CM.PN ---
DX Chrons Flare Lives w Mother + Brother Independent with all functional mobility. PCP Patrica Martínez Declined offer to document a HCP. DP Home self care [place] [facility] [facility]
[2025-05-02 16:55] VITALS: PULSE 95
[2025-05-02] MEDS: 0.9 % Sodium Chloride Flush 3 ML SYRINGE IVFLUSH ×2 (17:54→22:51)
[2025-05-02 18:25] LABS: CDiff Gene PCR POSITIVE (Negative)
[2025-05-02 18:32] LABS: CDIFF Internal ctrl Dots and bkg OK (V); CDiff Toxin Negative (Negative)
--- NOTE | 2025-05-02 19:30 | PM.GIPN ---
Subjective Subjective Date of Service: 05/02/25 Interval History: He reports feeling much better today. Tolerating a soft diet. He had 2 loose/soft BM's today. He reports that his pain is less. Denies N/V. Critical Care Time (minutes): 0 Physical Exam Vital Signs: Vital Signs: Last Vital Signs Temp 97.9 F 05/02/25 16:00 Pulse 95 05/02/25 16:55 Resp 20 05/02/25 16:00 BP 131/67 05/02/25 16:00 Pulse Ox 105 H 05/02/25 16:00 O2 Del Method Room Air 05/02/25 16:00 BMI result Body Mass Index 17.4 Const: General: cooperative, healthy appearing, comfortable, no acute distress, alert, awake and Physically active GI: Other: Abd-soft, Nondistended, +BS, Mild RLQ tenderness to palpation, no mass Objective Data Labs 05/02/25 05:44 05/02/25 05:44 Labs: Laboratory Results - last 24 hr 05/02/25 05/02/25 05:44 16:20 WBC 9.7 RBC 3.92 L Hgb 10.6 L Hct 31.9 L MCV 81.4 MCH 27.0 MCHC 33.2 RDW 13.8 Plt Count 171 MPV 8.7 L Immature Gran % (Auto) 0.6 H Neut % (Auto) 87.6 H Lymph % (Auto) 7.9 L [place] % (Auto) 3.7 Eos % (Auto) 0.1 Baso % (Auto) 0.1 Lymph # (Auto) 0.8 L [place] # (Auto) 0.4 Eos # (Auto) 0.0 Baso # (Auto) 0.0 Abs Immat Gran (auto) 0.06 H Absolute Neuts (auto) 8.5 H Absolute Nucleated RBC 0.000 Nucleated RBC % (auto) 0.0 Sodium 139 Potassium 3.7 Chloride 106 Carbon Dioxide 25 Anion Gap 12 BUN 5 L Creatinine 0.52 Estim Creat Clear Calc 182.5 Estimated GFR > 60 Fasting Glucose 188 H Calcium 8.7 D C. difficile Tox B Gene POSITIVE A* C. difficile Toxin A&B Negative C. difficile Interpret SEE NOTE Microbiology Microbiology Results: Microbiology 05/01/25 01:09 Blood - Venous Blood Culture - Preliminary No growth after 24 hours. 05/01/25 01:09 Blood - Venous Blood Culture - Preliminary No growth after 24 hours. Procedures Date of Service Date of Service: 05/02/25 Progress Note: A&P Assessment and plan (1) Crohn's disease of both small and large intestine: Status: Acute Assessment and Plan: Imp: Overall, he appears much improved after treatment with IV steroids. He is feeling better and his abdominal exam is improved. He has had 2 BM's and is tolerating his diet. His stool is + for Cdiff gene, but negative for toxin. Rec: Given his improvement I will change him to oral prednisone tomorrow and instructed him to continue his 5mg/week taper at home. He will continue his Pentasa at home. Would keep on a low residue diet. His antibiotics can be stopped. He will continue the Skyrizi as an outpatient. As long diarrhea is not a problem I would hold off on treatment of the Cdiff gene given the negative toxin. Hopefully he can be discharged tomorrow as long as things are stable. D/W patient in detail and he is comfortable with this plan. Thanks Time Spent With Patient Time: Total time managing care of this patient today ____ minutes. Quality Stroke Does the patient have a stroke diagnosis?: No Reason for No Anti-thrombotic by Day Two: N/A - Med Ordered VTE Prior VTE?: No VTE Risk Level:: Medical - moderate - high VTE Device Contraindication: N/A - Device Ordered VTE Drug Contraindication: N/A - Med Ordered
[2025-05-02 20:00] VITALS: BP 119/60; PULSE 75; RESP 18; TEMP 36.5; O2SAT 98
[2025-05-03 04:00] VITALS: BP 94/52; PULSE 66; RESP 18; TEMP 36.7; O2SAT 98
[2025-05-03 07:23] VITALS: BP 106/52; PULSE 57; RESP 16; TEMP 36.2; O2SAT 99
--- NOTE | 2025-05-03 07:34 | PM.DS ---
DS: Providers Provider Date of Service: 05/03/25 Date of admission: 05/01/25 03:20 Date of discharge: 05/03/25 Primary care physician: [facility] Consults: 05/01/25 04:05 Consult to Gastroenterology Routine Consulting Provider: Vince Jones Reason for consultation: Crohns flare, significant pain Has provider been notified: No 05/02/25 18:29 Consult to Infectious Diseases Routine Consulting Provider: [facility] Reason for consultation: clostridium difficile Attending physician on discharge: Tio Chou Discharging clinician: Tio Chou DS: Diagnosis Discharge Diagnosis (1) Crohn's disease of both small and large intestine: Status: Acute DS: Summary Hospital Course Hospital Course: HPI:19-year-old male, Nepali speaking, with past medical history recent Crohn's diagnosis 2 months prior now on Skyrizi, mesalamine and a recent prednisone taper, asthma, weight loss since diagnosis, norovirus 04/10 with Crohn's Flare, constipation presents to the emergency department ambulatory with reports of increasing abdominal pain over the last 2 days. Patient had recently finished a prednisone taper for a Crohn flare and since the taper stopped, patient's pain has increased. Patient has also had a headache. Patient also reported take is taking more effort to urinate with constipation. Patient denies any fever, chills, nausea or vomiting. Patient has not had any diarrhea recently. Patient denies any recent travel or being exposed to someone with illness. In triage with nursing patient was tachycardic. Pain initially 10/10 and now 3/10 after receiving narcotic pain management. Patient states his parents are aware that he is here and he is being admitted. Patient currently on medical leave from his job at [employer]. patient denies any history of smoking, alcohol use, marijuana use or illicit drug use. Patient was seen by in-house surgical PA as requested per ED provider prior to requesting admission as there was question of perforated appendix on CT scan along with possible dilated and obstructive terminal ileum. After being evaluated, surgery indicated there was no surgical intervention required. Free fluid is present but there is no free air via imaging suggesting perforation. Surgery did note the possible ileus versus obstruction but stated there was no nausea or vomiting in the abdomen is nondistended on exam. Recommended GI consultation, IV steroids and pain management with monitoring. Patient does have a leukocytosis 19.2, no bandemia and normal lactic acid level. There was no evidence of blood loss. Electrolytes stable. LFTs also normal. Lipase 16. UA negative for UTI. Patient is started on vanco and Zosyn in the emergency department and that will continue. Patient received methylprednisolone 125 mg IV x1. Patient overall is feeling more comfortable but states abdomen continues to feel firm and uncomfortable. Patient being admitted for Crohn's flare and need for expert consultation with GI. Hospital course: Crohn disease flare-patient received IV steroids, stool studies done-with IV steroids patient improved significantly, tolerating diet, CT abdominal findings were reviewed with GI and surgery less likely any obstruction, patient is tolerating diet and passing bowels, patiently C diff toxin positive: P.o. vanco added for concern for cdiff -please just bleed p.o. vanco for 1 week. plan: P.o. vanco as prescribed for 1 week. Continue steroids at home. Follow-up with GI outpatient. Low residue low-fiber diet. Above management discussed with the patient detail length he understand and in agreement with the above plan, time spent 45 minutes. All questions answered. Time Attestation Total time managing care of this patient today: 45 mintues. Discharge Coordination Time (in mins): 45 min Quality: Safe Use of Opioids Does Pt have an Active Cancer Diagnosis on the Problem List?: No Quality: Stroke Does the patient have a stroke diagnosis?: No Physical Exam Exam: Exam: Appearance: Alert.? Oriented X3. cvs: rrr, [id number] . res: clear to auscultation ,no rhonchii or wheezing abd: no rebound or guarding ,nt , nd, bs present. ext pulses present , no cyanosis . neuro: axo3 , nonfocal. Vital Signs: Vital Signs: Last Vital Signs Temp 97.2 F 05/03/25 07:23 Pulse 57 05/03/25 07:23 Resp 16 05/03/25 07:23 BP 106/52 L 05/03/25 07:23 Pulse Ox 99 05/03/25 07:23 O2 Del Method Room Air 05/03/25 07:23 BMI result Body Mass Index 17.4 DS: Data Data Completed and Pending Labs on day of discharge: Laboratory Results - last 24 hr 05/02/25 16:20 C. difficile Tox B Gene POSITIVE A* C. difficile Toxin A&B Negative C. difficile Interpret SEE NOTE Preliminary micro results at discharge 05/01/25 01:09 Blood Culture - Preliminary Blood - Venous No growth after 48 hours. 05/01/25 01:09 Blood Culture - Preliminary Blood - Venous No growth after [address] scan - abdomen: My impression: ct abd: 1. Severe inflammatory changes in the lower abdomen in the pelvis nonspecific. Differential considerations include manifestations of the ruptured appendicitis. Findings of inflammatory bowel disease also considered. Manifestations of the inflammatory bowel disease such as acute and/or recurrent manifestations of the Crohn's disease are considered by imaging. 2. Nonspecific ventral lower bowel dilatation favored to represent dilated and obstructed terminal ileum. Discharge Plan Discharge Anticipated Discharge Date/Time: 05/03/25 07:28 Patient Disposition: Home, Self-Care Discharge Diagnosis: crohn flare ,? concern cdiff Referrals: [facility] [Primary Care Provider, Medical] - 1 Week Discharge Medications: New vancomycin 125 mg Capsule 125 mg PO Q6H Qty: 28 0RF Continued prednisone 5 mg tablet 5 mg PO DAILY Skyrizi 60 mg/mL Solution 600 mg IV Q4W Rx Instructions: administer at weeks 0, 4, and 8 of treatment mesalamine 400 mg Capsule (With Del Rel Tablets) 400 mg PO QID 30 Days Qty: 160 3RF Discharge Orders: Discharge Order (Routine); Ordered 05/03/25 Ordered By: Tio Chou Diet: Advance to usual diet Activity on Discharge: As tolerated Stand Alone Forms: Patient Portal Discharge page Print Language: Nepali Care Plan Goals: as below. Health Concerns: P.o. vanco as prescribed for 1 week. Continue steroids at home. Follow-up with GI outpatient. Low residue low-fiber diet. Plan of Treatment: As above. Assessment: As above. Patient Instructions: Crohn Disease (GEN)
--- NOTE | 2025-05-03 09:23 | MHC.CM.PN ---
pt dcd prior to being seen by [facility] home self care
[2025-05-03 11:35] LABS: E. coli EAEC Not Detected (Not Detect.); E. coli EPEC Not Detected (Not Detect.); E. coli ETEC Not Detected (Not Detect.); E. coli STEC Not Detected (Not Detect.); Shigella sp./EIEC Not Detected (Not Detect.)
--- NOTE | 2025-05-03 13:20 | MHC.CM.PN ---
pt dcd home self care pt needed a lyft
[2025-05-03 13:36] VITALS: BP 129/62; PULSE 88; RESP 18; TEMP 36.3; O2SAT 99
== END 2025-05-03 13:54 | disposition home or self-care (01) | DRG 245 ==
LOC: HO.ED 23:05 → HO.EDOVER 05-01 03:58 → HO.S3 05-01 16:35
PROVIDERS: Internal Medicine; Nurse Practitioner Family; Physician Assistant; Admitting Provider Internal Medicine; Emergency Provider Emergency Medicine; Visit Provider Internal Medicine
DX: K50.812 Crohn's disease of both small and large intestine with intestinal obstruction (principal); J45.20 Mild intermittent asthma, uncomplicated; R63.6 Underweight; Z68.51 Body mass index [BMI] pediatric, less than 5th percentile for age; Z79.620 Long term (current) use of immunosuppressive biologic
CPT/HCPCS: 36415; 74018; 74177; 80048; 80053; 81003; 83605; 83690; 83735; 85025; 85027; 87040; 87324; 87493; 87507; 99285; J1171; J2270; J2543; J2919; J3374; Q9967

== ENCOUNTER → 2025-04-30 23:00 | Outpatient (BNV) | payer MEDICAID, SELFPAY | PROVIDERS: Emergency Provider Emergency Medicine; Visit Provider Radiology Diagnostic Radiology | DX: R10.819 Abdominal tenderness, unspecified site (principal); K59.00 Constipation, unspecified | CPT/HCPCS: 74018; 74177 ==

== ENCOUNTER → 2025-05-01 03:20 | Outpatient (BNV) | payer MEDICAID, SELFPAY | PROVIDERS: Admitting Provider Internal Medicine; Emergency Provider Emergency Medicine; Visit Provider Nurse Practitioner Family | DX: K50.918 Crohn's disease, unspecified, with other complication (principal); K56.7 Ileus, unspecified; R63.4 Abnormal weight loss | CPT/HCPCS: 99223; 99231; 99239; 99499 ==

== ENCOUNTER → 2025-05-01 03:20 | Outpatient (BNV) | payer MEDICAID, SELFPAY | PROVIDERS: Admitting Provider Internal Medicine; Emergency Provider Emergency Medicine; Visit Provider Physician Assistant Surgical | DX: K50.814 Crohn's disease of both small and large intestine with abscess (principal) | CPT/HCPCS: 99222; 99232; 99499 ==

== ENCOUNTER 2025-05-20 12:00 | Outpatient (RCR) | payer MEDICAID, SELFPAY ==
[2025-03-25 11:28] VITALS: BP 113/75; PULSE 102; RESP 16; TEMP 36.6; O2SAT 98; BMI 17.6
[2025-03-25] MEDS: Risankizumab-rzaa 600 MG in Dextrose 5 % 250 ML 260 MG IV (12:38)
[2025-04-22 12:00] VITALS: BP 122/76; PULSE 106; RESP 16; TEMP 36.9; O2SAT 97
[2025-04-22] MEDS: Risankizumab-rzaa 600 MG in Dextrose 5 % 250 ML 260 MG IV (12:48)
[2025-04-22 13:00] VITALS: BP 115/69; PULSE 93
[2025-04-22 13:20] VITALS: BP 116/74; PULSE 94; RESP 18
[2025-04-22 13:35] VITALS: BP 114/77; PULSE 94; RESP 18
[2025-05-20 11:44] VITALS: BP 112/67; PULSE 100; RESP 16; TEMP 36.4; O2SAT 99
[2025-05-20] MEDS: Risankizumab-rzaa 600 MG in Dextrose 5 % 250 ML 260 MG IV (12:34)
[2025-05-20] MEDS: 0.9 % Sodium Chloride Flush 10 ML SYRINGE 5 ML IVFLUSH (13:38)
== END 2025-05-20 13:42 | disposition home or self-care (01) ==
LOC: HO.INF 12:00
PROVIDERS: Visit Provider Internal Medicine
DX: K50.00 Crohn's disease of small intestine without complications (principal)
CPT/HCPCS: 96365; J2327

== ENCOUNTER 2025-05-27 23:41 | Inpatient (IN) | payer MEDICAID, SELFPAY ==
--- OUTSIDE RECORDS SUMMARY | 2025-02-27 08:00 | XMS_ITS ---
Demographics Address [address] [place] [address] Mobile Preferred Language en Marital Status Unknown Alevism Affiliation Unknown Race or A laska [place] Additional Race(s) [place] Ethnic Group or Author Organization [facility] Address [address] [place] [address] Support Name Relationship Address Phone DILLONSHANTE Emergency Contact [address] [place] [id number] SKY MEDEIROS Guarantor Unknown Care Team Providers Care Dynamo Repairer Name Role Phone Dillon Knight M.D. Primary Care Provider Unava Vince Moreno Unavailable [phone] Doc GE, Mita Carson Unavailab le REASON FOR VISIT crohns of small and large intestine Encounters Encounter Location Date Provider Diagnosis [facility] [address] [place], [place] [phone] 02/27/2025 Vince Jones Plan Of Treatment Next Appt Details Provider Name:Vince Hendrix Jones , 06/24/2025 02:40:00 PM, [address], [address], [place], [address], Progress Notes * CHRISTIE MEDEIROSISDOB: (19 yo M)Acc No.[id number]:02/27/2025 Progress Notes Patient: Kodak VAZ SKY FREY Provider: Kodak Jones MD :2005 A ge:19 Y S ex:Male Date:02/27/2025 Address:[address] [id number] Pcp:Dillon Knight M.D. Subjective: * Chief Complaints: * 1 . Crohns of small and large intestine. * Medical History: Objective: * Vitals: Assessment: Plan: * Treatment: * * The named appointment provid er may or may not be the originator of this progress note, and it is not deemed complete until electronically signed by the appointment provider. Sign off status: Pending * Provider: Kodak Jones MD Date: 0 02/27/2025 Generated for Gray mclean/Jeremy/Renata on: 07/28/2024 12:50 AM EST
--- NOTE | ~2025-05-27 | CT_ITS ---
CLINICAL HISTORY: abdo pain, elevated WBC, Crohns CT abdomen and pelvis with contrast Comparison: CT/REG/SR - CT ABDOMEN PELVIS W IV CON - 04/30/25 23:52 EDT Findings: The lung bases are clear. The gallbladder and solid organs are within normal limits. No renal stones. Severe fat stranding and inflammatory change in the right lower quadrant gas and fluid collection suggesting probable abscess. Contained gas and fluid collection in the central pelvis measures 1.7 x 3.3 cm in the axial plane and surrounds multiple loops of thickened small bowel with adjacent fat stranding or inflammatory change. A normal appendix is not visualized. Possibly secondary involvement of the distal sigmoid colon. Liver, gallbladder, pancreas, spleen and adrenal glands are within normal limits. Kidneys enhance symmetrically and are non hydronephrotic. Urinary bladder is within normal limits. No acute fracture. IMPRESSION: Extensive right lower quadrant inflammatory changes with gas and fluid collection in the central pelvic region concerning for possible ruptured appendicitis with developing abscess, as above. The appendix is not visualized. There are multiple regional small bowel loops with associated inflammatory change. Differential considerations include inflammatory bowel disease. Findings are similar to the prior CT. Please correlate clinically. This document has been electronically signed by: Jim Myers MD, PHD on 05/28/2025 03:13:59
[2025-05-28] VITALS (8 sets, daily range): BP systolic 95–144; BP diastolic 57–95; PULSE 73–114; RESP 16–109; TEMP 36.6–37.2; O2SAT 98–100; BMI 16.9; BMI 17.7
--- NOTE | 2025-05-28 | ECG_ITS ---
Test Reason : CHECK QT Blood Pressure : */* mmHG Vent. Rate : 88 BPM Atrial Rate : 88 BPM P-R Int : 140 ms QRS Dur : 84 ms QT Int : 324 ms P-R-T Axes : 60 96 66 degrees QTcB Int : 392 ms Normal sinus rhythm Rightward axis Borderline ECG No previous ECGs available Referred By: Doretha Parsons Electronically Signed By: ANISH MARTINEZ MD
[2025-05-28 00:21] LABS: MANUAL DIFF FLAG NO
[2025-05-28 00:31] LABS: Appearance Urine Clear; Glucose Urine UA Negative (Negative); PH 6.0 (5.0-9.0); Specific Gravity - Urine 1.025 (1.005-1.025)
[2025-05-28 00:32] LABS: Hematocrit 48.4 % (42.0-52.0); Hemoglobin 15.8 g/dl (14.0-18.0); Imm Gran Abs Auto 0.17 X10*3/uL (0.00-0.03); Imm Gran Pct Auto 1.0 % (0.0-0.4); Lymphocytes Absolute Auto 1.5 X10*3/uL (1.2-4.9); Mean Corpuscular HGB Conc 32.6 g/dl (31.0-36.0); Mean Corpuscular Hemoglobin 27.8 pg (27.0-33.0); Mean Corpuscular Volume 85.1 fL (80.0-98.0); NRBC Abs Auto 0.000 X10*3/uL (0.0-0.012); NRBC Pct Auto 0.0 /100WBC (0.0-0.2); Platelet Count 230 X10*3/uL (160-400); Red Blood Count 5.69 X10*6/uL (4.60-5.80); White Blood Count 16.6 X10*3/uL (4.8-10.8)
[2025-05-28 00:37] LABS: Anion Gap 16 (12-20); Blood Urea Nitrogen 13 mg/dL (9-16); Calcium 10.1 mg/dL (8.4-10.2); Carbon Dioxide 25 mmol/L (22-29); Chloride 102 mmol/L (96-108); Creatinine Clr Calc Pharmacy 112.5; Estimated Glomerular Filt Rate > 60; Potassium 4.0 mmol/L (3.3-5.1); Sodium 139 mmol/L (135-145)
--- NOTE | 2025-05-28 00:46 | ED_ITS ---
HPI - General Adult General Chief complaint: Abdominal Pain Stated complaint: General Medical Time Seen by Provider: 05/28/25 00:46 History of Present Illness ED Provider: Dick MATT narrative: The patient is a 19-year-old male. Earlier this year he was diagnosed with a Crohn's disease. This was about 5 months ago. He has been hospitalized several times for exacerbations of Crohn's disease. He is currently on mesalamine and Skyrizi. He was most recently discharged from the hospital on May 03, a little over 3 weeks ago. He comes to the hospital today having 3 days of worsening abdominal pain associated with nausea and vomiting. His symptoms are similar to previous episodes of pain that have brought him to the hospital in the last few months. He has been hospitalized 4 times in the last several months and he has had 5 CT scans of the abdomen and pelvis. He has been found to have Crohn's disease in the terminal ileum and in the colon and rectum. On this occasion no definite fevers or chills no urinary symptoms. Related Data Home Medications ?Medication ?Instructions ?Recorded ?Confirmed prednisone 5 mg tablet 5 mg PO DAILY crohns 5 05/01/25 risankizumab-rzaa 60 mg/mL 600 mg IV Q4W 03/29/2504/16 intravenous solution (Skyrizi) Previous Rx's ?Medication ?Instructions ?Recorded mesalamine 400 mg capsule (with 400 mg PO QID 30 days #160 ea 03/31/25 delayed release tablets inside) vancomycin 125 mg capsule 125 mg PO Q6H #28 caps 05/03 Allergies Allergy/AdvReac Type Severity Reaction Status Date / Time Seasonal Allergies Allergy Unknown Verified 05/28/25 00:02 Review of Systems 2 Review of Systems: Yes all other systems are reviewed and are negative [facility] Past Medical History Medical History Constipation Norovirus Crohn's disease of both small and large intestine Asthma Crohn's disease Surgical History History of surgery Social History Social History (Updated 05/01/25 @ 04:26 by NOBLE Willis) Household Members: Family Housing: Apartment Do you presently have visiting nurse or other home services: No Alcohol intake: never Patient Tobacco Use Status: Never used Tobacco Smoked in Last 30 Days: No Use of substances other than those prescribed or required for medical reasons: No Advance Directives: No Advance Directives Information Provided: Yes service: No Physical Exam ED Vital Signs: Vital Signs - 24 hr 05/28/25 00:00 05/28/25 01:06 05/28/25 04:41 Temperature 98.2 F 98 F 98.1 F Pulse Rate 114 H 91 73 Respiratory Rate 20 20 16 Blood Pressure 135/95 H 144/95 H 95/58 L Pulse Oximetry 99 99 98 Oxygen Delivery Method Room Air Room Air BMI result Body Mass Index 16.9 Const Other: The patient is a very slim 19-year-old who was awake and alert. He looks uncomfortable. HENMT Other: The face is symmetrical. ?Mucous membranes moist. Eyes Other: Pupils are round equal, conjunctivae are clear, extraocular movements intact Neck Neck: Yes normal visual inspection and Yes full ROM Resp Effort & Inspection: normal respiratory effort Auscultation: clear to auscultation bilaterally Cardio Rate: regular rate Rhythm: regular rhythm Heart sounds: S1 normal heart sound present and S2 normal heart sound present GI Other: The abdomen is flat, soft, and generally tender without focal rebound or guarding Skin Other: Skin is pale and dry Neuro Other: The patient is awake and alert. He seems distracted by the discomfort of his symptoms but he seems to have a normal mental status otherwise. Cranial nerves are intact. He moves his extremities symmetrically and appropriately. Extrem Other: There is no calf swelling or tenderness. No asymmetry. No peripheral edema. Medications Administered Generic Name Dose Route Start Last Admin Trade Name Freq PRN Reason Stop Dose Admin Lactated Ringer's 1,000 mls @ 100 mls/hr 05/28/25 05:15 05/28/25 05:07 Lr IVCONT 100 mls/hr .Q10H PADMAJA Administration Discontinued Medications Generic Name Dose Route Start Last Admin Trade Name Freq PRN Reason Stop Dose Admin Droperidol 0.625 mg 05/28/25 00:52 05/28/25 01:08 Droperidol 5 Mg/2 Ml Vial IVPUSH 05/28/25 00:53 0.625 mg ONCE ONE Administration Sodium Chloride 1,000 mls @ 999 mls/hr 05/28/25 01:00 05/28/25 01:57 Ns IV 05/28/25 02:00 Infused .Q1H1M PADMAJA Infusion Piperacillin Sod/Tazobactam 100 mls @ 200 mls/hr 05/28/25 02:33 05/28/25 04:20 Sod 4.5 gm/ Sodium Chloride IV 05/28/25 03:02 Infused ONCE ONE Infusion Iohexol 85 ml 05/28/25 02:33 05/28/25 02:33 Iohexol 350 Mg/Ml 100 Ml Infus..Btl IV 05/28/25 02:34 85 ml ONCE ONE Administration Ketorolac Tromethamine 15 mg 05/28/25 00:52 05/28/25 01:11 Ketorolac Tromethamine 15 Mg/Ml Vial IVPUSH 05/28/25 00:53 15 mg ONCE ONE Administration Morphine Sulfate 4 mg 05/28/25 00:52 05/28/25 01:11 Morphine Sulfate 4 Mg/Ml Cartridge IVPUSH 05/28/25 00:53 4 mg ONCE ONE Administration Protocol Medical Decision Making Medical Decision Making MDM Narrative: The patient is a 19-year-old male with a history of Crohn's disease. He is currently on mesalamine and Skyrizi. He has been hospitalized several times in the last few months or exacerbations of his Crohn's disease and he presents today with symptoms similar to his previous presentations. My clinical impression is that this is a reoccurrence of his Crohn's disease. My suspicion for a surgical process is low. The patient was treated symptomatically with morphine, ketorolac, and droperidol. Also IV fluids. I discussed the case with the on-call dumper mold cleaner, Dr. Mac, who felt that since the patient has small bowel involvement that we should do another CT scan. I have therefore ordered a CT scan of the abdomen and pelvis on ordered a dose of antibiotics, piperacillin/tazobactam. I will be signing the patient out to my colleague at change of shift pending the results of the CT scan. 5:41 AM 05/28/2025 (Dr. Odilia Martinez, D.O.) CT shows evidence of abscess with focal gas and fluid collection. Potential for ruptured appendicitis however, in the setting of Crohn's flare, I suspect this is more of an abscess related to the Crohn's flare. Discussed at length with hospitalist who agrees. Patient will need general surgery consult, GI consult, potential IR consult for abscess drainage. Patient will be admitted to medicine service for further care and evaluation. Lactic acid level is slightly elevated at 2.2. Blood cultures have been drawn. He was previously treated with Zosyn IV. Blood pressure remained stable. Admitted in guarded condition. Admission/Observation Consideration of admission/observation: Escalation of care including admission/observation considered Consult Healthcare Provider Management of the patient was discussed with: Hospitalist Lab Data [facility] Lab Attestation statement: I reviewed the patient's lab results. 05/28/25 04:59 05/28/25 04:59 Labs: Lab Results 05/28/25 05/28/25 05/28/25 Range/Units 00:15 00:25 04:59 WBC 16.6 H 13.3 H (4.8-10.8) X10*3/uL RBC 5.69 D 5.04 (4.60-5.80) X10*6/uL Hgb 15.8 D 14.0 (14.0-18.0) g/dl Hct 48.4 D 42.9 (42.0-52.0) % MCV 85.1 85.1 (80.0-98.0) fL MCH 27.8 27.8 (27.0-33.0) pg MCHC 32.6 32.6 (31.0-36.0) g/dl RDW 15.2 15.3 (11.0-16.0) % Plt Count 230 D 181 (160-400) X10*3/uL MPV 8.5 L 8.6 L (9.4-12.4) fL Immature Gran % (Auto) 1.0 H 0.9 H (0.0-0.4) % Neut % (Auto) 81.2 H 76.8 H (45-73) % Lymph % (Auto) 9.2 L 11.7 L (20-40) % Stanly % (Auto) 8.3 10.2 (2-11) % Eos % (Auto) 0.1 0.2 (0-4) % Baso % (Auto) 0.2 0.2 (0-2) % Lymph # (Auto) 1.5 1.6 (1.2-4.9) X10*3/uL Stanly # (Auto) 1.4 H 1.4 H (0.1-1.2) X10*3/uL Eos # (Auto) 0.0 0.0 (0.0-0.4) X10*3/uL Baso # (Auto) 0.0 0.0 (0.0-0.2) X10*3/uL Abs Immat Gran (auto) 0.17 H 0.12 H (0.00-0.03) X10*3/uL Absolute Neuts (auto) 13.5 H 10.2 H (2.0-8.3) x10*3/uL Absolute Nucleated RBC 0.000 0.000 (0.0-0.012) X10*3/uL Nucleated RBC % (auto) 0.0 0.0 (0.0-0.2) /100WBC Sodium 139 140 (135-145) mmol/L Potassium 4.0 4.1 (3.3-5.1) mmol/L Chloride 102 106 (96-108) mmol/L Carbon Dioxide 25 25 (22-29) mmol/L Anion Gap 16 13 (12-20) BUN 13 14 (9-16) mg/dL Creatinine 0.82 0.76 (0.5-1.4) mg/dL Estim Creat Clear Calc 112.5 121.3 Estimated GFR > 60 > 60 Random Glucose 105 90 (60-115) mg/dL Lactic Acid (0.5-2.0) mmol/L Calcium 10.1 D 9.2 D (8.4-10.2) mg/dL Total Bilirubin 0.5 (0.0-1.0) mg/dL Direct Bilirubin 0.2 (0.0-0.5) mg/dL AST 21 (5-37) U/L ALT 25 (0-40) U/L Alkaline Phosphatase 64 (39-117) U/L C-Reactive Protein 2.29 H (< or = 0.50) mg/dL Total Protein 7.8 (6.5-8.0) g/dL Albumin 4.2 (3.5-5.0) g/dL Lipase 18 (8-78) U/L Urine Color Yellow Urine Appearance Clear Urine pH 6.0 (5.0-9.0) Ur Specific Drayden 1.025 (1.005-1.025) Urine Protein Negative (Neg-Trace) mg/dL Urine Glucose (UA) Negative (Negative) mg/dL Urine Ketones Trace (Negative) mg/dL Urine Blood Negative (Negative) Urine Nitrite Negative (Negative) Ur Leukocyte Esterase Negative (Negative) 05/28/25 Range/Units 05:00 WBC (4.8-10.8) X10*3/uL RBC (4.60-5.80) X10*6/uL Hgb (14.0-18.0) g/dl Hct (42.0-52.0) % MCV (80.0-98.0) fL MCH (27.0-33.0) pg MCHC (31.0-36.0) g/dl RDW (11.0-16.0) % Plt Count (160-400) X10*3/uL MPV (9.4-12.4) fL Immature Gran % (Auto) (0.0-0.4) % Neut % (Auto) (45-73) % Lymph % (Auto) (20-40) % Stanly % (Auto) (2-11) % Eos % (Auto) (0-4) % Baso % (Auto) (0-2) % Lymph # (Auto) (1.2-4.9) X10*3/uL Stanly # (Auto) (0.1-1.2) X10*3/uL Eos # (Auto) (0.0-0.4) X10*3/uL Baso # (Auto) (0.0-0.2) X10*3/uL Abs Immat Gran (auto) (0.00-0.03) X10*3/uL Absolute Neuts (auto) (2.0-8.3) x10*3/uL Absolute Nucleated RBC (0.0-0.012) X10*3/uL Nucleated RBC % (auto) (0.0-0.2) /100WBC Sodium (135-145) mmol/L Potassium (3.3-5.1) mmol/L Chloride (96-108) mmol/L Carbon Dioxide (22-29) mmol/L Anion Gap (12-20) BUN (9-16) mg/dL Creatinine (0.5-1.4) mg/dL Estim Creat Clear Calc Estimated GFR Random Glucose (60-115) mg/dL Lactic Acid 2.2 H* (0.5-2.0) mmol/L Calcium (8.4-10.2) mg/dL Total Bilirubin (0.0-1.0) mg/dL Direct Bilirubin (0.0-0.5) mg/dL AST (5-37) U/L ALT (0-40) U/L Alkaline Phosphatase (39-117) U/L C-Reactive Protein (< or = 0.50) mg/dL Total Protein (6.5-8.0) g/dL Albumin (3.5-5.0) g/dL Lipase (8-78) U/L Urine Color Urine Appearance Urine pH (5.0-9.0) Ur Specific Drayden (1.005-1.025) Urine Protein (Neg-Trace) mg/dL Urine Glucose (UA) (Negative) mg/dL Urine Ketones (Negative) mg/dL Urine Blood (Negative) Urine Nitrite (Negative) Ur Leukocyte Esterase (Negative) Radiology Impression Radiologist Impression: CT abdomen and pelvis with contrast Findings: The lung bases are clear. The gallbladder and solid organs are within normal limits. No renal stones. Severe fat stranding and inflammatory change in the right lower quadrant gas and fluid collection suggesting probable abscess. Contained gas and fluid collection in the central pelvis measures 1.7 x 3.3 cm in the axial plane and surrounds multiple loops of thickened small bowel with adjacent fat stranding or inflammatory change. A normal appendix is not visualized. Possibly secondary involvement of the distal sigmoid colon. Liver, gallbladder, pancreas, spleen and adrenal glands are within normal limits. Kidneys enhance symmetrically and are non hydronephrotic. Urinary bladder is within normal limits. No acute fracture. IMPRESSION: Extensive right lower quadrant inflammatory changes with gas and fluid collection in the central pelvic region concerning for possible ruptured appendicitis with developing abscess, as above. The appendix is not visualized. There are multiple regional small bowel loops with associated inflammatory change. Differential considerations include inflammatory bowel disease. Findings are similar to the prior CT. Please correlate clinically. External Record Review External record reviewed: Inpatient record Prescription Management I considered prescription management with: Pain Medication and Antibiotic Chronic Conditions Patient?s care impacted by: Other (Crohn's disease) Social Determinants Patient?s care significantly limited by Social Determinants of Health including: Other Social Determinant of Health Discharge Plan Discharge Clinical Impression: Crohn's disease of both small and large intestine with abscess Patient Disposition: Admitted As Inpatient Print Language: Greenlandic
--- OUTSIDE RECORDS SUMMARY | 2025-05-28 00:51 | XMS_ITS | Clinical Summary ---
Author Organization [employer] Address [address] [facility] [address] [place] [address] Care Team Providers Care Changer Fixer Name Role Phone Rebekah Bishop MD Primary [...] with complication, unspecified gastrointestinal tract location (CMS/HCC) ([facility]) Take 1 capsule (500 mg) by mouth 4 times daily. Do not crush, chew, or split. 120 capsule 03/18/20 25 026 Active Active Problems Problem Noted Date Diagnosed Date Crohn's disease (CMS/HCC) 03/18/2025 Assessment & Plan (03/18/2025 3:02 PM [...] Encounters Date Type Department Care Team Description 05/01/2025 Orders Only GENERIC EXTERNAL DATA DEPARTMENT Provider, Generic External Data 04/30/2025 Orders Only [facility] External Provider, [employer] 04/10/[address] [address] Rebekah Bishop MD Dec recall 03/29/2025 Orders Only GENERIC EXTERNAL DATA DEPARTMENT Provider, Generic External Data 03/24/[address] [address] Rebekah Bishop MD CHW - New Patient Assistance 03/18/2025 2:00 PM EDT Office Visit [address] [address] Rebekah Bishop MD Sinus tachycardia (Primary Dx); Crohn's disease with complication, unspecified gastrointestinal tract location (CMS/HCC); Mild intermittent asthma without complication 03/18/2025 Travel 03/10/2025 Patient Outreach [address] [address] Rebekah Bishop MD Pre-visit Planning ((Unable to [...] Info) Description 06/19/2025 11:30 AM EST Telemedicine [facility] [address] [place], [place] [phone] Rebekah Bishop MD [address] [place], [place] [phone] Health Maintenance Due Date Last Done Comments [...] Procedure Name Priority Date/Time Associated Diagnosis Comments URINALYSIS WITH REFLEX MICROSCOPIC Routine 05/01/2025 1:32 AM EDT LACTIC ACID Routine 05/01/2025 1:[address] ABDOMEN PELVIS W CONTRAST Routine 05/01/2025 12:46 AM EDT XR KUB AND UPRIGHT 2 VIEWS Routine 04/30/2025 11:14 PM EDT SLIDE REVIEW Routine 04/30/2025 11:02 PM EDT CBC WITH AUTO DIFFERENTIAL Routine 04/30/2025 11:02 PM EDT LIPASE Routine 04/30/2025 11:02 PM EDT MAGNESIUM Routine 04/30/2025 11:02 PM EDT COMPREHENSIVE METABOLIC PANEL Routine 04/30/2025 11:02 PM EDT SED RATE BY MODIFIED WESTERGREN Routine 04/11/2025 10:55 AM EDT LIPASE Routine 04/11/2025 10:55 AM EDT C-REACTIVE PROTEIN Routine 04/11/2025 10 :55 AM EDT COMPREHENSIVE METABOLIC PANEL Routine 04/11/2025 10:55 AM EDT CBC WITH AUTO DIFFERENTIAL Routine 04/11/2025 10:55 AM EDT URINALYSIS, COMPLETE, WITH REFLEX TO CULTURE Routine 04/11/2025 10:55 AM EDT COVID-19 ID NOW ([employer]) Routine 03/29/2025 8:55 AM EDT INFLUENZA A B2 ID NOW ([facility]) Routine 03/29/2025 8:[address] ABDOMEN PELVIS W CONTRAST Routine 03/29/2025 8:46 AM EDT CBC WITH AUTO DIFFERENTIAL Routine 03/29/2025 6:45 AM EDT LIPASE Routine 03/29/2025 6:45 AM EDT COMPREHENSIVE METABOLIC PANEL Routine 03/29/2025 6:45 AM EDT from Last 3 Months Results * (ABNORMAL) Urinalysis w/reflex microscopic (05/01/2025 1:32 AM EDT) Color Urine Yellow [facility] Appearance Urine Clear [facility] PH 6.0 5.0 - 9.0 [facility] Glucose Urine UA Negative Negative mg/dL [facility] Urine Blood Negative Negative [facility] Specific [place] - Urine >=1.030(H) 1.005 - 1.025 [facility] Urine Protein Trace Neg-Trace mg/dL [facility] Urine Ketones Negative Negative mg/dL [facility] Nitrite Urine Negative Negative [facility] Leukocyte Esterase Urine Negative Negative [facility] 05/01/2025 1:32 AM EDT 05/01/2025 1:53 AM EDT Narrative [facility] - 05/01/2025 2:03 AM EDT [id number], Clean Catch us Generic External Data Provider LAB URINE ORDERAB LES Final Result Performing Organization Address [facility] Co de Phone Number [facility] [address] [place] [phone] * Lactic Acid (05/01/2025 1:09 AM EDT) Lactic Acid 0.6 0.5 - 2.0 mmol/L [facility] 05/01/2025 1:09 AM EDT 05/01/2025 1:24 AM EDT Generic External Data Provider LAB BLOOD ORDERAB LES Final Result Performing Organization Address [facility] de Phone Number [facility] [address] [place] [phone] * CT Abdomen Pelvis w/ Contrast (05/01/2025 12:46 AM EDT) Only the most recent of2 resultswithin the time period is included. Anatomical Region Laterality Modality Body, Pelvis, Abdomen Computed T omography 05/01/2025 12:4 6 AM EDT Narrative 05/01/2025 12:47 AM EDT [address] [address] [address] Scan Report Signed with Addenda Patient: Bill Alaniz MR#: [id number] : 2005 Acct:[id number] Age/Sex: 19 / M ADM Date: 04/30/25 Loc: .ED Attending Dr: Ordering Physician: Donaldo Borrero PA-C Date of Service: 04/30/25 Procedure(s): CT abdomen pelvis w IV con Accession Number(s): [id number] cc: [facility]; Donaldo Borrero PA-C Report Number: [id number]: Total DLP = 323.00 mGy-cm Reason for Exam: Abd Tenderness; Hx Crohn's ADDENDUM This document has been electronically signed by: Isacc Cardona MD on 05/01/2025 00:46:58 ADDENDUM: This report was discussed with Dr. Donaldo Borrero on May 01, 2025 00:50:00 EDT. This document has been electronically signed by: Andreia Young on 05/01/2025 00:50:44 Addendum Dictated By: Isacc Cardona MD Addendum Signed By: <Electronically signed by Isacc Cardona MD in OV> 05/01/2550 Addendum Cosigned By: DD/ TD/TT: 05/01/25 CLINICAL HISTORY: Abd Tenderness; Hx Crohns CT abdomen and pelvis with contrast Comparison: CT of the abdomen and pelvis from 03/29/2025. Findings: No consolidation of the imaged lung bases. Fat deposition noted in the liver adjacent to the falciform ligament. Gallbladder is mildly distended. Spleen approaches the upper limits of normal. Adrenal glands and pancreas are partly obscured and otherwise unremarkable. Mild right hydroureteronephrosis is nonspecific without definite calcification or stone in the imaged right ureter. Mesenteric, iliac, retroperitoneal, and pericecal lymph nodes are nonspecific and likely reactive. Wall thickening of the large intestine severe and concerning for colitis, including imaged sigmoid colon in the lower portion of the cecum. The appendix is not definitively seen. Manifestations of the ruptured appendicitis could be considered. Ruptured appendicitis considered given the degree of the free fluid in the abdomen and pelvis and severe inflammatory stranding including right lower quadrant and in the pelvis. Dilated bowel in the lower abdomen and pelvis measuring 5 cm is favored to represent partially dilated sigmoid colon. Dilated and featureless ileum concerning for small-bowel obstruction also considered by CT. Moderate wall thickening of the urinary bladder is nonspecific. Differential considerations include cystitis. Prostate gland measures 4.8 cm transverse. IMPRESSION: 1. Severe inflammatory changes in the lower abdomen in the pelvis nonspecific. Differential considerations include manifestations of the ruptured appendicitis. Findings of inflammatory bowel disease also considered. Manifestations of the inflammatory bowel disease such as acute and/or recurrent manifestations of the Crohn's disease are considered by imaging. 2. Nonspecific ventral lower bowel dilatation favored to represent dilated and obstructed terminal ileum. This document has been electronically signed by: Isacc Cardona MD on 05/01/2025 00:46:58 Dictated By: Isacc Cardona MD Signed By: <Electronically signed by Isacc Cardona MD in OV> 05/01/2546 DD/ TD/TT: 05/01/2545 Food Bagging Machine Operator: Procedure Note Temiter, Image - 05/01/[address] [place] [address] [address] Scan Report Signed with Addenda Patient: Amadou Alaniz#: M [id number] : 2005cct:[id number] Age/Sex: 19 / MADM Date: 04/30/25 Loc: .ED Attending Dr: Ordering Physician: Donaldo Borrero PA-C Date of Service: 04/30/25 Procedure(s): CT abdomen pelvis w IV con Accession Number(s): [id number] cc: [facility]; Donaldo Borrero PA-C Report Number: [id number]: Total DLP = 323.00 mGy-cm Reason for Exam: Abd Tenderness; Hx Crohn's ADDENDUM This document has been electronically signed by: Isacc Cardona MD on 05/01/2025 00:46:58 ADDENDUM: This report was discussed with Dr. Donaldo Borrero on May 01, 2025 00:50:00 EDT. This document has been electronically signed by: Andreia Young on 05/01/2025 00:50:44 Addendum Dictated By: Isacc Cardona MD Addendum Signed By: <Electronically signed by Isacc Cardona MDin OV> 05/01/2550 Addendum Cosigned By: DD/ TD/TT: 05/01/25 CLINICAL HISTORY: Abd Tenderness; Hx Crohns CT abdomen and pelvis with contrast Comparison: CT of the abdomen and pelvis from 03/29/2025. Findings: No consolidation of the imaged lung bases. Fat deposition noted in the liver adjacent to the falciform ligament. Gallbladder is mildly distended. Spleen approaches the upper limits of normal. Adrenal glands and pancreas are partly obscured and otherwise unremarkable. Mild right hydroureteronephrosis is nonspecific without definite calcification or stone in the imaged right ureter. Mesenteric, iliac, retroperitoneal, and pericecal lymph nodes are nonspecific and likely reactive. Wall thickening of the large intestine severe and concerning for colitis, including imaged sigmoid colon in the lower portion of the cecum. The appendix is not definitively seen. Manifestations of the ruptured appendicitis could be considered. Ruptured appendicitis considered given the degree of the free fluid in the abdomen and pelvis and severe inflammatory stranding including right lower quadrant and in the pelvis. Dilated bowel in the lower abdomen and pelvis measuring 5 cm is favored to represent partially dilated sigmoid colon. Dilated and featureless ileum concerning for small-bowel obstruction also considered by CT. Moderate wall thickening of the urinary bladder is nonspecific. Differential considerations include cystitis. Prostate gland measures 4.8 cm transverse. IMPRESSION: 1. Severe inflammatory changes in the lower abdomen in the pelvis nonspecific. Differential considerations include manifestations of the ruptured appendicitis. Findings of inflammatory bowel disease also considered. Manifestations of the inflammatory bowel disease such as acute and/or recurrent manifestations of the Crohn's disease are considered by imaging. 2. Nonspecific ventral lower bowel dilatation favored to represent dilated and obstructed terminal ileum. This document has been electronically signed by: Isacc Cardona MD on 05/01/2025 00:46:58 Dictated By: Isacc Cardona MD Signed By: <Electronically signed by Isacc Cardona MD in OV> 05/01/2546 DD/ TD/TT: 05/01/2545 Food Bagging Machine Operator: [facility] External Provider IMG CT PROCEDURES Edited Result - Final * XR KUB and Upright 2 Views (04/30/2025 11:14 PM EDT) Anatomical Region Laterality Modality Radiographic [place] ging 04/30/2025 11:1 4 PM EDT Narrative 04/30/2025 11:15 PM EDT [address] [address] XRay Report Signed Patient: Bill Alaniz MR#: [id number] : 2005 Acct:[id number] Age/Sex: 19 / M ADM Date: 04/30/25 Loc: HO.ED Attending Dr: Ordering Physician: Armando Villatoro DO Date of Service: 04/30/25 Procedure(s): XR KUB Accession Number(s): [id number] cc: [facility]; Armando Villatoro DO Reason for Exam: constipation CLINICAL HISTORY: constipation 1 view abdomen Comparison: CR - XR KUB - 09/25/24 19:31 EDT Findings: No pneumoperitoneum or pneumatosis. No abnormal calcifications. No acute fractures. IMPRESSION: The bowel gas pattern is within normal limits This document has been electronically signed by: Wild Hickman MD on 04/30/2025 23:14:48 Dictated By: Wild Hickman MD Signed By: <Electronically signed by Wild Hickman MD in OV> 04/30/252314 DD/ 13 TD/TT: 04/30/252313 Food Bagging Machine Operator: Procedure Note Donotuseinterpreter, Image - 05/01/2025 [place] [address] XRay Report Signed Patient: Amadou Alaniz#: M [id number] : 2005cct:[id number] Age/Sex: 19 MADM Date: 04/30/25 Loc: .ED Attending Dr: Ordering Physician: Armando Villatoro DO Date of Service: 04/30/25 Procedure(s): XR KUB Accession Number(s): [id number] cc: [facility]; Armando Villatoro DO Reason for Exam: constipation CLINICAL HISTORY: constipation 1 view abdomen Comparison: CR - XR KUB - 09/25/24 19:31 EDT Findings: No pneumoperitoneum or pneumatosis. No abnormal calcifications. No acute fractures. IMPRESSION: The bowel gas pattern is within normal limits This document has been electronically signed by: Wild Hickman MD on 04/30/2025 23:14:48 Dictated By: Wild Hickman MD Signed By: <Electronically signed by Wild Hickman MD in OV> 04/30/252314 DD/ 13 TD/TT: 04/30/252313 Food Bagging Machine Operator: [facility] External Provider IMG XR PROCEDURES Edited Result - Final * Slide Review (04/30/2025 11:02 PM EDT) Slide Review VERIFIED [facility] 04/30/2025 11:0 2 PM EDT 04/30/2025 11:05 PM EDT us Generic External Data Provider LAB BLOOD ORDERAB LES Final Result [facility] [address] [place] [phone] * (ABNORMAL) CBC auto differential (04/30/2025 11:02 PM EDT) Only the most recent of3 resultswithin the time period is included. White Blood Count 19.2(H) 4.8 - 10.8 X10*3/uL [facility] Red Blood Count 5.24 4.60 - 5.80 X10*6/uL [facility] Hemoglobin 14.2 14.0 - 18.0 g/dl [facility] Hematocrit 42.7 42.0 - 52.0 % [facility] Mean Corpuscular Volume 81.5 80.0 - 98.0 fL [facility] Mean Corpuscular Hemoglobin 27.1 27.0 - 33.0 pg [facility] Mean Corpuscular HGB Conc 33.3 31.0 - 36.0 g/dl [facility] Red Cell Distribution Width 14.0 11.0 - 16.0 % [facility] Platelet Count 242 160 - 400 X10*3/uL [facility] Mean Platelet Volume 8.2(L) 9.4 - 12.4 fL [facility] Neutrophils Percent Auto 81.0(H) 45 - 73 % [facility] Imm Gran Pct Auto 0.5(H) 0.0 - 0.4 % [facility] Lymphocytes Percent Auto 10.0(L) 20 - 40 % [facility] Monocytes Percent Auto 8.0 2 - 11 % [facility] Eosinophils Percent Auto 0.3 0 - 4 % [facility] Basophils Percent Auto 0.2 0 - 2 % [facility] NRBC Pct Auto 0.0 0.0 - 0.2 /100WBC [facility] Neutrophils Absolute Auto 15.6(H) 2.0 - 8.3 x10*3/uL [facility] Imm Gran Abs Auto 0.09(H) 0.00 - 0.03 X10*3/uL [facility] Lymphocytes Absolute Auto 1.9 1.2 - 4.9 X10*3/uL [facility] Monocytes Absolute Auto 1.5(H) 0.1 - 1.2 X10*3/uL [facility] Eosinophils Absolute Auto 0.1 0.0 - 0.4 X10*3/uL [facility] Basophils Absolute Auto 0.0 0.0 - 0.2 X10*3/uL [facility] NRBC Abs Auto 0.000 0.0 - 0.012 X10*3/uL [facility] 04/30/2025 11:0 2 PM EDT 04/30/2025 11:05 PM EDT us Generic External Data Provider LAB BLOOD ORDERAB LES Edited Result - Final Performing Organization Address City/[facility]/ZIP Co de Phone Number [facility] [address] [place] [phone] * Magnesium (04/30/2025 11:02 PM EDT) Magnesium 2.0 1.6 - 2.6 mg/dL [facility] 04/30/2025 11:0 2 PM EDT 04/30/2025 11:05 PM EDT us Generic External Data Provider LAB BLOOD ORDERAB LES Final Result [facility] [address] [place] [phone] * Lipase (04/30/2025 11:02 PM EDT) Only the most recent of3 resultswithin the time period is included. Lipase 16 8 - 78 U/L [facility] 04/30/2025 11:0 2 PM EDT 04/30/2025 11:05 PM EDT us Generic External Data Provider LAB BLOOD ORDERAB LES Final Result Performing Organization Address City/[facility] Co de Phone Number [facility] [address] [place] [phone] * (ABNORMAL) Comprehensive Metabolic Panel (04/30/2025 11:02 PM EDT) Only the most recent of3 resultswithin the time period is included. Sodium 135 135 - 145 mmol/L [facility] Potassium 3.4 3.3 - 5.1 mmol/L [facility] Chloride 99 96 - 108 mmol/L [facility] Carbon Dioxide 29 22 - 29 mmol/L [facility] Anion Gap 10(L) 12 - 20 [facility] Urea Nitrogen (BUN) 10 9 - 16 mg/dL [facility] Creatinine, Serum 0.90 0.5 - 1.4 mg/dL [facility] Creatinine Clr Calc Pharmacy 99.1 [facility] Comment:eGFR (calculated fro m the MDRD study equation) and eCrCl(calculated from the Cockcroft-Gault equation) are based ondifferent parameters and may not yield comparable results.If eCrCl result is absurd, please check patient'sheight/weight. Estimated Glomerular Filt Rate >60 [facility] Comment:Chronic Kidney Disea se: Estimated GFR < 60 mL/min/1.44c6Tatdtr Kidney Disease: Estimated GFR < 15 mL/min/1.73m2 Glucose 113 60 - 115 mg/dL [facility] Calcium 10.0 8.4 - 10.2 mg/dL [facility] Bilirubin, Total 0.7 0.0 - 1.0 mg/dL [facility] Aspartate Amino Transferase 20 5 - 37 U/L [facility] Alanine Aminotransferase 23 0 - 40 U/L [facility] Total Protein 7.4 6.5 - 8.0 g/dL [facility] Albumin Level 3.9 3.5 - 5.0 g/dL [facility] Alkaline Phosphatase 63 39 - 117 U/L [facility] 04/30/2025 11:0 2 PM EDT 04/30/2025 11:05 PM EDT us Generic External Data Provider LAB BLOOD ORDERAB LES Final Result [facility] [address] [place] [phone] * Urinalysis, Complete, with Reflex to Culture (04/11/2025 10:55 AM EDT) Color Urine Yellow [facility] Appearance Urine Clear [facility] PH 6.0 5.0 - 9.0 [facility] Glucose Urine UA Negative Negative mg/dL [facility] Urine Blood Negative Negative [facility] Specific [place] - Urine 1.015 1.005 - 1.025 [facility] Urine Protein Negative Neg-Trace mg/dL [facility] Urine Ketones 40 Negative mg/dL [facility] Nitrite Urine Negative Negative [facility] Leukocyte Esterase Urine Negative Negative [facility] RBC Urine 0-2 0 - 2 /HPF [facility] Urine WBC 0-5 0 - 5 /HPF [facility] Urine Squamous Epithelial Cell 0-2 0 - 2 /HPF [facility] Urine Bacteria None Seen None Seen [facility] Hyaline Casts, Urine 0-2 0 - 2 /LPF [facility] 04/11/2025 10:5 5 AM EDT 04/11/2025 10:58 AM EDT Narrative [facility] - 04/11/2025 11:09 AM EDT Urine, Clean Catch us Generic External Data Provider LAB URINE ORDERAB LES Final Result Performing Organization Address [facility] Co de Phone Number [facility] [address] [place] [phone] * (ABNORMAL) Sed Rate by Modified Westergren (04/11/2025 10:55 AM EDT) Erythrocyte Sedimentation Rate 48(H) 0 - 15 MM/HR [facility] Comment:Patients with polycy themia and many hemoglobin abnormalitiesmay have depressed sed rates whereas patients with anemiamay have elevated sed rates. 04/11/2025 10:5 5 AM EDT 04/11/2025 10:58 AM EDT us Generic External Data Provider LAB BLOOD ORDERAB LES Final Result Performing Organization Address [facility] Co de Phone Number [facility] [address] [place] [phone] * (ABNORMAL) C-reactive Protein (04/11/2025 10:55 AM EDT) [facility] C Reactive Protein 11.10(H) < or = 0.50 mg/dL [facility] 04/11/2025 10:5 5 AM EDT 04/11/2025 10:58 AM EDT us Generic External Data Provider LAB BLOOD ORDERAB LES Final Result Performing Organization Address [facility] Co de Phone Number [facility] [address] [place] [phone] * Influenza A B2 ID NOW ([place]) (03/29/2025 8:55 AM EDT) IDNOW SERIAL# [id number] [facility] Influenza A Negative Negative [facility] Influenza B2 Negative Negative [facility] Influenza A B2 Note See Note [facility] Comment:The Carranza ID NOW In [...] LAB MICROBIOLOGY - GENERAL ORDERABLES Final Result [facility] [address] [place] [phone] * COVID-19 ID NOW ([facility]) (03/29/2025 8:55 AM EDT) IDNOW SERIAL# [id number] [facility] COVID-19 TEST Negative Negative [facility] COVID-19 NOTE See Note [facility] Comment: Results are for the identification of SARS-CoV2 RNA. TheSARS-CoV2 RNA is generally detectable in respiratory samplesduring the acute phase of infection. Positive results areindicative of the presence of SARS-CoV-2 RNA; clinicalcorrelation with patient history and other diagnosticinformation is necessary to determine patient infectionstatus. Positive results do not rule out bacterial infectionor co- infection with other viruses.Testing facilities [facility] and itsterritories are required to report all positive results [...] use by authorized laboratories.Testing performed on the [facility] ID NOW utilizing [employer]. 03/29/2025 8:55 AM EDT 03/29/2025 9:01 AM EDT us Generic External Data Provider LAB MOLECULAR LUIS ANTONIO GNOSTICS ORDERABLES Final Result [facility] [address] [place] [phone] from Last 3 Months Insurance [facility] C3 Care Teams Changer Fixer Relationship Specialty Start Date End Date Rebekah Bishop MD [address] [place] [address] PCP - General Internal Medicine 03/18/25
--- OUTSIDE RECORDS SUMMARY | 2025-05-28 00:51 | XMS_ITS | Patient Health Record ---
Demographics Address [address] [place] [address] Mobile Preferred Language en Marital Status Unknown Buddhist Affiliation Unknown Race or A laska [place] Additional Race(s) [place] Ethnic Group or Author Organization [facility] Address [address] [place] [address] Support Name Relationship Address Phone SHANTE CARRANZA Emergency Contact [address] [place] [address] ELIZABETH HANDLEYGOBILL Guarantor Unknown Care Team Providers Care Auto Overhauler Name Role Phone Euegne Kerns, Rebekah Primary Care Provider Vince Chatterjee Unavailable [phone] Doc GE, Mita Carson Unavailab le Allergies Allergen (clinical drug ingredient) Drug/Non Drug Allergy documented on EMR Reaction Allergy Type Onset Date Status seasonal (uncoded) Unknown Allergy A ctive Results Component Value Reference Range Notes T Spot TB Reviewed date:02/09/2025 09:57:44 PM Interpretation: Performing Lab:[facility], [address] [place] [phone] Notes/Report: TSpotTB Negative Negative A negative test [...] Passed For additional information, please refer to http://[email or web address].[email or web address]/[email or web address] (This link is being provided for informational/ educational purposes only.) THIS TEST WAS PERFORMED AT: [facility]/[address] [phone] KEEGAN MEIER MD,PHD Hepatitis B Profile Reviewed date:02/09/2025 10:01:37 PM Interpretation: Performing Lab:[facility], [address] [place] [phone] Notes/Report: Hepatitis B Surface Antibody NONREACTIVE Nonreactive Nonreactive: < 8.00 mIU/mL Hepatitis B Core Antibody Nonreactive Nonreactive Hepatitis B Surface Antigen Negative Negative Complete Blood Count Auto Di ff Reviewed date:01/29/2025 01:27:25 PM Interpretation: Performing Lab:[facility], [address] [place] [phone] Notes/Report: White Blood Count 4.8 4.8-10.8 X10*3/uL [...] Gel Reviewed date:01/30/2025 05:54:00 PM Interpretation: Performing Lab:[facility], [address] [place] [phone] Notes/Report: Hold Green Gel See Note Specimen held untested for 24 hours; Call to request Chemistry testing. Complete Blood Count no Diff Reviewed date:02/09/2025 09:54:19 PM Interpretation: Performing Lab:[facility], [address] [place] [phone] Notes/Report: White Blood Count 6.9 4.8-10.8 X10*3/uL [...] Panel Reviewed date:02/09/2025 09:53:46 PM Interpretation: Performing Lab:[facility], [address] [place] [phone] Notes/Report: Sodium 143 135-145 mmol/L Potassium 3.5 [...] PROFILE Reviewed date:02/09/2025 09:52:42 PM Interpretation: Performing Lab:[facility], [address] [place] [phone] Notes/Report: Iron 26 45-160 mcg/dL Total Iron Binding Capacity 152 228-428 mcg/d L Percent Iron Saturation 17 15-50 % Unsaturated Iron Binding 126 Ferritin Reviewed date:02/09/2025 09:52:35 PM Interpretation: Performing Lab:[facility], [address] [place] [phone] Notes/Report: Ferritin 106 20-250 ng/mL C Reactive Protein Reviewed date:02/09/2025 09:52:27 PM Interpretation: Performing Lab:[facility], [address] [place] [phone] Notes/Report: C Reactive Protein 2.66 < or = 0.50 mg/dL Vitamin B12 Reviewed date:02/05/2025 12:13:08 AM Interpretation: Performing Lab:[facility], [address] [place] [phone] Notes/Report: Vitamin B12 435 200-900 pg/mL NORMAL 200-900 PG/ML INDETERMINATE 160-199 PG/ML DEFICIENT < 160 PG/ML Complete Blood Count Auto Di ff Reviewed date:02/09/2025 07:23:55 PM Interpretation: Performing Lab:[facility], [address] [place] [phone] Notes/Report: White Blood Count 14.9 4.8-10.8 X10*3/uL [...] te Reviewed date:02/06/2025 04:20:09 PM Interpretation: Performing Lab:[address] [phone] Notes/Report: Erythrocyte Sedimentation Rate 19 0-15 MM/HR Patients with polycythemia and many hemoglobin abnormalities may have depressed sed rates whereas patients with anemia may have elevated sed rates. Liver Panel Reviewed date:02/06/2025 04:20:42 PM Interpretation: Performing Lab:[address] [address] Notes/Report: Bilirubin Total 0.4 0.0-1.0 mg/dL Bilirubin Direct 0.2 0.0-0.5 mg/dL Aspartate Amino Transferase 21 5-37 U/L Alanine Aminotransferase 13 0-40 U/L Total Protein 8.3 6.5-8.0 g/dL Albumin Level 4.5 3.5-5.0 g/dL Alkaline Phosphatase 83 39-117 U/L C Reactive Protein Reviewed date:02/06/2025 04:20:26 PM Interpretation: Performing Lab:[facility], [address] [place] [phone] Notes/Report: C Reactive Protein 3.53 < or = 0.50 mg/dL Pathology (Not yet reviewed by provider) Interpretation: Performing Lab:[address] [address] Notes/Report: Complete Blood Count Auto Di ff Reviewed date:05/05/2025 04:00:26 PM Interpretation: Performing Lab:[address] [phone] Notes/Report: White Blood Count 9.7 4.8-10.8 X10*3/uL Red Blood Count 3.92 4.60-5.80 X10*6/uL Hemoglobin 10.6 14.0-18.0 g/dl Hematocrit 31.9 42.0-52.0 % Mean Corpuscular Volume 81.4 80.0-98.0 fL Mean Corpuscular Hemoglobin 27.0 27.0-33.0 pg Mean Corpuscular HGB Conc 33.2 31.0-36.0 g/dl Red Cell Distribution Width 13.8 11.0-16.0 % Platelet Count 171 160-400 X10*3/uL Mean Platelet Volume 8.7 9.4-12.4 fL Neutrophils Percent Auto 87.6 45-73 % Imm Gran Pct Auto 0.6 0.0-0.4 % Lymphocytes Percent Auto 7.9 20-40 % Monocytes Percent Auto 3.7 2-11 % Eosinophils Percent Auto 0.1 0-4 % Basophils Percent Auto 0.1 0-2 % NRBC Pct Auto 0.0 0.0-0.2 /100WBC Neutrophils Absolute Auto 8.5 2.0-8.3 x10*3/u L Imm Gran Abs Auto 0.06 0.00-0.03 X10*3/uL Lymphocytes Absolute Auto 0.8 1.2-4.9 X10*3/u L Monocytes Absolute Auto 0.4 0.1-1.2 X10*3/uL Eosinophils Absolute Auto 0.0 0.0-0.4 X10*3/u L Basophils Absolute Auto 0.0 0.0-0.2 X10*3/uL NRBC Abs Auto 0.000 0.0-0.012 X10*3/uL Basic Metabolic Panel Fastin g Reviewed date:05/05/2025 04:00:09 PM Interpretation: Performing Lab:[facility], [address] [place] [phone] Notes/Report: Sodium 139 135-145 mmol/L Potassium 3.7 3.3-5.1 mmol/L Chloride 106 96-108 mmol/L Carbon Dioxide 25 22-29 mmol/L Anion Gap 12 12-20 Blood Urea Nitrogen 5 9-16 mg/dL Creatinine 0.52 0.5-1.4 mg/dL Creatinine Clr Calc Pharmacy 182.5 eGFR (calculated from the MDRD study equation) and eCrCl (calculated from the Cockcroft-Gault equation) are based on different parameters and may not yield comparable results. If eCrCl result is absurd, please check patient's height/weight. Estimated Glomerular Filt Rate > 60 Chronic Kidney Disease: Estimated GFR < 60 mL/min/1.73m2 Severe Kidney Disease: Estimated GFR < 15 mL/min/1.73m2 Glucose Fasting 188 60-99 mg/dL A fasting glucose of 126 mg/dl or greater on more than one occasion is considered diagnostic of diabetes. Calcium 8.7 8.4-10.2 mg/dL Reason For Referral Referring Provider First Name Mita Referring Provider Last Name Doc Referring Provider Speciality Family Med icipedro pablo Referred Organization [facility] Referred Provider Vince Jones Referred Address [address] [place] [address],[place], [place],[address],[place] Referred Provider Specialty Gastroentero logy General Notes Tenisha Pak 2024 11:25:18 AM >requested a [facility] referral from [facility] for visit with Dr. Jones on 02-06-25 Joann Pakn 02/04/2025 08:45:16 AM >AWAITING APPT TO BE SCHEDULED BY [facility] TO ATTACH OFFICE VISIT TO THE APPT. Referral Priority Routine Medications Medication SIG (Take, Route, Frequency, Duration) Notes Start Date End Date Status Mesalamine 400 MG 1 capsule Orally Four times a day; Duration: 30 day(s) 02/06/2025 Active MiraLax (colon prep) 17 GM/SCOOP 1 238Gm bottle mixed w/64 ounce bottle of gatorade (not red) if diabetic use Crystal Light intead of Иван orally drink the mixture beginning at 4:00 p.m. the day before the procedure. Drink an 8 ounce glass every; Duration: 1 days 02/06/2025 Active Dulcolax (colon prep) 5 MG Take 2 at 3:00 p.m and 2 at 7:00p.m. the day before the colonoscopy Orally Take two tablets twice a day for one day before the colonoscopy; Duration: 1 days 02/06/2025 Active Budesonide 3 MG 3 Orally daily; Duration: 30 days FYI Patient will begin the Budesonide. However, I have given him a Rx for Prednisone as well to have on hand to switch over to if the Budesonide is not working for his Crohn's. Thanks 02/06/2025 Active Pentasa 500 MG 2 capsules Orally Four times a day; Duration: 30 days 03/28/2025 Active predniSONE 5 MG 8 pills(40mg) daily for 1 week and then decrease by 1 pill(5mg) every week Orally Once a day; Duration: 56 days FYI: Patient will use this Prednisone Rx if the Budesonide does not work to keep his Crohn's disease stable. He will stop the Budesonide if he needs to switch to the prednisone. 02/06/2025 Active Immunizations Vaccine Route Administration Date [...] Notes Problem Imaging of gastrointestinal tract abnormal (485054597) Abnormal CT scan, gastrointestinal tract (R93.3) Active confirmed Problem Right lower quadrant pain (188203627) RLQ abdominal pain (R10.31) Active confirmed Problem Crohn's disease of small AND large intestines (71568636) Crohn''s disease of both small and large [...] N/A Encounters Encounter Location Date Provider Diagnosis [facility] Outpatient [address] [place] [phone] 02/27/2025 Vince Jones [facility] [address] [place] [address] 02/06/2025 Vince Jones Crohn''s disease of both small and large intestine without complication K50.80 ; RLQ abdominal pain R10.[address] scan, gastrointestinal tract R93.3 [facility] [address] [place] [phone] 05/26/2025 Vince Jones [facility] [address] [place] [address] 02/02/2025 Vince Jones [facility] [address] [place] [address] 02/09/2025 Vince Jones [facility] [address] [place] [address] 02/23/2025 Vince Jones [facility] [address] [place] [phone] 03/03/2025 Vince Jones [facility] [address] [place] [phone] 03/10/2025 Vince Jones [facility] [address] [place] [address], [place] [address] 03/11/2025 Vince Pablo [facility] [address] [place] [address] 03/28/2025 Vince Pablo [facility] [address] [place] [address] 04/01/2025 Vince Pablo [facility] [address] [place] [address] 04/08/2025 Vince Pabol [facility] [address] [place] [address] 04/11/2025 Vince Jones Crohn''s disease of both small and large intestine without complication K50.80 [facility] [address] [facility] [place] [address] 04/30/2025 Vince Jones Crohn''s disease of both small and large intestine without complication K50.80 Assessments Encounter Date Diagnosis (ICD Code) Assessment [...] to keep you advised of his progress. 04/11/2025 Crohn''s disease of both small and large intestine without complication (ICD-10 - K50.80) 04/30/2025 Crohn''s disease of both small and large intestine without complication (ICD-10 - K50.80) 02/06/[address] scan, gastrointestinal tract (ICD-10 [...] 02/27/2025 Next Appt Details Provider Name:Vince Hendrix Jones , 06/24/2025 02:40:00 PM, [address] [place] [address], [address], [place], [address], Insurance Providers Payer Name Payer Address Payer Phone Subscriber Number Group Number Insured Name Patient Relationship to Insured Coverage Start Date Coverage End Date [place] [address] [place] [phone] [id number] BILL MEDEIROS Self - patient is the insured 4 Medical (General) History Medical History History ICD Code Asthma Denies AR,DM,CVA,renal disease Presumed Crohn's disease samuel gnosed in January 2025 during his hospitalization. The CT scan showed evidence of disease involving the distal small bowel and ascending colon. Stool specimens were all negative for infection and the stool calprotectin level was quite elevated at 1,090.
[2025-05-28 01:17] LABS: Alanine Aminotransferase 25 U/L (0-40); Albumin Level 4.2 g/dL (3.5-5.0); Alkaline Phosphatase 64 U/L (39-117); Aspartate Amino Transferase 21 U/L (5-37); Lipase 18 U/L (8-78); Total Protein 7.8 g/dL (6.5-8.0)
[2025-05-28] MEDS: iohexoL 350 MG/ML 100 ML INFUS..BTL 85 ML IV (02:33)
--- NOTE | 2025-05-28 04:43 | P.HPHOSP_ITS ---
History of Present Illness Date of Service: 05/28/25 Attending physician on admission: Cece Mixon Chief Complaint: abd pain, vomiting Patient is a 19-year-old male with a past medical history significant for recent new diagnosis of Crohn's disease, who presented to the ED due to lower abdominal pain, nausea and vomiting. He has had the pain for the past 3 days with associated nausea and vomiting for 2 days. He denies any hematemesis, hematochezia, fever, chills, diarrhea, constipation or urinary symptoms including frequency, urgency or dysuria. He has been hospitalized about 5 times for Crohn's flares since being diagnosed a few months ago, most recent hospitalization about 1 month ago. He is currently being managed with mesalamine and Skyrizi. Review of Systems 2 Constitutional: Constitutional: Denies body ache(s), Denies chills, Denies fatigue, Denies fever(s) and Denies headache(s) Eyes: Eyes: Denies change in vision ENT: Denies headache(s), Denies nasal discharge and Denies sore throat Cardiovascular: Cardiovascular: Denies chest pain, Denies rapid heart rate, Denies leg edema, Denies lightheadedness and Denies dyspnea Respiratory: Respiratory: Denies chest congestion, Denies cough, Denies dyspnea and Denies wheezing Gastrointestinal: Gastrointestinal: Reports as per HPI Genitourinary: Genitourinary: Denies oliguria, Denies dysuria and Denies urinary frequency Musculoskeletal: Musculoskeletal: Denies back pain and Denies myalgias Integumentary/Breasts: Skin/Breast: Denies rash Neurologic: Denies confusion and Denies headache(s) Psychiatric: Psychiatric: Denies confusion Endocrine: Endocrine: Denies fatigue Hematologic/Lymphatic: Hematologic/Lymphatic: Denies easy bleeding Allergic/Immunologic: Allergic/Immunologic: Denies wheezing [facility] Medical History Constipation Norovirus Crohn's disease of both small and large intestine Asthma Crohn's disease Functional capacity: independent ambulation Surgical History History of surgery Social History (Updated 05/01/25 @ 04:26 by Tressa Lopez, HYDRANT SETTER-BC) Household Members: Family Housing: Apartment Do you presently have visiting nurse or other home services: No Alcohol intake: never Patient Tobacco Use Status: Never used Tobacco Smoked in Last 30 Days: No Use of substances other than those prescribed or required for medical reasons: No Advance Directives: No Advance Directives Information Provided: Yes service: No Meds Allergies Allergy/AdvReac Type Severity Reaction Status Date / Time Seasonal Allergies Allergy Unknown Verified 05/28/25 00:02 Active Medications: Current Medications Acetaminophen (Acetaminophen 325 Mg Tablet) 975 mg PO Q6H PRN PRN Reason: Pain, Mild 1-3,fever,headache Calcium Carbonate (Calcium Carbonate 750 Mg Tab.Chew) 750 mg PO Q4H PRN PRN Reason: Heartburn Hydromorphone HCl (Hydromorphone Hcl 1 Mg/Ml Syringe) 0.5 mg IVPUSH Q4H PRN; Protocol PRN Reason: Pain, Severe (Pain Scale 7-10) Magnesium Hydroxide (Milk Of Magnesia 30 Ml Oral.Susp) 30 ml PO DAILY PRN PRN Reason: Constipation Melatonin (Melatonin 3 Mg Tablet) 6 mg PO BEDTIME PRN PRN Reason: Insomnia Ondansetron HCl (Ondansetron Hcl 4 Mg/2 Ml Vial) 4 mg IVPUSH Q8H PRN PRN Reason: Nausea and Vomiting Oxycodone HCl (Oxycodone Hcl Immed Release 5 Mg Tablet) 5 mg PO Q6H PRN PRN Reason: Pain, Moderate(Pain Scale 4-6) Sodium Chloride (0.9 % Sodium Chloride Flush 3 Ml Syringe) 3 ml IVFLUSH [facility] Medications ?Medication ?Instructions ?Recorded ?Confirmed ?Last Taken ?Type prednisone 5 mg tablet 5 mg PO DAILY crohns 5 05/01/25 04/28/25 History risankizumab-rzaa 60 mg/mL 600 mg IV Q4W 03/29/2504/1604/23/25 History intravenous solution (Skyrizi) Physical Exam 2 Vital Signs and Narrative: Vital Signs: Last Vital Signs Temp 98 F 05/28/25 01:06 Pulse 91 05/28/25 01:06 Resp 20 05/28/25 01:06 BP 144/95 H 05/28/25 01:06 Pulse Ox 99 05/28/25 01:06 O2 Del Method Room Air 05/28/25 01:06 BMI result Body Mass Index 16.9 General: AOx3, no acute distress Resp: CTA bilaterally CVS: S1, S2, RRR GI: +BS, tender across lower abd, no distention Skin: Warm, dry Neuro: Cranial nerves II-XII grossly intact bilaterally. Motor grossly intact bilaterally Extremities: No pitting edema Psych: Appropriate affect Const: General: No confusion Orientation/consciousness: No confusion Neuro: General: No confusion Results Labs 05/28/25 04:59 05/28/25 04:59 Labs: Laboratory Results - last 24 hr 05/28/25 05/28/25 00:15 00:25 MCV 85.1 MCH 27.8 MCHC 32.6 RDW 15.2 Plt Count 230 D MPV 8.5 L Immature Gran % (Auto) 1.0 H Neut % (Auto) 81.2 H Lymph % (Auto) 9.2 L [place] % (Auto) 8.3 Eos % (Auto) 0.1 Baso % (Auto) 0.2 Lymph # (Auto) 1.5 [place] # (Auto) 1.4 H Eos # (Auto) 0.0 Baso # (Auto) 0.0 Abs Immat Gran (auto) 0.17 H Absolute Neuts (auto) 13.5 H Absolute Nucleated RBC 0.000 Nucleated RBC % (auto) 0.0 Anion Gap 16 Estim Creat Clear Calc 112.5 Estimated GFR > 60 Random Glucose 105 Calcium 10.1 D Total Bilirubin 0.5 Direct Bilirubin 0.2 AST 21 ALT 25 Alkaline Phosphatase 64 C-Reactive Protein 2.29 H Total Protein 7.8 Albumin 4.2 Lipase 18 Urine Color Yellow Urine Appearance Clear Urine pH 6.0 Ur Specific [place] 1.025 Urine Protein Negative Urine Glucose (UA) Negative Urine Ketones Trace Urine Blood Negative Urine Nitrite Negative Ur Leukocyte Esterase Negative Assessment and Plan (1) Sepsis: Status: Acute (2) Crohn's disease of both small and large intestine with abscess: Status: Acute (3) Acute lactic acidosis: Status: Acute Plan Patient is a 19-year-old male with a past medical history significant for recent new diagnosis of Crohn's disease, who presented to the ED due to abdominal pain, nausea and vomiting. sx consistent with recent crohns flares sepsis secondary to acute Crohn's disease with superimposed intraabdominal infection - gastroenterology consult - A/P CT with ?appendicitis/abscess, clinically does not appear to have appendicitis and compared to previous CT's - general surgery consult - pain management with oxycodone and dilaudid - LR 100/hr - NPO pending general surgery consult - continue zosyn - blood cultures pending - EKG to check QTC - monitor CBC and BMP acute lactic acidosis, likely secondary to sepsis - IVF - treat the underlying cause as above med rec pending full code VTE prophy: SCDs pending surgery consult pt is abd pain, nausea and vomiting, consistent with crohn's flare with possible appendicitis with abscess on CT, requiring admission for at least 2 mignights stay for specialist consults and monitoring. Quality Stroke Does the patient have a stroke diagnosis?: No VTE Prior VTE?: No VTE Risk Level:: Medical - moderate - high VTE Device Contraindication: N/A - Device Ordered VTE Drug Contraindication: Treatment Not Indicated
[2025-05-28 05:06] LABS: MANUAL DIFF FLAG NO
[2025-05-28 05:07] LABS: Hematocrit 42.9 % (42.0-52.0); Hemoglobin 14.0 g/dl (14.0-18.0); Imm Gran Abs Auto 0.12 X10*3/uL (0.00-0.03); Imm Gran Pct Auto 0.9 % (0.0-0.4); Lymphocytes Absolute Auto 1.6 X10*3/uL (1.2-4.9); Mean Corpuscular HGB Conc 32.6 g/dl (31.0-36.0); Mean Corpuscular Hemoglobin 27.8 pg (27.0-33.0); Mean Corpuscular Volume 85.1 fL (80.0-98.0); NRBC Abs Auto 0.000 X10*3/uL (0.0-0.012); NRBC Pct Auto 0.0 /100WBC (0.0-0.2); Platelet Count 181 X10*3/uL (160-400); Red Blood Count 5.04 X10*6/uL (4.60-5.80); White Blood Count 13.3 X10*3/uL (4.8-10.8)
[2025-05-28] MEDS: Lactated Ringers 1,000 ML 100 ML IVCONT ×2 (05:07→15:05)
[2025-05-28 05:19] LABS: Anion Gap 13 (12-20); Blood Urea Nitrogen 14 mg/dL (9-16); Calcium 9.2 mg/dL (8.4-10.2); Carbon Dioxide 25 mmol/L (22-29); Chloride 106 mmol/L (96-108); Creatinine Clr Calc Pharmacy 121.3; Estimated Glomerular Filt Rate > 60; Potassium 4.1 mmol/L (3.3-5.1); Sodium 140 mmol/L (135-145)
[2025-05-28 07:04] LABS: Reflex Lactate? Lactic Acid Added
--- NOTE | 2025-05-28 08:10 | HO.NURTONUR ---
Pt is a 19yo M with hx of crohns disease. Numerous hospitalizations in the past year for crohn's exacerbation. Pt presented today for abd pain, n/v x3days. Denies fevers/chills. Last hospitalization [address] abd shows possible appendicitis/abscess. Blood cultures pending. Receiving zosyn. NPO pending gen surg consult. Ambulates to bathroom independntly. 20gLFA. LR @100ml/hr. VSS. NAD.
--- NOTE | 2025-05-28 08:32 | PHA.MEDREC ---
Addendum entered by Deacon Mercado RPh 05/28/25 08:39: MED REC REVIEWED BY [facility] Original Note: Pharmacy Consult ? Medication Reconciliation Pharmacy has completed the medication reconciliation Patient confirmed he is taking Mesalamine 400 mg and Prednisone 5 mg daily. Patient states he hasn't started Skyrizi 600 mg. Patient last had his medications yesterday.
[2025-05-28 09:07] LABS: ~Lactic Acid-LAB USE ONLY 1.8 mmol/L (0.5-2.0)
--- NOTE | 2025-05-28 10:03 | P.CONGS_ITS ---
History of Present Illness Consult details Consult date: 05/28/25 <Ivonne Dean PA-C - Last Filed: 05/28/25 10:15> Reason for consult: abdominal pain <Ivonne Dean PA-C - Last Filed: 05/28/25 10:15> Requesting physician: Doretha Parsons <Ivonne Dean PA-C - Last Filed: 05/28/25 10:15> Narrative: 19 year old male with PMH significant for Crohns disease with multiple admissions within the past year who presented to the ED with complaints of lower abdominal pain, nausea and vomiting for 2-3 days. He reports this felt similar to his Crohns flares. He was last admitted May 01-2024 and was discharge to home on steroids. He reports he is still on steroids. He denies any hematemesis, hematochezia, fever, chills, diarrhea, constipation. He is currently being managed with mesalamine and Skyrizi, but has not had the Skyrizi recently. Work up in the ED included CBC, BMP, LFTs which was significant for a leukocytosis of 16.6 and lactic acidosis of 2.[address] scan again demonstrated severe fat stranding and inflammatory change in the right lower quadrant with possible fluid collection which surrounds multiple loops of thickened small bowel with adjacent fat stranding or inflammatory change. Appendix was not visualized and read again raised question of ruptured appendicitis. He was admitted to the hospitalist service for further treatment of his Crohns flare. He was started on IV zosyn. He feels somewhat improved this morning. <Ivonne Dean PA-C - Last Filed: 05/28/25 10:15> Review of Systems 2 Review of Systems: Yes all other systems are reviewed and are negative < Ivonne Dean PA-C - Last Filed: 05/28/25 10:15> [facility] Past Medical History Medical History: Medical History Constipation Norovirus Crohn's disease of both small and large intestine Asthma Crohn's disease <Ivonne Dean PA-C - Last Filed: 05/28/25 10:15> Surgical History Surgical History: Surgical History History of surgery <Ivonne Dean PA-C - Last Filed: 05/28/25 10:15> Social History Social History: Social History (Updated 05/01/25 @ 04:26 by NOBLE Willis) Household Members: Family Housing: House Do you presently have visiting nurse or other home services: No Alcohol intake: never Patient Tobacco Use Status: Never used Tobacco Smoked in Last 30 Days: No Use of substances other than those prescribed or required for medical reasons: No Currently Displaying Signs/Symptoms of Drug Intoxication Withdrawal: No Advance Directives: No Advance Directives Information Provided: Yes Do you have a plan to hurt others: No Plan service: No <Ivonne Dean PA-C - Last Filed: 05/28/25 10:15> Meds Allergies/Adverse reactions: Allergies Allergy/AdvReac Type Severity Reaction Status Date / Time Seasonal Allergies Allergy Unknown Verified 05/28/25 00:02 <Ivonne Dean PA-C - Last Filed: 05/28/25 10:15> Active Medications: Current Medications Acetaminophen (Acetaminophen 325 Mg Tablet) 975 mg PO Q6H PRN PRN Reason: Pain, Mild 1-3,fever,headache Calcium Carbonate (Calcium Carbonate 750 Mg Tab.Chew) 750 mg PO Q4H PRN PRN Reason: Heartburn Hydromorphone HCl (Hydromorphone Hcl 1 Mg/Ml Syringe) 0.5 mg IVPUSH Q4H PRN; Protocol PRN Reason: Pain, Severe (Pain Scale 7-10) Last Admin: 05/28/25 07:39 Dose: 0.5 mg Lactated Ringer's (Lr) 1,000 mls @ 100 mls/hr IVCONT .Q10H [facility] Last Admin: 05/28/25 05:07 Dose: 100 mls/hr Piperacillin Sod/Tazobactam (Sod 3.375 gm/ Sodium Chloride) 50 mls @ 100 mls/hr IV Q6H [facility] Last Infusion: 05/28/25 09:26 Dose: Infused Magnesium Hydroxide (Milk Of Magnesia 30 Ml Oral.Susp) 30 ml PO DAILY PRN PRN Reason: Constipation Melatonin (Melatonin 3 Mg Tablet) 6 mg PO BEDTIME PRN PRN Reason: Insomnia Ondansetron HCl (Ondansetron Hcl 4 Mg/2 Ml Vial) 4 mg IVPUSH Q8H PRN PRN Reason: Nausea and Vomiting Oxycodone HCl (Oxycodone Hcl Immed Release 5 Mg Tablet) 5 mg PO Q6H PRN PRN Reason: Pain, Moderate(Pain Scale 4-6) Sodium Chloride (0.9 % Sodium Chloride Flush 3 Ml Syringe) [facility] Last Admin: 05/28/25 07:35 Dose: Not Given <YOANA Nascimento Last Filed: 05/28/25 10:15> Home medications: Home Medications ?Medication ?Instructions ?Recorded ?Confirmed ?Last Taken ?Type prednisone 5 mg tablet 5 mg PO DAILY crohns 5 05/28/25 05/27/25 History <YOANA Nascimento Last Filed: 05/28/25 10:15> Physical Exam 2 Vital Signs: Vital Signs: Last Vital Signs Temp 97.9 F 05/28/25 08:52 Pulse 85 05/28/25 08:52 Resp 16 05/28/25 08:52 BP 114/71 05/28/25 08:52 Pulse Ox 100 05/28/25 08:52 O2 Del Method Room Air 05/28/25 08:52 BMI result Body Mass Index 17.7 <YOANA Nascimento Last Filed: 05/28/25 10:15> Const: General: comfortable, no acute distress and alert <YOANA Nascimento Last Filed: 05/28/25 10:15> Orientation/consciousness: patient oriented x3 <YOANA Nascimento Last Filed: 05/28/25 10:15> Resp: Effort & Inspection: normal respiratory effort <YOANA Nascimento Last Filed: 05/28/25 10:15> GI: Other: abd nondistended soft tender throughout the lower abdomen no rebound or rigidity <YOANA Nascimento Last Filed: 05/28/25 10:15> Palpation (GI): no guarding and not rigid <YOANA Nascimento Filed: 05/28/25 10:15> Percussion: Yes normal to percussion <YOANA Nascimento Last Filed: 05/28/25 10:15> Skin: General skin exam: no rashes or lesions noted <YOANA Nascimento Last Filed: 05/28/25 10:15> Neuro: General: patient oriented x3 and moves all extremities <YOANA Nascimento Last Filed: 05/28/25 10:15> Results Labs Result diagrams: 05/28/25 04:59 05/28/25 04:59 <YOANA Nascimento Last Filed: 05/28/25 10:15> Labs: Abnormal lab results 05/28/25 05/28/25 05/28/25 Range/Units 00:15 04:59 05:00 WBC 16.6 H 13.3 H (4.8-10.8) X10*3/uL MPV 8.5 L 8.6 L (9.4-12.4) fL Immature Gran % (Auto) 1.0 H 0.9 H (0.0-0.4) % Neut % (Auto) 81.2 H 76.8 H (45-73) % Lymph % (Auto) 9.2 L 11.7 L (20-40) % [place] # (Auto) 1.4 H 1.4 H (0.1-1.2) X10*3/uL Abs Immat Gran (auto) 0.17 H 0.12 H (0.00-0.03) X10*3/uL Absolute Neuts (auto) 13.5 H 10.2 H (2.0-8.3) x10*3/uL Lactic Acid 2.2 H* (0.5-2.0) mmol/L C-Reactive Protein 2.29 H (< or = 0.50) mg/dL Short CBC 05/28/25 05/28/25 Range/Units 00:15 04:59 WBC 16.6 H 13.3 H (4.8-10.8) X10*3/uL Hgb 15.8 D 14.0 (14.0-18.0) g/dl Hct 48.4 D 42.9 (42.0-52.0) % Plt Count 230 D 181 (160-400) X10*3/uL BMP 05/28/25 05/28/25 00:15 04:59 Sodium 139 140 Potassium 4.0 4.1 Chloride 102 106 Carbon Dioxide 25 25 BUN 13 14 Creatinine 0.82 0.76 Calcium 10.1 D 9.2 D Liver Function 05/28/25 Range/Units 00:15 Total Bilirubin 0.5 (0.0-1.0) mg/dL Direct Bilirubin 0.2 (0.0-0.5) mg/dL AST 21 (5-37) U/L ALT 25 (0-40) U/L Alkaline Phosphatase 64 (39-117) U/L Albumin 4.2 (3.5-5.0) g/dL Urine 05/28/25 Range/Units 00:25 Urine Color Yellow Urine Appearance Clear Urine pH 6.0 (5.0-9.0) Ur Specific [place] 1.025 (1.005-1.025) Urine Protein Negative (Neg-Trace) mg/dL Urine Glucose (UA) Negative (Negative) mg/dL All other labs normal. <Ivonne Dean PA-C - Last Filed: 05/28/25 10:15> Imaging Abdomen CT scan report/results: report reviewed and image reviewed <Ivonne Dean PA-C - Last Filed: 05/28/25 10:15> Additional studies: labs reviewed <Ivonne Dean PA-C - Last Filed: 05/28/25 10:15> Assessment and Plan (1) Acute Crohn's disease: Qualifiers: Digestive disease complication type: other complication Q ualified Code(s): K50.918 - Crohn's disease, unspecified, with other complication <YOANA Nascimento Last Filed: 05/28/25 10:15> Status: Acute <Ivonne Dean PA-C Last Filed: 05/28/25 10:15> 19 year old male with PMH significant for Crohns disease with multiple admissions presenting with worsening lower abdominal pain and vomiting with CT scan demonstrating severe fat stranding and inflammatory change in the right lower quadrant with possible fluid collection, similar to prior CTs in the past, suggestive of Crohns flare. He is tender in the lower abdomen, without peritoneal signs. Would recommend continuing supportive measures with IV abx and clear liquids. Will continue to follow. <Ivonne Dean PA-C - Last Filed: 05/28/25 10:15> 19 year old male with PMH significant for Crohns disease with multiple admissions presenting with worsening lower abdominal pain and vomiting with CT scan demonstrating severe fat stranding and inflammatory change in the right lower quadrant with possible fluid collection, similar to prior CTs in the past, suggestive of Crohns flare. He is tender in the lower abdomen, without peritoneal signs. Would recommend continuing supportive measures with IV abx and clear liquids. Will continue to follow. Patient seen and examined, CT scan reviewed. Agree with the above assessment and plan. Findings on CT appear fairly similar to previous scan. Continue supportive measures. We will continue to monitor. <Christiano Alexander MD - Last Filed: 05/28/25 14:14> Procedures Date of Service Date of Service: 05/28/25 <Ivonne Dean PA-C - Last Filed: 05/28/25 10:15> 05/28/25 <Christiano Alexander MD - Last Filed: 05/28/25 14:14>
--- NOTE | 2025-05-28 11:13 | MHC.CM.PN ---
pt lives with family is working an indepndent [place] [facility] [place] home [place]/s
--- NOTE | 2025-05-28 12:07 | P.PNIM_ITS ---
Subjective Subjective Date of Service: 05/28/25 Interval History: bilateral lower abd pain, no diarrhea, no hematochezia Review of Systems Review of Systems: Yes all other systems are reviewed and are negative Physical Exam 2 Vital Signs: Vital Signs: Last Vital Signs Temp 97.9 F 05/28/25 08:52 Pulse 85 05/28/25 08:52 Resp 16 05/28/25 08:52 BP 114/71 05/28/25 08:52 Pulse Ox 100 05/28/25 08:52 O2 Del Method Room Air 05/28/25 08:52 BMI result Body Mass Index 17.7 Gen: in no acute distress HEENT: sclera anicteric, moist mucus membranes Neck: supple Lungs: clear to auscultation bilaterally Heart: regular rate and rhythm, no murmurs Abd: soft, tender bilateral lower quadrants without rebound/guarding, non- distended Ext: no edema Skin: warm/well-perfused Neuro: alert and oriented x3, no focal findings Psych: appropriate affect Objective Data Active Medications Acetaminophen (Acetaminophen 325 Mg Tablet) 975 mg PO Q6H PRN PRN Reason: Pain, Mild 1-3,fever,headache Calcium Carbonate (Calcium Carbonate 750 Mg Tab.Chew) 750 mg PO Q4H PRN PRN Reason: Heartburn Hydromorphone HCl (Hydromorphone Hcl 1 Mg/Ml Syringe) 0.5 mg IVPUSH Q4H PRN; Protocol PRN Reason: Pain, Severe (Pain Scale 7-10) Last Admin: 05/28/25 07:39 Dose: 0.5 mg Documented By: ASPEN Lactated Ringer's (Lr) 1,000 mls @ 100 mls/hr IVCONT .Q10H [facility] Last Admin: 05/28/25 05:07 Dose: 100 mls/hr Documented By: COOPEMargret Piperacillin Sod/Tazobactam (Sod 3.375 gm/ Sodium Chloride) 50 mls @ 100 mls/hr IV Q6H [facility] Last Infusion: 05/28/25 09:26 Dose: Infused Documented By: SANGEETA Magnesium Hydroxide (Milk Of Magnesia 30 Ml Oral.Susp) 30 ml PO DAILY PRN PRN Reason: Constipation Melatonin (Melatonin 3 Mg Tablet) 6 mg PO BEDTIME PRN PRN Reason: Insomnia Ondansetron HCl (Ondansetron Hcl 4 Mg/2 Ml Vial) 4 mg IVPUSH Q8H PRN PRN Reason: Nausea and Vomiting Oxycodone HCl (Oxycodone Hcl Immed Release 5 Mg Tablet) 5 mg PO Q6H PRN PRN Reason: Pain, Moderate(Pain Scale 4-6) Sodium Chloride (0.9 % Sodium Chloride Flush 3 Ml Syringe) 3 ml IVFLUSH QSHIFT [facility] Last Admin: 05/28/25 07:35 Dose: Not Given Documented By: ASPEN Non-Admin Reason: IV Running Labs 05/28/25 04:59 05/28/25 04:59 Labs: Laboratory Results - last 24 hr 05/28/25 05/28/25 05/28/25 00:15 00:25 04:59 MCV 85.1 85.1 MCH 27.8 27.8 MCHC 32.6 32.6 RDW 15.2 15.3 Plt Count 230 D 181 MPV 8.5 L 8.6 L Immature Gran % (Auto) 1.0 H 0.9 H Neut % (Auto) 81.2 H 76.8 H Lymph % (Auto) 9.2 L 11.7 L [place] % (Auto) 8.3 10.2 Eos % (Auto) 0.1 0.2 Baso % (Auto) 0.2 0.2 Lymph # (Auto) 1.5 1.6 [place] # (Auto) 1.4 H 1.4 H Eos # (Auto) 0.0 0.0 Baso # (Auto) 0.0 0.0 Abs Immat Gran (auto) 0.17 H 0.12 H Absolute Neuts (auto) 13.5 H 10.2 H Absolute Nucleated RBC 0.000 0.000 Nucleated RBC % (auto) 0.0 0.0 ESR 14 Anion Gap 16 13 Estim Creat Clear Calc 112.5 121.3 Estimated GFR > 60 > 60 Random Glucose 105 90 Lactic Acid Lactic Acid F/U @ 2Hr Calcium 10.1 D 9.2 D Total Bilirubin 0.5 Direct Bilirubin 0.2 AST 21 ALT 25 Alkaline Phosphatase 64 C-Reactive Protein 2.29 H Total Protein 7.8 Albumin 4.2 Lipase 18 Urine Color Yellow Urine Appearance Clear Urine pH 6.0 Ur Specific [place] 1.025 Urine Protein Negative Urine Glucose (UA) Negative Urine Ketones Trace Urine Blood Negative Urine Nitrite Negative Ur Leukocyte Esterase Negative 05/28/25 05/28/25 05:00 08:46 MCV MCH MCHC RDW Plt Count MPV Immature Gran % (Auto) Neut % (Auto) Lymph % (Auto) [place] % (Auto) Eos % (Auto) Baso % (Auto) Lymph # (Auto) [place] # (Auto) Eos # (Auto) Baso # (Auto) Abs Immat Gran (auto) Absolute Neuts (auto) Absolute Nucleated RBC Nucleated RBC % (auto) ESR Anion Gap Estim Creat Clear Calc Estimated GFR Random Glucose Lactic Acid 2.2 H* Lactic Acid F/U @ 2Hr 1.8 Calcium Total Bilirubin Direct Bilirubin AST ALT Alkaline Phosphatase C-Reactive Protein Total Protein Albumin Lipase Urine Color Urine Appearance Urine pH Ur Specific [place] Urine Protein Urine Glucose (UA) Urine Ketones Urine Blood Urine Nitrite Ur Leukocyte Esterase CT A/P 05/28/25 Extensive right lower quadrant inflammatory changes with gas and fluid collection in the central pelvic region concerning for possible ruptured appendicitis with developing abscess, as above. The appendix is not visualized. There are multiple regional small bowel loops with associated inflammatory change. Differential considerations include inflammatory bowel disease. Findings are similar to the prior CT. Please correlate clinically. Assessment and Plan (1) Crohn's disease of both small and large intestine: Status: Acute (2) Sepsis: Status: Acute Plan d1, 19yo M with Crohn's disease presenting with abd pain, nausea, and vomiting; found to have severe fat stranding and inflammatory change in the right lower quadrant with possible fluid collection which surrounds multiple loops of thickened small bowel with adjacent fat stranding or inflammatory change. sepsis due to colitis and Crohn's flare: Gen Surg following, GI consult pending, continue piperacillin-tazobactam 05/28-, start methylprednisolone 05/28-, continue mesalamine, stool studies if develops diarrhea, clear liquid diet, IV fluid hydration, lactate normalized VTE ppx: SCDs dispo: eventual home In my clinical judgment, the patient requires continued inpatient hospitalization for the following reasons: IV fluids, bowel rest, IV steroids, GI consultation Total time managing care of this patient today: 40 minutes. Quality Stroke Does the patient have a stroke diagnosis?: No VTE Prior VTE?: No VTE Risk Level:: Medical - moderate - high VTE Device Contraindication: N/A - Device Ordered VTE Drug Contraindication: Treatment Not Indicated
--- NOTE | 2025-05-28 14:34 | MHC.CLN ---
NUTRITION CLEAR LIQUID DIET. PATIENT KNOWN FROM PRIOR ADMISSIONS AND 04/2025. UNDERWEIGHT WITH BMI=17.7. AT RISK FOR MALABSORPTION DUE TO CROHN'S. NO SIGNIFICANT WEIGHT LOSS X ONE YEAR. FOLLOW FOR DIET ADVANCEMENT, DIET TOLERANCE AND PO INTAKE. SEE CLINICAL NUTRITION ASSESSMENT.
--- NOTE | 2025-05-28 19:41 | PM.EVENT ---
Event Note Date of Service: 05/28/25 Event Note: GI Consult-Full note dictated-history from patient and the EMR Imp: Continued problems in regard to his Crohn's disease with abdominal pain and active Crohn's of the SI despite having completed 3 Skyrizi infusions, continuing Pentasa, and having remained on prednisone. He is feeling better after treatment with IV antibiotics and steroids. His abdominal exam is benign other than some mild tenderness. Rec: Supportive care, continue current IV meds, F/U labs, surgery already following. I reviewed with patient the plan for continued medical therapy while we wait for the Skyrizi to hopefully become effective. He will be due for his first home SQ injection in early 07/2025. D/W patient in detail and he is comfortable with this plan. Thanks Time Spent With Patient Time: Total time managing care of this patient today ____ minutes.
[2025-05-29] MEDS: Lactated Ringers 1,000 ML 100 ML IVCONT ×3 (00:57→20:57)
[2025-05-29 02:58] VITALS: BP 127/64; PULSE 73; RESP 18; TEMP 36.4; O2SAT 99
[2025-05-29 06:49] LABS: MANUAL DIFF FLAG NO
[2025-05-29 07:00] LABS: Hematocrit 38.6 % (42.0-52.0); Hemoglobin 12.8 g/dl (14.0-18.0); Imm Gran Abs Auto 0.11 X10*3/uL (0.00-0.03); Imm Gran Pct Auto 1.0 % (0.0-0.4); Lymphocytes Absolute Auto 0.7 X10*3/uL (1.2-4.9); Mean Corpuscular HGB Conc 33.2 g/dl (31.0-36.0); Mean Corpuscular Hemoglobin 27.6 pg (27.0-33.0); Mean Corpuscular Volume 83.4 fL (80.0-98.0); NRBC Abs Auto 0.000 X10*3/uL (0.0-0.012); NRBC Pct Auto 0.0 /100WBC (0.0-0.2); Platelet Count 195 X10*3/uL (160-400); Red Blood Count 4.63 X10*6/uL (4.60-5.80); White Blood Count 10.7 X10*3/uL (4.8-10.8)
[2025-05-29 07:17] LABS: Anion Gap 11 (12-20); Blood Urea Nitrogen 8 mg/dL (9-16); Calcium 9.4 mg/dL (8.4-10.2); Carbon Dioxide 28 mmol/L (22-29); Chloride 103 mmol/L (96-108); Creatinine Clr Calc Pharmacy 166.6; Estimated Glomerular Filt Rate > 60; Potassium 3.9 mmol/L (3.3-5.1); Sodium 138 mmol/L (135-145)
[2025-05-29 07:52] VITALS: BP 106/55; PULSE 70; RESP 12; TEMP 36.1; O2SAT 99
--- NOTE | 2025-05-29 10:14 | HO.PM.IMPN ---
Subjective Subjective Date of Service: 05/29/25 Interval History: nausea/vomiting resolved, no diarrhea, no BRBPR, no abd pain Review of Systems Review of Systems: Yes all other systems are reviewed and are negative Physical Exam Vital Signs: Vital Signs: Last Vital Signs Temp 97.0 F 05/29/25 07:52 Pulse 70 05/29/25 07:52 Resp 12 05/29/25 07:52 BP 106/55 L 05/29/25 07:52 Pulse Ox 99 05/29/25 07:52 O2 Del Method Room Air 05/29/25 07:52 BMI result Body Mass Index 17.7 Gen: in no acute distress, thin HEENT: sclera anicteric, moist mucus membranes Neck: supple Lungs: clear to auscultation bilaterally Heart: regular rate and rhythm, no murmurs Abd: soft, mildly tender bilateral lower quadrants without rebound/guarding, non-distended Ext: no edema Skin: warm/well-perfused Neuro: alert and oriented x3, no focal findings Psych: appropriate affect Objective Data Active Medications Acetaminophen (Acetaminophen 325 Mg Tablet) 975 mg PO Q6H PRN PRN Reason: Pain, Mild 1-3,fever,headache Calcium Carbonate (Calcium Carbonate 750 Mg Tab.Chew) 750 mg PO Q4H PRN PRN Reason: Heartburn Hydromorphone HCl (Hydromorphone Hcl 1 Mg/Ml Syringe) 0.5 mg IVPUSH Q4H PRN; Protocol PRN Reason: Pain, Severe (Pain Scale 7-10) Last Admin: 05/28/25 12:09 Dose: 0.5 mg Documented By: GEORGE Lactated Ringer's (Lr) 1,000 mls @ 100 mls/hr IVCONT .Q10H [facility] Last Admin: 05/29/25 00:57 Dose: 100 mls/hr Documented By: LUZMARIA Piperacillin Sod/Tazobactam (Sod 3.375 gm/ Sodium Chloride) 50 mls @ 100 mls/hr IV Q6H [facility] Last Infusion: 05/29/25 08:33 Dose: Infused Documented By: GEORGE Magnesium Hydroxide (Milk Of Magnesia 30 Ml Oral.Susp) 30 ml PO DAILY PRN PRN Reason: Constipation Melatonin (Melatonin 3 Mg Tablet) 6 mg PO BEDTIME PRN PRN Reason: Insomnia Mesalamine (Mesalamine 250 Mg Capsule.Er) 1,000 mg PO QID [facility] Last Admin: 05/29/25 08:00 Dose: 1,000 mg Documented By: GEORGE Methylprednisolone Sodium Succinate (Methylprednisolone Sod Succ 40 Mg/Ml Vial) 40 mg IVPUSH Q12H [facility] Last Admin: 05/29/25 00:58 Dose: 40 mg Documented By: LUZMARIA Ondansetron HCl (Ondansetron Hcl 4 Mg/2 Ml Vial) 4 mg IVPUSH Q8H PRN PRN Reason: Nausea and Vomiting Oxycodone HCl (Oxycodone Hcl Immed Release 5 Mg Tablet) 5 mg PO Q6H PRN PRN Reason: Pain, Moderate(Pain Scale 4-6) Sodium Chloride (0.9 % Sodium Chloride Flush 3 Ml Syringe) 3 ml IVFLUSH QSHIFT [facility] Last Admin: 05/29/25 06:54 Dose: Not Given Documented By: GEORGE Non-Admin Reason: IV Running Labs 05/29/25 06:01 05/29/25 06:01 Labs: Laboratory Results - last 24 hr 05/29/25 06:01 MCV 83.4 MCH 27.6 MCHC 33.2 RDW 15.0 Plt Count 195 MPV 8.8 L Immature Gran % (Auto) 1.0 H Neut % (Auto) 89.7 H Lymph % (Auto) 6.2 L [place] % (Auto) 3.0 Eos % (Auto) 0.0 Baso % (Auto) 0.1 Lymph # (Auto) 0.7 L [place] # (Auto) 0.3 Eos # (Auto) 0.0 Baso # (Auto) 0.0 Abs Immat Gran (auto) 0.11 H Absolute Neuts (auto) 9.6 H Absolute Nucleated RBC 0.000 Nucleated RBC % (auto) 0.0 Anion Gap 11 L Estim Creat Clear Calc 166.6 Estimated GFR > 60 Random Glucose 119 H Calcium 9.4 Microbiology Microbiology Results: Microbiology 05/28/25 04:59 Blood Culture - Preliminary Blood - Venous No growth after 24 hours. 05/28/25 04:59 Blood Culture - Preliminary Blood - Venous No growth after 24 hours. Assessment and Plan (1) Crohn's disease of both small and large intestine: Status: Acute (2) Sepsis: Status: Acute Plan d2, 19yo M with Crohn's disease s/p 3 Skyziri infusions presenting with abd pain, nausea, and vomiting; found to have severe fat stranding and inflammatory change in the right lower quadrant with possible fluid collection which surrounds multiple loops of thickened small bowel with adjacent fat stranding or inflammatory change sepsis due to colitis and Crohn's flare: Gen Surg following, GI consulted, continue piperacillin-tazobactam 05/28-, started methylprednisolone 05/28-, continue mesalamine, stool studies if develops diarrhea, advance from clear liquid to low-residue diet, IV fluid hydration, lactate normalized VTE ppx: SCDs dispo: eventual home In my clinical judgment, the patient requires continued inpatient hospitalization for the following reasons: IV fluids, advancing diet, IV steroids, GI consultation Total time managing care of this patient today: 35 minutes. Quality Stroke Does the patient have a stroke diagnosis?: No VTE Prior VTE?: No VTE Risk Level:: Medical - moderate - high VTE Device Contraindication: N/A - Device Ordered VTE Drug Contraindication: Treatment Not Indicated
[2025-05-29 16:25] VITALS: BP 114/60; PULSE 70; RESP 18; TEMP 36.2; O2SAT 97
[2025-05-29 20:00] VITALS: BP 139/60; PULSE 79; RESP 18; TEMP 36.7; O2SAT 96
--- NOTE | 2025-05-29 23:58 | PM.GIPN ---
Subjective Subjective Date of Service: 05/29/25 Interval History: Patient seen at 7:30 PM. Patient is feeling better. Abdominal pain has resolved. Describes 2 small BM's today without bleeding.Starting to eat. Denies N/V. Critical Care Time (minutes): 0 Physical Exam Vital Signs: Vital Signs: Last Vital Signs Temp 98.1 F 05/29/25 20:00 Pulse 79 05/29/25 20:00 Resp 18 05/29/25 20:00 BP 139/60 05/29/25 20:00 Pulse Ox 96 05/29/25 20:00 O2 Del Method Room Air 05/29/25 20:00 BMI result Body Mass Index 17.7 Const: General: cooperative, healthy appearing, comfortable, no acute distress, well developed, alert and awake GI: Other: Abd-+BS, soft, NT no mass, nondistended Objective Data Labs 05/29/25 06:01 05/29/25 06:01 Labs: Laboratory Results - last 24 hr 05/29/25 06:01 WBC 10.7 RBC 4.63 Hgb 12.8 L Hct 38.6 L MCV 83.4 MCH 27.6 MCHC 33.2 RDW 15.0 Plt Count 195 MPV 8.8 L Immature Gran % (Auto) 1.0 H Neut % (Auto) 89.7 H Lymph % (Auto) 6.2 L [place] % (Auto) 3.0 Eos % (Auto) 0.0 Baso % (Auto) 0.1 Lymph # (Auto) 0.7 L [place] # (Auto) 0.3 Eos # (Auto) 0.0 Baso # (Auto) 0.0 Abs Immat Gran (auto) 0.11 H Absolute Neuts (auto) 9.6 H Absolute Nucleated RBC 0.000 Nucleated RBC % (auto) 0.0 Sodium 138 Potassium 3.9 Chloride 103 Carbon Dioxide 28 Anion Gap 11 L BUN 8 L Creatinine 0.58 Estim Creat Clear Calc 166.6 Estimated GFR > 60 Random Glucose 119 H Calcium 9.4 Microbiology Microbiology Results: Microbiology 05/28/25 04:59 Blood - Venous Blood Culture - Preliminary No growth after 24 hours. 05/28/25 04:59 Blood - Venous Blood Culture - Preliminary No growth after 24 hours. Procedures Date of Service Date of Service: 05/29/25 Progress Note: A&P Assessment and plan (1) Crohn's disease of both small and large intestine: Status: Acute Assessment and Plan: Imp: Crohn's disease-clinically improved after treatment with steroids and antibiotics. Hopefully will have some sustained remission as the Skyrizi is continued. Rec: Change to po prednisone. I will send a Rx to his pharmacy for the prednisone taper. He will continue Pentasa 1 GM QID and start the Skyrizi SQ injections in early July. He has a F/U appointment with me in 06/2025. Discharge 05/30 if stable. D/W patient and he is comfortable with this plan. Thanks Time Spent With Patient Time: Total time managing care of this patient today ____ minutes. Quality Stroke Does the patient have a stroke diagnosis?: No VTE Prior VTE?: No VTE Risk Level:: Medical - moderate - high VTE Device Contraindication: N/A - Device Ordered VTE Drug Contraindication: Treatment Not Indicated
[2025-05-30 03:37] VITALS: BP 105/60; PULSE 59; RESP 16; TEMP 36.4; O2SAT 98
--- NOTE | 2025-05-30 05:09 | PC.NURSE ---
Pt seen on bed alert and oriented, denies any pain, tolerating IVF, diet tolerated, meds given, ambu along the hallway before BT.
[2025-05-30 06:01] LABS: MANUAL DIFF FLAG NO
[2025-05-30 06:28] LABS: Hematocrit 39.1 % (42.0-52.0); Hemoglobin 12.9 g/dl (14.0-18.0); Imm Gran Abs Auto 0.12 X10*3/uL (0.00-0.03); Imm Gran Pct Auto 1.1 % (0.0-0.4); Lymphocytes Absolute Auto 0.7 X10*3/uL (1.2-4.9); Mean Corpuscular HGB Conc 33.0 g/dl (31.0-36.0); Mean Corpuscular Hemoglobin 28.0 pg (27.0-33.0); Mean Corpuscular Volume 85.0 fL (80.0-98.0); NRBC Abs Auto 0.000 X10*3/uL (0.0-0.012); NRBC Pct Auto 0.0 /100WBC (0.0-0.2); Platelet Count 226 X10*3/uL (160-400); Red Blood Count 4.60 X10*6/uL (4.60-5.80); White Blood Count 11.4 X10*3/uL (4.8-10.8)
[2025-05-30 06:29] LABS: Anion Gap 12 (12-20); Blood Urea Nitrogen 12 mg/dL (9-16); Calcium 9.5 mg/dL (8.4-10.2); Carbon Dioxide 27 mmol/L (22-29); Chloride 105 mmol/L (96-108); Creatinine Clr Calc Pharmacy 132.3; Estimated Glomerular Filt Rate > 60; Potassium 4.4 mmol/L (3.3-5.1); Sodium 140 mmol/L (135-145)
[2025-05-30 07:17] VITALS: BP 101/57; PULSE 66; RESP 15; TEMP 36.6; O2SAT 98
[2025-05-30] MEDS: Lactated Ringers 1,000 ML 100 ML IVCONT (08:01)
--- NOTE | 2025-05-30 09:34 | PM.DS ---
DS: Providers Provider Date of Service: 05/30/25 Date of admission: 05/28/25 04:35 Date of discharge: 05/30/25 Primary care physician: Polo Davalos MD Consults: 05/28/25 04:36 Consult to General Surgery Routine Consulting Provider: [facility] Reason for consultation: ?appendicitis on CT, appears chronic 05/28/25 05:01 Consult to Gastroenterology Routine Consulting Provider: Vince Jones Reason for consultation: crohns flare Has provider been notified: No DS: Diagnosis Discharge Diagnosis (1) Crohn's disease of both small and large intestine: Status: Acute DS: Summary Hospital Course Hospital Course: From the history and physical by the admitting hospitalist, Atiya Parsons, 05/27/25: 'Patient is a 19-year-old male with a past medical history significant for recent new diagnosis of Crohn's disease, who presented to the ED due to lower abdominal pain, nausea and vomiting. He has had the pain for the past 3 days with associated nausea and vomiting for 2 days. He denies any hematemesis, hematochezia, fever, chills, diarrhea, constipation or urinary symptoms including frequency, urgency or dysuria. He has been hospitalized about 5 times for Crohn's flares since being diagnosed a few months ago, most recent hospitalization about 1 month ago. He is currently being managed with mesalamine and Skyrizi.' 19yo M with Crohn's disease s/p 3 Skyziri infusions presenting with abd pain, nausea, and vomiting; found to have severe fat stranding and inflammatory change in the right lower quadrant with possible fluid collection which surrounds multiple loops of thickened small bowel with adjacent fat stranding or inflammatory change. He was admitted to the medical-surgical unit with Gastroenterology consultation. He was treated with IV piperacillin-tazobactam and IV methylprednisolone. Lactate normalized with IV fluid hydration. Diarrhea resolved. Diet was advanced from clear liquids to low-residue solids. He will follow up with Dr Jones from [facility] to continue Skyrizi infusions. He was discharged on prednisone taper, mesalamine, and 3 days of amoxicillin-clavulanate. Time Attestation Discharge Coordination Time (in mins): 35 Quality: Safe Use of Opioids Does Pt have an Active Cancer Diagnosis on the Problem List?: No Quality: Stroke Does the patient have a stroke diagnosis?: No Physical Exam Vital Signs: Vital Signs: Last Vital Signs Temp 97.8 F 05/30/25 07:17 Pulse 66 05/30/25 07:17 Resp 15 05/30/25 07:17 BP 101/57 L 05/30/25 07:17 Pulse Ox 98 05/30/25 07:17 O2 Del Method Room Air 05/30/25 07:17 BMI result Body Mass Index 17.7 Gen: in no acute distress, thin HEENT: sclera anicteric, moist mucus membranes Neck: supple Lungs: clear to auscultation bilaterally Heart: regular rate and rhythm, no murmurs Abd: soft, non-tender, non-distended Ext: no edema Skin: warm/well-perfused Neuro: alert and oriented x3, no focal findings Psych: appropriate affect DS: Data Data Completed and Pending Completed studies during hospitalization [Text1]: Laboratory Results WBC 11.4 X10*3/uL (4.8-10.8) H 05/30/25 05:21 RBC 4.60 X10*6/uL (4.60-5.80) 05/30/25 05:21 Hgb 12.9 g/dl (14.0-18.0) L 05/30/25 05:21 Hct 39.1 % (42.0-52.0) L 05/30/25 05:21 MCV 85.0 fL (80.0-98.0) 05/30/25 05:21 MCH 28.0 pg (27.0-33.0) 05/30/25 05:21 MCHC 33.0 g/dl (31.0-36.0) 05/30/25 05:21 RDW 15.0 % (11.0-16.0) 05/30/25 05:21 Plt Count 226 X10*3/uL (160-400) 05/30/25 05:21 MPV 9.1 fL (9.4-12.4) L 05/30/25 05:21 Immature Gran % (Auto) 1.1 % (0.0-0.4) H 05/30/25 05:21 Neut % (Auto) 89.1 % (45-73) H 05/30/25 05:21 Lymph % (Auto) 6.1 % (20-40) L 05/30/25 05:21 Piute % (Auto) 3.5 % (2-11) 05/30/25 05:21 Eos % (Auto) 0.0 % (0-4) 05/30/25 05:21 Baso % (Auto) 0.2 % (0-2) 05/30/25 05:21 Lymph # (Auto) 0.7 X10*3/uL (1.2-4.9) L 05/30/25 05:21 Pi[place] # (Auto) 0.4 X10*3/uL (0.1-1.2) 05/30/25 05:21 Eos # (Auto) 0.0 X10*3/uL (0.0-0.4) 05/30/25 05:21 Baso # (Auto) 0.0 X10*3/uL (0.0-0.2) 05/30/25 05:21 Abs Immat Gran (auto) 0.12 X10*3/uL (0.00-0.03) H 05/30/25 05:21 Absolute Neuts (auto) 10.2 x10*3/uL (2.0-8.3) H 05/30/25 05:21 Absolute Nucleated RBC 0.000 X10*3/uL (0.0-0.012) 05/30/25 05:21 Nucleated RBC % (auto) 0.0 /100WBC (0.0-0.2) 05/30/25 05:21 ESR 14 MM/HR (0-15) 05/28/25 04:59 Sodium 140 mmol/L (135-145) 05/30/25 05:21 Potassium 4.4 mmol/L (3.3-5.1) 05/30/25 05:21 Chloride 105 mmol/L (96-108) 05/30/25 05:21 Carbon Dioxide 27 mmol/L (22-29) 05/30/25 05:21 Anion Gap 12 (12-20) 05/30/25 05:21 BUN 12 mg/dL (9-16) 05/30/25 05:21 Creatinine 0.73 mg/dL (0.5-1.4) 05/30/25 05:21 Estim Creat Clear Calc 132.3 05/30/25 05:21 Estimated GFR > 60 05/30/25 05:21 Random Glucose 140 mg/dL (60-115) H 05/30/25 05:21 Lactic Acid 2.2 mmol/L (0.5-2.0) H* 05/28/25 05:00 Lactic Acid F/U @ 2Hr 1.8 mmol/L (0.5-2.0) 05/28/25 08:46 Calcium 9.5 mg/dL (8.4-10.2) 05/30/25 05:21 Total Bilirubin 0.5 mg/dL (0.0-1.0) 05/28/25 00:15 Direct Bilirubin 0.2 mg/dL (0.0-0.5) 05/28/25 00:15 AST 21 U/L (5-37) 05/28/25 00:15 ALT 25 U/L (0-40) 05/28/25 00:15 Alkaline Phosphatase 64 U/L (39-117) 05/28/25 00:15 C-Reactive Protein 8.73 mg/dL (< or = 0.50) H 05/30/25 05:21 Total Protein 7.8 g/dL (6.5-8.0) 05/28/25 00:15 Albumin 4.2 g/dL (3.5-5.0) 05/28/25 00:15 Lipase 18 U/L (8-78) 05/28/25 00:15 Urine Color Yellow 05/28/25 00:25 Urine Appearance Clear 05/28/25 00:25 Urine pH 6.0 (5.0-9.0) 05/28/25 00:25 Ur Specific [place] 1.025 (1.005-1.025) 05/28/25 00:25 Urine Protein Negative mg/dL (Neg-Trace) 05/28/25 00:25 Urine Glucose (UA) Negative mg/dL (Negative) 05/28/25 00:25 Urine Ketones Trace mg/dL (Negative) 05/28/25 00:25 Urine Blood Negative (Negative) 05/28/25 00:25 Urine Nitrite Negative (Negative) 05/28/25 00:25 Ur Leukocyte Esterase Negative (Negative) 05/28/25 00:25 Discharge Plan Discharge Anticipated Discharge Date/Time: 05/30/25 09:33 Patient Disposition: Home, Self-Care Discharge Diagnosis: Crohn's disease flare Referrals: Polo Davalos MD [Primary Care Provider, Pediatrics] - 1 Week Vince Jones MD [Physician, Gastroenterology] - 2 Weeks Discharge Medications: New amoxicillin-pot clavulanate 875-125 mg tablet 1 tab PO BID Qty: 6 0RF prednisone 10 mg tablet See Rx Instructions .ROUTE .COMPLEX Qty: 70 0RF Rx Instructions: 40 mg daily x 7 days, then 30 mg daily x 7 days, then 20 mg daily x 7 days, then 10 mg daily x 7 days Continued mesalamine 400 mg Capsule (With Del Rel Tablets) 400 mg PO QID 30 Days Qty: 160 3RF Discontinued prednisone 5 mg tablet 5 mg PO DAILY Discharge Orders: Discharge Order (Routine); Ordered 05/30/25 Ordered By: Finesse Ernst Diet: low-residue Activity on Discharge: As tolerated Stand Alone Forms: Patient Portal Discharge page Print Language: [place] Care Plan Goals: control Crohn's disease Health Concerns: Crohn's disease flare Plan of Treatment: prednisone taper: 40 mg daily x 7 days, then 30 mg daily x 7 days, then 20 mg daily x 7 days, then 10 mg daily x 7 days mesalamine: 400 mg 4x a day antibiotics: amoxicillin-clavulanate twice daily for 3 days follow up with Dr Jones in 2 weeks Please follow up with your primary care doctor within 1 week. Return to the hospital if you experience recurrent or worsening symptoms. Assessment: See Discharge Summary.
--- NOTE | 2025-05-30 12:44 | MHC.CLN ---
F/U DIET ADVANCED 05/29 TO LOW FIBER. FOLLOW FOR DIET TOLERANCE AND PO INTAKE.
[2025-05-30 13:04] VITALS: BP 121/75; PULSE 95; RESP 16; TEMP 37.3; O2SAT 98
--- NOTE | 2025-05-30 13:07 | MHC.CM.PN ---
PT IS DCD HOME SELF CARE
--- NOTE | 2025-05-31 03:38 | CONS_ITS ---
DATE OF SERVICE: 05/28/2025 REASON FOR CONSULTATION: Crohn disease and abdominal pain. HISTORY OF PRESENT ILLNESS: The patient is a 19-year-old male well known to me with the diagnosis of Crohn's disease made in January of 2025. At that time, he had presented with lower abdominal pain with some vomiting. He ultimately was found to have inflammatory changes along the cecum, ascending colon, and terminal ileum with some mural thickening, submucosal edema, mucosal hyperemia, and some fat stranding in the same areas. He underwent a colonoscopy on February 28 describing a deformed ileocecal valve, ileitis, and changes in the cecum, sigmoid colon and, and rectum consistent with Crohn's disease with small ulcerations and areas of erythema. The ascending colon, transverse colon, and descending colon appeared normal. Biopsies obtained from the bowel at that time showed changes consistent with ileitis, colitis, but no other pathology. No granulomas or dysplasia were seen in any of the biopsies. Due to the persistent problems in trying to wean him off prednisone, it was decided to start him on a biologic agent. He received his 1st Skyrizi infusion in March. He just received his 3rd and final Skyrizi infusion earlier this month. He has been unable to come off prednisone and finds that when he goes below approximately 10 mg daily, his symptoms flare up. He reports that this happened again prompting this admission. Since admission here, he has had no diarrhea, nor bleeding. He denies any vomiting. His appetite has been fair and his oral intake has been fair. MEDICATIONS: At home, Pentasa 1 g q.i.d., prednisone 10 mg daily, and Skyrizi infusions which completed last week and then he will begin Skyrizi subcutaneous injections in early July. PAST MEDICAL HISTORY: Crohn's disease involving the ileum and portions of the colon as described above. Treated with Skyrizi as of March 2025. There is no history of diabetes, heart disease, or asthma. He has not had any significant surgeries. SOCIAL HISTORY: He does not smoke. He denies any significant alcohol use. He denies any drug use. He had been working in the [employer], [employer], but has not been able to work since he became ill with Crohn disease. FAMILY HISTORY: Noncontributory. PHYSICAL EXAMINATION: GENERAL: The patient is a pleasant, alert male. SKIN: Warm and dry. Anicteric sclerae. Moist mucous membranes. NECK: Supple without lymphadenopathy. CARDIAC: Normal S1, S2. ABDOMEN: Soft, nondistended. Some mild diffuse tenderness but without mass or rebound. EXTREMITIES: Without edema. LABORATORY DATA: On this occasion at the time of admission showed a hemoglobin of 15.8, white blood cell count 16.6, and platelet count 230,000. Normal electrolytes. BUN 12, creatinine 0.7. He did have a CT scan of the abdomen and pelvis, which revealed extensive right lower quadrant inflammatory changes with a suspicion for possible fluid collection. There was no sign of any bowel obstruction. IMPRESSION: The patient is a 19-year-old male with significant Crohn's disease involving both the small and large intestine, which has been refractory to steroid taper. At this point, he did receive his 3rd and final Skyrizi infusion and is scheduled for the 1st subcutaneous injection in early July. At this point, I would continue current management with IV steroids, antibiotics, and n.p.o. until things are improving. At this point,it does not look like he will need surgery in the sense of having any type of perforation or significant abscess formation. I did review the case with the surgical staff, and they do not think there is any definitive abscess and they did not have any issues with me starting him on some steroids. At this point, I would continue the current plan as mentioned and then he will have a close outpatient followup. I did review with him that hopefullthe Skyrizi medication will become effective at some point to relieve things for him. As mentioned, he has already had 3 IV infusions and will begin the subcutaneous injection in July. If things continue to prove refractory despite the Skyrizi we might need to consider switching to a different biologic or adding something such as azathioprine. However, hopefully the Skyrizi will take effect. Thank you for the consultation. MD ELAINE Massey/LEYDI / [id number] VALERIE
== END 2025-05-30 13:07 | disposition home or self-care (01) | DRG 720 ==
LOC: HO.ED 05-28 05:44 → HO.EDOVER 05-28 05:46 → HO.S3 05-28 07:39
PROVIDERS: Emergency Medicine; Student in an Organized Health Care Education/Training Program; Admitting Provider Physician Assistant; Emergency Provider Emergency Medicine; PCP Pediatrics; Visit Provider Family Medicine
DX: A41.9 Sepsis, unspecified organism (principal); E87.21 Acute metabolic acidosis; K50.814 Crohn's disease of both small and large intestine with abscess; Z79.620 Long term (current) use of immunosuppressive biologic
CPT/HCPCS: 36415; 74177; 80048; 80076; 81003; 83605; 83690; 85025; 85652; 86140; 87040; 93005; 99285; J1171; J1790; J1885; J2270; J2543; J2919; J7120; Q9967

== ENCOUNTER → 2025-05-28 01:50 | Outpatient (BNV) | payer MEDICAID, SELFPAY | PROVIDERS: Emergency Provider Emergency Medicine; Visit Provider General Practice | DX: K50.90 Crohn's disease, unspecified, without complications (principal); D72.829 Elevated white blood cell count, unspecified | CPT/HCPCS: 74177 ==

== ENCOUNTER 2025-05-28 04:35 | Outpatient (BNV) | payer MEDICAID, SELFPAY | END 2025-05-28 09:12 | PROVIDERS: Admitting Provider Physician Assistant; Emergency Provider Emergency Medicine; Visit Provider Internal Medicine Cardiovascular Disease | DX: Z13.6 Encounter for screening for cardiovascular disorders (principal) | CPT/HCPCS: 93010 ==

== ENCOUNTER → 2025-05-28 04:35 | Outpatient (BNV) | payer MEDICAID, SELFPAY | PROVIDERS: Admitting Provider Physician Assistant; Emergency Provider Emergency Medicine; Visit Provider Physician Assistant Surgical | DX: K50.918 Crohn's disease, unspecified, with other complication (principal) | CPT/HCPCS: 99222 ==

== ENCOUNTER → 2025-05-28 04:35 | Outpatient (BNV) | payer MEDICAID, SELFPAY | PROVIDERS: Admitting Provider Physician Assistant; Emergency Provider Emergency Medicine; Visit Provider Family Medicine | DX: K50.814 Crohn's disease of both small and large intestine with abscess (principal); A41.9 Sepsis, unspecified organism | CPT/HCPCS: 99232 ==

== ENCOUNTER 2025-07-07 20:30 | Inpatient (IN) | payer MEDICAID, SELFPAY ==
--- OUTSIDE RECORDS SUMMARY | 2025-02-27 08:00 | XMS_ITS ---
Author Organization [facility] Address [address] [place] [address] Support Name Relationship Address Phone SHANTE CARRANZA Emergency Contact [address] [place], [place] [phone] SKY MEDEIROS Guarantor Unknown Care Team Providers Care Turntable Man Name Role Phone Rebekah Knight M.D. Primary Care Provider UnaVince Dupree Unavailable [phone] Doc GE, Mita Carson Unavailab le REASON FOR VISIT crohns of small and large intestine Encounters Encounter Location Date Provider Diagnosis [facility] [place] [facility] [address] [place] [phone] 02/27/2025 Vince Jones Plan Of Treatment Next Appt Details Provider Name:Vince Simeon Jones , 11/11/2025 01:20:00 PM, [address], [address], [place], [address], Progress Notes * CHRISTIE MEDEIROSISDOB: (19 yo M)Acc No.[id number]:02/27/2025 Progress Notes Patient: Kodak VAZ SKY FREY Provider: Kodak Jones MD :2005 A ge:19 Y S ex:Male Date:02/27/2025 Address:[address] [place], [place] Pcp:Rebekah Knight M.D. Subjective: * Chief Complaints: * C rohns of small and large intestine Billing Information: * Procedure Codes: * The named appointment provid er may or may not be the originator of this progress note, and it is not deemed complete until electronically signed by the appointment provider. Sign off status: Pending * Provider: Kodak Jones MD Date: 0 02/27/2025 Generated for Gray mclean/Jeremy/Renata on: 1 09/08/2024 12:41 AM EST
--- OUTSIDE RECORDS SUMMARY | 2025-06-24 09:40 | XMS_ITS ---
Author Organization [facility] Address [address] [place] [address] Support Name Relationship Address Phone ENDER CARRANZAGO Emergency Contact [address] [place] [address] BILL MEDEIROS Guarantor Unknown [phone] Care Team Providers Care Hose Inspector And Patcher Name Role Phone Eugene Kerns Rebekah Primary Care Provider Vince Chatterjee Unavailable [phone] Mita Roach MD Unavailable Unavailab le Allergies Allergen (clinical drug ingredient) Drug/Non Drug Allergy documented on EMR Reaction Allergy Type Onset Date Status seasonal (uncoded) Unknown Allergy A ctive REASON FOR VISIT Patient presents today for crohns disease Medications Medication SIG (Take, Route, Frequency, Duration) Notes Start Date End Date Status Budesonide 3 MG Capsule Delayed Release Particles 3 Orally daily; Duration: 30 days FYI Patient will begin the Budesonide. However, I have given him a Rx for Prednisone as well to have on hand to switch over to if the Budesonide is not working for his Crohn's. Thanks 02/06/2025 Not-Taking/W[place] N predniSONE 5 MG Tablet 8 pills(40mg) daily for 1 week and then decrease by 1 pill(5mg) every week Orally Once a day; Duration: 56 days On 30mg as of the 06/24/25 OV and doing a 5mg/wk taper 02/06/2025 Active Mesalamine 400 MG Capsule Delayed Release 1 capsule Orally Four times a day; Duration: 30 day(s) 02/06/2025 Unknown MiraLax (colon prep) 17 GM/SCOOP Powder 1 238Gm bottle mixed w/64 ounce bottle of gatorade (not red) if diabetic use Crystal Light intead of Иван orally drink the mixture beginning at 4:00 p.m. the day before the procedure. Drink an 8 ounce glass every; Duration: 1 days 02/06/2025 Unknown Dulcolax (colon prep) 5 MG Tablet Delayed Release Take 2 at 3:00 p.m and 2 at 7:00p.m. the day before the colonoscopy Orally Take two tablets twice a day for one day before the colonoscopy; Duration: 1 days 02/06/2025 Unknown Skyrizi Pen 150 MG/ML Solution Auto-injector as directed Subcutaneous every 8 weeks starting 07/202506/24/2025 Active Pentasa 500 MG Capsule Extended Release 2 capsules Orally Four times a day; Duration: 30 days 03/28/2025 Active Immunizations Vaccine Route Administration Date Status Comme nts Influenza Unknown 06/24/2025 Refused Social History Tobacco Use: Social History Observation Description Date Details (start date - stop date) Never Smoker NA - NA Social History Drug/Alcohol: Social Info Question Answer Notes AUDIT-C (Standard) Did you have a drink containing alcohol in the past year? No Points 0 Interpretation Negative Tobacco Use: Social Info Question Answer Notes Tobacco Control (Standard) Tobacco use: Nonsmoker Additional Details Category Social Info Options Details Miscellaneous: Marital status: single Vital Signs Blood pressure systolic 001 mm Hg 06/24/20 25 Blood pressure diastolic 01 mm Hg 025 Height 71 in 06/24/2025 Weight 137.4 lbs 06/24/2025 BMI 19.16 kg/m2 06/24/2025 BMI Percentile 5.59 % 06/24/2025 Encounters Encounter Location Date Provider [facility] [address] [place] [id number] 06/24/2025 iVnce Jones Crohn''s disease of both small and large intestine without complication K50.80 Assessments Encounter Date Diagnosis (ICD Code) Assessment Notes Treatment Notes Treatment Clinical Notes Section Notes 06/24/2025 Crohn''s disease of both small and large intestine without complication (ICD-10 - K50.80) Continue the slow prednisone taper by a 5mg pill every week. Call me hayden you are down to just 2 of the prednisone every day and let me know how you are doing. At that point I will let you know how to decrease the prednisone even slower. Continue the 2 Pentasa 4 times a day. Start the Skyrizi home injections in early July,- -call us if problems getting or using the Skyrizi injections Overall, Bill appears well at the present time. Things have been stable since he left the hospital about 3 weeks ago. He will continue the current slow prednisone taper by 5 mg/week but I did advise him to contact me when he is down to 10 mg daily. At that point I advised him that I would like him to call me such that I can give him instructions regarding a slower taper. He will start the Skyrizi home injections by the first week of July and he has already spoken to the Skyrizi teaching nurse. I did advise him to continue the Pentasa. We did review the need to stay on a low residue diet and to be sure to steam all his vegetables so they are very soft. We did review potential short and long-term side effects of the steroids, including that of diabetes, bone disease, and weight gain. We reviewed that the goal of the Skyrizi is to hopefully allow him to get off the prednisone without having continuous flareups of the Crohn's disease. I advised him that I would send over prescriptions for vitamin D and calcium to see if the insurance would cover that. If things remain stable I will plan to see him in October 2025. I did advise him to certainly call me prior to that if he is having any problems or questions I can be of assistance with. I did advise him to go to the ER if he develops any significant pain or fevers. Bill was comfortable with this plan. Thank you again for allowing me to participate in Bill's care. I shall continue to keep you advised of his progress. Plan Of Treatment Treatment Notes Assessment Notes Crohn''s disease of both sma ll and large intestine without complication Continue the slow prednisone taper by a 5mg pill every week. Call me iwhen you are down to just 2 of the prednisone every day and let me know how you are doing. At that point I will let you know how to decrease the prednisone even slower. Continue the 2 Pentasa 4 times a day. Start the Skyrizi home injections in early July,- -call us if problems getting or using the Skyrizi injections Next Appt Details Follow Up: November 2024, Kodak jonas: Provider Name:Vince Jones , 11/11/2025 01:20:00 PM, [address], [address], [place], [phone], History and Physical Notes * HPI (History of Present Illness) Category Sub-Category Detail Notes Category Not es incontinence I saw Bill in follow-up today in regard to his underlying history of Crohn's disease. I last saw Bill in mid-May when he was rehospitalized for another flare of his Crohn's disease with abdominal pain and inflammatory changes seen on his CT scan. He had received his third and final Skyrizi infusion the first week in May. He was in the hospital for a few days and discharged on prednisone 40 mg daily. He has also remained on his Pentasa 1 g 4 times a day. He is currently down to 30 mg daily of the prednisone. He reports that since discharge from the hospital he has been feeling fairly well. His bowel movements have been regular and without any diarrhea, constipation, abdominal distention, nor abdominal pain. His appetite is been fairly good. He denies any significant heartburn or dysphagia. He denies any nausea or vomiting. He has not noticed any signs of jaundice, skin rash, red or swollen joints, or any eye problems. Progress Notes * CHRISTIE MEDEIROSISDOB: (19 yo M)Acc No.[id number]:06/24/2025 Progress Notes Patient: BILL WILLIS Provider: Kodak Jones MD :2005 A ge:19 Y S ex:Male Date:06/24/2025 Address:[address] [place], [place] [id number] Pcp:Rebekah Knight M.D. Subjective: * Chief Complaints: * P atient presents today for crohns disease * HPI: i ncontinence: I saw Bill in follow-up today in regard to his underlying history of Crohn's disease. I last saw Bill in mid-May when he was rehospitalized for another flare of his Crohn's disease with abdominal pain and inflammatory changes seen on his CT scan. He had received his third and final Skyrizi infusion the first week in May. He was in the hospital for a few days and discharged on prednisone 40 mg daily. He has also remained on his Pentasa 1 g 4 times a day. He is currently down to 30 mg daily of the prednisone. He reports that since discharge from the hospital he has been feeling fairly well. His bowel movements have been regular and without any diarrhea, constipation, abdominal distention, nor abdominal pain. His appetite is been fairly good. He denies any significant heartburn or dysphagia. He denies any nausea or vomiting. He has not noticed any signs of jaundice, skin rash, red or swollen joints, or any eye problems. * Medical History: Asthma Denies ND,DM,CVA,renal disease Presumed Crohn's disease diagnosed in January 2025 during his hospitalization. The CT scan showed evidence of disease involving the distal small bowel and ascending colon. Stool specimens were all negative for infection and the stool calprotectin level was quite elevated at 1,090. He had a colonoscopy in February 2025 confirming the diagnosis of both Crohn's colitis and ileitis. He was started on Skyrizi infusions in early March 2025 and received his third and final infusion in May 2025. He is going to start the Skyrizi injections in July 2025. He has had 2-3 hospitalizations since the colonoscopy with flareups of the Crohn's requiring continued prednisone use. He has also remained on his Pentasa 1 g 4 times a day. Medical History Verified * Surgical History: No Surgical History documented. Surgical History verified. * Hospitalization/Major Diagno stic Procedure: No Hospitalization Documented. Hospitalization Verified. * Family History: F ather: alive. M other: alive, diagnosed with HTN (hypertension). F amily History Verified.. No family history of first-degree relatives with inflammatory bowel disease, GI malignancy, nor celiac disease. * Social History: T obacco Use: T obacco Control (Standard) T obacco use: N onsmoker. M iscellaneous: M arital status: single. D rug/Alcohol: A KANDACE-C (Standard) D id you have a drink containing alcohol in the past year? N o,?Points 0 , I nterpretation N egative. Social History Verified. * Medications: T akingSkyrizi Pen 150 MG/ML Solution Auto-injector as directed Subcutaneous every 8 weeks starting 07/2025 Pentasa 500 MG Capsule Extended Release 2 capsules Orally Four times a day predniSONE 5 MG Tablet 8 pills(40mg) daily for 1 week and then decrease by 1 pill(5mg) every week Orally Once a day , Notes to Pharmacist: On 30mg as of the 06/24/25 OV and doing a 5mg/wk taperTaking Skyrizi Pen 150 MG/ML Solution Auto-injector as directed Subcutaneous every 8 weeks starting 07/2025 Taking Pentasa 500 MG Capsule Extended Release 2 capsules Orally Four times a day Taking predniSONE 5 MG Tablet 8 pills(40mg) daily for 1 week and then decrease by 1 pill(5mg) every week Orally Once a day , Notes to Pharmacist: On 30mg as of the 06/24/25 OV and doing a 5mg/wk taperNot-Taking/PRNBudesonide 3 MG Capsule Delayed Release Particles 3 Orally daily , Notes to Pharmacist: JAYRO Patient will begin the Budesonide. However, I have given him a Rx for Prednisone as well to have on hand to switch over to if the Budesonide is not working for his Crohn's. ThanksNot-Taking/PRN Budesonide 3 MG Capsule Delayed Release Particles 3 Orally daily , Notes to Pharmacist: JAYRO Patient will begin the Budesonide. However, I have given him a Rx for Prednisone as well to have on hand to switch over to if the Budesonide is not working for his Crohn's. ThanksUnknownMesalamine 400 MG Capsule Delayed Release 1 capsule Orally Four times a day MiraLax (colon prep) 17 GM/SCOOP Powder 1 238Gm bottle mixed w/64 ounce bottle of gatorade (not red) if diabetic use Crystal Light intead of Иван orally drink the mixture beginning at 4:00 p.m. the day before the procedure. Drink an 8 ounce glass every Dulcolax (colon prep) 5 MG Tablet Delayed Release Take 2 at 3:00 p.m and 2 at 7:00p.m. the day before the colonoscopy Orally Take two tablets twice a day for one day before the colonoscopy Medication List reviewed and reconciled with the patientUnknown Mesalamine 400 MG Capsule Delayed Release 1 capsule Orally Four times a day Unknown MiraLax (colon prep) 17 GM/SCOOP Powder 1 238Gm bottle mixed w/64 ounce bottle of gatorade (not red) if diabetic use Crystal Light intead of Иван orally drink the mixture beginning at 4:00 p.m. the day before the procedure. Drink an 8 ounce glass every Unknown Dulcolax (colon prep) 5 MG Tablet Delayed Release Take 2 at 3:00 p.m and 2 at 7:00p.m. the day before the colonoscopy Orally Take two tablets twice a day for one day before the colonoscopy Medication List reviewed and reconciled with the patient * Allergies: s easonalyesAllergies Verified. Objective: * Vitals: W t:137.4lbs, Ht: 71 in, BMI:19.16Index, BP:001/01mm Hg, Ht-cm: 180.34 cm, Wt-k.32 kg, Wt %: 21.07 %, BMI %: 5.59 %, Ht %: 68.95 %. Assessment: * Assessment: 1. C rohn''s disease of both small and large intestine without complication - K50.80 (Primary)? Overall, Bill appears well a t the present time. Things have been stable since he left the hospital about 3 weeks ago. He will continue the current slow prednisone taper by 5 mg/week but I did advise him to contact me when he is down to 10 mg daily. At that point I advised him that I would like him to call me such that I can give him instructions regarding a slower taper. He will start the Skyrizi home injections by the first week of July and he has already spoken to the [facility] teaching nurse. I did advise him to continue the Pentasa. We did review the need to stay on a low residue diet and to be sure to steam all his vegetables so they are very soft. We did review potential short and long-term side effects of the steroids, including that of diabetes, bone disease, and weight gain. We reviewed that the goal of the yrizi is to hopefully allow him to get off the prednisone without having continuous flareups of the Crohn's disease. I advised him that I would send over prescriptions for vitamin D and calcium to see if the insurance would cover that. If things remain stable I will plan to see him in October 2025. I did advise him to certainly call me prior to that if he is having any problems or questions I can be of assistance with. I did advise him to go to the ER if he develops any significant pain or fevers. Bill was comfortable with this plan. Thank you again for allowing me to participate in Bill's care. I shall continue to keep you advised of his progress. Plan: * Treatment: * Immunizations: Influenza (Not administered - Refused: Patient decision) * Follow Up: A pri/November 2024 Billing Information: * Procedure Codes: * The named appointment provid er may or may not be the originator of this progress note, and it is not deemed complete until electronically signed by the appointment provider. Sign off status: Pending * Provider: Kodak Jones MD Date: 08/25/2024 Generated for Gray mclean/Jeremy/Ubaldosmitting on: 09/08/2024 12:41 AM EST
--- NOTE | ~2025-07-07 | CT_ITS ---
CLINICAL HISTORY: bilateral quadrant pain, hx crohns CT abdomen and pelvis with contrast Comparison: CT/REG/SR - CT ABDOMEN PELVIS W IV CON - 05/28/25 02:26 EST Findings: No consolidation or effusion. The liver, gallbladder, spleen, pancreas, kidneys and adrenal glands are normal in appearance. No definite bowel obstruction, pneumoperitoneum, or pneumatosis. Again seen is a complex inflammatory collection in the right pelvis which appears to involve the rectum, terminal ileum and cecum. No definite abscess, however evaluation without intraluminal contrast limits evaluation for abscess. There is dilatation of the distal ileum with extensive fecalization suggesting slow transit through this area. Small amount of ascites in the pelvis. Urinary bladder is decompressed. No acute fracture. IMPRESSION: Again seen is an extensive inflammatory process involving the right pelvis, including the cecum, terminal ileum and rectum. Findings concerning for inflammatory bowel disease. Evaluation for fistula and abscess limited without oral contrast, however no definite abscess seen. Dilatation and fecalization of the distal ileum concerning for slow transit through the terminal ileum This document has been electronically signed by: Michael Parkinson MD on 07/08/2025 03:18:35
[2025-07-07 20:35] VITALS: BP 148/82; PULSE 113; RESP 18; TEMP 36.1; O2SAT 99; BMI 19.1
[2025-07-07 22:33] LABS: Hematocrit 49.2 % (42.0-52.0); Hemoglobin 16.1 g/dl (14.0-18.0); Imm Gran Abs Auto 0.21 X10*3/uL (0.00-0.03); Imm Gran Pct Auto 1.1 % (0.0-0.4); Lymphocytes Absolute Auto 1.1 X10*3/uL (1.2-4.9); MANUAL DIFF FLAG NO; Mean Corpuscular HGB Conc 32.7 g/dl (31.0-36.0); Mean Corpuscular Hemoglobin 27.6 pg (27.0-33.0); Mean Corpuscular Volume 84.4 fL (80.0-98.0); NRBC Abs Auto 0.000 X10*3/uL (0.0-0.012); NRBC Pct Auto 0.0 /100WBC (0.0-0.2); Platelet Count 237 X10*3/uL (160-400); Red Blood Count 5.83 X10*6/uL (4.60-5.80); White Blood Count 19.6 X10*3/uL (4.8-10.8)
[2025-07-07 22:50] LABS: Alanine Aminotransferase 24 U/L (0-40); Albumin Level 4.4 g/dL (3.5-5.0); Alkaline Phosphatase 68 U/L (39-117); Anion Gap 14 (12-20); Aspartate Amino Transferase 16 U/L (5-37); Blood Urea Nitrogen 11 mg/dL (9-16); Calcium 10.2 mg/dL (8.4-10.2); Carbon Dioxide 28 mmol/L (22-29); Chloride 100 mmol/L (96-108); Creatinine Clr Calc Pharmacy 124.3; Estimated Glomerular Filt Rate > 60; Lipase 14 U/L (8-78); Potassium 4.4 mmol/L (3.3-5.1); Sodium 138 mmol/L (135-145); Total Protein 7.9 g/dL (6.5-8.0)
[2025-07-08 00:29] VITALS: BP 136/93; PULSE 86; RESP 16; TEMP 37.2; O2SAT 98
--- NOTE | 2025-07-08 00:30 | ED_ITS ---
HPI - Abdominal Pain General Chief Complaint: Abdominal Pain Stated Complaint: flare up in abdomen, has crohns disease Time Seen by Provider: 07/08/25 00:17 Source: patient Mode of arrival: ambulatory Limitations: no limitations History of Present Illness ED Provider: Dr. Kalyn Murillo HPI narrative: Patient comes to the emergency room complaining of abdominal pain bilateral lower quadrants for 2 days. Patient states that usually he is able to handle the pain at home when he has Crohn's exacerbations. However, he started vomiting today. Patient states that 4 days ago he had his 1st dose of Skyrizi ([id number]). Asthma, patient was admitted for a Crohn's flare. Patient denies fever chills, denies hematuria or dysuria. Related Data Previous Rx's ?Medication ?Instructions ?Recorded amoxicillin 875 mg-potassium 1 tab PO BID #6 tabs 05/17 11/08 clavulanate 125 mg tablet mesalamine 400 mg capsule (with 400 mg PO QID 30 days #160 ea 05/30/25 delayed release tablets inside) prednisone 10 mg tablet See Rx Instructions .Route 1 07/30/24 .COMPLEX #70 tabs Allergies Allergy/AdvReac Type Severity Reaction Status Date / Time Seasonal Allergies Allergy Unknown Verified 07/07/25 20:37 Review of Systems Review of Systems Constitutional : No Weight loss, No Fever, No Chills, No Night Sweats, No Fatigue, No Malaise ENT/Mouth : No Hearing loss, No Ear Pain, No Nasal Congestion, No Sinus Pain, No Hoarseness, No sore throat, No Rhinorrhea, No Swallowing Difficulty Eyes: No Eye Pain, No Swelling, No Redness, No Foreign Body, No Discharge, No Vision Changes Cardiovascular : No Chest Pain, No SOB, No Dyspnea on Exertion, No Orthopnea, No Edema, No Palpitations Respiratory : No Cough, No Sputum, No Wheezing, No Smoke Exposure, No Dyspnea Gastrointestinal : Complaining of nausea vomiting , no diarrhea, no blood in the stool. Complaining of severe lower quadrant abdominal pain Genitourinary : no irregular bleeding, No Dysuria, No Urinary Frequency, No Hematuria, No Urinary Incontinence, No Urgency, No Flank Pain, No Urinary Flow Changes, No Hesitancy Musculoskeletal : No joint pain, No Myalgias, No Joint Swelling Skin : No Skin Lesions, No rash Neuro : No Weakness, No Numbness, No Paresthesias, No Loss of Consciousness, No Dizziness, No Headache Psych : No Anxiety/Panic, No Depression, No SI/HI/AH/VH, No Social Issues, Heme/Lymph: No Bruising, No Bleeding,No Lymphadenopathy Endocrine : No Polyuria, No Polydipsia, No Temperature Intolerance [facility] Past Medical History Medical History Constipation Norovirus Crohn's disease of both small and large intestine Asthma Crohn's disease Surgical History History of surgery Social History Social History Household Members: Family Housing: House Do you presently have visiting nurse or other home services: No Alcohol intake: never Patient Tobacco Use Status: Never used Tobacco Smoked in Last 30 Days: No Use of substances other than those prescribed or required for medical reasons: No Advance Directives: No Advance Directives Information Provided: Yes Do you have a plan to hurt others: No Plan Nutrition Risks: No Nutritional Risk service: No Physical Exam ED Exam Exam: Appearance: Alert. Oriented X3. Uncomfortable, actively vomiting Eyes: Pupils equal, round and reactive to light. ENT: Pharynx normal. Neck: Normal inspection. Neck supple. No lymph nodes noted. No crepitus CVS: Normal heart rate and rhythm. Pulses normal. Normal S1 and S2 Respiratory: No respiratory distress. Breath sounds normal. No Wheezing. No rales Abdomen: Soft nondistended, tenderness to palpation bilateral lower quadrants, no rebound or guarding. Skin: Skin warm and dry. Normal skin color. Normal skin turgor. Extremities: No lower extremity edema. No Lacerations. No Rash Neuro: Oriented X 3. No motor deficit. No sensory deficit. Moving all extremities. No slurred speech. CN 2 through 12 grossly intact Psych: calm, cooperative, normal affect Vital Signs: Vital Signs - 24 hr 07/07/25 20:35 07/08/25 00:29 07/08/25 03:16 Temperature 97 F 98.9 F 98.0 F Pulse Rate 113 H 86 81 Respiratory Rate 18 16 16 Blood Pressure 148/82 H 136/93 H 104/59 L Pulse Oximetry 99 98 97 Oxygen Delivery Method Room Air Room Air Room Air BMI result Body Mass Index 19.1 Course Course Course Narrative: Patient labs pending. Patient receiving IV fluids, Zofran and morphine CT scan pending I reviewed patient's notes from his previous admission. Besides a Crohn's exacerbation, patient's CT scan was suspicious for appendix rupture. However, it was ruled out by surgery. Medical Decision Making Medical Decision Making [facility] Narrative: My interpretation of labs: Patient has a white blood cell count of 19.6. No other acute abnormality in patient's hematology, chemistry within normal limits. Urine negative for UTI, toxicology negative CT scan shows extensive inflammatory process involving the right pelvis including the cecum terminal ileum and rectum, findings consistent with inflammatory bowel disease. No fistula or abscess seen. After a dose of Dilaudid, patient feeling better. No nausea vomiting I discussed the above-mentioned with our hospitalist Dr. Mixon, patient being admitted. Differential Diagnosis Differential Diagnoses: The differential diagnosis associated with the presentation includes (Ulcerative colitis, Crohn's disease) Admission/Observation Consideration of admission/observation: Escalation of care including admission/observation considered Consult Healthcare Provider Management of the patient was discussed with: Hospitalist Lab Data [facility] Lab Attestation statement: I reviewed the patient's lab results. 07/08/25 04:36 07/07/25 22:28 Labs: Lab Results 07/07/25 07/08/25 07/08/25 Range/Units 22:28 02:01 04:36 WBC 19.6 H 16.4 H (4.8-10.8) X10*3/uL RBC 5.83 H D 4.90 (4.60-5.80) X10*6/uL Hgb 16.1 D 13.5 L (14.0-18.0) g/dl Hct 49.2 D 41.1 L (42.0-52.0) % MCV 84.4 83.9 (80.0-98.0) fL MCH 27.6 27.6 (27.0-33.0) pg MCHC 32.7 32.8 (31.0-36.0) g/dl RDW 14.6 14.5 (11.0-16.0) % Plt Count 237 204 (160-400) X10*3/uL MPV 8.5 L 8.8 L (9.4-12.4) fL Immature Gran % (Auto) 1.1 H (0.0-0.4) % Neut % (Auto) 85.6 H (45-73) % Lymph % (Auto) 5.5 L (20-40) % [place] % (Auto) 7.4 (2-11) % Eos % (Auto) 0.1 (0-4) % Baso % (Auto) 0.3 (0-2) % Lymph # (Auto) 1.1 L (1.2-4.9) X10*3/uL [place] # (Auto) 1.4 H (0.1-1.2) X10*3/uL Eos # (Auto) 0.0 (0.0-0.4) X10*3/uL Baso # (Auto) 0.1 (0.0-0.2) X10*3/uL Abs Immat Gran (auto) 0.21 H (0.00-0.03) X10*3/uL Absolute Neuts (auto) 16.8 H (2.0-8.3) x10*3/uL Absolute Nucleated RBC 0.000 0.000 (0.0-0.012) X10*3/uL Nucleated RBC % (auto) 0.0 0.0 (0.0-0.2) /100WBC Sodium 138 (135-145) mmol/L Potassium 4.4 (3.3-5.1) mmol/L Chloride 100 (96-108) mmol/L Carbon Dioxide 28 (22-29) mmol/L Anion Gap 14 (12-20) BUN 11 (9-16) mg/dL Creatinine 0.84 (0.5-1.4) mg/dL Estim Creat Clear Calc 124.3 Estimated GFR > 60 Random Glucose 121 H (60-115) mg/dL Calcium 10.2 D (8.4-10.2) mg/dL Total Bilirubin 0.5 (0.0-1.0) mg/dL Direct Bilirubin 0.2 (0.0-0.5) mg/dL AST 16 (5-37) U/L ALT 24 (0-40) U/L Alkaline Phosphatase 68 (39-117) U/L Total Protein 7.9 (6.5-8.0) g/dL Albumin 4.4 (3.5-5.0) g/dL Lipase 14 (8-78) U/L Urine Color Yellow Urine Appearance Clear Urine pH 5.5 (5.0-9.0) Ur Specific [place] >= 1.030 H (1.005-1.025) Urine Protein Trace (Neg-Trace) mg/dL Urine Glucose (UA) Negative (Negative) mg/dL Urine Ketones Trace (Negative) mg/dL Urine Blood Negative (Negative) Urine Nitrite Negative (Negative) Ur Leukocyte Esterase Negative (Negative) Urine Opiates Screen Not Detected (Not Detect) Ur Buprenorphine Scrn Not Detected (Not Detect) ng/mL Ur Oxycodone Screen Not Detected (Not Detect) ng/mL Urine Methadone Screen Not Detected (Not Detect) ng/mL Urine Fentanyl Screen Not Detected (Not Detect) Ur Barbiturates Screen Not Detected (Not Detect) Ur Phencyclidine Scrn Not Detected (Not Detect) Ur Amphetamines Screen Not Detected (Not Detect) U Benzodiazepines Scrn Not Detected (Not Detect) Urine Cocaine Screen Not Detected (Not Detect) U Marijuana (THC) Screen Not Detected (Not Detect) Independent Interpretation I performed an independent interpretation of an: CT Scan Radiology Impression Discussion of test interpretation with radiology: I have reviewed the radiologist's reading. Radiologist Impression: Again seen is an extensive inflammatory process involving the right pelvis, including the cecum, terminal ileum and rectum. Findings concerning for inflammatory bowel disease. Evaluation for fistula and abscess limited without oral contrast, however no definite abscess seen. Dilatation and fecalization of the distal ileum concerning for slow transit through the terminal ileum Medications Administered Generic Name Dose Route Start Last Admin Trade Name Freq PRN Reason Stop Dose Admin Sodium Chloride 1,000 mls @ 125 mls/hr 07/08/25 04:00 07/08/25 04:45 Ns IVCONT 125 mls/hr .Q8H PADMAJA Administration Discontinued Medications Generic Name Dose Route Start Last Admin Trade Name Freq PRN Reason Stop Dose Admin Hydromorphone HCl 1 mg 07/08/25 01:55 07/08/25 02:03 Hydromorphone Hcl 1 Mg/Ml Syringe IVPUSH 07/08/25 01:56 1 mg ONCE ONE Administration Protocol Sodium Chloride 1,000 mls @ 999 mls/hr 07/08/25 00:17 07/08/25 01:45 Ns IVCONT 07/08/25 01:17 Infused .Q1H1M ONE Infusion Levofloxacin 500 mg in 100 mls @ 100 mls/hr 07/08/25 03:24 07/08/25 04:44 Levaquin IV 07/08/25 04:23 Infused ONCE ONE Infusion Iohexol 100 ml 07/08/25 01:18 07/08/25 01:19 Iohexol 350 Mg/Ml 100 Ml Infus..Btl IV 07/08/25 01:19 85 ml ONCE ONE Administration Methylprednisolone Sodium Succinate 125 mg 07/08/25 03:24 07/08/25 03:43 Methylprednisolone Sod Succ 125 Mg/2 Ml Vial IVPUSH 07/08/25 03:25 125 mg ONCE ONE Administration Ondansetron HCl 4 mg 07/08/25 00:17 07/08/25 00:40 Ondansetron Hcl 4 Mg/2 Ml Vial IVPUSH 07/08/25 00:18 4 mg ONCE ONE Administration Prochlorperazine Edisylate 10 mg 07/08/25 00:38 07/08/25 00:56 Prochlorperazine Edisylate 10 Mg/2 Ml Vial IVPUSH 07/08/25 00:39 10 mg ONCE ONE Administration Critical Care Time Critical Care Time Critical Care Time: Yes Total Critical Care Time: 60 Attestation: I have personally provided critical care time. Time includes review of lab data, radiology results, discussion with consultants, and monitoring for potential decompensation. Intervention performed as documented. Discharge Plan Discharge Clinical Impression: Crohn's colitis, Nausea & vomiting Patient Disposition: Admitted As Inpatient Print Language: Welsh
--- OUTSIDE RECORDS SUMMARY | 2025-07-08 00:42 | XMS_ITS | Clinical Summary ---
Author Organization [employer] Address [address] [facility] [address] [place] [address] Care Team Providers Care Professor Of Psychiatry Name Role Phone Rebekah Bishop MD Primary Care Provide r Allergies No known active allergies Medications clotrimazole (Lotrimin) 1 % creamIndications:Ti rudi corporis Apply to affected area BID until resolved. 30 g 1 025 Active carbamide peroxide (Debrox) 6.5 % otic solutionIndications :Bilateral impacted cerumen Fill ear canal bilaterally 3x per week 15 mL 2 025 Active ibuprofen 600 MG tabletIndications:N onintractable headache, unspecified chronicity pattern, unspecified headache type 1 tab q 6 hours prn fever or pain 30 tablet 1 025 Active oseltamivir (Tamiflu) 75 MG capsuleIndications: Influenza A 1 tab BID x 5 days 10 capsule 025 Active albuterol 108 (90 Base) MCG/ACT inhalerIndications: Influenza A 2-4 puffs q 4 hours prn cough, wheeze or SOB. 18 g 025 Active mesalamine (Pentasa) 500 MG ER capsule Take 2 capsules by mouth 4 times daily. Do not crush, chew, or split. Active Risankizumab-rzaa (Skyrizi) 600 MG/10ML solution Infuse 10 mL into a venous catheter every 28 (twenty-eight ) days. Active mesalamine (Pentasa) 500 MG ER capsuleIndications: Crohn's disease with complication, unspecified gastrointestinal tract location (CMS/HCC) (HCC) Take 1 capsule (500 mg) by mouth 4 times daily. Do not crush, chew, or split. 120 capsule 025 2024 Discontinued(M ed list cleanup (will not trigger notification to Pharmacy)) amoxicillin-clavula guero (Augmentin) 875-125 MG tablet Take 1 tablet by mouth. 025 2024 Discontinued(M ed list cleanup (will not trigger notification to Pharmacy)) predniSONE (Deltasone) 10 MG tablet 4 tabs once daily x 7 days, then 3 tabs once daily x 7 days, then 2 tabs once daily x 7 days, then 1 tab once daily x 7 days 025 2024 Active Problems Problem Noted Date Diagnosed Date Crohn's disease ([facility]) 03/18/2025 Assessment & Plan (03/18/2025 3:02 PM [...] Encounters Date Type Department Care Team Description 06/16/2025 1:00 PM EST Office Visit [facility] [address] [place] [phone] Rebekah Bishop MD Crohn's disease with complication, unspecified gastrointestinal tract location ([facility]) ([facility]) (Primary Dx); Encounter for immunization 06/16/2025 Travel 06/03/2025 1:40 PM EST Office Visit [facility] [address] [place] [phone] Polo Davalos MD Influenza A (Primary Dx); Mild intermittent asthma without complication; Cough in pediatric patient 06/03/2025 Travel 06/02/2025 Patient Outreach [facility] [address] [place] [phone] Rebekah Bishop MD Transition Of Care (Tcm) (HDF scheduled) 05/28/2025 Orders Only GENERIC EXTERNAL DATA DEPARTMENT Provider, Generic External Data 05/01/2025 Orders Only GENERIC EXTERNAL DATA DEPARTMENT Provider, Generic External Data 04/30/2025 Orders Only [facility] External Provider, [facility] 04/10/2025 Telephone [facility] [address] [place] [address] Rebekah Bishop MD [facility] recall from Last 3 Months Immunizations Immunization Administration Dates Next Due DTaP 12/24/2009, 7,02/24/2006,2005,2005 Hep A, Unspecified 03/30/2007,08/17/2006 Hep B, Adolescent or Pediatric 02/24/2006,2005,2005 Hib (HbOC) 12/15/2006, 6,01/13/2006,2005 IPV 12/24/2009, 6,01/13/2006,2005 Influenza, Split (incl. edna fied surface antigen) 08/14/2012,05/10/2012,07/17/2008,2006 Influenza, seasonal, injecta ble, preservative free 06/16/2025 MMR 12/24/2009,08/17/2006 Pneumococcal Conjugate PCV 13 12/24/2009 Pneumococcal Conjugate PCV 20 06/16/2025 Varicella 12/24/2009,08/17/2006 Social History Tobacco Use Types Packs/Day Years [...] Sign Reading Time Taken Comments Blood Pressure 118/82 06/16/2025 1:05 PM EST Pulse 108 06/16/2025 1:05 PM EST Temperature 36.2 C (97.1 F) 06/16/2025 1:05 PM EST Respiratory Rate 18 06/16/2025 1:05 PM EST Oxygen Saturation 99% 06/16/2025 1:05 PM EST Inhaled Oxygen Concentration - - Weight 60.4 kg (133 lb 3.2 oz) 06/16/2025 1:05 P M EST Height 177.8 cm (5' 10 ) 06/16/2025 1:05 PM EST Body Mass Index 19.11 06/16/2025 1:05 PM EST Plan of Treatment Health Maintenance Due Date Last Done Comments Chlamydia and Gonorrhea Screening 2005 Depression Screening 2005 HIV Screening 2005 SDOH Screening 2005 Disability Screening 2005 Hepatitis B Vaccines (4 of 4 - 4-dose series) 03/10/2006 02/24/2006, 01/13/2006, 2005 Fluoride Varnish 04/11/2006 DTaP/Tdap/Td Vaccines (6 - Tdap) 2016 12/24/2009, 12/15/2006, 02/24/2006, Additional history exists Alcohol/Substance Use Screening 2017 Family Planning (PISQ) 2020 HPV Vaccines (1 - Male 3-dose series) 2020 Meningococcal B Vaccine (1 of 2 - Standard) 2021 Hepatitis C Screening 2023 COVID-19 Vaccine (1 - season) 2025 Tobacco Screening 06/16/2026 06/16/2025 Zoster Vaccines (1 of 2) 2055 RSV Patients and Patients Aged 60 years or older (1 - 1-dose 75+ series) 2080 HIB Vaccines Completed 12/15/2006, 02/14, 01/13/2006, Additional history exists Hepatitis A Vaccines Completed 03/30/2007, 08/17/19 07 IPV Vaccines Completed 12/24/2009, 02/14, 01/13/2006, Additional history exists MMR Vaccines Completed 12/24/2009, 08/17/2006 Varicella Vaccines Completed 12/24/2009, 08/17/2006 Influenza Vaccine Completed 06/16/2025, , 05/10/2012, Additional history exists Pneumococcal Vaccine: Pediatrics (0 to 5 Years) and At-Risk Patients (6 to 49) Years Completed 06/16/2025, 12/24/2009 Meningococcal Vaccine Aged Out No nikki topher eligible based on patient's age to complete this topic RSV under 20 months Aged Out No longe r eligible based on patient's age to complete this topic Rotavirus Vaccines Aged Out No longer eligible based on patient's age to complete this topic Procedures Procedure Name Priority Date/Time Associated Diagnosis Comments POCT INFLUENZA A (ID NOW RAPID MOLECULAR) Routine 06/03/2025 2:02 PM EST Cough in pediatric patient POCT INFLUENZA B (ID NOW RAPID MOLECULAR) Routine 06/03/2025 2:02 PM EST Cough in pediatric patient POC CARRANZA ID NOW STREP A Routine 06/03/2025 2:01 PM EST Cough in pediatric patient POCT RAPID COVID ANTIGEN Routine 06/03/2025 2:01 PM EST Cough in pediatric patient LACTIC ACID Routine 05/28/2025 5:00 AM EST BASIC METABOLIC PANEL Routine 05/28/2025 4:59 AM EST CBC WITH AUTO DIFFERENTIAL Routine 05/28/2025 4:[address] ABDOMEN PELVIS W CONTRAST Routine 05/28/2025 3:13 AM EST LIPASE Routine 05/28/2025 12:15 AM EST C-REACTIVE PROTEIN Routine 05/28/2025 12 :15 AM EST BASIC METABOLIC PANEL Routine 05/28/2025 12:15 AM EST HEPATIC FUNCTION PANEL Routine 12:15 AM EST URINALYSIS WITH REFLEX MICROSCOPIC Routine 05/01/2025 1:32 [...] TO CULTURE Routine 04/11/2025 10:55 AM EDT from Last 3 Months Results * Influenza B (ID NOW Rapid Molecular) (06/03/2025 2:02 PM EST) Influenza B Negative Negative, Indeterminate [facility] Swab 06/03/2025 2:02 PM EST Polo Davalos MD POINT OF CARE TEST ENTER/EDIT O RDERABLES Final Result Performing Organization Address City/[facility]/ZIP Co de Phone Number [facility] [address] [place] [phone] * (ABNORMAL) Influenza A (ID NOW Rapid Molecular) (06/03/2025 2:02 PM EST) [facility] Influenza A Positive( A) Negative, Indeterminate [facility] Swab 06/03/2025 2:02 PM EST us Polo Davalos MD POINT OF CARE TEST ENTER/EDIT O RDERABLES Edited Result - Final Performing Organization Address [facility]/ZIP Co de Phone Number [facility] [address] [place] [phone] * POCT ID NOW Rapid Strep A manually resulted (06/03/2025 2:01 PM EST) [facility] Rapid Strep A Screen Negative Negative, None Detected Swab 06/03/2025 2:01 PM EST us Polo Davalos MD POINT OF CARE TEST ENTER/EDIT O RDERABLES Final Result * POCT Rapid COVID Ag (06/03/2025 2:01 PM EST) [facility] Rapid COVID Ag Negative Swab 06/03/2025 2:01 PM EST us Polo Davalos MD POINT OF CARE TEST ENTER/EDIT O RDERABLES Final Result * (ABNORMAL) Lactic Acid (05/28/2025 5:00 AM EST) Only the most recent of2 resultswithin the time period is included. [facility] Lactic Acid 2.2(HH) 0.5 - 2.0 mmol/L [facility] Comment:Critical value for t est(s): LACTIC ACID Results called toand read back by: HUMERA Person calling: MENA Date:05/28/25 Time:05 05/28/2025 5:00 AM EST 05/28/2025 5:04 AM EST us Generic External Data Provider LAB BLOOD ORDERAB LES Final Result [facility] [address] [place] [phone] * (ABNORMAL) CBC auto differential (05/28/2025 4:59 AM EST) Only the most recent of3 resultswithin the time period is included. White Blood Count 13.3(H) 4.8 - 10.8 X10*3/uL [facility] Red Blood Count 5.04 4.60 - 5.80 X10*6/uL [facility] Hemoglobin 14.0 14.0 - 18.0 g/dl [facility] Hematocrit 42.9 42.0 - 52.0 % [facility] Mean Corpuscular Volume 85.1 80.0 - 98.0 fL [facility] Mean Corpuscular Hemoglobin 27.8 27.0 - 33.0 pg [facility] Mean Corpuscular HGB Conc 32.6 31.0 - 36.0 g/dl [facility] Red Cell Distribution Width 15.3 11.0 - 16.0 % [facility] Platelet Count 181 160 - 400 X10*3/uL [facility] Mean Platelet Volume 8.6(L) 9.4 - 12.4 fL [facility] Neutrophils Percent Auto 76.8(H) 45 - 73 % [facility] Imm Gran Pct Auto 0.9(H) 0.0 - 0.4 % [facility] Lymphocytes Percent Auto 11.7(L) 20 - 40 % [facility] Monocytes Percent Auto 10.2 2 - 11 % [facility] Eosinophils Percent Auto 0.2 0 - 4 % [facility] Basophils Percent Auto 0.2 0 - 2 % [facility] NRBC Pct Auto 0.0 0.0 - 0.2 /100WBC [facility] Neutrophils Absolute Auto 10.2(H) 2.0 - 8.3 x10*3/uL [facility] Imm Gran Abs Auto 0.12(H) 0.00 - 0.03 X10*3/uL [facility] Lymphocytes Absolute Auto 1.6 1.2 - 4.9 X10*3/uL [facility] Monocytes Absolute Auto 1.4(H) 0.1 - 1.2 X10*3/uL [facility] Eosinophils Absolute Auto 0.0 0.0 - 0.4 X10*3/uL [facility] Basophils Absolute Auto 0.0 0.0 - 0.2 X10*3/uL [facility] NRBC Abs Auto 0.000 0.0 - 0.012 X10*3/uL [facility] 05/28/2025 4:59 AM EST 05/28/2025 5:04 AM EST us Generic External Data Provider LAB BLOOD ORDERAB LES Final Result [facility] [address] [place] [phone] * Basic Metabolic Panel (05/28/2025 4:59 AM EST) Only the most recent of2 resultswithin the time period is included. Sodium 140 135 - 145 mmol/L [facility] Potassium 4.1 3.3 - 5.1 mmol/L [facility] Chloride 106 96 - 108 mmol/L [facility] Carbon Dioxide 25 22 - 29 mmol/L [facility] Anion Gap 13 12 - 20 [facility] Urea Nitrogen (BUN) 14 9 - 16 mg/dL [facility] Creatinine, Serum 0.76 0.5 - 1.4 mg/dL [facility] Creatinine Clr Calc Pharmacy 121.3 [facility] Comment:eGFR (calculated fro m the MDRD study equation) and eCrCl(calculated from the Cockcroft-Gault equation) are based ondifferent parameters and may not yield comparable results.If eCrCl result is absurd, please check patient'sheight/weight. Estimated Glomerular Filt Rate >60 [facility] Comment:Chronic Kidney Disea se: Estimated GFR < 60 mL/min/1.89a7Dtceel Kidney Disease: Estimated GFR < 15 mL/min/1.73m2 Glucose 90 60 - 115 mg/dL [facility] Calcium 9.2 8.4 - 10.2 mg/dL [facility] 05/28/2025 4:59 AM EST 05/28/2025 5:04 AM EST us Generic External Data Provider LAB BLOOD ORDERAB LES Final Result Performing Organization Address City/State/[facility] Co de Phone Number [facility] [address] [place] [address] [phone] * CT Abdomen Pelvis w/ Contrast (05/28/2025 3:13 AM EST) Only the most recent of2 resultswithin the time period is included. Anatomical Region Laterality Modality Body, Pelvis, Abdomen Computed T omography 05/28/2025 3:13 AM EST Narrative 05/28/2025 3:16 AM EST [place] [address] CT Scan Report Signed Patient: Bill Alaniz MR#: [id number] : 2005 Acct:[id number] Age/Sex: 19 / M ADM Date: 05/28/25 Loc: HO.ED Attending Dr: Ordering Physician: Jayjay Jennings MD Date of Service: 05/28/25 Procedure(s): CT abdomen pelvis w IV con Accession Number(s): [id number] cc: [facility]; Jayjay Jennings MD Report Number: [id number]: Total DLP = 299.00 mGy-cm Reason for Exam: abdo pain, elevated WBC, Crohn's CLINICAL HISTORY: abdo pain, elevated WBC, Crohns CT abdomen and pelvis with contrast Comparison: CT/REG/SR - CT ABDOMEN PELVIS W IV CON - 04/30/25 23:52 EDT Findings: The lung bases are clear. The gallbladder and solid organs are within normal limits. No renal stones. Severe fat stranding and inflammatory change in the right lower quadrant gas and fluid collection suggesting probable abscess. Contained gas and fluid collection in the central pelvis measures 1.7 x 3.3 cm in the axial plane and surrounds multiple loops of thickened small bowel with adjacent fat stranding or inflammatory change. A normal appendix is not visualized. Possibly secondary involvement of the distal sigmoid colon. Liver, gallbladder, pancreas, spleen and adrenal glands are within normal limits. Kidneys enhance symmetrically and are non hydronephrotic. Urinary bladder is within normal limits. No acute fracture. IMPRESSION: Extensive right lower quadrant inflammatory changes with gas and fluid collection in the central pelvic region concerning for possible ruptured appendicitis with developing abscess, as above. The appendix is not visualized. There are multiple regional small bowel loops with associated inflammatory change. Differential considerations include inflammatory bowel disease. Findings are similar to the prior CT. Please correlate clinically. This document has been electronically signed by: Jim Myers MD, PHD on 05/28/2025 03:13:59 Dictated By: Jim Myers MD Signed By: <Electronically signed by Jim Myers MD in OV> 05/28/25314 DD/ 2 TD/TT: 05/28/25312 Zoo Director: Procedure Note Donotuseinterpreter, Image - 05/28/[address] [place] [address] [address] Scan Report Signed Patient: Amadou Alaniz#: M [id number] : 2005cct:[id number] Age/Sex: 19 / MADM Date: 05/28/25 Loc: HO.ED Attending Dr: Ordering Physician: Jayjay Jennings MD Date of Service: 05/28/25 Procedure(s): CT abdomen pelvis w IV con Accession Number(s): [id number] cc: [facility]; Jayjay Jennings MD Report Number: [id number]: Total DLP = 299.00 mGy-cm Reason for Exam: abdo pain, elevated WBC, Crohn's CLINICAL HISTORY: abdo pain, elevated WBC, Crohns CT abdomen and pelvis with contrast Comparison: CT/REG/SR - CT ABDOMEN PELVIS W IV CON - 04/30/25 23:52 EDT Findings: The lung bases are clear. The gallbladder and solid organs are within normal limits. No renal stones. Severe fat stranding and inflammatory change in the right lower quadrant gas and fluid collection suggesting probable abscess. Contained gas and fluid collection in the central pelvis measures 1.7 x 3.3 cm in the axial plane and surrounds multiple loops of thickened small bowel with adjacent fat stranding or inflammatory change. A normal appendix is not visualized. Possibly secondary involvement of the distal sigmoid colon. Liver, gallbladder, pancreas, spleen and adrenal glands are within normal limits. Kidneys enhance symmetrically and are non hydronephrotic. Urinary bladder is within normal limits. No acute fracture. IMPRESSION: Extensive right lower quadrant inflammatory changes with gas and fluid collection in the central pelvic region concerning for possible ruptured appendicitis with developing abscess, as above. The appendix is not visualized. There are multiple regional small bowel loops with associated inflammatory change. Differential considerations include inflammatory bowel disease. Findings are similar to the prior CT. Please correlate clinically. This document has been electronically signed by: Jim Myers MD, PHD on 05/28/2025 03:13:59 Dictated By: Jim Myers MD Signed By: <Electronically signed by Jim Myers MD in OV> 05/28/25314 DD/ 2 TD/TT: 05/28/25312 Zoo Director: [facility] External Provider IMG CT PROCEDURES Final Result * (ABNORMAL) C-reactive Protein (05/28/2025 12:15 AM EST) Only the most recent of2 resultswithin the time period is included. C Reactive Protein 2.29(H) < or = 0.50 mg/dL [facility] 05/28/2025 12:1 5 AM EST 05/28/2025 12:19 AM EST Generic External Data Provider LAB BLOOD ORDERAB LES Final Result [facility] [address] [place] [phone] * Lipase (05/28/2025 12:15 AM EST) Only the most recent of3 resultswithin the time period is included. Lipase 18 8 - 78 U/L [facility] 05/28/2025 12:1 5 AM EST 05/28/2025 12:19 AM EST Generic External Data Provider LAB BLOOD ORDERAB LES Final Result Performing Organization Address City/[facility]/ZIP Co de Phone Number [facility] [address] [place] [phone] * Hepatic Function Panel (05/28/2025 12:15 AM EST) Bilirubin, Total 0.5 0.0 - 1.0 mg/dL [facility] Bilirubin, Direct 0.2 0.0 - 0.5 mg/dL [facility] Aspartate Amino Transferase 21 5 - 37 U/L [facility] Alanine Aminotransferase 25 0 - 40 U/L [facility] Total Protein 7.8 6.5 - 8.0 g/dL [facility] Albumin Level 4.2 3.5 - 5.0 g/dL [facility] Alkaline Phosphatase 64 39 - 117 U/L [facility] 05/28/2025 12:1 5 AM EST 05/28/2025 12:19 AM EST Generic External Data Provider LAB BLOOD ORDERAB LES Final Result Performing Organization Address City/[facility]/ZIP Co de Phone Number [facility] [address] [place] [phone] * (ABNORMAL) Urinalysis w/reflex microscopic (05/01/2025 1:32 AM EDT) Color Urine Yellow [facility] Appearance Urine Clear [facility] PH 6.0 5.0 - 9.0 [facility] Glucose Urine UA Negative Negative mg/dL [facility] Urine Blood Negative Negative [facility] Specific [place] - Urine >=1.030(H) 1.005 - 1.025 [facility] Urine Protein Trace Neg-Trace mg/dL [facility] Urine Ketones Negative Negative mg/dL [facility] Nitrite Urine Negative Negative [facility] Leukocyte Esterase Urine Negative Negative [facility] 05/01/2025 1:32 AM EDT 05/01/2025 1:53 AM EDT Narrative [facility] - 05/01/2025 2:03 AM EDT [id number], Clean Catch us Generic External Data Provider LAB URINE ORDERAB LES Final Result Performing Organization Address City/State/[facility] Co de Phone Number [facility] [address] [place] [phone] * XR KUB and Upright 2 Views (04/30/2025 11:14 PM EDT) Anatomical Region Laterality Modality Radiographic [place] ging 04/30/2025 11:1 4 PM EDT Narrative 04/30/2025 11:15 PM EDT [address] [address] XRay Report Signed Patient: Bill Alaniz MR#: M [id number] : 2005 Acct:[id number] Age/Sex: 19 / M ADM Date: 04/30/25 Loc: .ED Attending Dr: Ordering Physician: Armando Villatoro DO Date of Service: 04/30/25 Procedure(s): XR KUB Accession Number(s): [id number] cc: [facility]; Armando Villatoro DO Reason for Exam: [...] in OV> 04/30/252314 DD/ 13 TD/TT: 04/30/252313 Zoo Director: Procedure Note Donotuseinterpreter, Image - 05/01/[address] [address] XRay Report Signed Patient: Amadou Alaniz#: M [id number] : 2005cct:[id number] Age/Sex: 19 / MADM Date: 04/30/25 Loc: .ED Attending Dr: Ordering Physician: Armando Villatoro DO Date of Service: 04/30/25 Procedure(s): XR KUB Accession Number(s): [id number] cc: [facility]; Armando Villatoro DO Reason for Exam: [...] in OV> 04/30/252314 DD/ 13 TD/TT: 04/30/252313 Zoo Director: us [facility] External Provider IMG XR PROCEDURES Edited Result - Final * Slide Review (04/30/2025 11:02 PM EDT) Slide Review VERIFIED [facility] 04/30/2025 11:0 2 PM EDT 04/30/2025 11:05 PM EDT us Generic External Data Provider LAB BLOOD ORDERAB LES Final Result Performing Organization Address City/[facility]/ZIP Co de Phone Number [facility] [address] [place] [phone] * Magnesium (04/30/2025 11:02 PM EDT) Magnesium 2.0 1.6 - 2.6 mg/dL [facility] 04/30/2025 11:0 2 PM EDT 04/30/2025 11:05 PM EDT Generic External Data Provider LAB BLOOD ORDERAB LES Final Result Performing Organization Address [facility]/ZIP Co de Phone Number [facility] [address] [place] [phone] * (ABNORMAL) Comprehensive Metabolic Panel (04/30/2025 11:02 PM EDT) Only the most recent of2 resultswithin the time period is included. Sodium 135 135 - 145 mmol/L [facility] Potassium 3.4 3.3 - 5.1 mmol/L [facility] Chloride 99 96 - 108 mmol/L [facility] Carbon Dioxide 29 22 - 29 mmol/L [facility] Anion Gap 10(L) 12 - 20 [facility] Urea Nitrogen (BUN) 10 9 - 16 mg/dL [facility] Creatinine, Serum 0.90 0.5 - 1.4 mg/dL [facility] Creatinine Clr Calc Pharmacy 99.1 [facility] Comment:eGFR (calculated fro m the MDRD study equation) and eCrCl(calculated from the Cockcroft-Gault equation) are based ondifferent parameters and may not yield comparable results.If eCrCl result is absurd, please check patient'sheight/weight. Estimated Glomerular Filt Rate >60 [facility] Comment:Chronic Kidney Disea se: Estimated GFR < 60 mL/min/1.23y7Gofgxg Kidney Disease: Estimated GFR < 15 mL/min/1.73m2 Glucose 113 60 - 115 mg/dL [facility] Calcium 10.0 8.4 - 10.2 mg/dL [facility] Bilirubin, Total 0.7 0.0 - 1.0 mg/dL [facility] Aspartate Amino Transferase 20 5 - 37 U/L [facility] Alanine Aminotransferase 23 0 - 40 U/L [facility] Total Protein 7.4 6.5 - 8.0 g/dL [facility] Albumin Level 3.9 3.5 - 5.0 g/dL [facility] Alkaline Phosphatase 63 39 - 117 U/L [facility] 04/30/2025 11:0 2 PM EDT 04/30/2025 11:05 PM EDT us Generic External Data Provider LAB BLOOD ORDERAB LES Final Result [facility] [address] [place] [phone] * Urinalysis, Complete, with Reflex to Culture (04/11/2025 10:55 AM EDT) Color Urine Yellow [facility] Appearance Urine Clear [facility] PH 6.0 5.0 - 9.0 [facility] Glucose Urine UA Negative Negative mg/dL [facility] Urine Blood Negative Negative [facility] Specific [place] - Urine 1.015 1.005 - 1.025 [facility] Urine Protein Negative Neg-Trace mg/dL [facility] Urine Ketones 40 Negative mg/dL [facility] Nitrite Urine Negative Negative [facility] Leukocyte Esterase Urine Negative Negative [facility] RBC Urine 0-2 0 - 2 /HPF [facility] Urine WBC 0-5 0 - 5 /HPF [facility] Urine Squamous Epithelial Cell 0-2 0 - 2 /HPF [facility] Urine Bacteria None Seen None Seen [facility] Hyaline Casts, Urine 0-2 0 - 2 /LPF [facility] 04/11/2025 10:5 5 AM EDT 04/11/2025 10:58 AM EDT Narrative [facility] - 04/11/2025 11:09 AM EDT Urine, Clean Catch us Generic External Data Provider LAB URINE ORDERAB LES Final Result Performing Organization Address City/[facility]/ZIP Co de Phone Number [facility] [address] [place] [phone] * (ABNORMAL) Sed Rate by Modified Cate (04/11/2025 10:55 AM EDT) Erythrocyte Sedimentation Rate 48(H) 0 - 15 MM/HR [facility] Comment:Patients with polycy themia and many hemoglobin abnormalitiesmay have depressed sed rates whereas patients with anemiamay have elevated sed rates. 04/11/2025 10:5 5 AM EDT 04/11/2025 10:58 AM EDT us Generic External Data Provider LAB BLOOD ORDERAB LES Final Result Performing Organization Address [facility] [facility] Co de Phone Number [facility] [address] [place] [address] [phone] from Last 3 Months Insurance [facility] C3 Care Teams Professor Of Psychiatry Relationship Specialty Start Date End Date Rebekah Bishop MD [address] [place] [address] PCP - General Internal Medicine 03/18/25
--- OUTSIDE RECORDS SUMMARY | 2025-07-08 00:42 | XMS_ITS | Patient Health Record ---
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 Role Phone Eugene Kerns, Rebekah Primary Care Provider Vince Chatterjee Unavailable [phone] Doc GE, Mita Unavailable Unavailab le Allergies Allergen (clinical drug ingredient) Drug/Non Drug Allergy documented on EMR Reaction Allergy Type Onset Date Status seasonal (uncoded) Unknown Allergy A ctive Results Component Value Reference Range Flag Notes T Spot TB Reviewed date:02/09/2025 09:57:44 PM Interpretation: Performing Lab:[facility], [address] [place] [phone] Notes/Report: TSpotTB Negative Negative A negative test [...] Passed For additional information, please refer to http://education.Method/faq/PLG730 (This link is being provided for informational/ educational purposes only.) THIS TEST WAS PERFORMED AT: [facility]/[address] [address] KEEGAN MEIER MD,PHD Hepatitis B Profile Reviewed date:02/09/2025 10:01:37 PM Interpretation: Performing Lab:[facility], [address] [place] [phone] Notes/Report: Hepatitis B Surface Antibody NONREACTIVE Nonreactive Nonreactive: < 8 .00 mIU/mL Hepatitis B Core Antibody Nonreactive Nonreactive Hepatitis B Surface Antigen Negative Negative Complete Blood Count Auto Di ff Reviewed date:01/29/2025 01:27:25 PM Interpretation: Performing Lab:[facility], [address] [place] [phone] Notes/Report: White Blood Count 4.8 4.8-10.8 X10*3/uL N Red Blood Count 4.12 4.60-5.80 X10*6/uL L Hemoglobin 11.7 14.0-18.0 g/dl L Hematocrit 34.0 42.0-52.0 % L Mean Corpuscular Volume 82.5 80.0-98.0 fL N Mean Corpuscular Hemoglobin 28.4 27.0-33.0 pg N Mean Corpuscular HGB Conc 34.4 31.0-36.0 g/dl N Red Cell Distribution Width 12.7 11.0-16.0 % N Platelet Count 187 160-400 X10*3/uL N Mean Platelet Volume 9.4 9.4-12.4 fL N Neutrophils Percent Auto 58.0 45-73 % N Imm Gran Pct Auto 0.2 0.0-0.4 % N Lymphocytes Percent Auto 29.2 20-40 % N Monocytes Percent Auto 7.2 2-11 % N Eosinophils Percent Auto 5.0 0-4 % H Basophils Percent Auto 0.4 0-2 % N NRBC Pct Auto 0.0 0.0-0.2 /100WBC N Neutrophils Absolute Auto 2.8 2.0-8.3 x10*3/uL N Imm Gran Abs Auto 0.01 0.00-0.03 X10*3/uL N Lymphocytes Absolute Auto 1.4 1.2-4.9 X10*3/uL N Monocytes Absolute Auto 0.4 0.1-1.2 X10*3/uL N Eosinophils Absolute Auto 0.2 0.0-0.4 X10*3/uL N Basophils Absolute Auto 0.0 0.0-0.2 X10*3/uL N NRBC Abs Auto 0.000 0.0-0.012 X10*3/uL N Hold Green Gel Reviewed date:01/30/2025 05:54:00 PM Interpretation: Performing Lab:[facility], [address] [place] [phone] Notes/Report: Hold Green Gel See Note Specimen held untested for 24 hours; Call to request Chemistry testing. Complete Blood Count no Diff Reviewed date:02/09/2025 09:54:19 PM Interpretation: Performing Lab:[facility], [address] [place] [phone] Notes/Report: White Blood Count 6.9 4.8-10.8 X10*3/uL N Red Blood Count 4.38 4.60-5.80 X10*6/uL L Hemoglobin 12.4 14.0-18.0 g/dl L Hematocrit 36.8 42.0-52.0 % L Mean Corpuscular Volume 84.0 80.0-98.0 fL N Mean Corpuscular Hemoglobin 28.3 27.0-33.0 pg N Mean Corpuscular HGB Conc 33.7 31.0-36.0 g/dl N Red Cell Distribution Width 12.6 11.0-16.0 % N Platelet Count 219 160-400 X10*3/uL N Mean Platelet Volume 9.3 9.4-12.4 fL L NRBC Pct Auto 0.0 0.0-0.2 /100WBC N NRBC Abs Auto 0.000 0.0-0.012 X10*3/uL N Basic Metabolic Panel Reviewed date:02/09/2025 09:53:46 PM Interpretation: Performing Lab:[facility], [address] [place] [phone] Notes/Report: Sodium 143 135-145 mmol/L N Potassium 3.5 3.3-5.1 mmol/L N Chloride 106 96-108 mmol/L N Carbon Dioxide 28 22-29 mmol/L N Anion Gap 13 12-20 N Blood Urea Nitrogen 7 9-16 mg/dL L Creatinine 0.77 0.5-1.4 mg/dL N Creatinine Clr Calc Pharmacy 126.3 eGFR (calculated [...] 15 mL/min/1.73m2 Glucose Random 98 60-115 mg/dL N Calcium 8.9 8.4-10.2 mg/dL N IRON PROFILE Reviewed date:02/09/2025 09:52:42 PM Interpretation: Performing Lab:[address] [phone] Notes/Report: Iron 26 45-160 mcg/dL L Total Iron Binding Capacity 152 228-428 mcg/dL L Percent Iron Saturation 17 15-50 % N Unsaturated Iron Binding 126 Ferritin Reviewed date:02/09/2025 09:52:35 PM Interpretation: Performing Lab:[facility], [address] [place] [phone] Notes/Report: Ferritin 106 20-250 ng/mL N C Reactive Protein Reviewed date:02/09/2025 09:52:27 PM Interpretation: Performing Lab:[facility], [address] [place] [phone] Notes/Report: C Reactive Protein 2.66 < or = 0.50 mg/dL H Vitamin B12 Reviewed date:02/05/2025 12:13:08 AM Interpretation: Performing Lab:[facility], [address] [place] [phone] Notes/Report: Vitamin B12 435 200-900 pg/mL N NORMAL 200-900 PG/ML INDETERMINATE 160-199 PG/ML DEFICIENT < 160 PG/ML Complete Blood Count Auto Di ff Reviewed date:02/09/2025 07:23:55 PM Interpretation: Performing Lab:[facility], [address] [place] [phone] Notes/Report: White Blood Count 14.9 4.8-10.8 X10*3/uL H Red Blood Count 5.24 4.60-5.80 X10*6/uL N Hemoglobin 14.8 14.0-18.0 g/dl N Hematocrit 43.6 42.0-52.0 % N Mean Corpuscular Volume 83.2 80.0-98.0 fL N Mean Corpuscular Hemoglobin 28.2 27.0-33.0 pg N Mean Corpuscular HGB Conc 33.9 31.0-36.0 g/dl N Red Cell Distribution Width 12.6 11.0-16.0 % N Platelet Count 308 160-400 X10*3/uL Mean Platelet Volume 9.2 9.4-12.4 fL L Neutrophils Percent Auto 84.0 45-73 % H Imm Gran Pct Auto 0.5 0.0-0.4 % H Lymphocytes Percent Auto 9.5 20-40 % L Monocytes Percent Auto 5.3 2-11 % N Eosinophils Percent Auto 0.4 0-4 % N Basophils Percent Auto 0.3 0-2 % N NRBC Pct Auto 0.0 0.0-0.2 /100WBC N Neutrophils Absolute Auto 12.5 2.0-8.3 x10*3/uL H Imm Gran Abs Auto 0.07 0.00-0.03 X10*3/uL H Lymphocytes Absolute Auto 1.4 1.2-4.9 X10*3/uL N Monocytes Absolute Auto 0.8 0.1-1.2 X10*3/uL N Eosinophils Absolute Auto 0.1 0.0-0.4 X10*3/uL N Basophils Absolute Auto 0.0 0.0-0.2 X10*3/uL N NRBC Abs Auto 0.000 0.0-0.012 X10*3/uL N Erythrocyte Sedimentation Ra te Reviewed date:02/06/2025 04:20:09 PM Interpretation: Performing Lab:[facility], [address] [place] [phone] Notes/Report: Erythrocyte Sedimentation Rate 19 0-15 MM/HR H Patients with polycythemia and many hemoglobin abnormalities may have depressed sed rates whereas patients with anemia may have elevated sed rates. Liver Panel Reviewed date:02/06/2025 04:20:42 PM Interpretation: Performing Lab:[address] [phone] Notes/Report: Bilirubin Total 0.4 0.0-1.0 mg/dL N Bilirubin Direct 0.2 0.0-0.5 mg/dL N Aspartate Amino Transferase 21 5-37 U/L N Alanine Aminotransferase 13 0-40 U/L N Total Protein 8.3 6.5-8.0 g/dL H Albumin Level 4.5 3.5-5.0 g/dL N Alkaline Phosphatase 83 39-117 U/L N C Reactive Protein Reviewed date:02/06/2025 04:20:26 PM Interpretation: Performing Lab:[address] [phone] Notes/Report: C Reactive Protein 3.53 < or = 0.50 mg/dL H Pathology (Not yet reviewed by provider) Interpretation: Performing Lab:[facility], [address] [place] [phone] Notes/Report: Complete Blood Count Auto Di ff Reviewed date:05/05/2025 04:00:26 PM Interpretation: Performing Lab:[address] [phone] Notes/Report: White Blood Count 9.7 4.8-10.8 X10*3/uL N Red Blood Count 3.92 4.60-5.80 X10*6/uL L Hemoglobin 10.6 14.0-18.0 g/dl L Hematocrit 31.9 42.0-52.0 % L Mean Corpuscular Volume 81.4 80.0-98.0 fL N Mean Corpuscular Hemoglobin 27.0 27.0-33.0 pg N Mean Corpuscular HGB Conc 33.2 31.0-36.0 g/dl N Red Cell Distribution Width 13.8 11.0-16.0 % N Platelet Count 171 160-400 X10*3/uL N Mean Platelet Volume 8.7 9.4-12.4 fL L Neutrophils Percent Auto 87.6 45-73 % H Imm Gran Pct Auto 0.6 0.0-0.4 % H Lymphocytes Percent Auto 7.9 20-40 % L Monocytes Percent Auto 3.7 2-11 % N Eosinophils Percent Auto 0.1 0-4 % N Basophils Percent Auto 0.1 0-2 % N NRBC Pct Auto 0.0 0.0-0.2 /100WBC N Neutrophils Absolute Auto 8.5 2.0-8.3 x10*3/uL H Imm Gran Abs Auto 0.06 0.00-0.03 X10*3/uL H Lymphocytes Absolute Auto 0.8 1.2-4.9 X10*3/uL L Monocytes Absolute Auto 0.4 0.1-1.2 X10*3/uL N Eosinophils Absolute Auto 0.0 0.0-0.4 X10*3/uL N Basophils Absolute Auto 0.0 0.0-0.2 X10*3/uL N NRBC Abs Auto 0.000 0.0-0.012 X10*3/uL N Basic Metabolic Panel Fastin g Reviewed date:05/05/2025 04:00:09 PM Interpretation: Performing Lab:[facility], [address] [place] [phone] Notes/Report: Sodium 139 135-145 mmol/L N Potassium 3.7 3.3-5.1 mmol/L N Chloride 106 96-108 mmol/L N Carbon Dioxide 25 22-29 mmol/L N Anion Gap 12 12-20 N Blood Urea Nitrogen 5 9-16 mg/dL L Creatinine 0.52 0.5-1.4 mg/dL N Creatinine Clr Calc Pharmacy 182.5 eGFR (calculated [...] 15 mL/min/1.73m2 Glucose Fasting 188 60-99 mg/dL H A fasting glucose of 126 mg/dl or greater on more than one occasion is considered diagnostic of diabetes. Calcium 8.7 8.4-10.2 mg/dL Reason For Referral Referring Provider First Name Mita Referring Provider Last Name Doc Referring Provider Speciality Family Med icine Referred Organization [facility] Referred Provider Vince Harris Referred Address [address],[place],[address],[place] Referred Provider Specialty Gastroentero logy General Notes Tenisha Pak 2024 11:25:18 AM >requested a [facility] referral from [facility] for visit with Dr. Harris on 02-06-25, Tenisha Pak 02/04/2025 08:45:16 AM >AWAITING APPT TO BE SCHEDULED BY [facility] TO ATTACH OFFICE VISIT TO THE APPT. Referral Priority Routine Referring Provider First Name Rebekah Referring Provider Last Name Mauerenwaldo Referred Organization [facility] Referred Provider Vince Harris Referred Address [address],[place],[address],[place] Referred Provider Specialty Gastroentero logy General Notes Tenisha Pak 2024 03:58:41 PM >requested a [facility] referral from [facility] for visit with dr harris on 06-24-2025 dx crohn's disease Referral Priority Routine Medications Medication SIG (Take, Route, Frequency, Duration) Notes Start Date End Date Status Skyrizi Pen 150 MG/ML Solution Auto-injector as directed Subcutaneous every 8 weeks starting 07/202506/24/2025 Active Pentasa 500 MG Capsule Extended Release 2 capsules Orally Four times a day; Duration: 30 days 03/28/2025 Active Budesonide 3 MG Capsule Delayed Release Particles 3 Orally daily; Duration: 30 days FYI Patient will begin the Budesonide. However, I have given him a Rx for Prednisone as well to have on hand to switch over to if the Budesonide is not working for his Crohn's. Thanks 02/06/2025 Not-Taking/ID N predniSONE 5 MG Tablet 8 pills(40mg) [...] the colonoscopy; Duration: 1 days 02/06/2025 Unknown Calcium + D 500-1000-40 MG-UNT-MCG Tablet Chewable 1 Orally daily; Duration: 30 days 06/26/2025 Active Immunizations Vaccine Route Administration Date Status Comme nts Influenza Unknown 02/06/2025 Refused Influenza Unknown 06/24/2025 Refused Social History Tobacco [...] Info Options Details Miscellaneous: Marital status: single Problems Problem Type SNOMED Code ICD Code Onset Dates Problem Status W/U Status Risk Notes Problem Imaging of gastrointestinal tract abnormal (742699664) Abnormal CT scan, gastrointestinal tract (R93.3) Active confirmed Problem Right lower quadrant pain (452376528) RLQ abdominal pain (R10.31) Active confirmed Problem Crohn's disease of small AND large intestines (62931187) Crohn''s disease of both small and large intestine without complication (K50.80) Active confirmed Problem Crohn's disease of colon with abscess (K50.114) Active confirmed Vital Signs Temperature 97.9 degrees Fahrenheit 02/06/2025 Blood pressure diastolic 01 mm Hg 06/24/2025 BMI Percentile 5.59 % 06/24/2025 Height 71 in 06/24/2025 Blood pressure systolic 001 mm Hg 06/24/2025 Weight 137.4 lbs 06/24/2025 BMI 19.16 kg/m2 06/24/2025 Procedures Procedure Date Ordered Date Performed Result Body Sit e COLONOSCOPY 02/06/2025 N/A Encounters Encounter Location Date Provider Diagnosis [facility] [place] [place] Outpatient [address] [place], [place] [id number] 02/27/2025 Vince Pablo [facility] [address] [place] [phone] 06/24/2025 Vince Harris Crohn''s disease of both small and large intestine without complication K50.80 [facility] [address] [place] [phone] 02/06/2025 Vince Harris Crohn''s disease of both small and large intestine without complication K50.80 ; RLQ abdominal pain R10.[address] scan, gastrointestinal tract R93.3 [facility] [address] [place] [phone] 02/02/2025 Vince Harris [facility] [address] [place] [phone] 02/06/2025 Vince Harris [facility] [address] [place] [phone] 02/09/2025 Vince Harris [facility] [address] [place] [phone] 02/23/2025 Vince Pablo [facility] [address] [place] [phone] 03/03/2025 Vince Harris [facility] [address] [place] [phone] 03/10/2025 Vince Harris [facility] [address] [place] [phone] 03/11/2025 Vince Harris [facility] [address] [place] [phone] 03/28/2025 Vince Harris [facility] [address] [place] [phone] 04/01/2025 Vince Harris [facility] [address] [place] [phone] 04/08/2025 Vince Harris [facility] [address] [place] [phone] 04/11/2025 Vince Harris Crohn''s disease of both small and large intestine without complication K50.80 [facility] [address] [place] [address] 04/30/2025 Vince Harris Crohn''s disease of both small and large intestine without complication K50.80 [facility] [address] [place] [address] 05/26/2025 Vince Harris [facility] [address] [place] [address] 05/30/2025 Vince Harris Crohn''s disease of both small and large intestine without complication K50.80 [facility] [address] [place] [address] 05/30/2025 Vince Harris Crohn''s disease of both small and large intestine without complication K50.80 [facility] [address] [place] [address] 06/26/2025 Vince Harris [facility] [address] [place] [phone] 07/04/2025 Vince Harris Assessments Encounter Date Diagnosis (ICD Code) Assessment [...] large intestine without complication (ICD-10 - K50.80) 05/30/2025 Crohn''s disease of both small and large intestine without complication (ICD-10 - K50.80) 05/30/2025 Crohn''s disease of both small and large intestine without complication (ICD-10 - K50.80) 06/24/2025 Crohn''s disease of both small and [...] Pathology 02/27/2025 Next Appt Details Provider Name:Vince Harris , 11/11/2025 01:20:00 PM, [address], [address], [place], [address], Insurance Providers Payer Name Payer Address Payer Phone Subscriber Number Group Number Insured Name Patient Relationship to Insured Coverage Start Date Coverage End Date MEDICAID [employer] [address] [place] [phone] [id number] BILL [employer] Self - patient is the insured 4 Medical (General) History Medical History History ICD Code Asthma Denies VT,DM,CVA,renal disease Presumed Crohn's disease samuel gnosed in January 2025 [address] his hospitalization. The CT scan showed evidence of disease involving the distal small bowel and ascending colon. Stool specimens were all negative for infection and the stool calprotectin level was quite elevated at 1,090. He had a colonoscopy in 2024 confirming the diagnosis of both Crohn's colitis [...]
[2025-07-08] MEDS: iohexoL 350 MG/ML 100 ML INFUS..BTL IV (01:19)
[2025-07-08 02:09] LABS: Appearance Urine Clear; Glucose Urine UA Negative (Negative); PH 5.5 (5.0-9.0); Specific Gravity - Urine >= 1.030 (1.005-1.025)
[2025-07-08 02:18] LABS: Cannabinoid Screen Urine Not Detected (Not Detect)
[2025-07-08 03:16] VITALS: BP 104/59; PULSE 81; RESP 16; TEMP 36.7; O2SAT 97
--- NOTE | 2025-07-08 03:49 | P.HPHOSP_ITS ---
History of Present Illness Date of Service: 07/08/25 Attending physician on admission: Cece Mixon Chief Complaint: abdominal pain Pt is a 19 yo male with PMH Crohns disease on Skyrizi, mesalamine, Asthma, weight loss since diagnosis, norovirus 04/10 with Crohn's Flare, constipation presents to the emergency department ambulatory with reports of increasing abdominal pain over the past 2 days and an episode of vomiting one time today with no report of diarrhea or bloody stool. Patient states that 4 days ago he had a dose of Skyrizi (risankizumab-rzaa) - per ED record. Pt received dilaudid for the abdominal pain and is currently pain free but somewhat groggy, asking to sleep. Pt was able to say that he has had no fever, chills or other concerning symptoms currently. Ct ABD and PELVIS without contrast notes Again seen is an extensive inflammatory process involving the right pelvis, including the cecum, terminal ileum and rectum. Findings concerning for inflammatory bowel disease. Evaluation for fistula and abscess limited without oral contrast, however no definite abscess seen. Dilatation and fecalization of the distal ileum concerning for slow transit through the terminal ileum. Pt does have a leukocytosis of 19, no bandemia. Pt started on levofloxacin IV. Pt also received methylprednisolone 125 mgs IV. Pt currently on IVF, NPO for now. Review of Systems 2 Review of Systems: Pt currently denies abdominal pain, chest pain or SOB at rest. Pt is not having any N/V, fever, chills or AHUMADA. Yes all other systems are reviewed and are negative REPLACED BY [facility] Medical History Constipation Norovirus Crohn's disease of both small and large intestine Asthma Crohn's disease Cognitive capacity: A/O X3 Functional capacity: independent ambulation Surgical History History of surgery Social History Household Members: Family Housing: House Do you presently have visiting nurse or other home services: No Alcohol intake: never Patient Tobacco Use Status: Never used Tobacco Smoked in Last 30 Days: No Use of substances other than those prescribed or required for medical reasons: No Advance Directives: No Advance Directives Information Provided: Yes Do you have a plan to hurt others: No Plan service: No Ebola Risk: Travel/Contact With Anyone From Affected Area/s: No Has Patient Experienced Ebola Symptoms: No Meds Allergies Allergy/AdvReac Type Severity Reaction Status Date / Time Seasonal Allergies Allergy Unknown Verified 07/07/25 20:37 Active Medications: Current Medications Acetaminophen (Acetaminophen 325 Mg Tablet) 650 mg PO Q6H PRN PRN Reason: Pain, Mild 1-3,fever,headache Albuterol/Ipratropium (Albuterol/Iprat 2.5/0.5mg 3 Ml Ampul.Neb) 3 ml INHALE Q4H PRN PRN Reason: Shortness of Breath/Wheezing Calcium Carbonate (Calcium Carbonate 750 Mg Tab.Chew) 750 mg PO Q4H PRN PRN Reason: Heartburn Hydromorphone HCl (Hydromorphone Hcl 1 Mg/Ml Syringe) 1 mg IVPUSH Q3H PRN; Protocol PRN Reason: Pain, Severe (Pain Scale 7-10) Levofloxacin (Levaquin) 500 mg in 100 mls @ 100 mls/hr IV ONCE ONE Stop: 07/08/25 04:23 Last Admin: 07/08/25 03:43 Dose: 100 mls/hr Levofloxacin (Levaquin) 500 mg in 100 mls @ 100 mls/hr IV Q24H [facility] Sodium Chloride (Ns) 1,000 mls @ 125 mls/hr IVCONT .Q8H [facility] Magnesium Hydroxide (Milk Of Magnesia 30 Ml Oral.Susp) 30 ml PO DAILY PRN PRN Reason: Constipation Melatonin (Melatonin 3 Mg Tablet) 6 mg PO BEDTIME PRN PRN Reason: Insomnia Methylprednisolone Sodium Succinate (Methylprednisolone Sod Succ 125 Mg/2 Ml Vial) 60 mg IVPUSH Q12H [facility] Ondansetron HCl (Ondansetron Hcl 4 Mg/2 Ml Vial) 4 mg IVPUSH Q8H PRN PRN Reason: Nausea and Vomiting Polyethylene Glycol (Polyethylene Glycol 3350 17 Gm Powd.Pack) 17 gm PO DAILY PRN PRN Reason: Constipation Sodium Chloride (0.9 % Sodium Chloride Flush 3 Ml Syringe) 3 ml IVFLUSH QSHIFT [facility] Physical Exam 2 Vital Signs and Narrative: Vital Signs: Last Vital Signs Temp 98.0 F 07/08/25 03:16 Pulse 81 12/23/25 03:16 Resp 16 07/08/25 03:16 BP 104/59 L 07/08/25 03:16 Pulse Ox 97 07/08/25 03:16 O2 Del Method Room Air 07/08/25 03:16 BMI result Body Mass Index 19.1 Pt is alert and orientated, sleep due to hour and use of dilaudid to help abd pain Neuro: Intact, no obvious deficits HEENT: PERRLA, sclera nonicteric, oral mucosa moist, no thrush Cardiac: S1S2 RRR, no murmur, No JVD, No edema BLEs Pulm: LUNGS CTA B ABD: tender in lower quadrant with palpation, no distension or firmness noted EXT: no edema, pulses +2 Psych: mood sleepy, insight an judgement good Skin: no new rashes or lesions Results Labs 07/07/25 22:28 07/07/25 22:28 Labs: Laboratory Results - last 24 hr 07/07/25 07/08/25 22:28 02:01 MCV 84.4 MCH 27.6 MCHC 32.7 RDW 14.6 Plt Count 237 MPV 8.5 L Immature Gran % (Auto) 1.1 H Neut % (Auto) 85.6 H Lymph % (Auto) 5.5 L [place] % (Auto) 7.4 Eos % (Auto) 0.1 Baso % (Auto) 0.3 Lymph # (Auto) 1.1 L [place] # (Auto) 1.4 H Eos # (Auto) 0.0 Baso # (Auto) 0.1 Abs Immat Gran (auto) 0.21 H Absolute Neuts (auto) 16.8 H Absolute Nucleated RBC 0.000 Nucleated RBC % (auto) 0.0 Anion Gap 14 Estim Creat Clear Calc 124.3 Estimated GFR > 60 Random Glucose 121 H Calcium 10.2 D Total Bilirubin 0.5 Direct Bilirubin 0.2 AST 16 ALT 24 Alkaline Phosphatase 68 Total Protein 7.9 Albumin 4.4 Lipase 14 Urine Color Yellow Urine Appearance Clear Urine pH 5.5 Ur Specific [place] >= 1.030 H Urine Protein Trace Urine Glucose (UA) Negative Urine Ketones Trace Urine Blood Negative Urine Nitrite Negative Ur Leukocyte Esterase Negative Urine Opiates Screen Not Detected Ur Buprenorphine Scrn Not Detected Ur Oxycodone Screen Not Detected Urine Methadone Screen Not Detected Urine Fentanyl Screen Not Detected Ur Barbiturates Screen Not Detected Ur Phencyclidine Scrn Not Detected Ur Amphetamines Screen Not Detected U Benzodiazepines Scrn Not Detected Urine Cocaine Screen Not Detected U Marijuana (THC) Screen Not Detected ECG Prior ECG tracings: not available for review Imaging Radiologist's Impressions: CT ABD PELVIS Again seen is an extensive inflammatory process involving the right pelvis, including the cecum, terminal ileum and rectum. Findings concerning for inflammatory bowel disease. Evaluation for fistula and abscess limited without oral contrast, however no definite abscess seen. Dilatation and fecalization of the distal ileum concerning for slow transit through the terminal ileum Assessment and Plan (1) Acute Crohn's disease: Qualifiers: Digestive disease complication type: other complication Qualified Code(s): K50.918 - Crohn's disease, unspecified, with other complication Status: Acute Plan Pt is a 19 yo male with PMH Crohns disease on Skyrizi, mesalamine, Asthma, weight loss since diagnosis, norovirus 04/10 with Crohn's Flare, constipation presents to the emergency department ambulatory with reports of increasing abdominal pain over the past 2 days and an episode of vomiting one time today with no report of diarrhea or bloody stool. Pt being admitted for Crohn's flare Acute Crohn's Flare/ Leukocytosis/ HX of weight loss Pt will continue methylprednisolone IV, transition likely to prednisone GI consulted Levofloxacin continued, no abscess seen on CT without contrast UA negative for UTI IVF continue, pt is NPO for now, low residual diet once able to eat Dilaudid for pain Supportive care with antiemetics prn Pt has continued Skyrizi and mesalamine as an outpatient Daily weights, pt states wt has been more stable Constipation Dulcolax prn Mirilax prn HX of asthma No recent issues No one ill at home currently with FLU or URI Duo nebs prn DVT prophylaxis: Lovenox MED REC PENDING FULL CODE STATUS Pt will require at least a 2 night stay to manage medically Crohn's flare with IV steroids, ABX and pain medicaitons and expert consultation with Gastroenterology. Quality Stroke Does the patient have a stroke diagnosis?: No Reason for No Anti-thrombotic by Day Two: N/A - Med Ordered VTE Prior VTE?: No VTE Risk Level:: Medical - moderate - high VTE Device Contraindication: N/A - Device Ordered VTE Drug Contraindication: N/A - Med Ordered
[2025-07-08 04:41] LABS: Hematocrit 41.1 % (42.0-52.0); Hemoglobin 13.5 g/dl (14.0-18.0); Mean Corpuscular HGB Conc 32.8 g/dl (31.0-36.0); Mean Corpuscular Hemoglobin 27.6 pg (27.0-33.0); Mean Corpuscular Volume 83.9 fL (80.0-98.0); NRBC Abs Auto 0.000 X10*3/uL (0.0-0.012); NRBC Pct Auto 0.0 /100WBC (0.0-0.2); Platelet Count 204 X10*3/uL (160-400); Red Blood Count 4.90 X10*6/uL (4.60-5.80); White Blood Count 16.4 X10*3/uL (4.8-10.8)
[2025-07-08 04:59] LABS: Alanine Aminotransferase 14 U/L (0-40); Albumin Level 3.4 g/dL (3.5-5.0); Alkaline Phosphatase 51 U/L (39-117); Anion Gap 13 (12-20); Aspartate Amino Transferase 13 U/L (5-37); Blood Urea Nitrogen 11 mg/dL (9-16); Calcium 9.1 mg/dL (8.4-10.2); Carbon Dioxide 25 mmol/L (22-29); Chloride 104 mmol/L (96-108); Creatinine Clr Calc Pharmacy 151.3; Estimated Glomerular Filt Rate > 60; Potassium 4.1 mmol/L (3.3-5.1); Sodium 138 mmol/L (135-145); Total Protein 6.2 g/dL (6.5-8.0)
[2025-07-08 05:28] VITALS: BMI 19.8
--- NOTE | 2025-07-08 05:42 | HO.NURTONUR ---
Addendum entered by Nancy Bergman RN 07/08/25 07:42: Pt ambulated to [facility] Still having good pain control. VSS NAD Original Note: 19 Y M. AOx4. Presents with abd pain, N/V x 2 days. Hx of Chron's disease. Admitted for acute Crohn's flare up. GI consult ordered. Taking Dilaudid for pain with good effect. Pt is NPO. Ambulatory and independent. 20G on L AC with NS going at 125mls/hr.
--- NOTE | 2025-07-08 05:45 | PC.NURSE ---
Pt is awaken and reporting abd pain, 03/26. Medicated as per SEP. Monitoring is ongoing.
[2025-07-08 07:47] VITALS: BP 118/70; PULSE 70; RESP 16; O2SAT 96
--- NOTE | 2025-07-08 08:13 | PHA.MEDREC ---
Addendum entered by Natasha Grant PharmD 07/08/25 10:56: [facility] REVIEWED. Skyrizi dose and frequency confirmed with [facility]. Pentasa 500 mg caps was confirmed with [facility]: 2 capsules (1000 mg) QID picked up 06/24 for a 30 DS. Original Note: Pharmacy Consult ? Medication Reconciliation Pharmacy has completed the medication reconciliation. Spoke with pt and he confirmed his medications. Pt confirmed he started a Skyrizi injection ~4-5 days and takes its every 2 months, he started a Prednisone 10mg taper regimen (40mg (4x10mg) x7days, 30mg (3x10mg) x7days, 20mg (2x10mg) x7days, 10mg (1x10mg) x7days and then stopping; pt started 30mh x7days ~4 days ago but has not been able to take it in 2 days (along with his Mesalamine) since developing the symptoms he presents with today.
[2025-07-08 08:15] VITALS: BMI 20.1
[2025-07-08 08:22] VITALS: BP 124/60; PULSE 69; RESP 15; TEMP 36.6; O2SAT 97
--- NOTE | 2025-07-08 12:34 | PM.EVENT ---
Event Note Date of Service: 07/08/25 Event Note: Chart reviewed patient examined. 19-year-old male admitted with Crohn's flare. Receiving IV steroids awaiting GI input Time Spent With Patient Time: Total time managing care of this patient today ____ minutes.
[2025-07-08 15:17] VITALS: BP 113/55; PULSE 77; RESP 18; TEMP 36.1; O2SAT 98
--- NOTE | 2025-07-08 19:38 | PM.EVENT ---
Event Note Date of Service: 07/08/25 Event Note: GI Consult-Full note dictated-D/W patient in detail. Imp: Recurrent Crohn's flare despite treatment with Skyrizi, Pentasa, and a continued outpatient prednisone taper(was currently on 15mg daily). Rec: IV steroids, antibiotics, clear liquids, F/U labs. Surgery consult if abdominal exam worsens.Please call me if problems or questions arise. Thanks Time Spent With Patient Time: Total time managing care of this patient today ____ minutes.
[2025-07-08 19:48] VITALS: BP 122/61; PULSE 80; RESP 18; TEMP 36.5; O2SAT 98
[2025-07-09 04:00] VITALS: BP 113/54; PULSE 78; RESP 18; TEMP 36.7; O2SAT 97
[2025-07-09 06:07] LABS: MANUAL DIFF FLAG NO
[2025-07-09 06:09] LABS: Hematocrit 38.3 % (42.0-52.0); Hemoglobin 12.7 g/dl (14.0-18.0); Imm Gran Abs Auto 0.15 X10*3/uL (0.00-0.03); Imm Gran Pct Auto 1.0 % (0.0-0.4); Lymphocytes Absolute Auto 0.9 X10*3/uL (1.2-4.9); Mean Corpuscular HGB Conc 33.2 g/dl (31.0-36.0); Mean Corpuscular Hemoglobin 27.8 pg (27.0-33.0); Mean Corpuscular Volume 83.8 fL (80.0-98.0); NRBC Abs Auto 0.000 X10*3/uL (0.0-0.012); NRBC Pct Auto 0.0 /100WBC (0.0-0.2); Platelet Count 216 X10*3/uL (160-400); Red Blood Count 4.57 X10*6/uL (4.60-5.80); White Blood Count 15.0 X10*3/uL (4.8-10.8)
[2025-07-09 06:27] LABS: Alanine Aminotransferase 13 U/L (0-40); Albumin Level 3.4 g/dL (3.5-5.0); Alkaline Phosphatase 51 U/L (39-117); Anion Gap 10 (12-20); Aspartate Amino Transferase 15 U/L (5-37); Blood Urea Nitrogen 11 mg/dL (9-16); Calcium 9.2 mg/dL (8.4-10.2); Carbon Dioxide 27 mmol/L (22-29); Chloride 103 mmol/L (96-108); Creatinine Clr Calc Pharmacy 171.4; Estimated Glomerular Filt Rate > 60; Potassium 4.2 mmol/L (3.3-5.1); Sodium 136 mmol/L (135-145); Total Protein 6.2 g/dL (6.5-8.0)
[2025-07-09 06:48] VITALS: BP 118/61; PULSE 93; RESP 16; TEMP 36.6; O2SAT 99
--- NOTE | 2025-07-09 10:53 | MHC.CM.PN ---
Patient lives at home w/ his mother and brother. Independent w/ all care. Employed time clerk. PCP Polo Davalos MD No HCP. CM provided education and offered assistance. DP: Goal is home self care. Will arrange for private transport home. CM will continue to follow.
--- NOTE | 2025-07-09 10:57 | P.PNGI_ITS ---
Subjective Subjective Date of Service: 07/09/25 Interval History: Still having lower abdominal discomfort. Not hungry. Denies N/V. No BM's or flatus today. Having just minimal po fluids. Afebrile. Critical Care Time (minutes): 0 Physical Exam 2 Vital Signs: Vital Signs: Last Vital Signs Temp 98 F 07/09/25 06:48 Pulse 93 07/09/25 06:48 Resp 16 07/09/25 06:48 BP 118/61 07/09/25 06:48 Pulse Ox 99 07/09/25 06:48 O2 Del Method Room Air 07/09/25 06:48 BMI result Body Mass Index 20.1 Const: General: cooperative, healthy appearing, comfortable, no acute distress, well developed, alert, awake and Physically active GI: Other: Abdomen-slightly distended with decreased BS, soft, mild diffuse tenderness along the lower abdomen. No mass or rebound. Objective Data Labs 07/09/25 05:51 07/09/25 05:51 Labs: Laboratory Results - last 24 hr 07/09/25 05:51 WBC 15.0 H RBC 4.57 L Hgb 12.7 L Hct 38.3 L MCV 83.8 MCH 27.8 MCHC 33.2 RDW 13.9 Plt Count 216 MPV 8.8 L Immature Gran % (Auto) 1.0 H Neut % (Auto) 90.0 H Lymph % (Auto) 5.7 L [place] % (Auto) 3.2 Eos % (Auto) 0.0 Baso % (Auto) 0.1 Lymph # (Auto) 0.9 L [place] # (Auto) 0.5 Eos # (Auto) 0.0 Baso # (Auto) 0.0 Abs Immat Gran (auto) 0.15 H Absolute Neuts (auto) 13.5 H Absolute Nucleated RBC 0.000 Nucleated RBC % (auto) 0.0 Sodium 136 Potassium 4.2 Chloride 103 Carbon Dioxide 27 Anion Gap 10 L BUN 11 Creatinine 0.64 Estim Creat Clear Calc 171.4 Estimated GFR > 60 Fasting Glucose 146 H Calcium 9.2 Total Bilirubin 0.5 Direct Bilirubin 0.2 AST 15 ALT 13 Alkaline Phosphatase 51 Total Protein 6.2 L Albumin 3.4 L Procedures Date of Service Date of Service: 07/09/25 Progress Note: A&P Assessment and plan (1) Crohn's disease of both small and large intestine: Status: Acute Assessment and Plan: Imp: Crohn's disease--remains symptomatic with ongoing discomfort, and with slight distention and tenderness on his exam. Rec: Continue on current therapy with IV steroids, oral mesalamine, antibiotics, F/U labs, and a clear liquid diet. If his exam worsens he would need a repeat CT and surgical consult. Will continue his outpatient Skyrizi. Encouraged him to ambulate. D/W patient in detail. Thanks Time Spent With Patient Time: Total time managing care of this patient today ____ minutes. Quality Stroke Does the patient have a stroke diagnosis?: No Reason for No Anti-thrombotic by Day Two: N/A - Med Ordered VTE Prior VTE?: No VTE Risk Level:: Medical - moderate - high VTE Device Contraindication: N/A - Device Ordered VTE Drug Contraindication: N/A - Med Ordered
--- NOTE | 2025-07-09 12:54 | CONS_ITS ---
DATE OF SERVICE: 07/08/2025 REASON FOR CONSULTATION: Crohn's disease. HISTORY OF PRESENT ILLNESS: The patient is a 19-year-old male, well known to me with a diagnosis of Crohn's disease made in January of 2025. At that time, he had presented with lower abdominal pain with some vomiting. He ultimately was found to have inflammatory changes along the cecum, ascending colon, and terminal ileum with some mural thickening, submucosal edema, mucosal hyperemia, and some fat stranding in the same areas. He underwent a colonoscopy in February 28, describing a deformed ileocecal valve, ileitis, and changes in the cecum, sigmoid colon and rectum, consistent with Crohn's disease with small ulcerations in areas of erythema. The ascending colon, transverse colon, and descending colon appeared normal. Biopsies obtained at that time showed changes consistent with ileitis and colitis. There were no granulomas or dysplasia. Due to persistent problems in trying to wean him off prednisone, he was started on Skyrizi infusions in March. He finished his third and final Skyrizi infusion in May and took his first subcutaneous injection just several days ago. He has also been on Pentasa 1 g q.i.d. and prednisone to one degree or another. Most recently, he has been on a prednisone taper and was on 15 mg daily when his symptoms flared up about 2 days ago. Over the past 2 days, he has had increasing abdominal pain and vomiting, but no sign of any GI bleeding. He did not have any diarrhea and describes a fairly normal bowel movement yesterday. He has not had any fevers or jaundice. He denies any urinary symptoms. Since admission here last night, he does feel somewhat better, but is still having pain. There has been no further vomiting. MEDICATIONS: At home, included Pentasa 1 g q.i.d., prednisone 15 mg daily, and Skyrizi as described above. PAST MEDICAL HISTORY: Crohn's disease as described above. He is otherwise healthy without any other medical problems such as diabetes, heart disease, or asthma. PAST SURGICAL HISTORY: He has had no significant surgeries. SOCIAL HISTORY: He does not smoke. He does not use any significant amounts of alcohol. He denies any drug use. He had been working in the [employer] but has been off from work since the diagnosis of his Crohn's disease. FAMILY HISTORY: Noncontributory. PHYSICAL EXAMINATION: GENERAL: The patient is a pleasant, alert, comfortable-appearing male. SKIN: Warm and dry. HEENT: Anicteric sclerae. Moist mucous membranes. NECK: Supple without lymphadenopathy. CARDIAC: Normal S1, S2. ABDOMEN: Soft and nondistended. Bowel sounds are somewhat diminished. There is diffuse tenderness in the lower abdomen, but without mass, rebound, or guarding. EXTREMITIES: Without edema. NEUROLOGIC: He is alert and oriented and answers questions appropriately. REVIEW OF SYSTEMS: CONSTITUTIONAL: He has been feeling fairly well up until the past 2 days with good appetite. SKIN: No rash. No pruritus. CARDIAC: No chest pain. PULMONARY: No coughing or hemoptysis. GI: As above. URINARY: No dysuria or hematuria. NEUROLOGIC: No headache or seizures. LABORATORY DATA: White blood cell count 19.6 last night and 16.4 today. Hemoglobin 13.5, MCV 84, platelets 204,000. Normal chemistries and renal function. Normal LFTs, although albumin was 3.4. Lipase 14. Urinalysis was negative other than specific gravity of 1.030. His CT scan on admission seemed similar to all of his other CT scans with inflammatory changes in the right lower quadrant and lower abdomen in general, involving the rectum, terminal ileum, and cecum. There was no definitive abscess, but there was clearly inflammation of the bowel. There was some dilatation of the distal ileum. There was small amount of fluid in the pelvis. There was no free air, nor any obvious obstruction. IMPRESSION: The patient is a 19-year-old male with known Crohn's disease that has been refractory to aggressive medical therapy including Skyrizi, Pentasa, and steroids. Due to this flare, he will be kept in the hospital with IV steroids, antibiotics, and just clear liquid diet for the time being. He will have followup laboratories. If his abdominal exam worsens, he would require a surgical consultation and possible followup CT scan. I did review his significant and refractory Crohn's disease with him and advised him that I may want to refer him for a second opinion to one of the [facility]. However, he is not sure if he would be able to get there due to transportation issues. For the time being, we will continue inpatient treatment as described and then continue with the outpatient Skyrizi, Pentasa, and prednisone to one degree or another. This has all been discussed in detail with the patient and he is comfortable with that plan. Thank you for the consultation. MD EALINE Massey/LEYDI / [phone] MTDGermaine
--- NOTE | 2025-07-09 15:53 | HO.PM.IMPN ---
Subjective Subjective Date of Service: 07/09/25 Interval History: Continues to have abdominal pain despite therapies. Tolerating a full liquid diet Review of Systems Pt currently denies abdominal pain, chest pain or SOB at rest. Pt is not having any N/V, fever, chills or AHUMADA. Physical Exam Vital Signs: Vital Signs: Last Vital Signs Temp 98 F 07/09/25 06:48 Pulse 93 07/09/25 06:48 Resp 16 07/09/25 06:48 BP 118/61 07/09/25 06:48 Pulse Ox 99 07/09/25 06:48 O2 Del Method Room Air 07/09/25 06:48 BMI result Body Mass Index 20.1 Const: Other: Awake alert no acute distress Resp: Other: Clear to auscultation bilaterally no rales rhonchi or wheezes Cardio: Other: No S4; positive S1-S2; no S3 murmurs rubs or gallops GI: Other: Soft diffusely tender lower abdomen to light palpation. Some voluntary guarding Extrem: Other: No edema bilaterally Objective Data Active Medications Acetaminophen (Acetaminophen 325 Mg Tablet) 650 mg PO Q6H PRN PRN Reason: Pain, Mild 1-3,fever,headache Albuterol/Ipratropium (Albuterol/Iprat 2.5/0.5mg 3 Ml Ampul.Neb) 3 ml INHALE Q4H PRN PRN Reason: Shortness of Breath/Wheezing Bisacodyl (Bisacodyl 10 Mg Supp.Rect) 10 mg [place] BEDTIME PRN PRN Reason: Constipation Calcium Carbonate (Calcium Carbonate 750 Mg Tab.Chew) 750 mg PO Q4H PRN PRN Reason: Heartburn Hydromorphone HCl (Hydromorphone Hcl 1 Mg/Ml Syringe) 1 mg IVPUSH Q3H PRN; Protocol PRN Reason: Pain, Severe (Pain Scale 7-10) Last Admin: 07/09/25 15:40 Dose: 1 mg Documented By: PUJA Sodium Chloride (Ns) 1,000 mls @ 125 mls/hr IVCONT .Q8H [facility] Last Admin: 07/09/25 15:41 Dose: 125 mls/hr Documented By: PUJA Piperacillin Sod/Tazobactam (Sod 3.375 gm/ Sodium Chloride) 50 mls @ 100 mls/hr IV Q6H [facility] Last Infusion: 07/09/25 14:14 Dose: Infused Documented By: PUJA Magnesium Hydroxide (Milk Of Magnesia 30 Ml Oral.Susp) 30 ml PO DAILY PRN PRN Reason: Constipation Melatonin (Melatonin 3 Mg Tablet) 6 mg PO BEDTIME PRN PRN Reason: Insomnia Mesalamine (Mesalamine 250 Mg Capsule.Er) 1,000 mg PO QID [facility] Last Admin: 07/09/25 13:42 Dose: 1,000 mg Documented By: PUJA Methylprednisolone Sodium Succinate (Methylprednisolone Sod Succ 125 Mg/2 Ml Vial) 60 mg IVPUSH Q6H [facility] Last Admin: 07/09/25 13:43 Dose: 60 mg Documented By: PUJA Ondansetron HCl (Ondansetron Hcl 4 Mg/2 Ml Vial) 4 mg IVPUSH Q8H PRN PRN Reason: Nausea and Vomiting Polyethylene Glycol (Polyethylene Glycol 3350 17 Gm Powd.Pack) 17 gm PO DAILY PRN PRN Reason: Constipation Sodium Chloride (0.9 % Sodium Chloride Flush 3 Ml Syringe) 3 ml IVFLUSH QSHIFT [facility] Last Admin: 07/09/25 14:15 Dose: Not Given Documented By: PUJA Non-Admin Reason: IV Running Labs 07/09/25 05:51 07/09/25 05:51 Labs: Laboratory Results - last 24 hr 07/09/25 05:51 MCV 83.8 MCH 27.8 MCHC 33.2 RDW 13.9 Plt Count 216 MPV 8.8 L Immature Gran % (Auto) 1.0 H Neut % (Auto) 90.0 H Lymph % (Auto) 5.7 L [place] % (Auto) 3.2 Eos % (Auto) 0.0 Baso % (Auto) 0.1 Lymph # (Auto) 0.9 L [place] # (Auto) 0.5 Eos # (Auto) 0.0 Baso # (Auto) 0.0 Abs Immat Gran (auto) 0.15 H Absolute Neuts (auto) 13.5 H Absolute Nucleated RBC 0.000 Nucleated RBC % (auto) 0.0 Anion Gap 10 L Estim Creat Clear Calc 171.4 Estimated GFR > 60 Fasting Glucose 146 H Calcium 9.2 Total Bilirubin 0.5 Direct Bilirubin 0.2 AST 15 ALT 13 Alkaline Phosphatase 51 Total Protein 6.2 L Albumin 3.4 L Assessment and Plan (1) Crohn's disease of both small and large intestine: Status: Acute Plan Pt is a 19 yo male with PMH Crohns disease on Skyrizi, mesalamine, Asthma, weight loss since diagnosis, norovirus 04/10 with Crohn's Flare, constipation presents to the emergency department ambulatory with reports of increasing abdominal pain over the past 2 days and an episode of vomiting one time today with no report of diarrhea or bloody stool. Pt being admitted for Crohn's flare 1.Acute Crohn's -slow to improve -continue IV steroids and supplemental IV fluids -continue outpatient therapies -follow up clinically in a.m.; if exam same or worsened we will order CTA 2.Asthma -stable and well compensated -continue outpatient therapy Lovenox FULL CODE STATUS Patient will require ongoing hospitalization for continued IV steroids and supplemental fluids given poor response to current therapies re-evaluate in a.m. Quality Stroke Does the patient have a stroke diagnosis?: No Reason for No Anti-thrombotic by Day Two: N/A - Med Ordered VTE Prior VTE?: No VTE Risk Level:: Medical - moderate - high VTE Device Contraindication: N/A - Device Ordered VTE Drug Contraindication: N/A - Med Ordered
[2025-07-09 15:58] VITALS: BP 123/59; PULSE 68; RESP 18; TEMP 36.5; O2SAT 97
[2025-07-09 19:52] VITALS: BP 118/64; PULSE 92; RESP 18; TEMP 36.6; O2SAT 97
[2025-07-09] MEDS: 0.9 % Sodium Chloride Flush 3 ML SYRINGE IVFLUSH (20:18)
--- NOTE | 2025-07-09 23:23 | PC.NURSE ---
Pt endorsing 5/10 abdominal pain. Pt only has prn 1mg dilaudid for 7-10 pain level. [employer] notified via [place] text. 0.5 mg dilaudid q3h for pain 4-6 ordered.
[2025-07-10 04:00] VITALS: BP 121/64; PULSE 63; RESP 18; TEMP 36.2; O2SAT 98
[2025-07-10 06:32] LABS: Hematocrit 38.3 % (42.0-52.0); Hemoglobin 12.6 g/dl (14.0-18.0); Imm Gran Abs Auto 0.12 X10*3/uL (0.00-0.03); Imm Gran Pct Auto 0.8 % (0.0-0.4); Lymphocytes Absolute Auto 0.6 X10*3/uL (1.2-4.9); MANUAL DIFF FLAG SCAN; Mean Corpuscular HGB Conc 32.9 g/dl (31.0-36.0); Mean Corpuscular Hemoglobin 27.7 pg (27.0-33.0); Mean Corpuscular Volume 84.2 fL (80.0-98.0); NRBC Abs Auto 0.000 X10*3/uL (0.0-0.012); NRBC Pct Auto 0.0 /100WBC (0.0-0.2); Platelet Count 224 X10*3/uL (160-400); Red Blood Count 4.55 X10*6/uL (4.60-5.80); SCAN SMEAR FLAG 1; White Blood Count 14.7 X10*3/uL (4.8-10.8)
[2025-07-10 06:45] LABS: Anion Gap 10 (12-20); Blood Urea Nitrogen 9 mg/dL (9-16); Calcium 8.9 mg/dL (8.4-10.2); Carbon Dioxide 27 mmol/L (22-29); Chloride 104 mmol/L (96-108); Creatinine Clr Calc Pharmacy 182.9; Estimated Glomerular Filt Rate > 60; Potassium 3.9 mmol/L (3.3-5.1); Sodium 137 mmol/L (135-145)
[2025-07-10 06:59] VITALS: BP 102/58; PULSE 66; RESP 16; TEMP 37; O2SAT 93
--- NOTE | 2025-07-10 12:35 | P.PNIM_ITS ---
Subjective Subjective Date of Service: 07/10/25 Interval History: Pain slowly improving. Wishes to increase diet Review of Systems Pt currently denies abdominal pain, chest pain or SOB at rest. Pt is not having any N/V, fever, chills or AHUMADA. Physical Exam 2 Vital Signs: Vital Signs: Last Vital Signs Temp 98.6 F 07/10/25 06:59 Pulse 66 07/10/25 06:59 Resp 16 07/10/25 06:59 BP 102/58 L 07/10/25 06:59 Pulse Ox 93 07/10/25 06:59 O2 Del Method Room Air 07/10/25 06:59 BMI result Body Mass Index 20.1 Const: Other: Awake alert no acute distress Resp: Other: Clear to auscultation bilaterally no rales rhonchi or wheezes Cardio: Other: No S4; positive S1-S2; no S3 murmurs rubs or gallops GI: Other: Soft diffusely tender lower abdomen to light palpation. Some voluntary guarding Extrem: Other: No edema bilaterally Objective Data Active Medications Acetaminophen (Acetaminophen 325 Mg Tablet) 650 mg PO Q6H PRN PRN Reason: Pain, Mild 1-3,fever,headache Albuterol/Ipratropium (Albuterol/Iprat 2.5/0.5mg 3 Ml Ampul.Neb) 3 ml INHALE Q4H PRN PRN Reason: Shortness of Breath/Wheezing Bisacodyl (Bisacodyl 10 Mg Supp.Rect) 10 mg [place] BEDTIME PRN PRN Reason: Constipation Calcium Carbonate (Calcium Carbonate 750 Mg Tab.Chew) 750 mg PO Q4H PRN PRN Reason: Heartburn Hydromorphone HCl (Hydromorphone Hcl 1 Mg/Ml Syringe) 1 mg IVPUSH Q3H PRN; Protocol PRN Reason: Pain, Severe (Pain Scale 7-10) Last Admin: 07/09/25 20:17 Dose: 1 mg Documented By: JALEEL Hydromorphone HCl (Hydromorphone Hcl 1 Mg/Ml Syringe) 0.5 mg IVPUSH Q3H PRN; Protocol PRN Reason: Pain, Moderate(Pain Scale 4-6) Last Admin: 07/10/25 08:35 Dose: 0.5 mg Documented By: KYA Piperacillin Sod/Tazobactam (Sod 3.375 gm/ Sodium Chloride) 50 mls @ 100 mls/hr IV Q6H [facility] Last Infusion: 07/10/25 09:11 Dose: Infused Documented By: KYA Magnesium Hydroxide (Milk Of Magnesia 30 Ml Oral.Susp) 30 ml PO DAILY PRN PRN Reason: Constipation Melatonin (Melatonin 3 Mg Tablet) 6 mg PO BEDTIME PRN PRN Reason: Insomnia Mesalamine (Mesalamine 250 Mg Capsule.Er) 1,000 mg PO QID [facility] Last Admin: 07/10/25 12:25 Dose: 1,000 mg Documented By: KYA Methylprednisolone Sodium Succinate (Methylprednisolone Sod Succ 125 Mg/2 Ml Vial) 60 mg IVPUSH Q6H [facility] Last Admin: 07/10/25 08:34 Dose: 60 mg Documented By: KYA Ondansetron HCl (Ondansetron Hcl 4 Mg/2 Ml Vial) 4 mg IVPUSH Q8H PRN PRN Reason: Nausea and Vomiting Polyethylene Glycol (Polyethylene Glycol 3350 17 Gm Powd.Pack) 17 gm PO DAILY PRN PRN Reason: Constipation Sodium Chloride (0.9 % Sodium Chloride Flush 3 Ml Syringe) 3 ml IVFLUSH QSHIFT [facility] Last Admin: 07/10/25 07:05 Dose: Not Given Documented By: KYA Non-Admin Reason: IV Running Labs 07/10/25 05:24 07/10/25 05:24 Labs: Laboratory Results - last 24 hr 07/10/25 05:24 MCV 84.2 MCH 27.7 MCHC 32.9 RDW 13.9 Plt Count 224 MPV 9.0 L Immature Gran % (Auto) 0.8 H Neut % (Auto) 92.0 H Lymph % (Auto) 3.9 L [place] % (Auto) 3.1 Eos % (Auto) 0.1 Baso % (Auto) 0.1 Lymph # (Auto) 0.6 L [place] # (Auto) 0.5 Eos # (Auto) 0.0 Baso # (Auto) 0.0 Abs Immat Gran (auto) 0.12 H Absolute Neuts (auto) 13.5 H Absolute Nucleated RBC 0.000 Nucleated RBC % (auto) 0.0 Smear Tech's Comments VERIFIED ESR 22 H Anion Gap 10 L Estim Creat Clear Calc 182.9 Estimated GFR > 60 Fasting Glucose 124 H Calcium 8.9 C-Reactive Protein 2.18 H Assessment and Plan (1) Crohn's disease of both small and large intestine: Status: Acute Plan Pt is a 19 yo male with PMH Crohns disease on Skyrizi, mesalamine, Asthma, weight loss since diagnosis, norovirus 04/10 with Crohn's Flare, constipation presents to the emergency department ambulatory with reports of increasing abdominal pain over the past 2 days and an episode of vomiting one time today with no report of diarrhea or bloody stool. Pt being admitted for Crohn's flare 1.Acute Crohn's -slow to improve... We will advance diet to low-fiber at patient's request -continue IV steroids and supplemental IV fluids -continue outpatient therapies 2.Asthma -stable and well compensated -continue outpatient therapy Lovenox FULL CODE STATUS Patient will require ongoing hospitalization for continued IV steroids and supplemental fluids given poor response to current therapies re-evaluate in a.m. Quality Stroke Does the patient have a stroke diagnosis?: No Reason for No Anti-thrombotic by Day Two: N/A - Med Ordered VTE Prior VTE?: No VTE Risk Level:: Medical - moderate - high VTE Device Contraindication: N/A - Device Ordered VTE Drug Contraindication: N/A - Med Ordered
[2025-07-10 14:59] VITALS: BP 111/64; PULSE 88; RESP 18; TEMP 36.4; O2SAT 98
[2025-07-10] MEDS: 0.9 % Sodium Chloride Flush 3 ML SYRINGE IVFLUSH ×2 (16:19→20:18)
[2025-07-10 18:59] VITALS: BP 128/68; PULSE 97; RESP 18; TEMP 36.7; O2SAT 98
--- NOTE | 2025-07-10 20:00 | P.PNGI_ITS ---
Subjective Subjective Date of Service: 07/10/25 Interval History: Reports feeling better overall. Had his first BM here a little while ago. Still with lower abdominal discomfort, but improved. He tolerated 2 meals today thus far Critical Care Time (minutes): 0 Physical Exam 2 Vital Signs: Vital Signs: Last Vital Signs Temp 98.0 F 07/10/25 18:59 Pulse 97 07/10/25 18:59 Resp 18 07/10/25 18:59 BP 128/68 07/10/25 18:59 Pulse Ox 98 07/10/25 18:59 O2 Del Method Room Air 07/10/25 18:59 BMI result Body Mass Index 20.1 Const: General: cooperative, healthy appearing, comfortable, no acute distress, well developed, alert, awake and Physically active GI: Other: Abd-+BS, soft, still with lower abdominal tenderness but seems improved, no mass/rebound/guarding. Objective Data Labs 07/10/25 05:24 07/10/25 05:24 Labs: Laboratory Results - last 24 hr 07/10/25 05:24 WBC 14.7 H RBC 4.55 L Hgb 12.6 L Hct 38.3 L MCV 84.2 MCH 27.7 MCHC 32.9 RDW 13.9 Plt Count 224 MPV 9.0 L Immature Gran % (Auto) 0.8 H Neut % (Auto) 92.0 H Lymph % (Auto) 3.9 L [place] % (Auto) 3.1 Eos % (Auto) 0.1 Baso % (Auto) 0.1 Lymph # (Auto) 0.6 L [place] # (Auto) 0.5 Eos # (Auto) 0.0 Baso # (Auto) 0.0 Abs Immat Gran (auto) 0.12 H Absolute Neuts (auto) 13.5 H Absolute Nucleated RBC 0.000 Nucleated RBC % (auto) 0.0 Smear Tech's Comments VERIFIED ESR 22 H Sodium 137 Potassium 3.9 Chloride 104 Carbon Dioxide 27 Anion Gap 10 L BUN 9 Creatinine 0.60 Estim Creat Clear Calc 182.9 Estimated GFR > 60 Fasting Glucose 124 H Calcium 8.9 C-Reactive Protein 2.18 H Procedures Date of Service Date of Service: 07/10/25 Progress Note: A&P Assessment and plan (1) Crohn's disease of both small and large intestine with abscess: Status: Acute Assessment and Plan: Imp: Crohn's disease seems to be clinically improving on the IV steroids. Abdominal exam seems stable and somewhat improved. There is no clinical evidence of bowel obstruction based on his current exam, and he had a BM today and there has been no vomiting. Rec: Continue current regimen and diet. If stable on 07/11 he could possibly be discharged with restarting of a prednisone taper at 40mg daily with a 5mg per week taper(I can send a Rx for that from my office). He will continue his Pentasa 1Gm QID, and the Skyrizi SQ injections every 8 weeks with the next one due toward the end of 08/2025. I will arrange for outpatient follow up. He understood and was comfortable with this plan. Thanks Time Spent With Patient Time: Total time managing care of this patient today ____ minutes. Quality Stroke Does the patient have a stroke diagnosis?: No Reason for No Anti-thrombotic by Day Two: N/A - Med Ordered VTE Prior VTE?: No VTE Risk Level:: Medical - moderate - high VTE Device Contraindication: N/A - Device Ordered VTE Drug Contraindication: N/A - Med Ordered
[2025-07-11 05:41] LABS: Hematocrit 39.1 % (42.0-52.0); Hemoglobin 12.8 g/dl (14.0-18.0); Imm Gran Abs Auto 0.07 X10*3/uL (0.00-0.03); Imm Gran Pct Auto 0.5 % (0.0-0.4); Lymphocytes Absolute Auto 0.5 X10*3/uL (1.2-4.9); MANUAL DIFF FLAG SCAN; Mean Corpuscular HGB Conc 32.7 g/dl (31.0-36.0); Mean Corpuscular Hemoglobin 27.5 pg (27.0-33.0); Mean Corpuscular Volume 84.1 fL (80.0-98.0); NRBC Abs Auto 0.000 X10*3/uL (0.0-0.012); NRBC Pct Auto 0.0 /100WBC (0.0-0.2); Platelet Count 213 X10*3/uL (160-400); Red Blood Count 4.65 X10*6/uL (4.60-5.80); SCAN SMEAR FLAG 1; White Blood Count 13.0 X10*3/uL (4.8-10.8)
[2025-07-11 05:56] LABS: Alanine Aminotransferase 14 U/L (0-40); Albumin Level 3.4 g/dL (3.5-5.0); Alkaline Phosphatase 42 U/L (39-117); Anion Gap 9 (12-20); Aspartate Amino Transferase 13 U/L (5-37); Blood Urea Nitrogen 14 mg/dL (9-16); Calcium 8.9 mg/dL (8.4-10.2); Carbon Dioxide 28 mmol/L (22-29); Chloride 104 mmol/L (96-108); Creatinine Clr Calc Pharmacy 177.0; Estimated Glomerular Filt Rate > 60; Potassium 4.1 mmol/L (3.3-5.1); Sodium 137 mmol/L (135-145); Total Protein 6.0 g/dL (6.5-8.0)
[2025-07-11 08:00] VITALS: BP 116/73; PULSE 65; RESP 16; TEMP 36.9; O2SAT 97
[2025-07-11] MEDS: oxyCODONE HCl Immed Release 5 MG TABLET 10 MG PO ×3 (09:12→22:10)
--- NOTE | 2025-07-11 11:48 | MHC.CM.PN ---
Per MD rounds, not medically cleared for dc, potentially later today if tolerating diet. CM will continue to follow.
[2025-07-11] MEDS: 0.9 % Sodium Chloride Flush 3 ML SYRINGE IVFLUSH ×2 (14:48→19:50)
--- NOTE | 2025-07-11 15:59 | HO.PM.IMPN ---
Subjective Subjective Date of Service: 07/11/25 Interval History: Still with abdominal pain after certain foods. No fever or chills Review of Systems Pt currently denies abdominal pain, chest pain or SOB at rest. Pt is not having any N/V, fever, chills or AHUMADA. Physical Exam Vital Signs: Vital Signs: Last Vital Signs Temp 98.5 F 07/11/25 08:00 Pulse 65 07/11/25 08:00 Resp 16 07/11/25 08:00 BP 116/73 07/11/25 08:00 Pulse Ox 97 07/11/25 08:00 O2 Del Method Room Air 07/11/25 08:00 BMI result Body Mass Index 20.1 Const: Other: Awake alert no acute distress Resp: Other: Clear to auscultation bilaterally no rales rhonchi or wheezes Cardio: Other: No S4; positive S1-S2; no S3 murmurs rubs or gallops GI: Other: Soft diffusely tender lower abdomen to light palpation. Some voluntary guarding Extrem: Other: No edema bilaterally Objective Data Active Medications Acetaminophen (Acetaminophen 325 Mg Tablet) 650 mg PO Q6H PRN PRN Reason: Pain, Mild 1-3,fever,headache Albuterol/Ipratropium (Albuterol/Iprat 2.5/0.5mg 3 Ml Ampul.Neb) 3 ml INHALE Q4H PRN PRN Reason: Shortness of Breath/Wheezing Bisacodyl (Bisacodyl 10 Mg Supp.Rect) 10 mg [place] BEDTIME PRN PRN Reason: Constipation Calcium Carbonate (Calcium Carbonate 750 Mg Tab.Chew) 750 mg PO Q4H PRN PRN Reason: Heartburn Hydromorphone HCl (Hydromorphone Hcl 1 Mg/Ml Syringe) 1 mg IVPUSH Q3H PRN; Protocol PRN Reason: Pain, Severe (Pain Scale 7-10) Last Admin: 07/11/25 12:10 Dose: 1 mg Documented By: AMILCAR Piperacillin Sod/Tazobactam (Sod 3.375 gm/ Sodium Chloride) 50 mls @ 100 mls/hr IV Q6H [facility] Last Infusion: 07/11/25 15:39 Dose: Infused Documented By: AMILCAR Magnesium Hydroxide (Milk Of Magnesia 30 Ml Oral.Susp) 30 ml PO DAILY PRN PRN Reason: Constipation Melatonin (Melatonin 3 Mg Tablet) 6 mg PO BEDTIME PRN PRN Reason: Insomnia Mesalamine (Mesalamine 250 Mg Capsule.Er) 1,000 mg PO QID [facility] Last Admin: 07/11/25 14:38 Dose: 1,000 mg Documented By: AMILCAR Methylprednisolone Sodium Succinate (Methylprednisolone Sod Succ 125 Mg/2 Ml Vial) 60 mg IVPUSH Q6H [facility] Last Admin: 07/11/25 14:42 Dose: 60 mg Documented By: AMILCAR Ondansetron HCl (Ondansetron Hcl 4 Mg/2 Ml Vial) 4 mg IVPUSH Q8H PRN PRN Reason: Nausea and Vomiting Oxycodone HCl (Oxycodone Hcl Immed Release 5 Mg Tablet) 10 mg PO Q4H PRN PRN Reason: Pain, Moderate(Pain Scale 4-6) Last Admin: 07/11/25 14:52 Dose: 10 mg Documented By: AMILCAR Polyethylene Glycol (Polyethylene Glycol 3350 17 Gm Powd.Pack) 17 gm PO DAILY PRN PRN Reason: Constipation Sodium Chloride (0.9 % Sodium Chloride Flush 3 Ml Syringe) 3 ml IVFLUSH QSHIFT [facility] Last Admin: 07/11/25 14:48 Dose: 3 ml Documented By: AMILCAR Labs 07/11/25 05:30 07/11/25 05:30 Labs: Laboratory Results - last 24 hr 07/11/25 05:30 MCV 84.1 MCH 27.5 MCHC 32.7 RDW 13.9 Plt Count 213 MPV 8.6 L Immature Gran % (Auto) 0.5 H Neut % (Auto) 91.6 H Lymph % (Auto) 4.1 L [place] % (Auto) 3.5 Eos % (Auto) 0.2 Baso % (Auto) 0.1 Lymph # (Auto) 0.5 L [place] # (Auto) 0.5 Eos # (Auto) 0.0 Baso # (Auto) 0.0 Abs Immat Gran (auto) 0.07 H Absolute Neuts (auto) 11.9 H Absolute Nucleated RBC 0.000 Nucleated RBC % (auto) 0.0 Smear Tech's Comments VERIFIED Anion Gap 9 L Estim Creat Clear Calc 177.0 Estimated GFR > 60 Fasting Glucose 136 H Calcium 8.9 Total Bilirubin 0.2 AST 13 ALT 14 Alkaline Phosphatase 42 Total Protein 6.0 L Albumin 3.4 L Assessment and Plan (1) Acute Crohn's disease: Status: Acute Plan Pt is a 19 yo male with PMH Crohns disease on Skyrizi, mesalamine, Asthma, weight loss since diagnosis, norovirus 04/10 with Crohn's Flare, constipation presents to the emergency department ambulatory with reports of increasing abdominal pain over the past 2 days and an episode of vomiting one time today with no report of diarrhea or bloody stool. Pt being admitted for Crohn's flare 1.Acute Crohn's -slow to improve... Discussed with GI we will continue current therapies -continue IV steroids and supplemental IV fluids -continue outpatient therapies 2.Asthma -stable and well compensated -continue outpatient therapy Lovenox FULL CODE STATUS Patient will require ongoing hospitalization for continued IV steroids and supplemental fluids given poor response to current therapies re-evaluate in a.m. Quality Stroke Does the patient have a stroke diagnosis?: No Reason for No Anti-thrombotic by Day Two: N/A - Med Ordered VTE Prior VTE?: No VTE Risk Level:: Medical - moderate - high VTE Device Contraindication: N/A - Device Ordered VTE Drug Contraindication: N/A - Med Ordered
[2025-07-11 16:00] VITALS: BP 118/71; PULSE 63; RESP 16; TEMP 36.6; O2SAT 98
--- NOTE | 2025-07-11 17:02 | P.CDIM_ITS ---
PROVIDER RESPONSE TEXT: To clarify, the appropriate diagnosis supported by the clinical indicators: Mild intermittent: without exacerbation QUERY TEXT: PHYSICIAN'S DOCUMENTATION REQUEST Date of Query: 07/11/2025 11:36 AM EST Patient Name: Bill Alaniz Admit Date: 07/08/2025 Dear Luis Nettles DO, A review of the medical record indicates additional documentation may be needed. Please review below and update the documentation accordingly. The diagnosis of asthma was documented in the record on 07/10/25. Additional clinical indicators from the record include: asthma, stable, continue outpatient therapy Based on the above, please clarify in the Progress Notes further specificity regarding the type and acuity of the asthma: Mild intermittent Please specify if with or without acute exacerbation or status asthmaticus Mild persistent Please specify if with or without acute exacerbation or status asthmaticus Moderate persistent Please specify if with or without acute exacerbation or status asthmaticus Severe persistent Please specify if with or without acute exacerbation or status asthmaticus Exercise induced Please specify if with or without acute exacerbation or status asthmaticus Chronic obstructive asthma and indicate if with acute lower respiratory infection Please specify if with or without acute exacerbation or status asthmaticus Asthma with underlying COPD and indicate if with acute lower respiratory infection Please specify if with or without acute exacerbation or status asthmaticus Other (explain) Clinically unable to determine (explain) Thank you, Cynthia Sandoval RN Use of terms such as suspected, likely, concern for, or probable (associated with a specific diagnosis that is being evaluated, monitored, or treated as if it exists) are acceptable and can be coded in the inpatient setting, when documented at the time of discharge. Please use your independent medical judgment in providing your response. THIS QUERY IS PART OF THE PERMANENT MEDICAL RECORD
--- NOTE | 2025-07-11 17:37 | P.PNGI_ITS ---
Subjective Subjective Date of Service: 07/11/25 Interval History: Feeling improved but still with lower abdominal tenderness. Tolerating po's. Denies any BM's today, N/V,fevers, chills, or nausea. Critical Care Time (minutes): 0 Physical Exam 2 Vital Signs: Vital Signs: Last Vital Signs Temp 98.5 F 07/11/25 08:00 Pulse 65 07/11/25 08:00 Resp 16 07/11/25 08:00 BP 116/73 07/11/25 08:00 Pulse Ox 97 07/11/25 08:00 O2 Del Method Room Air 07/11/25 08:00 BMI result Body Mass Index 20.1 Const: General: cooperative, healthy appearing, comfortable, no acute distress, well developed, alert, awake and Physically active GI: Other: Abd-Soft, +BS, Nondistended, mild tenderness in the RLQ and suprapubic area, no mass, rebound or guarding Objective Data Labs 07/11/25 05:30 07/11/25 05:30 Labs: Laboratory Results - last 24 hr 07/11/25 05:30 WBC 13.0 H RBC 4.65 Hgb 12.8 L Hct 39.1 L MCV 84.1 MCH 27.5 MCHC 32.7 RDW 13.9 Plt Count 213 MPV 8.6 L Immature Gran % (Auto) 0.5 H Neut % (Auto) 91.6 H Lymph % (Auto) 4.1 L [place] % (Auto) 3.5 Eos % (Auto) 0.2 Baso % (Auto) 0.1 Lymph # (Auto) 0.5 L [place] # (Auto) 0.5 Eos # (Auto) 0.0 Baso # (Auto) 0.0 Abs Immat Gran (auto) 0.07 H Absolute Neuts (auto) 11.9 H Absolute Nucleated RBC 0.000 Nucleated RBC % (auto) 0.0 Smear Tech's Comments VERIFIED Sodium 137 Potassium 4.1 Chloride 104 Carbon Dioxide 28 Anion Gap 9 L BUN 14 Creatinine 0.62 Estim Creat Clear Calc 177.0 Estimated GFR > 60 Fasting Glucose 136 H Calcium 8.9 Total Bilirubin 0.2 AST 13 ALT 14 Alkaline Phosphatase 42 Total Protein 6.0 L Albumin 3.4 L Procedures Date of Service Date of Service: 07/11/25 Progress Note: A&P Assessment and plan (1) Crohn's disease of both small and large intestine: Status: Acute Assessment and Plan: Imp/Recs: Overall, he seems to be improved on the IV steroids. Seems to be tolerating his diet. Abdominal exam seems improved as well. I will change him to po prednisone tomorrow morning in hopes of facilitating his discharge over the weekend. He will continue his Pentasa and SQ Skyrizi injections at home as well. I did send a Rx for the prednisone to his pharmacy. I will follow him up in the office as well. D/W patient in detail and he is comfortable with the plan. I told him to call me with any problems or questions in the interim. Thanks Time Spent With Patient Time: Total time managing care of this patient today ____ minutes. Quality Stroke Does the patient have a stroke diagnosis?: No Reason for No Anti-thrombotic by Day Two: N/A - Med Ordered VTE Prior VTE?: No VTE Risk Level:: Medical - moderate - high VTE Device Contraindication: N/A - Device Ordered VTE Drug Contraindication: N/A - Med Ordered
[2025-07-11 19:40] VITALS: BP 130/65; PULSE 84; RESP 18; TEMP 36.2; O2SAT 97
[2025-07-12 03:36] VITALS: BP 132/58; PULSE 63; RESP 18; TEMP 36.4; O2SAT 98
[2025-07-12 08:00] VITALS: BP 115/63; PULSE 83; RESP 16; TEMP 36.4; O2SAT 99
[2025-07-12] MEDS: 0.9 % Sodium Chloride Flush 3 ML SYRINGE IVFLUSH ×2 (08:18→14:20)
--- NOTE | 2025-07-12 14:18 | PM.DS ---
DS: Providers Provider Date of admission: 07/08/25 03:35 Date of discharge: 07/12/25 Primary care physician: Polo Davalos MD Consults: 07/08/25 03:47 Consult to Gastroenterology Routine Consulting Provider: Vince Jones Reason for consultation: Crohn's flare, abd pain Has provider been notified: No DS: Diagnosis Discharge Diagnosis (1) Crohn's disease of both small and large intestine: Status: Acute DS: Summary Hospital Course Hospital Course: 19 yo male with PMH Crohns disease on Skyrizi, mesalamine, Asthma, weight loss since diagnosis, norovirus 04/10 with Crohn's Flare, constipation presents to the emergency department ambulatory with reports of increasing abdominal pain over the past 2 days and an episode of vomiting one time today with no report of diarrhea or bloody stool. Patient states that 4 days ago he had a dose of Skyrizi ([id number]) - per ED record. Pt received dilaudid for the abdominal pain and is currently pain free but somewhat groggy, asking to sleep. Pt was able to say that he has had no fever, chills or other concerning symptoms currently. Ct ABD and PELVIS without contrast notes Again seen is an extensive inflammatory process involving the right pelvis, including the cecum, terminal ileum and rectum. Findings concerning for inflammatory bowel disease. Evaluation for fistula and abscess limited without oral contrast, however no definite abscess seen. Dilatation and fecalization of the distal ileum concerning for slow transit through the terminal ileum. Pt does have a leukocytosis of 19, no bandemia. Pt started on levofloxacin IV. Pt also received methylprednisolone 125 mgs IV. Pt currently on IVF, NPO for now. Hospital Course Patient admitted to general medical floor and maintained on pulse dose steroids. He was maintained on clear liquids and slowly advanced to full liquids. He was seen in consultation by GI who agreed with plan of care. His diet was initially advanced to full liquids then then low residue however pain returned with low residue diet. He was downgraded again to clear liquids and did well. Over the last 24 hours prior to discharge he is tolerating advancement to a low residue diet and is point in time is medically acceptable for discharge home on steroids. Time Attestation Discharge Coordination Time (in mins): 35 Quality: Safe Use of Opioids Does Pt have an Active Cancer Diagnosis on the Problem List?: No Quality: Stroke Does the patient have a stroke diagnosis?: No Physical Exam Vital Signs: Vital Signs: Last Vital Signs Temp 97.6 F 07/12/25 08:00 Pulse 83 07/12/25 08:00 Resp 16 07/12/25 08:00 BP 115/63 07/12/25 08:00 Pulse Ox 99 07/12/25 08:00 O2 Del Method Room Air 07/12/25 08:00 BMI result Body Mass Index 20.1 Const: Other: Awake alert no acute distress Resp: Other: Clear to auscultation bilaterally no rales rhonchi or wheezes Cardio: Other: No S4; positive S1-S2; no S3 murmurs rubs or gallops GI: Other: Soft diffusely tender lower abdomen to light palpation. Some voluntary guarding Extrem: Other: No edema bilaterally Discharge Plan Discharge Anticipated Discharge Date/Time: 07/12/25 14:10 Patient Disposition: Home, Self-Care Discharge Diagnosis: Acute Crohn's flare Referrals: Polo Davalos MD [Primary Care Provider, Pediatrics] - 1 Week Discharge Medications: New oxycodone 10 mg tablet 10 mg PO Q6H PRN (Reason: pain) Qty: 20 0RF Rx Instructions: Partial Fill upon patient request. Continued Skyrizi 180 mg/1.2 mL (150 mg/mL) wearable injector 180 mg SUBCUT Q8W prednisone 10 mg tablet See Rx Instructions .ROUTE .COMPLEX Taper: Prednisone 30 daily for 4 Days and 0 Hour 20 daily for 7 Days and 0 Hour 10 daily for 7 Days and 0 Hour Rx Instructions: 40 mg daily x 7 days, then 30 mg daily x 7 days, then 20 mg daily x 7 days, then 10 mg daily x 7 days mesalamine [Pentasa] 500 mg Capsule, Extended Release 1,000 mg PO QID Discharge Orders: Discharge Order (Routine); Ordered 07/12/25 Ordered By: Luis Nettles Diet: Advance to usual diet Activity on Discharge: As tolerated Stand Alone Forms: Patient Portal Discharge page Print Language: Green[place]ic Care Plan Goals: Dr. Jones has called in a prednisone taper. Complete taper as ordered and follow up with him in the office. Health Concerns: Oxycodone has been sent to your pharmacy take it every 6 hours as needed for pain Plan of Treatment: Resume all therapies as taken prior to hospitalization Assessment: See discharge summary
[2025-07-12 15:35] VITALS: BP 118/55; PULSE 76; RESP 14; TEMP 36.2; O2SAT 98
--- NOTE | 2025-07-12 16:01 | MHC.CM.PN ---
PT TO DC HOME TODAY WITH NO SERVICES [facility]SPORT ARRANGED TO [address] [place], [place] [address]
== END 2025-07-12 17:53 | disposition home or self-care (01) | DRG 245 ==
LOC: HO.ED 07-08 04:52 → HO.EDOVER 07-08 05:19 → HO.S3 07-08 07:29
PROVIDERS: Internal Medicine; Admitting Provider Nurse Practitioner Family; Emergency Provider Emergency Medicine; PCP Pediatrics; Visit Provider Hospitalist
DX: K50.119 Crohn's disease of large intestine with unspecified complications (principal); J45.20 Mild intermittent asthma, uncomplicated; K59.00 Constipation, unspecified; Z79.620 Long term (current) use of immunosuppressive biologic; Z79.899 Other long term (current) drug therapy
CPT/HCPCS: 36415; 74177; 80048; 80053; 80076; 80307; 81003; 83690; 85025; 85027; 85652; 86140; 99284; J0737; J1171; J1956; J2405; J2543; J2919; Q9967

== ENCOUNTER → 2025-07-08 00:23 | Outpatient (BNV) | payer MEDICAID, SELFPAY | PROVIDERS: Emergency Provider Emergency Medicine; PCP Pediatrics; Visit Provider Radiology Diagnostic Radiology | DX: N49.9 Inflammatory disorder of unspecified male genital organ (principal); K52.89 Other specified noninfective gastroenteritis and colitis | CPT/HCPCS: 74177 ==

== ENCOUNTER → 2025-07-08 03:35 | Outpatient (BNV) | payer MEDICAID, SELFPAY | PROVIDERS: Admitting Provider Nurse Practitioner Family; Emergency Provider Emergency Medicine; PCP Pediatrics; Visit Provider Hospitalist | DX: K50.918 Crohn's disease, unspecified, with other complication (principal) | CPT/HCPCS: 99233; 99499 ==